=== PATIENT | female | born 1955 | race Caucasian/White ===

== ENCOUNTER 2020-03-25 14:52 | Outpatient (CLI) | payer MEDICARE, MEDICAID, SELFPAY | END 2020-03-25 14:53 | disposition home or self-care (01) | LOC: SPT 14:53 | PROVIDERS: Family Provider Nurse Practitioner Family; Visit Provider Podiatrist Foot & Ankle Surgery | DX: Z46.89 Encounter for fitting and adjustment of other specified devices (principal); M84.464D Pathological fracture, left fibula, subsequent encounter for fracture with routine healing; X58.XXXD Exposure to other specified factors, subsequent encounter | CPT/HCPCS: L4361 ==

== ENCOUNTER 2020-03-28 08:08 | Day surgery (SDC) | payer MEDICARE, MEDICAID, SELFPAY ==
[2020-03-27 10:52] VITALS: BMI 39.9
[2020-03-27 13:54] VITALS: BMI 39.9
--- NOTE | 2020-03-28 | XR_ITS ---
WS: [id number] XR ankle LT 2V [id number] REASON FOR EXAM: ORIF left fibula FINDINGS: A metal plate is seen transversing the fracture of the fibula demonstrate screws through th e plate are noted. Good alignment conclusion of the procedure. XR/XR ankle LT 2V [id number] IMPRESSION: Satisfactory immobilized and internal fixation fracture of the fibula.
--- NOTE | 2020-03-28 | SCC_ITS ---
Procedure Done: Open reduction internal fixation left distal fibular fracture. CPT code 34663 - seconds of fluoroscopic guidance, for a cumulative dose of - mGy, was provided to Dr. Dominguez by the radiology department. C-arm images of the LEFT ankle were saved for the patient's permanent record. [facility]
[2020-03-28 08:27] VITALS: BP 179/87; PULSE 85; RESP 16; TEMP 36.6; O2SAT 97
[2020-03-28 08:33] VITALS: BMI 39.9
--- NOTE | 2020-03-28 08:46 | ANES.PREANE2 ---
Pre-Anesthetic Assessment Pre-Anesthetic Assessment: Height/Weight: Height 1.57 m Weight 98.883 kg Temp Pulse Resp BP Pulse Ox 97.9 F 85 16 179/87 97 03/28/20 08:27 03/28/20 08:27 03/28/20 08:27 03/28/20 08:27 03/28/20 08:27 Preop Diagnosis: Left distal fibular fracture Proposed Procedure: Operation Date: 03/28/20 09:25 Proposed Procedures p ORIF left fibula 16417 S82.402A(Left) - Alek Dominguez DPM Familial anesthetic complications: None Was Beta Adriana taken within 24 hours: N/A Last intake: Intake Last Liquid Date 03/27/20 Last Liquid Time 20:00 Last Solid Date 03/27/20 Last Solid Time 20:00 Social: Social History: No alcohol and No tobacco Exam: Pre-Anes Outpt Exam: alert, oriented x 3, clear to auscultation bilaterally and regular rate & rhythm Airway: Cervical ROM: WNL MP: 2 Additional comments: dentures Pulmonary: Pulmonary: Sleep apnea (cpap) and URI ( i thought i had the flu, but it was alllergies. Negative flud and covid)) CV/HEM: CV/HEM: HTN : : None reported Hepatic: Hepatic: None reported GI: GI: None reported Metabolic: Metabolic: DM, Hyperlipidemia and Morbid obesity Musc/skel: Musc/skel: OA/DJD Neuropsych: Neuropsych: None reported Anesthetic Plan: ASA status: 2 Anesthesia: General and Regional (specify below) Risk of > 500 ml blood loss (7ml/kg in children): No PFSH Anesthesia PFSH: Medical History (Updated 03/26/20 @ 10:00 by Alek Dominguez DPM) Diabetes mellitus High cholesterol Hypertension Surgical History (Updated 03/26/20 @ 09:54 by Alek Dominguez DPM) History of Achilles tendon repair History of hernia repair History of neck surgery Family History (Updated 03/25/20 @ 12:07 by Mehreen Walters LPN) Other Cancer Diabetes Social History (Updated 03/25/20 @ 12:07 by Mehreen Walters LPN) Smoking and tobacco status: never smoked Household members: children Current occupational status: disabled Female Reproductive History: Date of last menstrual period: 09/13/07 Data Anesthesia Cardiac Studies: No Data to Display
[2020-03-28 08:53] LABS: Glucose Point of Care 182 mg/dL (70-110)
[2020-03-28] MEDS: sodium chloride 0.9% 1,000 ML 30 ML IV (08:59)
[2020-03-28] MEDS: midazolam 1 mg/mL INJ 2 mL 2 MG IVP (09:07)
--- NOTE | 2020-03-28 09:16 | ANES.PROC ---
Anesthesia Procedures Procedure/Date: 03/28/20 Nerve Block ^: Nerve Block 1: Main Anesthesia: general anesthesia Time Out Performed: Yes Consent: requested by attending/covering physician, from patient, risks and benefits reviewed and patient agrees to proceed Nerve block location: popliteal (L) Anesthesia monitors applied: pulse oximetry, BP cuff and oxygen Nerve block position: semi sitting Anesthetic Used: ropivicaine 0.5% and with decadron Amount of anesthesia used (mL): 30 Ultrasound used to: recognize landmarks Interscalene/Femoral BLK: 4 stimuplex 21 g needle used for position and inplane approach Injection: neg aspiration of heme and paresthesia +/- Patient Tolerated Procedure: well and no complications Complications: none
--- NOTE | 2020-03-28 09:37 | W.PM.OPSUD ---
Surgery/Procedure H&P Update DATE OF PROCEDURE: March 28, 2020 DATE H&P PERFORMED: 03/25/20 H&P UPDATE INFORMATION: I have reviewed H&P completed within last 30 days, I have examined patient prior to procedure and H&P is in [facility] EMR on date indicated PREOP DIAGNOSIS: Left distal fibular fracture PLANNED PROCEDURE: Operation Date: 03/28/20 09:25 Proposed Procedures p ORIF left fibula 01674 S82.402A(Left) - Alek Dominguez DPM
[2020-03-28 11:05] VITALS: BP 127/69; PULSE 78; RESP 20; TEMP 36.3; O2SAT 98
--- NOTE | 2020-03-28 11:09 | SUR.PHASEI ---
PT AWAKE ALERT DENIES PAIN AND NAUSEA, PT TALKATIVE AND REQUESTS SOMETHING TO DRINK DRESSING AND BOOT TO LT FOOT D/I
[2020-03-28 11:10] VITALS: BP 119/56; PULSE 71; RESP 15; O2SAT 100
[2020-03-28 11:15] VITALS: BP 124/63; PULSE 75; RESP 18; TEMP 36.5; O2SAT 95
[2020-03-28 11:16] VITALS: BP 124/98; PULSE 72; RESP 18; TEMP 36.5; O2SAT 94
[2020-03-28 11:41] VITALS: BP 120/73; PULSE 72; RESP 16; O2SAT 94
--- NOTE | 2020-03-28 13:09 | SCC_ITS ---
Procedure Done: Open reduction internal fixation left distal fibular fracture. CPT code 95044 C-arm images of the LEFT ankle were saved for the patient's permanent record. [facility]
--- NOTE | 2020-03-30 21:43 | PM.OP ---
Operative Report Date of procedure: March 28, 2020 Pre-op Diagnosis: Left distal fibular fracture Post-op diagnosis: same Procedure Done: Open reduction internal fixation left distal fibular fracture. CPT code 30945 Implants: Angélica one third tubular plate and 3.5 mm locking and nonlocking screws. Specimens removed/disposition: None Pathology: none sent Surgeon: Alek Dominguez D.P.M. Insurance Sales Manager: Freddy Anesthesia: General Estimated blood loss: 5 mL IV fluids: None Urine output: None Complications: None Findings: Chavo Griggs B fracture left ankle Condition: stable Disposition: PACU Brief History: Ms. Billy is a pleasant 64-year-old diabetic female sustained a left distal fibular fracture consistent with Chavo Griggs B. Recommended open reduction internal fixation risks include pain, bleeding, numbness, infection, damage to adjacent soft tissue structures, swelling, bruising, hardware failure, hardware irritation, risks associate with anesthesia, also explained the likelihood of posttraumatic arthritis in the future as a sequela of this injury. Patient is agreeable wishes to proceed. Procedure: Under mild sedation the patient was brought to the operating room and placed on operating table in supine position. A timeout was performed. Anesthesia was administered by the anesthesia service. Saphenous nerve block was then performed by myself 5 cc of 0.5% Marcaine plain. Popliteal block of the left lower extremity was carried out by anesthesia preoperatively. Well-padded pneumatic tourniquet was applied to the left thigh. Left lower extremity was then scrubbed, prepped and draped utilizing normal aseptic technique. Left lower extremity was then examined a weighted with an Esmarch bandage and the tourniquet was inflated to 250 mmHg. Attention was directed to the distal fibula of the left ankle or bony landmarks were palpated and skin incision marked out this was approximately 10 cm in length. At the distal fibula coursing proximally a #15 blade was utilized to perform skin incision utilizing a combination of blunt and sharp technique dissection was carried down to the periosteum followed by a linear periosteal incision. Care was taken to retract and preserve neurovascular and tendinous structures. All bleeders were ligated and cauterized as necessary. The fracture hematoma was removed utilizing curettage followed by saline flush. Fracture was reduced with traction of the left foot and ankle utilizing reverse mechanism of injury fracture was adequately reduced and temporarily held utilizing a [id number] bone reduction forceps. Next utilizing standard AO technique a [place] one third tubular plate was employed utilizing a combination of locking and nonlocking 3 5 screws. Temporary fixation was removed and positioning of orthopedic hardware was confirmed with direct visualization as well as 3 views of intraoperative fluoroscopy noted to be excellent not violating the ankle mortise fibula is out to length without any rotational deformity with fracture anatomically reduced. Construct was stable, cotton hook test performed no syndesmotic interruption appreciated. Incision site was flushed with saline solution. Periosteum was reapproximated utilizing 2-0 Vicryl. Subcutaneous tissue closed with 4-0 Vicryl and skin closed with skin lisa. Incision site was dressed with Adaptic, sterile 4 x 4's, Kerlix and Denzel wrap. Cam boot was then applied. Tourniquet was deflated and a prompt hyperemic response was noted to the distal digits of the left foot. Patient tolerated procedure well and was transferred to the PACU with vital signs stable and vascular status intact. Following a period of postoperative monitoring she will be discharged home is to remain strict nonweightbearing and elevate her left foot at all times while at rest. She was sent a prescription for narcotic pain medication to be taken judiciously as prescribed. She will follow-up next week for dressing change. Was provided my cell phone number and is to contact me with any postoperative questions or concerns.
== END 2020-03-28 11:55 | disposition home or self-care (01) ==
PROVIDERS: PCP Nurse Practitioner Family; Visit Provider Podiatrist Foot & Ankle Surgery
PROC: (CPT 27792; principal; 2020-03-28 09:25)
DX: S82.402A Unspecified fracture of shaft of left fibula, initial encounter for closed fracture (principal); X50.1XXA Overexertion from prolonged static or awkward postures, initial encounter; Z79.82 Long term (current) use of aspirin; E11.9 Type 2 diabetes mellitus without complications; I10 Essential (primary) hypertension; Z79.84 Long term (current) use of oral hypoglycemic drugs
CPT/HCPCS: 27792; 12345; 36416; 73600; 76000; 82962; 96365; 96374; C1713; J0690; J1100; J2001; J2250; J2405; J2704; J2795; J3010; J3490; J7030

== ENCOUNTER → 2020-04-10 15:54 | Outpatient (BNVA) | payer MEDICARE, MEDICAID, SELFPAY | PROVIDERS: PCP Nurse Practitioner Family; Visit Provider Podiatrist Foot & Ankle Surgery | DX: Z98.890 Other specified postprocedural states (principal) | CPT/HCPCS: 73610 ==

== ENCOUNTER → 2020-04-30 14:32 | Outpatient (BNVA) | payer MEDICARE, MEDICAID, SELFPAY | PROVIDERS: PCP Nurse Practitioner Family; Visit Provider Podiatrist Foot & Ankle Surgery | DX: Z98.890 Other specified postprocedural states (principal) | CPT/HCPCS: 73610 ==

== ENCOUNTER 2020-05-16 09:31 | Outpatient (CLI) | payer MEDICARE, MEDICAID, SELFPAY ==
--- NOTE | 2020-05-16 09:39 | XRR_ITS ---
PROCEDURE INFORMATION: Exam: XR Left Ankle Exam date and time: 05/16/2020 9:56 AM Age: 64 years old Clinical indication: Condition or disease; Other: Post op follow up; Prior surgery; Surgery date: 1-6 months; Additional info: Post operative TECHNIQUE: Imaging protocol: XR Left ankle. Views: 3 or more views. COMPARISON: CR XR ankle LT min 3V* [id number] 04/30/2020 2:37 PM FINDINGS: Bones/joints: Malleable surgical plate and screws stabilizing a distal fibular fracture in near anatomical alignment. Large spur formation at the insertion of the Achilles' tendon and plantar aponeurosis. Ankle mortise is symmetrical. Soft tissues: Normal. XR/XR ankle LT min 3V* [id number] IMPRESSION: 1. Malleable surgical plate and screws stabilizing a distal fibular fracture in near anatomical alignment. 2. Large spur formation at the insertion of the Achilles' tendon and plantar aponeurosis.
== END 2020-05-16 09:32 | disposition home or self-care (01) ==
LOC: RAD 09:37
PROVIDERS: PCP Nurse Practitioner Family; Visit Provider Podiatrist Foot & Ankle Surgery
DX: Z98.890 Other specified postprocedural states (principal); S82.832A Other fracture of upper and lower end of left fibula, initial encounter for closed fracture; X58.XXXA Exposure to other specified factors, initial encounter
CPT/HCPCS: 73610

== ENCOUNTER 2020-05-28 13:20 | Outpatient (CLI) | payer MEDICARE, MEDICAID, SELFPAY ==
--- NOTE | 2020-05-28 13:27 | XRR_ITS ---
PROCEDURE INFORMATION: Exam: XR Left Ankle Exam date and time: 05/28/2020 1:50 PM Age: 64 years old Clinical indication: Condition or disease; Other: Post operative; Prior surgery; Surgery date: Post-operative (0-2 days) TECHNIQUE: Imaging protocol: XR Left ankle. Views: 3 or more views. COMPARISON: CR XR ankle LT min 3V* [id number] 05/16/2020 9:49 AM FINDINGS: Bones/joints: There is an oblique fracture of the lateral malleolus. There is a Metallic plate and screws are seen in the lateral malleolus. The bones show anatomic alignment. No acute bony abnormalities seen. There is a bone spur inferior calcaneus. Soft tissues: Normal. Other findings: Comparison to prior examination similar findings is seen. XR/XR ankle LT min 3V* [id number] IMPRESSION: 1. Oblique fracture lateral malleolus status post ORIF. 2. A bone spurs present on the inferior calcaneus
== END 2020-05-28 13:21 | disposition home or self-care (01) ==
LOC: RAD 13:24
PROVIDERS: PCP Nurse Practitioner Family; Visit Provider Podiatrist Foot & Ankle Surgery
DX: Z98.890 Other specified postprocedural states (principal); S82.62XA Displaced fracture of lateral malleolus of left fibula, initial encounter for closed fracture; X58.XXXA Exposure to other specified factors, initial encounter; M77.32 Calcaneal spur, left foot
CPT/HCPCS: 73610

== ENCOUNTER 2020-05-28 14:31 | Outpatient (CLI) | payer MEDICARE, MEDICAID, SELFPAY | END 2020-05-28 14:32 | disposition home or self-care (01) | LOC: SPT 14:32 | PROVIDERS: PCP Nurse Practitioner Family; Visit Provider Podiatrist Foot & Ankle Surgery | DX: Z46.89 Encounter for fitting and adjustment of other specified devices (principal); Z98.890 Other specified postprocedural states; S82.62XA Displaced fracture of lateral malleolus of left fibula, initial encounter for closed fracture; X58.XXXA Exposure to other specified factors, initial encounter; M77.32 Calcaneal spur, left foot | CPT/HCPCS: 73610; 97760; L1902 ==

== ENCOUNTER → 2020-06-26 14:13 | Outpatient (BNVA) | payer MEDICARE, MEDICAID, SELFPAY | PROVIDERS: PCP Nurse Practitioner Family; Visit Provider Podiatrist Foot & Ankle Surgery | DX: Z47.89 Encounter for other orthopedic aftercare (principal); S82.62XD Displaced fracture of lateral malleolus of left fibula, subsequent encounter for closed fracture with routine healing; W19.XXXD Unspecified fall, subsequent encounter | CPT/HCPCS: 73610 ==

== ENCOUNTER 2020-10-22 13:13 | Outpatient (CLI) | payer MEDICARE, MEDICAID, SELFPAY ==
--- NOTE | 2020-10-22 13:31 | MM_ITS ---
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 FINDINGS: Scattered fibroglandular densities bilaterally. Lucent centered calcification right breast. Palpable marker upper outer left breast. No underlying mammographic abnormality. Ultrasound is pending. Right breast is unremarkable and unchanged. ULTRASOUND BREAST LEFT TECHNIQUE: Ultrasound left breast focused area of concern. CLINICAL INFORMATION: D49.3 NEOPLASM OF UNSPECIFIED BEHAVIOR OF BREAST COMPARISON: None. FINDINGS: Ultrasound left breast upper-outer quadrant. Normal-appearing parenchymal tissue. No cystic or solid lesions. No lesions to target for biopsy. Recommend return to annual screening mammography. MM/[place] [id number] IMPRESSION: BI-RADS: 2-Benign FOLLOW UP: 1 Year Follow-up Recommend return to annual screening mammography.
--- NOTE | 2020-10-22 14:06 | US_ITS ---
WS: [id number] BILATERAL DIGITAL DIAGNOSTIC MAMMOGRAM MAMMOGRAPHY WITH CAD CLINICAL INFORMATION: D49.3 NEOPLASM OF UNSPECIFIED BEHAVIOR OF BREAST COMPARISON: TECHNIQUE: Bilateral CC, MLO, and ML views. FINDINGS: Scattered fibroglandular densities bilaterally. Lucent centered calcification right breast. Palpable marker upper outer left breast. No underlying mammographic abnormality. Ultrasound is pending. Right breast is unremarkable and unchanged. ULTRASOUND BREAST LEFT TECHNIQUE: Ultrasound left breast focused area of concern. CLINICAL INFORMATION: D49.3 NEOPLASM OF UNSPECIFIED BEHAVIOR OF BREAST COMPARISON: None. FINDINGS: Ultrasound left breast upper-outer quadrant. Normal-appearing parenchymal tissue. No cystic or solid lesions. No lesions to target for biopsy. Recommend return to annual screening mammography. US/US breast LT limited* [id number] IMPRESSION: BI-RADS: 2-Benign FOLLOW UP: 1 Year Follow-up Recommend return to annual screening mammography.
== END 2020-10-22 13:14 | disposition home or self-care (01) ==
LOC: RADSHAW 13:18
PROVIDERS: PCP Nurse Practitioner Family; Visit Provider Nurse Practitioner Family
DX: D49.3 Neoplasm of unspecified behavior of breast (principal); R92.8 Other abnormal and inconclusive findings on diagnostic imaging of breast
CPT/HCPCS: 76642; 77066

== ENCOUNTER → 2020-12-25 14:16 | Outpatient (BNVA) | payer MEDICARE, MEDICAID, SELFPAY | PROVIDERS: PCP Nurse Practitioner Family; Visit Provider Podiatrist Foot & Ankle Surgery | DX: Z47.89 Encounter for other orthopedic aftercare (principal); S82.432D Displaced oblique fracture of shaft of left fibula, subsequent encounter for closed fracture with routine healing; X58.XXXD Exposure to other specified factors, subsequent encounter | CPT/HCPCS: 73610 ==

== ENCOUNTER → 2021-11-24 14:47 | Outpatient (BNVA) | payer MEDICARE, MEDICAID, SELFPAY | PROVIDERS: PCP Nurse Practitioner Family; Visit Provider Internal Medicine | DX: Z20.822 Contact with and (suspected) exposure to COVID-19 (principal); Z80.0 Family history of malignant neoplasm of digestive organs | CPT/HCPCS: 87635 ==

== ENCOUNTER 2021-11-30 08:14 | Day surgery (SDC) | payer MEDICARE, MEDICAID, SELFPAY ==
[2021-11-26 14:12] VITALS: BMI 36.6
--- NOTE | 2021-11-30 08:29 | ANES.PREANE2 ---
Pre-Anesthetic Assessment Pre-Anesthetic Assessment: Height/Weight: Height 1.57 m Weight 90.718 kg Preop Diagnosis: Left distal fibular fracture Proposed Procedure: Operation Date: 11/30/21 09:45 Proposed Procedures p Colonoscopy /Z80.0 history of colon cancer(Not Applicable) - Harpreet Neumann MD Familial anesthetic complications: None Was Beta Adriana taken within 24 hours: N/A Was Clonidine taken within 24 hours: N/A Last intake: > 8 hrs Social: Social History: No alcohol and No tobacco Exam: Pre-Anes Outpt Exam: alert, oriented x 3, clear to auscultation bilaterally and regular rate & rhythm Airway: MP: 2 Dentition: False CV/HEM: CV/HEM: HTN Metabolic: Metabolic: DM and Hyperlipidemia Musc/skel: Musc/skel: OA/DJD Anesthetic Plan: ASA status: 2 Anesthesia: MAC Risk of > 500 ml blood loss (7ml/kg in children): No PFSH Anesthesia PFSH: Medical History (Updated 11/18/21 @ 13:45 by Harpreet Neumann MD) Diabetes mellitus High cholesterol Hypertension Surgical History History of Achilles tendon repair History of hernia repair History of neck surgery Family History Other Cancer Diabetes Social History Smoking and tobacco status: former smoker Household members: children Current occupational status: disabled Female Reproductive History: Date of last menstrual period: 09/13/07 Data Anesthesia Cardiac Studies: No Data to Display
[2021-11-30 08:57] VITALS: BP 174/86; PULSE 85; RESP 16; O2SAT 98
[2021-11-30] MEDS: sodium chloride 0.9% 1,000 ML 30 ML IV (09:16)
--- NOTE | 2021-11-30 09:17 | W.PM.OPSFHP ---
Same Day Surgery H&P Indication for Procedure/HPI DATE OF PROCEDURE: November 30, 2021 CHIEF COMPLAINT/INDICATIONFOR SURGICAL PROCEDURE: Family history of colonFamily history of colon cancer PREOP DIAGNOSIS: FH and hematochezia PLANNED PROCEDRUE: Operation Date: 11/30/21 09:45 Proposed Procedures p Colonoscopy /Z80.0 history of colon cancer(Not Applicable) - Harpreet Neumann MD Medications/Allergies* Home Medications Medication Instructions Recorded Confirmed Type aspirin 81 mg tablet,delayed 81 mg PO DAILY 03/25/20 11/30/21 History release atorvastatin 40 mg tablet 40 mg PO DAILY 03/25/20 11/30/21 History glipizide 5 mg tablet 5 mg PO BID 03/25/20 11/30/21 History metformin 1,000 mg tablet 1,000 mg PO BID 03/25/20 11/30/21 History fluticasone propionate [Flonase 1 spray INTRANASAL DAILY 03/27/20 11/30/21 History Allergy Relief] lisinopril-hydrochlorothiazide 1 tab PO DAILY 03/27/20 11/30/21 History allopurinol 300 mg PO DAILY 11/26/21 11/30/21 History calcium carbonate-vitamin D3 1 tab PO DAILY 11/26/21 11/30/21 History [Calcium 500 + D] loratadine 10 mg PO DAILY 11/26/21 11/30/21 History multivitamin 1 cap PO DAILY 11/26/21 11/30/21 History vit [id number] [B 1 ml SUBLINGUAL DAILY 11/26/21 11/30/21 History Complex] Allergies/Adverse Reactions Allergy/AdvReac Type Severity Reaction Status Date / Time No Known Allergies Allergy Verified 11/18/21 13:11 Pertinent History/Comorbid Conditions* Medical History (Updated 11/18/21 @ 13:45 by Harpreet Neumann MD) Diabetes mellitus High cholesterol Hypertension Surgical History (Updated 04/14/20 @ 19:16 by Alek Dominguez DPM) History of Achilles tendon repair History of hernia repair History of neck surgery Family History (Updated 03/25/20 @ 12:07 by Mehreen Walters LPN) Diabetes Cancer Social History Smoking and tobacco status: former smoker Household members: children Current occupational status: disabled Pertinent Exam Findings alert, oriented x 3, clear to auscultation bilaterally, regular rate & rhythm, operative site marked and procedure specific exam findings Recommendations Surgery/Procedure today Coding Level of Care Code Acute [employer] for sharon Salgado
--- NOTE | 2021-11-30 10:36 | CT_ITS ---
WS: [id number] CT ABDOMEN PELVIS TECHNIQUE: Contrast-enhanced CT of the abdomen and pelvis with coronal and sagittal reformatted image s. CLINICAL INFORMATION: Newly found colon mass. COMPARISON: None. DLP: 1776.[address] scans at [facility] use at least one of these dose optimization techniques: automated e xposure control; mA and/or kV adjustment per patient size (includes targeted exams where dose is matc hed to clinical indication); or iterative reconstruction. FINDINGS: Diffuse fatty infiltration of the liver. No hepatic lesions. Normal portal vein and splenic vein. Nor mal GE junction. Splenic granulomas. Dense large calcified gallstones. Largest gallstone measures 2.5 CM.Diffuse thickening and enhancement of the colon at the hepatic flexure in the area of presumed co lonic mass. A few enlarged lymph nodes in the pelvis adjacent to the sigmoid colon are nonspecific. T he largest measures 12 mm in the left lower pelvis. Slightly prominent right 7 mm periaortic lymph no de. No inguinal lymphadenopathy. Lung bases are well aerated. Small esophageal hiatal hernia. Normal caliber abdominal aorta. Air-fluid levels in the colon post colonoscopy. Mild thickening of th e sigmoid colon. Normal appendix in the right lower quadrant. Hypertrophic changes lumbar spine. Slig ht anterolisthesis L4 on L5. CT/CT abdomen pelvis w con* [id number] IMPRESSION: 1. Diffuse thickening and enhancement of the ascending colon at the hepatic fl exure in the area of presumed colonic mass. 2. A few enlarged lymph nodes in the pelvis adjacent to the sigmoid colon are nonspecific. The largest measures 12 mm in the left lower pelvis. 3. No periaortic lymphadenopathy. Slight prominent right periaortic lymph node measuring 7 mm. 4. Dense cholelithiasis. 5. Diffuse fatty infiltration the liver with enlargement of the right hepatic lobe. No hepatic lesions. 6. Small esophageal hiatal hernia.
[2021-11-30 10:39] VITALS: BP 114/59; PULSE 74; RESP 16; TEMP 36.1; O2SAT 100
[2021-11-30 11:06] VITALS: BP 129/75; PULSE 75; RESP 18; O2SAT 99
[2021-11-30 13:12] LABS: Blood Urea Nitrogen 9 mg/dL (8-23); Creatinine Clr Calc Pharmacy 73.4311; Glomerular Filtration Rate 100.3 mL/min (90-130)
--- NOTE | 2021-11-30 13:17 | PC.NURSE ---
Patient placed in holding while waiting for insurance approval for CT.
[2021-11-30] MEDS: iohexol 300 mg/mL 50 mL Btl PO (14:07)
[2021-11-30] MEDS: iohexol 300 mg/mL 100 mL Btl IV (14:07)
--- NOTE | 2021-11-30 14:08 | ANE.PACU2 ---
Inpatient post-anesthesia follow up: Airway intact: Yes Vital signs: Temperature 97.0 F Pulse Rate 75 Respiratory Rate 18 Blood Pressure 129/75 Pulse Oximetry 99 Oxygen Delivery Me thod Room Air Oxygen Flow Rate 3 Fraction of Inspir ed Oxygen Hydration adequate: Yes Nausea and vomiting: No Pain level: 1 Mental status: Baseline
[2021-12-04 09:25] LABS: Miscellaneous Test See Scanned Lab Rpt
== END 2021-11-30 14:00 | disposition home or self-care (01) ==
PROVIDERS: PCP Nurse Practitioner Family; Visit Provider Internal Medicine
PROC: 0DJD8ZZ Inspection of Lower Intestinal Tract, Via Natural or Artificial Opening Endoscopic (ICD-10-PCS; CPT 45378; principal; 2021-11-30 09:45)
DX: K92.1 Melena (principal); Z80.0 Family history of malignant neoplasm of digestive organs; C19 Malignant neoplasm of rectosigmoid junction; E11.9 Type 2 diabetes mellitus without complications; Z79.82 Long term (current) use of aspirin; Z79.84 Long term (current) use of oral hypoglycemic drugs; E78.00 Pure hypercholesterolemia, unspecified; Z87.891 Personal history of nicotine dependence; I10 Essential (primary) hypertension; E78.5 Hyperlipidemia, unspecified; M19.90 Unspecified osteoarthritis, unspecified site
CPT/HCPCS: 36415; 45380; 45385; 74177; 82565; 84520; 88305; 88341; 88342; J2704; J7030; Q9967

== ENCOUNTER 2021-12-28 11:57 | Outpatient (CLI) | payer MEDICARE, MEDICAID, SELFPAY ==
[2021-12-28 14:18] LABS: Basophils # 0.1 10^3/uL (0.0-0.1); Basophils % 0.7 %; Eosinophils # 0.4 10^3/uL (0.0-0.8); Eosinophils % 5.1 %; Hematocrit 33.5 % (37.0-47.0); Hemoglobin 10.1 g/dL (11.5-15.3); Lymphocytes # 1.6 10^3/uL (0.8-4.8); Lymphocytes % 19.3 %; Mean Corpuscular HGB Conc 30.1 g/dL (30.0-36.0); Mean Corpuscular Hemoglobin 25.4 pg (28.0-34.0); Mean Corpuscular Volume 84.4 fl (81-99); Mean Platelet Volume 10.9 fL (7.4-10.4); Monocytes # 0.6 10^3/uL (0.2-0.9); Monocytes % 6.9 %; Neutrophils # 5.68 10^3/uL (1.8-7.7); Neutrophils % 67.9 %; Nucleated Red Blood Cells % 0 %; Platelet Count 382 10^3/cmm (130-400); Red Blood Count 3.97 10^6/uL (4.1-5.3); White Blood Count 8.4 10^3/uL (4.0-10.0)
[2021-12-28 15:01] LABS: Carcinoembryonic Antigen 2.8 ng/mL (0.0-4.7); Thyroid Stimulating Hormone 3.28 uIU/mL (0.27-4.20)
[2021-12-28 15:13] LABS: Alanine Aminotransferase 16 U/L (0-33); Albumin Level 4.3 g/dL (3.5-5.2); Alkaline Phosphatase 116 IU/L (35-105); Anion Gap 18.3 (5-19); Aspartate Amino Transferase 16 U/L (0-32); Blood Urea Nitrogen 12 mg/dL (8-23); Carbon Dioxide 24 mmol/L (22-29); Chloride 98 mmol/L (98-107); Globulin 2.7 g/dL (1.3-4.6); Glucose 152 mg/dL (65-115); Osmolality Calculated 285 mOsm/kg (285-295); Potassium 4.3 mmol/L (3.5-5.1); Sodium 136 mmol/L (136-145); Total Bilirubin 0.2 mg/dL (0.15-1.2)
[2021-12-28 15:28] LABS: Ferritin 12 ng/mL (15-150); Iron 26 ug/dL (37-145); Percent Saturation 7.5 % (20-50); Total Iron Binding Capacity 344 mcg/dl; Unsaturated Iron Binding 318 ug/dL (112-347)
[2021-12-28 15:44] LABS: Vitamin B12 1843 pg/mL (232-1245)
--- NOTE | 2021-12-28 18:38 | ONC CON_ITS ---
Dr. Brooke New Patient Note Patient: Latisha Billy Unit #: [id number]: 1955 Dicatated By: Alex Brooke M.D.Date of Visit: Dec 28, 2021 Onc MED New Patient/Consult Referring Physician: Dr. Charles Neumann M.D. Chief Complaint: Rectal cancer. 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 She has hypertension, hyperlipidemia, and type 2 diabetes. She began having some rectal bleeding following an open reduction for a distal left fibular fracture in March 2020. This was initially thought to be due to hemorrhoids. However, the bleeding persisted, and on 11/30/2021 she was found on colonoscopy to have a partially obstructing, large size, malignant appearing circumferential mass at 10 cm from the anal verge. The only other abnormal finding on that study was an adenomatous polyp at the hepatic flexure, which was removed endoscopically. Biopsy of the rectal mass showed moderately differentiated invasive carcinoma. By immunohistochemical analysis, the tumor showed intact nuclear expression of mismatch repair proteins. Her staging CT of the abdomen/pelvis on 11/30/2021 showed diffuse thickening and enhancement of the ascending colon at the hepatic flexure. A few enlarged lymph nodes in the pelvis were noted adjacent to the sigmoid colon, the largest measuring 12 mm, felt to be nonspecific. A slightly prominent right periaortic lymph node measured 7 mm. There was no other periaortic lymphadenopathy noted. There was evidence for diffuse fatty infiltration of the liver. There was no evidence of metastatic disease. She is seen for further management of the rectal cancer. She has been feeling pretty good generally. She says she typically takes a nap after lunch, but she still has normal activity. ECOG score is 0. Her appetite has been good and her weight has been stable. She does not have fever or night sweats. She had a cough about 3 weeks ago, and at that time someone else in the family did test positive for COVID-19. She was not actually tested, but presumed to have had COVID. She was otherwise not symptomatic, and the cough has resolved. She does not complain of shortness of breath or chest pain. She has just occasional heartburn. Her bowel function has been somewhat inconsistent. She typically has small bowel movement several times a day. She is now having just occasional episodes of dark red blood in the stool. She has frequent urination. She has some joint pain in her hands and knees, and she also has lower back pain. She does not complain of headache. Recently she has had some lightheadedness. She has neuropathy in her feet, and to a lesser extent in her hands. Past Medical History: Her medical history includes allergic rhinitis, degenerative arthritis, gout, hyperlipidemia, hypertension, and type II diabetes. Past Surgical History: Her surgical/procedural history includes open reduction and internal fixation for left distal fibular fracture in 2019, left inguinal hernia repair in 2015, right Achilles tendon repair in 2014, and cervical laminectomy/discectomy in 2009. Medications: Aspirin 1 Tablet (of 81 mg) Tablet, enteric coated Oral daily, Atorvastatin Calcium 1 Tablet (of 40 mg) Oral daily, B-Complex/B-12 1 mL Liquid Sublingual daily, Calcium 500 + D 1 Tablet (of 500-200 mg - Units) Oral daily, Fluticasone Propionate 1 [place](s) (of 50 mcg/act) Suspension Nasal daily, glipiZIDE 1 Tablet (of 5 mg) Oral b.i.d., Lisinopril 1 Tablet (of 10 mg) Oral daily, metFORMIN HCl 1 Tablet (of 1000 mg) Oral b.i.d., Multivitamin 1 Tablet Oral daily Allergies: No Known Allergies. Social History: Ms. Billy is . She had smoked in the past and she also had some alcohol use in the past, but she quit both. Family History: Father of lung cancer at age 70. Mother of colon cancer at age 69. She also had diabetes. A brother has also been treated for colon cancer, and a brother and a sister have diabetes. One sister with heart disease. Review Of Symptoms: Constitutional - She has pretty good energy. She does tend to nap after lunch, but she still has normal activity. Appetite is good and weight is stable. No fever, night sweats, or hot flashes. ECOG score is 0, Eyes - No change in vision, ENMT - No hearing loss or tinnitus. She has occasional allergy related sinus symptoms. No mouth sores. No sore throat or difficulty swallowing, Hematologic/Lymphatic - No abnormal bruising, Respiratory - No shortness of breath. She had cough 3 weeks ago, suspected to have been COVID. She was not tested. It has improved. . No pleuritic pain or hemoptysis, Cardiovascular - No angina pain. No palpitations, Gastrointestinal - No nausea or vomiting. She occasionally has heartburn. Bowel function has been somewhat inconsistent, but she typically has small bowel movements several times a day. She is now just having occasional dark red blood in the stool, Genitourinary (F) - No dysuria or hematuria. She has urinary frequency. No urgency or incontinence, Musculoskeletal - She has arthritis pain in her hands and knees, and she has lower back pain, Integumentary - No skin rash or other skin changes, Neurologic - No headache. She recently has had some lightheadedness. She has neuropathy in her feet, and to a lesser extent in her hands, Psychiatric - No anxiety or depression. She has some difficulty sleeping. Vital Signs: Performed on Dec 28, 2021 13:50: 2, 0, 35.59 (HIGH), 1.89 sq.m, 62 in, 96 %, 100 /min, 18 /min, 141/79 mm(hg) (HIGH), 97.2 F (LOW), and 194.6 lbs (HIGH). Physical Examination: Constitutional - She looks pretty good generally, Eyes - Sclerae nonicteric. Conjunctivae clear, ENMT - No lesions noted in the oral cavity, Neck - No mass or thyromegaly, Hematologic/Lymphatic - No cervical, clavicular, or axillary adenopathy, Respiratory - Lungs are clear with good air movement bilaterally, Cardiovascular - Heart rhythm is regular. There is no murmur, gallop, or rub noted, Abdomen - Soft and non-tender. Liver and spleen are not enlarged. There is no abdominal mass or ascites noted and there is no inguinal adenopathy, Back/Spine - No spine or CVA tenderness noted, Extremities - No edema. Dorsalis pedis pulses are palpable bilaterally, Integumentary - No rashes. No suspicious skin lesions noted, Neurologic - No focal neurologic deficits noted. Problem List: 1. Moderately differentiated invasive adenocarcinoma of the rectum, MMR proficient. Staging is incomplete. 2. Hypertension. 3. Hyperlipidemia. 4. Type 2 diabetes. 5. Degenerative arthritis. 6. Gout. 7. Allergic rhinitis. 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 She has a positive family history for colon cancer, but her mismatch repair proteins were noted to be intact, which makes hereditary colon cancer unlikely. She will need to see a colorectal surgeon, and I will arrange for referral to Dr. Nichols in [place]. In the meantime, she will be scheduled for additional staging with MRI of the pelvis and chest CT scan. She will have baseline laboratory studies today to include CBC, comprehensive metabolic profile, serum iron studies, B12 level, TSH level, and CEA level. I am anticipating that she will be undergoing total neoadjuvant therapy which will include modified FOLFOX chemotherapy for 8 cycles followed by chemoradiation. I reviewed anticipated side effects with the chemotherapy, including the anticipated neuropathy with oxaliplatin. She will require placement of Port-A-Cath venous access device for the chemotherapy, and that will be scheduled as well. Signed By: Alex Brooke M.D. <<Signature on File>>
== END 2021-12-28 11:58 | disposition home or self-care (01) ==
PROVIDERS: PCP Nurse Practitioner Family; Visit Provider Internal Medicine Hematology & Oncology
DX: C20 Malignant neoplasm of rectum (principal); K92.1 Melena; D64.9 Anemia, unspecified; I10 Essential (primary) hypertension; E78.5 Hyperlipidemia, unspecified; E11.9 Type 2 diabetes mellitus without complications; M19.90 Unspecified osteoarthritis, unspecified site; M10.9 Gout, unspecified; J30.9 Allergic rhinitis, unspecified; Z80.0 Family history of malignant neoplasm of digestive organs; Z87.891 Personal history of nicotine dependence; Z79.82 Long term (current) use of aspirin; Z79.899 Other long term (current) drug therapy
CPT/HCPCS: 36415; 80053; 82378; 82607; 82728; 83540; 83550; 84443; 85025; 99205

== ENCOUNTER 2021-12-29 09:32 | Outpatient (CLI) | payer MEDICARE, MEDICAID, SELFPAY ==
--- NOTE | 2021-12-29 09:37 | MM_ITS ---
WS: [id number] BILATERAL SCREENING DIGITAL MAMMOGRAM WITH CAD HISTORY: SCREENING COMPARISON: 2019, 10/25/2019 and 09/17/2019 and 08/30/2017 Bilateral CC and MLO views submitted. Computer aided detection analyzed. Breast composition: There are scattered areas of fibroglandular density. No suspicious masses, microc alcifications or architectural distortion. Benign lucent centered calcification in the RIGHT breast. MM/[place] [id number] IMPRESSION: BI-RADS: 2-Benign FOLLOW UP: 1 Year Follow-up
== END 2021-12-29 09:33 | disposition home or self-care (01) ==
LOC: RADSHAW 09:34
PROVIDERS: PCP Nurse Practitioner Family; Visit Provider Nurse Practitioner Family
DX: Z12.31 Encounter for screening mammogram for malignant neoplasm of breast (principal)
CPT/HCPCS: 77067

== ENCOUNTER 2022-01-25 12:58 | Outpatient (CLI) | payer MEDICARE, MEDICAID, SELFPAY ==
--- NOTE | 2022-01-25 13:13 | CT_ITS ---
WS: [id number] CT CHEST TECHNIQUE: Contrast enhanced CT of the chest with coronal and sagittal reformatted images. CLINICAL INFORMATION: RECTAL CANCER COMPARISON: None. DLP: 706.[address] scans at [facility] use at least one of these dose optimization techniques: automated e xposure control; mA and/or kV adjustment per patient size (includes targeted exams where dose is matc hed to clinical indication); or iterative reconstruction. FINDINGS: Lungs are well aerated. No acute pulmonary infiltrates. No focal pneumonia or pleural fluid. Slight s ubsegmental atelectasis RIGHT upper lobe. A few calcified granulomas. Subsegmental atelectasis RIGHT lower lobe. Slightly hazy noncalcified nod ule LEFT upper lobe laterally measuring 4 mm. Tiny 3 mm nodule LEFT lower lobe. Tiny 2 mm nodule RIGH T lower lobe. Calcified RIGHT thyroid nodule measuring 13 mm. No axillary lymphadenopathy. Normal caliber thoracic aorta. Suggestion of filling defects or mixing artifact in the distal main pulmonary artery and LEFT upper lobe pulmonary arteries. Recommend further evaluation with CTA chest PE protocol. Diffuse fatty infiltration of the liver. Dense cholelithiasis. Large calcified gallstone measuring 2. 5 CM. Adrenal glands are normal. Splenic granulomas. Small esophageal hiatal hernia. Hypertrophic sunday nges thoracic spine. Prior postoperative changes cervical fusion partially visualized. CT/CT chest w con* [id number] IMPRESSION: 1. No convincing evidence of metastatic disease in the chest. 2. No mediastinal or hilar lymphadenopathy. 3. Three tiny nonspecific subcentimeter 2-3 mm pulmonary nodules in the LEFT u pper lobe, LEFT lower lobe, and RIGHT lower lobe. Largest in the LEFT upper lob e measures 3 mm. 4. Contrast mixing or filling defect in the distal LEFT main pulmonary artery nonspecific but pulmonary embolus should be excluded. Recommend further evaluat ion with CTA chest PE protocol 5. Calcified 13 mm RIGHT thyroid nodule. Notified Alex Brooke MD at 01/25/2022 3:12 PM.
[2022-01-25] MEDS: iohexol 300 mg/mL 100 mL Btl IV (13:59)
== END 2022-01-25 12:59 | disposition home or self-care (01) ==
LOC: RAD 12:59
PROVIDERS: PCP Nurse Practitioner Family; Visit Provider Internal Medicine Medical Oncology
DX: C20 Malignant neoplasm of rectum (principal); Z20.822 Contact with and (suspected) exposure to COVID-19; R91.8 Other nonspecific abnormal finding of lung field; E04.1 Nontoxic single thyroid nodule
CPT/HCPCS: 71260; 87635

== ENCOUNTER 2022-01-27 10:55 | Outpatient (CLI) | payer MEDICARE, MEDICAID, SELFPAY ==
--- NOTE | 2022-01-27 | CT_ITS ---
WS: [id number] CTA OF THE CHEST WITH PULMONARY EMBOLISM PROTOCOL TECHNIQUE: High-resolution contrast enhanced CTA of the chest with coronal and sagittal reformatted i antonia with pulmonary embolism protocol. MIP images are also reviewed. CLINICAL INFORMATION: F/U FROM PREVIOUS CHEST CT COMPARISON: January 25, 2022 DLP: 525.[address] scans at [facility] use at least one of these dose optimization techniques: automated e xposure control; mA and/or kV adjustment per patient size (includes targeted exams where dose is matc hed to clinical indication); or iterative reconstruction. FINDINGS: Proximal main pulmonary arteries are normal. Previously described filling defect in the LEFT pulmonar y artery fills normally on today's examination. Normal segmental and subsegmental pulmonary arteries. No evidence of pulmonary embolus. Normal caliber thoracic aorta. Calcified RIGHT thyroid nodule measuring 13 mm. Calcified subcarinal a nd RIGHT hilar lymph nodes. Recently described small subcentimeter pulmonary nodules are unchanged. No acute pulmonary infiltrate s. Cholelithiasis. Small esophageal hiatal hernia. Calcified splenic granulomas. Adrenal glands are n ormal. Hypertrophic changes thoracic spine. Postoperative changes anterior fusion lower cervical spin e. CT/CT angio chest PE protcl [id number] IMPRESSION: 1. Proximal main pulmonary arteries are normal. No evidence of pulmonary embol us. 2. Both lungs are well aerated. No acute pulmonary infiltrates. 3. Small esophageal hiatal hernia. 4. Calcified RIGHT thyroid nodule measuring 13 mm. 5. No other significant changes from the recent study.
[2022-01-27] MEDS: iohexol 350 mg/mL 100 mL Btl IV (11:45)
== END 2022-01-27 10:56 | disposition home or self-care (01) ==
LOC: RAD 10:58
PROVIDERS: PCP Nurse Practitioner Family; Visit Provider Internal Medicine Medical Oncology
DX: R91.8 Other nonspecific abnormal finding of lung field (principal); K44.9 Diaphragmatic hernia without obstruction or gangrene; E04.1 Nontoxic single thyroid nodule
CPT/HCPCS: 71275

== ENCOUNTER 2022-01-28 08:26 | Outpatient (CLI) | payer MEDICARE, MEDICAID, SELFPAY ==
--- NOTE | 2022-01-31 11:56 | ONC FU_ITS ---
Dr. Brooke Patient Follow-Up Note Patient: Latisha Billy Unit #: [id number]: 1955 Dicatated By: Alex Brooke M.D.Date of Visit:Jan 28, 2022 Onc Med Follow-up/Prog Note Chief Complaint: Colon cancer. 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 She began having some rectal bleeding following an open reduction for a distal left fibular fracture in March 2020. This was initially thought to be due to hemorrhoids. However, the bleeding persisted, and on 11/30/2021 she was found on colonoscopy to have a partially obstructing, large size, malignant appearing circumferential mass, reported at 10 cm from the anal verge. The only other abnormal finding on that study was an adenomatous polyp at the hepatic flexure, which was removed endoscopically. Biopsy of the rectal mass showed moderately differentiated invasive carcinoma. By immunohistochemical analysis, the tumor showed intact nuclear expression of mismatch repair proteins. Her staging CT of the abdomen/pelvis on 11/30/2021 showed diffuse thickening and enhancement of the ascending colon at the hepatic flexure. A few enlarged lymph nodes in the pelvis were noted adjacent to the sigmoid colon, the largest measuring 12 mm, felt to be nonspecific. A slightly prominent right periaortic lymph node measured 7 mm. There was no other periaortic lymphadenopathy noted. There was evidence for diffuse fatty infiltration of the liver. There was no evidence of metastatic disease. I had seen her initially on 12/28/2021, and with those findings, she then had colorectal surgery consultation with Dr. Nichols. On his evaluation, he felt that it was more likely a sigmoid tumor, and that was subsequently confirmed with his staging MRI, which also was suspicious for regional lymph node involvement. As such, it was recommended that she proceed directly to surgical resection. On 01/12/2022 she underwent robotic low anterior resection with laparoscopic resection of epiploic nodule. The tumor was noted to be in more of a distal sigmoid location, at least 5 to 10 cm above the peritoneal reflection. There was no evidence of intra-abdominal tumor spread, and the liver appeared normal. A small epiploic nodule was noted in the proximal sigmoid colon and removed separately. There were no complications with the procedure. Pathology showed grade 2 invasive adenocarcinoma measuring 5.3 cm in greatest dimension. There was transmural invasion extending into the visceral peritoneum. There was lymphovascular invasion and perineural invasion present. All margins were negative for invasive carcinoma. There was involvement in 11 of 35 lymph nodes. Pathologic staging was pT4a, pN2b. Her other medical illnesses include hypertension, hyperlipidemia, type 2 diabetes, allergic rhinitis, degenerative arthritis/degenerative disease of the spine, and gout. She had smoked in the past, but quit. INTERIM HISTORY: Her staging chest CT on 01/25/2022 showed no convincing evidence for metastatic disease, though 3 tiny nonspecific pulmonary nodules were noted, measuring in the range of 2 to 3 mm. There was noted to be contrast mixing or filling defect in the distal left main pulmonary artery, suspicious for pulmonary embolus. With that finding, she had further evaluation with CT pulmonary angiogram on 01/27/2022. It showed no evidence for pulmonary embolus. She is seen for a follow-up visit. Thus far she has had an uneventful postop recovery. She still has limited activity following the surgery. She says she is napping every day. Her ECOG score is 2. Her appetite has been okay, though her diet also is somewhat restricted. She does not have fever or night sweats. She has not had sore mouth or throat. She does not complain of cough, and she is not having shortness of breath or chest pain. She is having some postprandial nausea and bloating. She was having constipation, but she was able to get that relieved with magnesium citrate. She has frequent urination. She has some arthritis in her hands and feet. She does not complain of headache or dizziness. She reports having slight numbness/tingling. Medications: Aspirin 1 Tablet (of 81 mg) Tablet, enteric coated Oral daily, Atorvastatin Calcium 1 Tablet (of 40 mg) Oral daily, B-Complex/B-12 1 mL Liquid Sublingual daily, Calcium 500 + D 1 Tablet (of 500-200 mg - Units) Oral daily, Fluticasone Propionate 1 [place](s) (of 50 mcg/act) Suspension Nasal daily, glipiZIDE 1 Tablet (of 5 mg) Oral b.i.d., Iron (Ferrous Sulfate) 1 Tablet (of 325 (65 fe) mg) Oral daily, Lisinopril 1 Tablet (of 10 mg) Oral daily, metFORMIN HCl 1 Tablet (of 1000 mg) Oral b.i.d., Multivitamin 1 Tablet Oral daily Allergies: No Known Allergies. Vital Signs: Performed on Jan 28, 2022 08:39 Height - 62.00 in Weight - 187.0 lbs (LOW) BSA - 1.86 sq.m BMI - 34.20 (HIGH) Temperature - 97.2 F (LOW) Pulse - 96 /min Respiration - 16 /min BP - 168/81 mm(hg) (HIGH) O2 Sat - 98 % Pain - 1 Fatigue - 2 Physical Examination: Constitutional - She still looks pretty good generally, Eyes - Sclerae nonicteric. Conjunctivae clear, ENMT - No lesions noted in the oral cavity, Hematologic/Lymphatic - No cervical, clavicular, or axillary adenopathy, Respiratory - Lungs are clear with good air movement bilaterally, Cardiovascular - Heart rhythm is regular. There is no murmur, gallop, or rub noted, Abdomen - Mildly distended but soft. The incisions appear well-healed. Liver and spleen are not enlarged. There is no abdominal mass or ascites noted and there is no inguinal adenopathy, Extremities - No edema, Neurologic - No focal neurologic deficits noted. Lab/Imaging: Her laboratory studies from 12/28/2021 included CBC showing hemoglobin 10.1 g, white blood cell count 8400, and platelet count 382,000. Comprehensive metabolic profile showed normal renal function with BUN 12 and creatinine 0.7 mg/dL. Alkaline phosphatase was minimally elevated at 116/105 IU/L. The bilirubin and the other liver enzymes were normal. The serum iron studies showed low transferrin saturation at 7.5% and the ferritin was low at 12 ng/mL, consistent with iron deficiency. Problem List: 1. Grade 2 invasive adenocarcinoma of the sigmoid colon, stage IIIC (pT4a, pN2b, M0), MMR proficient. 2. Hypertension. 3. Hyperlipidemia. 4. Type 2 diabetes. 5. Degenerative arthritis/degenerative disease of the spine. 6. Gout. 7. Allergic rhinitis. Problems Addressed with this Encounter and Plan: 1. Patient with grade 2 invasive adenocarcinoma of the sigmoid colon, stage IIIC (pT4a, pN2b, M0), MMR proficient. She underwent laparoscopic low anterior resection on 01/12/2022. Pathology showed invasion of the visceral peritoneum and there was involvement in 11 of 35 lymph nodes. The operative/pathology findings were reviewed with the patient, and we discussed the clinic complications. She is aware that her tumor has been completely resected, but with it being locally advanced and with involvement in 11 lymph nodes, she has at high risk for recurrence, and she is recommended to undergo adjuvant chemotherapy with 12 cycles of modified FOLFOX. I reviewed anticipated side effects with the chemotherapy which may include nausea/vomiting, alopecia, fatigue, low blood counts, and neuropathy, among others. She will need to undergo placement of Port-A-Cath venous access device for the chemotherapy, and she prefers to have that done locally. I will make those arrangements after she has had follow-up with Dr. Nichols and been cleared to proceed with chemotherapy. However, I anticipate that she will be starting treatment in the first week of February. 2. She had iron deficiency anemia. She will continue on oral iron supplementation. If she is not responding adequately or tolerating the oral iron, she will be given the option to have parenteral iron replacement. Signed By: Alex Brooke M.D. <<Signature on File>>
== END 2022-01-28 08:27 | disposition home or self-care (01) ==
PROVIDERS: PCP Nurse Practitioner Family; Visit Provider Internal Medicine Medical Oncology
DX: C18.7 Malignant neoplasm of sigmoid colon (principal); I10 Essential (primary) hypertension; E78.5 Hyperlipidemia, unspecified; E11.9 Type 2 diabetes mellitus without complications; M47.9 Spondylosis, unspecified; M10.9 Gout, unspecified; D50.9 Iron deficiency anemia, unspecified; J30.9 Allergic rhinitis, unspecified; Z79.899 Other long term (current) drug therapy; Z87.891 Personal history of nicotine dependence
CPT/HCPCS: 99215

== ENCOUNTER → 2022-02-09 09:23 | Outpatient (BNVA) | payer MEDICARE, MEDICAID, SELFPAY | PROVIDERS: PCP Nurse Practitioner Family; Referring Provider Internal Medicine Medical Oncology; Visit Provider Surgery | DX: Z20.822 Contact with and (suspected) exposure to COVID-19 (principal); Z11.52 Encounter for screening for COVID-19 | CPT/HCPCS: 87635; 87801 ==

== ENCOUNTER 2022-02-11 08:37 | Day surgery (SDC) | payer MEDICARE, MEDICAID, SELFPAY ==
[2022-02-10 13:08] VITALS: BMI 34.0
[2022-02-11] VITALS (7 sets, daily range): BP systolic 128–161; BP diastolic 60–99; PULSE 70–81; RESP 16–20; TEMP 36.1–36.6; O2SAT 94–98
--- NOTE | 2022-02-11 | SCC_ITS ---
Procedure done: 1. Placement of PowerPort in the right internal jugular vein 26.8 seconds of fluoroscopic guidance, for a cumulative dose of 4.44 mGy, was provided to Dr. Naqvi by the radiology department. C-arm images of the chest were saved for the patient's permanent record. [facility]
[2022-02-11] MEDS: sodium chloride 0.9% 1,000 ML 30 ML IV (09:01)
--- NOTE | 2022-02-11 09:01 | W.PM.OPSFHP ---
Same Day Surgery H&P Indication for Procedure/HPI DATE OF PROCEDURE: February 11, 2022 CHIEF COMPLAINT/INDICATIONFOR SURGICAL PROCEDURE: Port placement PREOP DIAGNOSIS: rectal ca PLANNED PROCEDURE: Operation Date: 02/11/22 10:20 Proposed Procedures p Portacath Placement(Not Applicable) - Tato Naqvi MD Medications/Allergies* Home Medications Medication Instructions Recorded Confirmed Type aspirin 81 mg tablet,delayed 81 mg PO DAILY 03/25/20 02/11/22 History release atorvastatin 40 mg tablet 40 mg PO DAILY 03/25/20 02/11/22 History glipizide 5 mg tablet 5 mg PO BID 03/25/20 02/11/22 History metformin 1,000 mg tablet 1,000 mg PO BID 03/25/20 02/11/22 History fluticasone propionate 50 1 spray INTRANASAL DAILY 03/27/20 02/11/22 History mcg/actuation nasal spray,suspension (Flonase Allergy Relief) lisinopril 10 1 tab PO DAILY 03/27/20 02/11/22 History mg-hydrochlorothiazide 12.5 mg tablet allopurinol 300 mg tablet 300 mg PO DAILY 11/26/21 02/11/22 History calcium carbonate 500 mg (1,250 1 tab PO DAILY 11/26/21 02/11/22 History mg)-vitamin D3 200 unit tablet (Calcium 500 + D) loratadine 10 mg tablet 10 mg PO DAILY 11/26/21 02/11/22 History multivitamin 1 cap PO DAILY 11/26/21 02/11/22 History vitB2 1.7 mg-niacin 20 mg-B6 2 1 ml SUBLINGUAL DAILY 11/26/21 02/11/22 History mg-B12 1.2 mg/mL-dexpan sublingual liqd (B Complex) ferrous sulfate 325 mg (65 mg 325 mg PO DAILY 02/09/22 02/11/22 History iron) tablet (FeroSul) Allergies/Adverse Reactions Allergy/AdvReac Type Severity Reaction Status Date / Time No Known Allergies Allergy Verified 02/10/22 13:05 Pertinent History/Comorbid Conditions* Medical History (Updated 12/21/21 @ 15:15 by Haprreet Neumann MD) Diabetes mellitus High cholesterol Hypertension Surgical History (Updated 02/09/22 @ 09:17 by Tato Naqvi MD) H/O cervical spine surgery History of Achilles tendon repair History of colonoscopy History of hernia repair History of left inguinal hernia repair History of neck surgery Family History (Updated 03/25/20 @ 12:07 by Mehreen Walters LPN) Diabetes Cancer Social History Smoking and tobacco status: former smoker Household members: children Current occupational status: disabled Pertinent Exam Findings alert, oriented x 3 and regular rate & rhythm Recommendations Surgery/Procedure today Coding Level of Care Code Acute Regional Airline Pilot for Pita Salgado
[2022-02-11 09:15] LABS: Glucose Point of Care 133 mg/dL (70-110)
--- NOTE | 2022-02-11 09:19 | ANES.PREANE2 ---
Pre-Anesthetic Assessment Height/Weight: Height 1.57 m Weight 84.368 kg Temp Pulse Resp BP Pulse Ox 97 F L 81 16 158/99 98 02/11/22 08:49 02/11/22 08:49 02/11/22 08:49 02/11/22 08:49 02/11/22 08:49 Preop Diagnosis: rectal ca Operation Date: 02/11/22 10:20 Proposed Procedures p Portacath Placement(Not Applicable) - Tato Naqvi MD Familial anesthetic complications: None Was Beta Adriana taken within 24 hours: N/A Was Clonidine taken within 24 hours: N/A Last intake: Intake Last Liquid Date 02/10/22 Last Liquid Time 20:30 Last Solid Date 02/10/22 Last Solid Time 18:30 Social No alcohol and No tobacco Exam alert, oriented x 3, clear to auscultation bilaterally and regular rate & rhythm Airway Mallampati: Class II Dentition: false Pulmonary None reported CV/HEM Hypertension Metabolic Diabetes Mellitus and Hyperlipidemia Anesthetic Plan ASA status: 2 Anesthesia: MAC Medications/Allergies Home Medications Medication Instructions Recorded Confirmed Last Taken Type CAM WALKER #1 each 03/25/20 02/09/22 Unknown Rx aspirin 81 mg tablet,delayed 81 mg PO DAILY 03/25/20 02/11/22 02/10/22 History release atorvastatin 40 mg tablet 40 mg PO DAILY 03/25/20 02/11/22 02/10/22 History glipizide 5 mg tablet 5 mg PO BID 03/25/20 02/11/22 02/10/22 History metformin 1,000 mg tablet 1,000 mg PO BID 03/25/20 02/11/22 02/10/22 History fluticasone propionate 50 1 spray INTRANASAL DAILY 03/27/20 02/11/22 02/10/22 History mcg/actuation nasal spray,suspension (Flonase Allergy Relief) lisinopril 10 1 tab PO DAILY 03/27/20 02/11/22 02/10/22 History mg-hydrochlorothiazide 12.5 mg tablet WHEEL CHAIR #1 ea NS 03/31/20 02/09/22 Unknown Rx ASO #1 each 05/28/20 02/09/22 Unknown Rx allopurinol 300 mg tablet 300 mg PO DAILY 11/26/21 02/11/22 02/10/22 History calcium carbonate 500 mg (1,250 1 tab PO DAILY 11/26/21 02/11/22 02/10/22 History mg)-vitamin D3 200 unit tablet (Calcium 500 + D) loratadine 10 mg tablet 10 mg PO DAILY 11/26/21 02/11/22 02/10/22 History multivitamin 1 cap PO DAILY 11/26/21 02/11/22 02/10/22 History vitB2 1.7 mg-niacin 20 mg-B6 2 1 ml SUBLINGUAL DAILY 11/26/21 02/11/22 02/10/22 History mg-B12 1.2 mg/mL-dexpan sublingual liqd (B Complex) ferrous sulfate 325 mg (65 mg 325 mg PO DAILY 02/09/22 02/11/22 02/10/22 History iron) tablet (FeroSul) Allergies Allergy/AdvReac Type Severity Reaction Status Date / Time No Known Allergies Allergy Verified 02/10/22 13:05 Current Medications Generic Name Dose Route Start Last Admin Trade Name Freq PRN Reason Stop Dose Admin Sodium Chloride 1,000 mls @ 30 mls/hr 02/11/22 08:45 02/11/22 09:01 Sodium Chloride 0.9% IV 02/12/22 08:44 30 mls/hr .Q24H TAMI Administration PFSH Anesthesia Medical History Diabetes mellitus High cholesterol Hypertension Surgical History H/O cervical spine surgery History of Achilles tendon repair History of colonoscopy History of hernia repair History of left inguinal hernia repair History of neck surgery Family History Other Cancer Diabetes Social History Smoking and tobacco status: former smoker Household members: children Current occupational status: disabled Female Reproductive History Date of last menstrual period: 09/13/07 Data Anesthesia Cardiac Studies: No Data to Display
--- NOTE | 2022-02-11 10:43 | SC_ITS ---
WS: [id number] C-arm fluoroscopy for Port-A-Cath placement, 02/11/2022 Clinical Data: surgery Comparison: None. Findings: Dr. Naqvi placed a right Port-A-Cath. SC/C-arm FL for CVA [id number] Impression: Right Port-A-Cath.
[2022-02-11] MEDS: heparin, porcine 1,000 unit/mL INJ 10 mL 10000 UNIT IRRIGATION (11:01)
[2022-02-11] MEDS: lidocaine 1% INJ 20 mL INJECTION (11:02)
[2022-02-11] MEDS: sodium chloride 0.9% 100 mL Bag XX (11:03)
--- NOTE | 2022-02-11 11:10 | XR_ITS ---
WS: [id number] Portable AP upright chest, 02/11/2022 Clinical Data: IN RECOVERY FOR PORT VERIFICATION Comparison: None. Findings: No nodules, masses or effusions are seen. The heart is normal. The pulmonary vascularity is not increased. No pneumonia or pneumothorax is seen. The infusion port overlying the right chest ent ering the right internal jugular vein ends in the superior vena cava. There are calcified granulomas in the right tracheobronchial region. There is an anterior cervical disc fusion. XR/XR chest 1V portable [id number] Impression: Satisfactory infusion port placement.
--- NOTE | 2022-02-11 11:11 | PM.OP ---
Operative Report Date of procedure: February 11, 2022 Pre-op diagnosis: Rectal adenocarcinoma Post-op diagnosis: same Procedure done: 1. Placement of PowerPort in the right internal jugular vein 2. Fluoroscopic guidance and interpretation for placement of catheter 3. Ultrasound guidance to access the right internal jugular vein Pathology: none sent Surgeon: Tato Naqvi Anesthesia: MAC and Local Condition: stable Disposition: PACU Procedure: The patient was taken to the Operating Room and the chest and neck bilaterally were prepped and draped in a sterile manner after the antibiotic had been administered and shoulder rolls had been placed. 1% lidocaine with 0.5% Marcaine was infiltrated at the side at the site of the planned around the left subclavian vein. I was unable to access the left subclavian vein. An ultrasound of the right internal jugular vein revealed patent flow, no thrombus. An introducer needle was then used to access the right internal jugular vein and after withdrawing blood syringe was removed and a guidewire passed under fluoroscopy into the superior vena cava. The site of the planned port was then marked on the chest and a 15 blade was used to make a 3 cm skin incision this was extended into the subcutaneous tissue using electrocautery and a subcutaneous pocket over the pectoralis fascia was created 2-0 Vicryl suture was used to suture the port to the pectoral fascia in the pocket on 3 sides. The catheter, after having been flushed with hep saline, was attached to the tunneler and a tunnel created between the port site and the internal jugular vein entry site. Under fluoroscopy the dilator sheath was passed over the guidewire into the proximal superior vena cava. The inner dilator was removed and the sheath left behind and the catheter was introduced through the peel-away sheath with the tip in the superior vena cava. The peel-away sheath was removed. The proximal end of the catheter was cut to the right size and was attached to the port. Using a Soto needle the port was accessed, it withdrew blood easily and flushed easily. A final 5cc of heparin was used to flush the PowerPort. The subcutaneous tissue was approximated using interrupted 3-0 Vicryl sutures and the skin at the introducer site and the port site was closed using subcuticular running 4-0 Monocryl sutures. Surgical glue was applied and the patient was stable throughout the procedure. Fluoroscopic guidance and interpretation was performed for introduction of the guidewire in the right internal jugular vein, passage of dilator and placement of catheter tip in the distal superior vena cava
== END 2022-02-11 12:05 | disposition home or self-care (01) ==
PROVIDERS: PCP Nurse Practitioner Family; Visit Provider Surgery
PROC: (CPT 36561; principal; 2022-02-11 10:20)
DX: C20 Malignant neoplasm of rectum (principal); E11.9 Type 2 diabetes mellitus without complications; E78.5 Hyperlipidemia, unspecified; Z79.82 Long term (current) use of aspirin; Z79.84 Long term (current) use of oral hypoglycemic drugs; Z87.891 Personal history of nicotine dependence
CPT/HCPCS: 36561; 36416; 71045; 76000; 77001; 82962; C1788; J0690; J1644; J2704; J3010; J3490; J7030

== ENCOUNTER 2022-02-16 10:24 | Outpatient (CLI) | payer MEDICARE, MEDICAID, SELFPAY ==
[2022-02-16 11:19] LABS: Basophils % 0.4 %; Eosinophils # 1.1 10^3/uL (0.0-0.8); Eosinophils % 13.9 %; Hematocrit 32.5 % (37.0-47.0); Hemoglobin 9.7 g/dL (11.5-15.3); Lymphocytes # 1.5 10^3/uL (0.8-4.8); Lymphocytes % 18.6 %; Mean Corpuscular HGB Conc 29.8 g/dL (30.0-36.0); Mean Corpuscular Hemoglobin 25.4 pg (28.0-34.0); Mean Corpuscular Volume 85.1 fl (81-99); Mean Platelet Volume 11.5 fL (7.4-10.4); Monocytes # 0.5 10^3/uL (0.2-0.9); Monocytes % 5.7 %; Neutrophils # 4.77 10^3/uL (1.8-7.7); Nucleated Red Blood Cells % 0 %; Platelet Count 265 10^3/cmm (130-400); Red Blood Count 3.82 10^6/uL (4.1-5.3); Red Cell Distribution Width 19.1 % (12.1-15.1); White Blood Count 7.8 10^3/uL (4.0-10.0)
[2022-02-16 11:49] LABS: Carcinoembryonic Antigen 1.7 ng/mL (0.0-4.7)
[2022-02-16 12:01] LABS: Alanine Aminotransferase 12 U/L (0-33); Alkaline Phosphatase 88 IU/L (35-105); Anion Gap 16.1 (5-19); Aspartate Amino Transferase 15 U/L (0-32); Blood Urea Nitrogen 10 mg/dL (8-23); Carbon Dioxide 24 mmol/L (22-29); Chloride 102 mmol/L (98-107); Globulin 2.5 g/dL (1.3-4.6); Glucose 159 mg/dL (65-115); Osmolality Calculated 288 mOsm/kg (285-295); Potassium 4.1 mmol/L (3.5-5.1); Sodium 138 mmol/L (136-145); Total Bilirubin 0.2 mg/dL (0.15-1.2); Total Protein 6.5 g/dL (6.6-8.7)
[2022-02-16 15:28] LABS: Iron 39 ug/dL (37-145); Percent Saturation 12.8 % (20-50); Total Iron Binding Capacity 303 mcg/dl; Unsaturated Iron Binding 264 ug/dL (112-347)
== END 2022-02-16 10:25 | disposition home or self-care (01) ==
LOC: ONCMED 10:30
PROVIDERS: PCP Nurse Practitioner Family; Visit Provider Internal Medicine Medical Oncology
DX: C18.7 Malignant neoplasm of sigmoid colon (principal); D50.9 Iron deficiency anemia, unspecified; I10 Essential (primary) hypertension; E78.5 Hyperlipidemia, unspecified; E11.9 Type 2 diabetes mellitus without complications; M47.9 Spondylosis, unspecified; M10.9 Gout, unspecified; Z79.899 Other long term (current) drug therapy
CPT/HCPCS: 36591; 80053; 82378; 83540; 83550; 85025

== ENCOUNTER 2022-02-17 07:59 | Outpatient (CLI) | payer MEDICARE, MEDICAID, SELFPAY ==
[2022-02-17] MEDS: dextrose 5% 250 ML 75 ML IV (09:30)
[2022-02-17] MEDS: palonosetron 0.25 mg/5 mL SDV IV (09:30)
--- NOTE | 2022-02-22 09:04 | ONC FU_ITS ---
Tiffanie Fonseca Progress Note Patient: Latisha Billy Unit #: [id number]: [id number] Dicatated By: Tiffanie Fonseca N.P.Date of Visit:Feb 17, 2022 Onc MED Follow-up/Prog Note Chief Complaint: Colon cancer. 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 She began having some rectal bleeding following an open reduction for a distal left fibular fracture in March 2020. This was initially thought to be due to hemorrhoids. However, the bleeding persisted, and on 11/30/2021 she was found on colonoscopy to have a partially obstructing, large size, malignant appearing circumferential mass, reported at 10 cm from the anal verge. The only other abnormal finding on that study was an adenomatous polyp at the hepatic flexure, which was removed endoscopically. Biopsy of the rectal mass showed moderately differentiated invasive carcinoma. By immunohistochemical analysis, the tumor showed intact nuclear expression of mismatch repair proteins. Her staging CT of the abdomen/pelvis on 11/30/2021 showed diffuse thickening and enhancement of the ascending colon at the hepatic flexure. A few enlarged lymph nodes in the pelvis were noted adjacent to the sigmoid colon, the largest measuring 12 mm, felt to be nonspecific. A slightly prominent right periaortic lymph node measured 7 mm. There was no other periaortic lymphadenopathy noted. There was evidence for diffuse fatty infiltration of the liver. There was no evidence of metastatic disease. Dr. Brooke had seen her initially on 12/28/2021, and with those findings, she then had colorectal surgery consultation with Dr. Nichols. On his evaluation, he felt that it was more likely a sigmoid tumor, and that was subsequently confirmed with his staging MRI, which also was suspicious for regional lymph node involvement. As such, it was recommended that she proceed directly to surgical resection. On 01/12/2022 she underwent robotic low anterior resection with laparoscopic resection of epiploic nodule. The tumor was noted to be in more of a distal sigmoid location, at least 5 to 10 cm above the peritoneal reflection. There was no evidence of intra-abdominal tumor spread, and the liver appeared normal. A small epiploic nodule was noted in the proximal sigmoid colon and removed separately. There were no complications with the procedure. Pathology showed grade 2 invasive adenocarcinoma measuring 5.3 cm in greatest dimension. There was transmural invasion extending into the visceral peritoneum. There was lymphovascular invasion and perineural invasion present. All margins were negative for invasive carcinoma. There was involvement in 11 of 35 lymph nodes. Pathologic staging was pT4a, pN2b. Her other medical illnesses include hypertension, hyperlipidemia, type 2 diabetes, allergic rhinitis, degenerative arthritis/degenerative disease of the spine, and gout. She had smoked in the past, but quit. INTERIM HISTORY: Her staging chest CT on 01/25/2022 showed no convincing evidence for metastatic disease, though 3 tiny nonspecific pulmonary nodules were noted, measuring in the range of 2 to 3 mm. There was noted to be contrast mixing or filling defect in the distal left main pulmonary artery, suspicious for pulmonary embolus. With that finding, she had further evaluation with CT pulmonary angiogram on 01/27/2022. It showed no evidence for pulmonary embolus. Patient is seen today for follow-up and for education on modified FOLFOX treatment. She states that she is feeling well. She continues to take a nap daily but she has minimal fatigue. Her appetite has been good. She denies fever, chills, night sweats. No sinus drainage or sore throat. No shortness of breath, cough, chest pain or she denies any GI or problems. She has arthritis in her hands and her feet. She also has some mild neuropathy in her bilateral lower extremities secondary to her type 2 diabetes. Review Of Symptoms: See above. Past Medical History: Allergic rhinitis Degenerative arthritis Gout Hyperlipidemia Hypertension Type II diabetes Past Surgical History: Open reduction and internal fixation for left distal fibular fracture in 2019 Left inguinal hernia repair in 2015 Right Achilles tendon repair in 2014 Cervical laminectomy/discectomy in 2009 Allergies: No Known Allergies. Medications: Aspirin 1 Tablet (of 81 mg) Tablet, enteric coated Oral daily Atorvastatin Calcium 1 Tablet (of 40 mg) Oral daily B-Complex/B-12 1 mL Liquid Sublingual daily Calcium 500 + D 1 Tablet (of 500-200 mg - Units) Oral daily Fluticasone Propionate 1 Coltons Point(s) (of 50 mcg/act) Suspension Nasal daily glipiZIDE 1 Tablet (of 5 mg) Oral b.i.d. Iron (Ferrous Sulfate) 1 Tablet (of 325 (65 fe) mg) Oral daily Lisinopril 1 Tablet (of 10 mg) Oral daily metFORMIN HCl 1 Tablet (of 1000 mg) Oral b.i.d. Multivitamin 1 Tablet Oral daily Family History: Ms. Billy's mother at age 69: colon cancer. Ms. Billy's father at age 70: lung cancer. Ms. Billy has 2 brothers: 2 alive. Ms. Billy's first brother's colon cancer. She has 3 sisters: 2 alive, 1 . Ms. Billy's first sister's cardiac arrest. Father of lung cancer at age 70. Mother of colon cancer at age 69. She also had diabetes. A brother has also been treated for colon cancer, and a brother and a sister have diabetes. One sister with heart disease. Social History: Ms. Billy is . Ms. Billy no longer smokes. She is a former drinker. She has smoked in the past and she also had some alcohol use in the past, but she quit both. Physical Examination: Performed on Feb 17, 2022 08:22: Height - 62.00 in, BP - 134/83 mm(hg), Performed on Feb 17, 2022 08:22: Height - 62.00 in, Weight - 188.4 lbs (HIGH), BSA - 1.86 sq.m, BMI - 34.46 (HIGH), Temperature - 96.8 F (LOW), Pulse - 97 /min, Respiration - 16 /min, BP - 157/80 mm(hg) (HIGH), O2 Sat - 96 %, Pain - 0, and Fatigue - 2. Performance Status: 1 - No physically strenuous activity, but ambulatory and able to carry out light or sedentary work (e.g. office work, light house work). (ECOG) Constitutional Alert, cooperative, oriented. Mood and affect appropriate. Appears close to chronological age. Well nourished. Well developed. Head Normocephalic; no scars. Respiratory Lungs are clear to auscultation without rhonchi or wheezing. Cardiovascular Regular rate and rhythm of heart without murmurs, gallops or rubs. Abdomen Non-tender, non-distended, no masses, ascites or hepatosplenomegaly. Good bowel sounds. No guarding or rebound tenderness. Extremities No edema Musculoskeletal No tenderness or swelling, normal range of motion without obvious weakness. Psychiatric Alert and oriented times three. Coherent speech. Verbalizes understanding of our discussions today. Laboratory: Test performed on Feb 16, 2022 10:45 Iron 39 mcg/dL Sodium 138 mmol/L Iron Binding Capacity (TIBC) 303 mcg/dl Potassium 4.1 mmol/L % Iron Saturation 12.8 % Chloride 102 mmol/L CO2 24 mmol/L UIBC 264 mcg/dL Anion Gap 16.1 BUN 10 mg/dL Creatinine 0.7 mg/dL Cr Clearance (Est) 107.2900 mL/min eGFR 84.0 mL/min Glucose 159 mg/dL Osmolality - Calculated 288 mOsm/kg Calcium 9.0 mg/dL Protein, Total 6.5 g/dL Albumin 4.0 g/dL Globulin 2.5 g/dL Bilirubin, Total 0.2 mg/dL ALT (SGPT) 12 U/L AST (SGOT) 15 U/L Alkaline Phosphatase 88 IU/L WBC 7.8 10 3/uL RBC 3.82 10 6/uL HGB 9.7 g/dL HCT 32.5 % MCV 85.1 fl MCH 25.4 pg MCHC 29.8 g/dL RDW 19.1 % Platelet Count 265 10 3/cmm MPV 11.5 fL Neutrophils 4.77 10 3/uL Lymphocytes 1.5 10 3/uL Monocytes 0.5 10 3/uL Eosinophils 1.1 10 3/uL Basophils 0.0 10 3/uL Neutrophil % 61.0 % Lymphocyte % 18.6 % Monocyte % 5.7 % Eosinophil % 13.9 % Basophils % 0.4 % NRBC % 0 % CEA 1.7 ng/mL Impression: 1. Grade 2 invasive adenocarcinoma of the sigmoid colon, stage IIIC (pT4a, pN2b, M0), MMR proficient. 2. Hypertension. 3. Hyperlipidemia. 4. Type 2 diabetes. 5. Degenerative arthritis/degenerative disease of the spine. 6. Gout. 7. Allergic rhinitis. Plan: 1. Patient with grade 2 invasive adenocarcinoma of the sigmoid colon, stage IIIC (pT4a, pN2b, M0), MMR proficient. She underwent laparoscopic low anterior resection on 01/12/2022. Pathology showed invasion of the visceral peritoneum and there was involvement in 11 of 35 lymph nodes. The operative/pathology findings were reviewed with the patient, and we discussed the clinic complications. She is aware that her tumor has been completely resected, but with it being locally advanced and with involvement in 11 lymph nodes, she has at high risk for recurrence, and she is recommended to undergo adjuvant chemotherapy with 12 cycles of modified FOLFOX. Patient presents today for education on modified FOLFOX. The patient and family were informed of chemotherapy plan and 5-FU, leucovorin, and oxaliplatin were discussed. We also discussed how chemotherapy works and identified common side effects including alopecia; myelosuppression-including neutropenia, anemia, bleeding or bruising; skin changes; mouth sores; drug hypersensitivity/allergic reactions or anaphylaxis and extravasation. They have also been informed how to contact the clinic with side effects or symptoms, including but not limited to fever greater than 100.4 degrees, chills, sore throat, bleeding or bruising that is not explained or mouth sores, cough, nasal discharge, diarrhea, constipation, nausea and/or vomiting not relieved with medications on hand at home, as well as any other concern or question they may have. Our hours are 8:00 a.m. to 4:30 p.m. on Tuesday through and 8-12:00 on Tuesday. However, someone is senior erp consultant 24 hours per day and they have been advised to contact the [facility] at if it is after hours. We have also discussed potential long-term side effects of chemotherapy including secondary cancers, infertility, pulmonary complications, cardiac complications, and again peripheral neuropathy. We have discussed that they certainly need to let us know before taking any antioxidants or herbal or further dietary supplements, as we are unsure of how these agents react with chemotherapy and we request that they avoid these products for now. They were informed that it is okay to take multivitamins at normal doses. They verbally state that they understand to take all medications as directed by their healthcare provider unless otherwise indicated. Instructions for oral care with baking soda and salt water rinses as well as a guide for use of [id number] medication were provided with the treatment plan. They have no questions and verbalized understanding and are willing to proceed with chemotherapy at this time. The majority of this visit was spent in face to face communication with this patient in regards to plan of care, side effect identification and management. She will receive her first treatment today and return to the clinic in 2 weeks CBC and CMP. 2. She had iron deficiency anemia. She will continue on oral iron supplementation. She is tolerating oral iron well. Her iron saturation has improved from 7.5 to 12.8. Her iron has increased from 26 to 39. Signed By: Tiffanie Fonseca N.Ese. <<Signature on File>>
== END 2022-02-17 08:00 | disposition home or self-care (01) ==
LOC: ONCMED 08:01
PROVIDERS: PCP Nurse Practitioner Family; Visit Provider Nurse Practitioner Family
DX: Z51.11 Encounter for antineoplastic chemotherapy (principal); C18.7 Malignant neoplasm of sigmoid colon; D50.9 Iron deficiency anemia, unspecified; I10 Essential (primary) hypertension; E78.5 Hyperlipidemia, unspecified; E11.9 Type 2 diabetes mellitus without complications; M47.9 Spondylosis, unspecified; M10.9 Gout, unspecified; Z79.899 Other long term (current) drug therapy
CPT/HCPCS: 96367; 96368; 96413; 96415; 96416; 99215; J0640; J1100; J2469; J9190; J9263

== ENCOUNTER 2022-02-19 11:22 | Outpatient (CLI) | payer MEDICARE, MEDICAID, SELFPAY | END 2022-02-19 11:23 | disposition home or self-care (01) | PROVIDERS: PCP Nurse Practitioner Family; Visit Provider Internal Medicine Medical Oncology | DX: Z45.2 Encounter for adjustment and management of vascular access device (principal) | CPT/HCPCS: 96523 ==

== ENCOUNTER 2022-03-03 08:24 | Outpatient (CLI) | payer MEDICARE, MEDICAID, SELFPAY ==
[2022-03-03 09:00] LABS: Basophils % 0.6 %; Eosinophils # 0.3 10^3/uL (0.0-0.8); Eosinophils % 4.9 %; Hematocrit 31.4 % (37.0-47.0); Hemoglobin 9.5 g/dL (11.5-15.3); Lymphocytes % 18.6 %; Mean Corpuscular HGB Conc 30.3 g/dL (30.0-36.0); Mean Corpuscular Hemoglobin 25.7 pg (28.0-34.0); Mean Corpuscular Volume 85.1 fl (81-99); Mean Platelet Volume 10.9 fL (7.4-10.4); Monocytes # 0.5 10^3/uL (0.2-0.9); Monocytes % 9.7 %; Neutrophils # 3.48 10^3/uL (1.8-7.7); Nucleated Red Blood Cells % 0 %; Platelet Count 272 10^3/cmm (130-400); Red Blood Count 3.69 10^6/uL (4.1-5.3); Red Cell Distribution Width 19.6 % (12.1-15.1); White Blood Count 5.3 10^3/uL (4.0-10.0)
[2022-03-03 09:05] LABS: Alanine Aminotransferase 15 U/L (0-33); Albumin Level 3.9 g/dL (3.5-5.2); Alkaline Phosphatase 81 IU/L (35-105); Aspartate Amino Transferase 13 U/L (0-32); Blood Urea Nitrogen 13 mg/dL (8-23); Calcium 9.2 mg/dL (8.5-10.5); Carbon Dioxide 27 mmol/L (22-29); Chloride 102 mmol/L (98-107); Glomerular Filtration Rate 100.3 mL/min (90-130); Glucose 230 mg/dL (65-115); Osmolality Calculated 299 mOsm/kg (285-295); Sodium 141 mmol/L (136-145); Total Bilirubin 0.2 mg/dL (0.15-1.2); Total Protein 6.9 g/dL (6.6-8.7)
[2022-03-03] MEDS: palonosetron 0.25 mg/5 mL SDV IV (10:10)
[2022-03-03] MEDS: dextrose 5% 250 ML 100 ML IV (11:10)
--- NOTE | 2022-03-03 18:11 | ONC FU_ITS ---
Dr. Brooke Patient Follow-Up Note Patient: Latisha Billy Unit #: [id number]: 1955 Dicatated By: Alex Brooke M.D.Date of Visit:Mar 03, 2022 Onc Med Follow-up/Prog Note Chief Complaint: Colon cancer. 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 She began having some rectal bleeding following an open reduction for a distal left fibular fracture in March 2020. This was initially thought to be due to hemorrhoids. However, the bleeding persisted, and on 11/30/2021 she was found on colonoscopy to have a partially obstructing, large size, malignant appearing circumferential mass, reported at 10 cm from the anal verge. The only other abnormal finding on that study was an adenomatous polyp at the hepatic flexure, which was removed endoscopically. Biopsy of the rectal mass showed moderately differentiated invasive carcinoma. By immunohistochemical analysis, the tumor showed intact nuclear expression of mismatch repair proteins. Her staging CT of the abdomen/pelvis on 11/30/2021 showed diffuse thickening and enhancement of the ascending colon at the hepatic flexure. A few enlarged lymph nodes in the pelvis were noted adjacent to the sigmoid colon, the largest measuring 12 mm, felt to be nonspecific. A slightly prominent right periaortic lymph node measured 7 mm. There was no other periaortic lymphadenopathy noted. There was evidence for diffuse fatty infiltration of the liver. There was no evidence of metastatic disease. I had seen her initially on 12/28/2021, and with those findings, she then had colorectal surgery consultation with Dr. Nichols. On his evaluation, he felt that it was more likely a sigmoid tumor, and that was subsequently confirmed with his staging MRI, which also was suspicious for regional lymph node involvement. As such, it was recommended that she proceed directly to surgical resection. On 01/12/2022 she underwent robotic low anterior resection with laparoscopic resection of epiploic nodule. The tumor was noted to be in more of a distal sigmoid location, at least 5 to 10 cm above the peritoneal reflection. There was no evidence of intra-abdominal tumor spread, and the liver appeared normal. A small epiploic nodule was noted in the proximal sigmoid colon and removed separately. There were no complications with the procedure. Pathology showed grade 2 invasive adenocarcinoma measuring 5.3 cm in greatest dimension. There was transmural invasion extending into the visceral peritoneum. There was lymphovascular invasion and perineural invasion present. All margins were negative for invasive carcinoma. There was involvement in 11 of 35 lymph nodes. Pathologic staging was pT4a, pN2b. Her staging chest CT on 01/25/2022 showed no convincing evidence for metastatic disease, though 3 tiny nonspecific pulmonary nodules were noted, measuring in the range of 2 to 3 mm. There was noted to be contrast mixing or filling defect in the distal left main pulmonary artery, suspicious for pulmonary embolus. With that finding, she had further evaluation with CT pulmonary angiogram on 01/27/2022. It showed no evidence for pulmonary embolus. I had seen her for a follow-up visit on 01/28/2022. She appeared to be showing adequate recovery from the surgery. With stage IIIC disease she was recommended to undergo adjuvant chemotherapy with modified FOLFOX. Her other medical illnesses include hypertension, hyperlipidemia, type 2 diabetes, allergic rhinitis, degenerative arthritis/degenerative disease of the spine, and gout. She had smoked in the past, but quit. INTERIM HISTORY: She began cycle 1 of modified FOLFOX chemotherapy on 02/17/2022. She tolerated it without acute toxicity. She is seen for a follow-up visit. She says her energy is about the same. She is able to do light work now. ECOG score is 1. She has good appetite. She has no fever or night sweats. She has not had sore mouth or throat. She has just occasional cough. She does not complain of shortness of breath or chest pain. She currently has no GI complaints. She has had no nausea. Bowel function remains adequate with a stool softener. She has not had any diarrhea. She has frequent urination. She has arthritis pain, which is about the same. She sometimes has a little lightheadedness when she first gets up. She has pre-existing neuropathy in her hands and feet, and that has not worsened at all following the chemotherapy. Medications: Aspirin 1 Tablet (of 81 mg) Tablet, enteric coated Oral daily, Atorvastatin Calcium 1 Tablet (of 40 mg) Oral daily, B-Complex/B-12 1 mL Liquid Sublingual daily, Calcium 500 + D 1 Tablet (of 500-200 mg - Units) Oral daily, Fluticasone Propionate 1 [place](s) (of 50 mcg/act) Suspension Nasal daily, glipiZIDE 1 Tablet (of 5 mg) Oral b.i.d., Iron (Ferrous Sulfate) 1 Tablet (of 325 (65 fe) mg) Oral daily, Lisinopril 1 Tablet (of 10 mg) Oral daily, metFORMIN HCl 1 Tablet (of 1000 mg) Oral b.i.d., Multivitamin 1 Tablet Oral daily Allergies: No Known Allergies. Vital Signs: Performed on Mar 03, 2022 10:01 Height - 62.00 in Weight - 185.6 lbs (LOW) BSA - 1.85 sq.m BMI - 33.95 (HIGH) Temperature - 97.2 F (LOW) Pulse - 92 /min Respiration - 16 /min BP - 144/77 mm(hg) (HIGH) O2 Sat - 97 % Pain - 0 Fatigue - 2 Physical Examination: Constitutional - She looks pretty good generally, Eyes - Sclerae nonicteric. Conjunctivae clear, ENMT - No lesions noted in the oral cavity, Hematologic/Lymphatic - No cervical, clavicular, or axillary adenopathy, Respiratory - Lungs are clear with good air movement bilaterally, Cardiovascular - Heart rhythm is regular. There is no murmur, gallop, or rub noted, Abdomen - Soft. Liver and spleen are not enlarged. There is no abdominal mass or ascites noted and there is no inguinal adenopathy, Extremities - No edema, Neurologic - No focal neurologic deficits noted. Lab/Imaging: Test performed on Mar 03, 2022 08:40 Sodium 141 mmol/L Potassium 4.0 mmol/L Chloride 102 mmol/L CO2 27 mmol/L Anion Gap 16.0 BUN 13 mg/dL Creatinine 0.6 mg/dL Cr Clearance (Est) 125.1700 mL/min eGFR 100.3 mL/min Glucose 230 mg/dL Osmolality - Calculated 299 mOsm/kg Calcium 9.2 mg/dL Protein, Total 6.9 g/dL Albumin 3.9 g/dL Globulin 3.0 g/dL Bilirubin, Total 0.2 mg/dL ALT (SGPT) 15 U/L AST (SGOT) 13 U/L Alkaline Phosphatase 81 IU/L WBC 5.3 10 3/uL RBC 3.69 10 6/uL HGB 9.5 g/dL HCT 31.4 % MCV 85.1 fl MCH 25.7 pg MCHC 30.3 g/dL RDW 19.6 % Platelet Count 272 10 3/cmm MPV 10.9 fL Neutrophils 3.48 10 3/uL Lymphocytes 1.0 10 3/uL Monocytes 0.5 10 3/uL Eosinophils 0.3 10 3/uL Basophils 0.0 10 3/uL Neutrophil % 66.0 % Lymphocyte % 18.6 % Monocyte % 9.7 % Eosinophil % 4.9 % Basophils % 0.6 % NRBC % 0 % Problem List: 1. Grade 2 invasive adenocarcinoma of the sigmoid colon, stage IIIC (pT4a, pN2b, M0), MMR proficient. 2. Hypertension. 3. Hyperlipidemia. 4. Type 2 diabetes. 5. Degenerative arthritis/degenerative disease of the spine. 6. Gout. 7. Allergic rhinitis. Problems Addressed with this Encounter and Plan: 1. Patient with grade 2 invasive adenocarcinoma of the sigmoid colon, stage IIIC (pT4a, pN2b, M0), MMR proficient. She underwent laparoscopic low anterior resection on 01/12/2022. Pathology showed invasion of the visceral peritoneum and there was involvement in 11 of 35 lymph nodes. She had uneventful recovery following the surgery. With stage IIIC disease, she was recommended to undergo adjuvant chemotherapy with modified FOLFOX. She began cycle 1 on 02/17/2022. Thus far she has had minimal toxicity with the chemotherapy. She will proceed now with cycle 2 of modified FOLFOX. The dosages remain the same. She will return for a follow-up visit in 2 weeks. 2. She had iron deficiency anemia. Thus far the anemia has not improved on oral iron supplementation. For now she will continue ferrous sulfate 325 mg daily. I will recheck her serum iron studies with her next visit. If she is still not showing response, she will be given the option to have parenteral iron replacement. Signed By: Alex Brooke M.D. <<Signature on File>>
== END 2022-03-03 08:25 | disposition home or self-care (01) ==
PROVIDERS: PCP Nurse Practitioner Family; Visit Provider Internal Medicine Medical Oncology
DX: C18.7 Malignant neoplasm of sigmoid colon (principal); C77.9 Secondary and unspecified malignant neoplasm of lymph node, unspecified; D50.9 Iron deficiency anemia, unspecified
CPT/HCPCS: 80053; 85025; 96367; 96413; 96415; 96416; 96417; 99215; J0640; J1100; J2469; J9190

== ENCOUNTER 2022-03-05 10:50 | Outpatient (CLI) | payer MEDICARE, MEDICAID, SELFPAY | END 2022-03-05 10:51 | disposition home or self-care (01) | PROVIDERS: PCP Nurse Practitioner Family; Visit Provider Internal Medicine Medical Oncology | DX: Z45.2 Encounter for adjustment and management of vascular access device (principal) | CPT/HCPCS: 96523 ==

== ENCOUNTER 2022-03-15 07:51 | Outpatient (CLI) | payer MEDICARE, MEDICAID, SELFPAY ==
[2022-03-15 08:28] LABS: Basophils % 0.2 %; Eosinophils # 0.2 10^3/uL (0.0-0.8); Eosinophils % 1.8 %; Hemoglobin 9.7 g/dL (11.5-15.3); Lymphocytes # 1.2 10^3/uL (0.8-4.8); Lymphocytes % 11.7 %; Mean Corpuscular HGB Conc 30.3 g/dL (30.0-36.0); Mean Corpuscular Hemoglobin 26.3 pg (28.0-34.0); Mean Corpuscular Volume 86.7 fl (81-99); Mean Platelet Volume 10.2 fL (7.4-10.4); Monocytes # 0.8 10^3/uL (0.2-0.9); Monocytes % 8.4 %; Neutrophils % 77.6 %; Nucleated Red Blood Cells % 0 %; Platelet Count 285 10^3/cmm (130-400); Red Blood Count 3.69 10^6/uL (4.1-5.3); Red Cell Distribution Width 20.5 % (12.1-15.1); White Blood Count 9.9 10^3/uL (4.0-10.0)
[2022-03-15 08:50] LABS: Alanine Aminotransferase 17 U/L (0-33); Albumin Level 3.9 g/dL (3.5-5.2); Alkaline Phosphatase 92 IU/L (35-105); Anion Gap 16.5 (5-19); Aspartate Amino Transferase 31 U/L (0-32); Blood Urea Nitrogen 11 mg/dL (8-23); Calcium 8.4 mg/dL (8.5-10.5); Carbon Dioxide 27 mmol/L (22-29); Chloride 100 mmol/L (98-107); Ferritin 13 ng/mL (15-150); Globulin 3.1 g/dL (1.3-4.6); Glucose 266 mg/dL (65-115); Iron 52 ug/dL (37-145); Osmolality Calculated 297 mOsm/kg (285-295); Percent Saturation 19.1 % (20-50); Potassium 4.5 mmol/L (3.5-5.1); Sodium 139 mmol/L (136-145); Total Bilirubin 0.2 mg/dL (0.15-1.2); Total Iron Binding Capacity 271 mcg/dl; Unsaturated Iron Binding 219 ug/dL (112-347)
--- NOTE | 2022-03-15 09:16 | ONC FU_ITS ---
Tiffanie Fonseca Progress Note Patient: Latisha Billy Unit #: [id number]: 1955 Dicatated By: Tiffanie Fonseca N.P.Date of Visit:Mar 15, 2022 Onc MED Follow-up/Prog Note Chief Complaint: Colon cancer. 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 She began having some rectal bleeding following an open reduction for a distal left fibular fracture in March 2020. This was initially thought to be due to hemorrhoids. However, the bleeding persisted, and on 11/30/2021 she was found on colonoscopy to have a partially obstructing, large size, malignant appearing circumferential mass, reported at 10 cm from the anal verge. The only other abnormal finding on that study was an adenomatous polyp at the hepatic flexure, which was removed endoscopically. Biopsy of the rectal mass showed moderately differentiated invasive carcinoma. By immunohistochemical analysis, the tumor showed intact nuclear expression of mismatch repair proteins. Her staging CT of the abdomen/pelvis on 11/30/2021 showed diffuse thickening and enhancement of the ascending colon at the hepatic flexure. A few enlarged lymph nodes in the pelvis were noted adjacent to the sigmoid colon, the largest measuring 12 mm, felt to be nonspecific. A slightly prominent right periaortic lymph node measured 7 mm. There was no other periaortic lymphadenopathy noted. There was evidence for diffuse fatty infiltration of the liver. There was no evidence of metastatic disease. I had seen her initially on 12/28/2021, and with those findings, she then had colorectal surgery consultation with Dr. Nichols. On his evaluation, he felt that it was more likely a sigmoid tumor, and that was subsequently confirmed with his staging MRI, which also was suspicious for regional lymph node involvement. As such, it was recommended that she proceed directly to surgical resection. On 01/12/2022 she underwent robotic low anterior resection with laparoscopic resection of epiploic nodule. The tumor was noted to be in more of a distal sigmoid location, at least 5 to 10 cm above the peritoneal reflection. There was no evidence of intra-abdominal tumor spread, and the liver appeared normal. A small epiploic nodule was noted in the proximal sigmoid colon and removed separately. There were no complications with the procedure. Pathology showed grade 2 invasive adenocarcinoma measuring 5.3 cm in greatest dimension. There was transmural invasion extending into the visceral peritoneum. There was lymphovascular invasion and perineural invasion present. All margins were negative for invasive carcinoma. There was involvement in 11 of 35 lymph nodes. Pathologic staging was pT4a, pN2b. Her staging chest CT on 01/25/2022 showed no convincing evidence for metastatic disease, though 3 tiny nonspecific pulmonary nodules were noted, measuring in the range of 2 to 3 mm. There was noted to be contrast mixing or filling defect in the distal left main pulmonary artery, suspicious for pulmonary embolus. With that finding, she had further evaluation with CT pulmonary angiogram on 01/27/2022. It showed no evidence for pulmonary embolus. I had seen her for a follow-up visit on 01/28/2022. She appeared to be showing adequate recovery from the surgery. With stage IIIC disease she was recommended to undergo adjuvant chemotherapy with modified FOLFOX. Her other medical illnesses include hypertension, hyperlipidemia, type 2 diabetes, allergic rhinitis, degenerative arthritis/degenerative disease of the spine, and gout. She had smoked in the past, but quit. INTERIM HISTORY: She began cycle 1 of modified FOLFOX chemotherapy on 02/17/2022. She tolerated it without acute toxicity. Patient presents today for follow-up visit. She denies weakness or fatigue. She states she feels great. Her appetite is good. No fever, chills, night sweats. No sinus drainage or mouth sores. No shortness of breath, cough, chest pain. No GI problems and no problems. She denies joint or bone pain today although she does have a history of some arthritis. She has bilateral lower extremity neuropathy that was present prior to chemotherapy. It has not changed any since chemotherapy started. Review Of Symptoms: see above. Past Medical History: Allergic rhinitis Degenerative arthritis Gout Hyperlipidemia Hypertension Type II diabetes Past Surgical History: Open reduction and internal fixation for left distal fibular fracture in 2019 Left inguinal hernia repair in 2015 Right Achilles tendon repair in 2014 Cervical laminectomy/discectomy in 2009 Allergies: No Known Allergies. Medications: Aspirin 1 Tablet (of 81 mg) Tablet, enteric coated Oral daily Atorvastatin Calcium 1 Tablet (of 40 mg) Oral daily B-Complex/B-12 1 mL Liquid Sublingual daily Calcium 500 + D 1 Tablet (of 500-200 mg - Units) Oral daily Fluticasone Propionate 1 [place](s) (of 50 mcg/act) Suspension Nasal daily glipiZIDE 1 Tablet (of 5 mg) Oral b.i.d. Iron (Ferrous Sulfate) 1 Tablet (of 325 (65 fe) mg) Oral daily Lisinopril 1 Tablet (of 10 mg) Oral daily metFORMIN HCl 1 Tablet (of 1000 mg) Oral b.i.d. Multivitamin 1 Tablet Oral daily Family History: Ms. Billy's mother at age 69: colon cancer. Ms. Billy's father at age 70: lung cancer. Ms. Billy has 2 brothers: 2 alive. Ms. Billy's first brother's colon cancer. She has 3 sisters: 2 alive, 1 . Ms. Billy's first sister's cardiac arrest. Father of lung cancer at age 70. Mother of colon cancer at age 69. She also had diabetes. A brother has also been treated for colon cancer, and a brother and a sister have diabetes. One sister with heart disease. Social History: Ms. Billy is . Ms. Billy no longer smokes. She is a former drinker. She has smoked in the past and she also had some alcohol use in the past, but she quit both. Physical Examination: Performed on Mar 15, 2022 08:53: Height - 62.00 in, Weight - 187.2 lbs (HIGH), BSA - 1.86 sq.m, BMI - 34.24 (HIGH), Temperature - 97.0 F (LOW), Pulse - 95 /min, Respiration - 16 /min, BP - 149/78 mm(hg) (HIGH), O2 Sat - 97 %, Pain - 0, and Fatigue - 3. Performance Status: 0 - Fully active, able to carry on all predisease activities without restrictions. (ECOG) Constitutional Alert, cooperative, oriented. Mood and affect appropriate. Appears close to chronological age. Well nourished. Well developed. Head Normocephalic; no scars. Respiratory Lungs are clear to auscultation without rhonchi or wheezing. Cardiovascular Regular rate and rhythm of heart without murmurs, gallops or rubs. Abdomen Non-tender, non-distended, no masses, ascites or hepatosplenomegaly. Good bowel sounds. No guarding or rebound tenderness. Extremities No edema Musculoskeletal No tenderness or swelling, normal range of motion without obvious weakness. Psychiatric Alert and oriented times three. Coherent speech. Verbalizes understanding of our discussions today. Laboratory: Test performed on Mar 15, 2022 08:15 Ferritin 13 ng/mL Iron 52 mcg/dL Sodium 139 mmol/L Iron Binding Capacity (TIBC) 271 mcg/dl Potassium 4.5 mmol/L % Iron Saturation 19.1 % Chloride 100 mmol/L CO2 27 mmol/L UIBC 219 mcg/dL Anion Gap 16.5 BUN 11 mg/dL Creatinine 0.8 mg/dL Cr Clearance (Est) 93.8800 mL/min eGFR 72.0 mL/min Glucose 266 mg/dL Osmolality - Calculated 297 mOsm/kg Calcium 8.4 mg/dL Protein, Total 7.0 g/dL Albumin 3.9 g/dL Globulin 3.1 g/dL Bilirubin, Total 0.2 mg/dL ALT (SGPT) 17 U/L AST (SGOT) 31 U/L Alkaline Phosphatase 92 IU/L WBC 9.9 10 3/uL RBC 3.69 10 6/uL HGB 9.7 g/dL HCT 32.0 % MCV 86.7 fl MCH 26.3 pg MCHC 30.3 g/dL RDW 20.5 % Platelet Count 285 10 3/cmm MPV 10.2 fL Neutrophils 7.70 10 3/uL Lymphocytes 1.2 10 3/uL Monocytes 0.8 10 3/uL Eosinophils 0.2 10 3/uL Basophils 0.0 10 3/uL Neutrophil % 77.6 % Lymphocyte % 11.7 % Monocyte % 8.4 % Eosinophil % 1.8 % Basophils % 0.2 % NRBC % 0 % Test performed on Feb 16, 2022 10:45 CEA 1.7 ng/mL Impression: 1. Grade 2 invasive adenocarcinoma of the sigmoid colon, stage IIIC (pT4a, pN2b, M0), MMR proficient. 2. Hypertension. 3. Hyperlipidemia. 4. Type 2 diabetes. 5. Degenerative arthritis/degenerative disease of the spine. 6. Gout. 7. Allergic rhinitis. Plan: 1. Patient with grade 2 invasive adenocarcinoma of the sigmoid colon, stage IIIC (pT4a, pN2b, M0), MMR proficient. She underwent laparoscopic low anterior resection on 01/12/2022. Pathology showed invasion of the visceral peritoneum and there was involvement in 11 of 35 lymph nodes. She had uneventful recovery following the surgery. With stage IIIC disease, she was recommended to undergo adjuvant chemotherapy with modified FOLFOX. She began cycle 1 on 02/17/2022. Thus far she has had minimal toxicity with the chemotherapy. Patient presents today for follow-up. She is tolerating modified FOLFOX well. She received cycle 3 today and return in 2 weeks with CBC and CMP. 2. She had iron deficiency anemia. She is currently on oral iron supplementation. Her iron studies have improved with her iron at 52 and her iron saturation is increased to 19.1. She will continue with oral iron supplementation and we will reevaluate iron studies in 1 month. Signed By: Tiffanie Fonseca N.P. <<Signature on File>>
[2022-03-15] MEDS: palonosetron 0.25 mg/5 mL SDV IV (09:20)
[2022-03-15] MEDS: dextrose 5% 250 ML 100 ML IV (09:45)
== END 2022-03-15 07:52 | disposition home or self-care (01) ==
PROVIDERS: PCP Nurse Practitioner Family; Visit Provider Nurse Practitioner Family
DX: C18.7 Malignant neoplasm of sigmoid colon (principal); D50.9 Iron deficiency anemia, unspecified
CPT/HCPCS: 80053; 82728; 83540; 83550; 85025; 96367; 96368; 96375; 96413; 96415; 96416; 99215; J0640; J1100; J2469; J9190; J9263

== ENCOUNTER 2022-03-17 12:59 | Outpatient (CLI) | payer MEDICARE, MEDICAID, SELFPAY | END 2022-03-17 13:00 | disposition home or self-care (01) | LOC: ONCMED 13:03 | PROVIDERS: PCP Nurse Practitioner Family; Visit Provider Internal Medicine Medical Oncology | DX: Z45.2 Encounter for adjustment and management of vascular access device (principal) | CPT/HCPCS: 96523 ==

== ENCOUNTER 2022-04-15 14:00 | Oncology outpatient (recurring) (ONCR) | payer MEDICARE, MEDICAID, SELFPAY ==
[2022-03-31 09:04] LABS: Basophils % 0.4 %; Eosinophils # 0.2 10^3/uL (0.0-0.8); Eosinophils % 4.1 %; Hematocrit 31.4 % (37.0-47.0); Hemoglobin 9.7 g/dL (11.5-15.3); Lymphocytes # 1.1 10^3/uL (0.8-4.8); Lymphocytes % 22.8 %; Mean Corpuscular HGB Conc 30.9 g/dL (30.0-36.0); Mean Corpuscular Volume 87.5 fl (81-99); Mean Platelet Volume 10.6 fL (7.4-10.4); Monocytes # 0.6 10^3/uL (0.2-0.9); Monocytes % 11.2 %; Neutrophils # 3.02 10^3/uL (1.8-7.7); Neutrophils % 61.3 %; Nucleated Red Blood Cells % 0 %; Platelet Count 261 10^3/cmm (130-400); Red Blood Count 3.59 10^6/uL (4.1-5.3); Red Cell Distribution Width 22.4 % (12.1-15.1); White Blood Count 4.9 10^3/uL (4.0-10.0)
[2022-03-31 09:41] LABS: Alanine Aminotransferase 18 U/L (0-33); Albumin Level 3.9 g/dL (3.5-5.2); Alkaline Phosphatase 82 IU/L (35-105); Anion Gap 13.9 (5-19); Aspartate Amino Transferase 19 U/L (0-32); Blood Urea Nitrogen 10 mg/dL (8-23); Calcium 9.2 mg/dL (8.5-10.5); Carbon Dioxide 27 mmol/L (22-29); Chloride 98 mmol/L (98-107); Creatinine Clr Calc Pharmacy 70.4194; Globulin 2.6 g/dL (1.3-4.6); Glomerular Filtration Rate 100.3 mL/min (90-130); Glucose 219 mg/dL (65-115); Osmolality Calculated 286 mOsm/kg (285-295); Potassium 3.9 mmol/L (3.5-5.1); Sodium 135 mmol/L (136-145); Total Bilirubin 0.2 mg/dL (0.15-1.2); Total Protein 6.5 g/dL (6.6-8.7)
[2022-03-31] MEDS: dextrose 5% 250 ML 75 ML IV (10:54)
[2022-03-31] MEDS: palonosetron 0.25 mg/5 mL SDV IVP (10:55)
[2022-03-31] MEDS: leucovorin 780 MG in dextrose 5% 250 ML 82 MG IV (11:52)
[2022-03-31] MEDS: fluorouraciL 4,700 MG, elastomeric pump 1 PUMP in sodium chloride 0.9% (100 ml) 0 ML IV (15:49)
[2022-03-31 16:00] VITALS: BP 128/80; PULSE 80; RESP 16; TEMP 36.6; O2SAT 97
[2022-04-02 11:37] VITALS: BP 116/72; PULSE 80; RESP 18; TEMP 36.1; O2SAT 98
[2022-04-13 08:24] VITALS: BMI 34.2
[2022-04-13 08:35] LABS: Basophils % 0.5 %; Eosinophils # 0.3 10^3/uL (0.0-0.8); Eosinophils % 4.2 %; Hematocrit 30.9 % (37.0-47.0); Hemoglobin 9.5 g/dL (11.5-15.3); Lymphocytes # 1.3 10^3/uL (0.8-4.8); Mean Corpuscular HGB Conc 30.7 g/dL (30.0-36.0); Mean Corpuscular Hemoglobin 27.4 pg (28.0-34.0); Mean Platelet Volume 10.7 fL (7.4-10.4); Monocytes # 0.6 10^3/uL (0.2-0.9); Monocytes % 10.3 %; Neutrophils # 3.83 10^3/uL (1.8-7.7); Neutrophils % 63.8 %; Nucleated Red Blood Cells % 0 %; Platelet Count 210 10^3/cmm (130-400); Red Blood Count 3.47 10^6/uL (4.1-5.3); Red Cell Distribution Width 22.6 % (12.1-15.1)
[2022-04-13 08:48] LABS: Alanine Aminotransferase 21 U/L (0-33); Albumin Level 3.9 g/dL (3.5-5.2); Alkaline Phosphatase 83 IU/L (35-105); Anion Gap 15.1 (5-19); Aspartate Amino Transferase 29 U/L (0-32); Blood Urea Nitrogen 9 mg/dL (8-23); Calcium 9.2 mg/dL (8.5-10.5); Carbon Dioxide 27 mmol/L (22-29); Chloride 101 mmol/L (98-107); Globulin 2.3 g/dL (1.3-4.6); Glucose 176 mg/dL (65-115); Osmolality Calculated 291 mOsm/kg (285-295); Potassium 4.1 mmol/L (3.5-5.1); Sodium 139 mmol/L (136-145); Total Bilirubin 0.2 mg/dL (0.15-1.2); Total Protein 6.2 g/dL (6.6-8.7)
[2022-04-13 09:07] LABS: Iron 52 ug/dL (37-145); Percent Saturation 17.9 % (20-50); Total Iron Binding Capacity 290 mcg/dl; Unsaturated Iron Binding 238 ug/dL (112-347)
[2022-04-13] MEDS: dextrose 5% 250 ML 75 ML IV (10:32)
[2022-04-13] MEDS: palonosetron 0.25 mg/5 mL SDV IVP (10:33)
[2022-04-13] MEDS: leucovorin 780 MG in dextrose 5% 250 ML 82 MG IV (11:00)
[2022-04-13] MEDS: fluorouraciL 4,700 MG, elastomeric pump 1 PUMP in sodium chloride 0.9% (100 ml) 0 ML IV (14:12)
[2022-04-13 14:26] VITALS: BP 138/81; PULSE 83; RESP 16; TEMP 36.8; O2SAT 96
[2022-04-15 14:11] VITALS: BP 144/70; PULSE 82; RESP 18; TEMP 36.4; O2SAT 100
== END 2022-04-20 23:59 | disposition home or self-care (01) ==
PROVIDERS: PCP Nurse Practitioner Family; Visit Provider Internal Medicine Medical Oncology
DX: Z45.2 Encounter for adjustment and management of vascular access device (principal)
CPT/HCPCS: 80053; 83540; 83550; 85025; 96367; 96368; 96375; 96413; 96415; 96416; 96523; 99215; 99999; J0640; J1100; J2469; J9190; J9263

== ENCOUNTER 2022-05-13 14:00 | Oncology outpatient (recurring) (ONCR) | payer MEDICARE, MEDICAID, SELFPAY ==
[2022-04-27 08:40] LABS: Basophils % 0.8 %; Eosinophils # 0.2 10^3/uL (0.0-0.8); Eosinophils % 4.2 %; Hematocrit 31.8 % (37.0-47.0); Hemoglobin 9.8 g/dL (11.5-15.3); Lymphocytes # 1.2 10^3/uL (0.8-4.8); Lymphocytes % 23.6 %; Mean Corpuscular HGB Conc 30.8 g/dL (30.0-36.0); Mean Corpuscular Hemoglobin 27.3 pg (28.0-34.0); Mean Corpuscular Volume 88.6 fl (81-99); Mean Platelet Volume 10.4 fL (7.4-10.4); Monocytes # 0.6 10^3/uL (0.2-0.9); Monocytes % 12.4 %; Neutrophils # 2.94 10^3/uL (1.8-7.7); Neutrophils % 58.6 %; Nucleated Red Blood Cells % 0 %; Platelet Count 191 10^3/cmm (130-400); Red Blood Count 3.59 10^6/uL (4.1-5.3); Red Cell Distribution Width 22.5 % (12.1-15.1)
[2022-04-27 08:48] LABS: Alanine Aminotransferase 21 U/L (0-33); Albumin Level 3.8 g/dL (3.5-5.2); Alkaline Phosphatase 94 IU/L (35-105); Anion Gap 14.1 (5-19); Aspartate Amino Transferase 24 U/L (0-32); Blood Urea Nitrogen 12 mg/dL (8-23); Calcium 9.1 mg/dL (8.5-10.5); Carbon Dioxide 27 mmol/L (22-29); Chloride 100 mmol/L (98-107); Globulin 2.9 g/dL (1.3-4.6); Glucose 220 mg/dL (65-115); Osmolality Calculated 291 mOsm/kg (285-295); Potassium 4.1 mmol/L (3.5-5.1); Sodium 137 mmol/L (136-145); Total Bilirubin 0.2 mg/dL (0.15-1.2); Total Protein 6.7 g/dL (6.6-8.7)
[2022-04-27] MEDS: dextrose 5% 250 ML 75 ML IV (10:30)
[2022-04-27] MEDS: palonosetron 0.25 mg/5 mL SDV IVP (10:31)
[2022-04-27] MEDS: leucovorin 780 MG in dextrose 5% 250 ML 82 MG IV (10:51)
[2022-04-27] MEDS: fluorouraciL 4,700 MG, elastomeric pump 1 PUMP in sodium chloride 0.9% (100 ml) 0 ML IV (14:55)
[2022-04-27 15:07] VITALS: BP 124/78; PULSE 86; TEMP 36.5; O2SAT 96
[2022-04-29 15:05] VITALS: BP 149/72; PULSE 98; RESP 16; TEMP 36.1; O2SAT 98
[2022-05-11 09:34] LABS: Basophils % 0.4 %; Eosinophils # 0.2 10^3/uL (0.0-0.8); Eosinophils % 3.9 %; Hemoglobin 9.8 g/dL (11.5-15.3); Lymphocytes # 1.2 10^3/uL (0.8-4.8); Lymphocytes % 21.9 %; Mean Corpuscular HGB Conc 31.6 g/dL (30.0-36.0); Mean Corpuscular Hemoglobin 28.2 pg (28.0-34.0); Mean Corpuscular Volume 89.1 fl (81-99); Mean Platelet Volume 10.3 fL (7.4-10.4); Monocytes # 0.7 10^3/uL (0.2-0.9); Monocytes % 12.7 %; Neutrophils % 60.7 %; Nucleated Red Blood Cells % 0 %; Platelet Count 191 10^3/cmm (130-400); Red Blood Count 3.48 10^6/uL (4.1-5.3); Red Cell Distribution Width 22.7 % (12.1-15.1); White Blood Count 5.4 10^3/uL (4.0-10.0)
[2022-05-11 09:56] LABS: Alanine Aminotransferase 21 U/L (0-33); Alkaline Phosphatase 87 IU/L (35-105); Anion Gap 14.3 (5-19); Aspartate Amino Transferase 23 U/L (0-32); Blood Urea Nitrogen 9 mg/dL (8-23); Calcium 8.9 mg/dL (8.5-10.5); Carbon Dioxide 26 mmol/L (22-29); Chloride 98 mmol/L (98-107); Globulin 2.8 g/dL (1.3-4.6); Glucose 207 mg/dL (65-115); Osmolality Calculated 283 mOsm/kg (285-295); Potassium 4.3 mmol/L (3.5-5.1); Sodium 134 mmol/L (136-145); Total Bilirubin 0.2 mg/dL (0.15-1.2); Total Protein 6.8 g/dL (6.6-8.7)
[2022-05-11] MEDS: dextrose 5% 250 ML 75 ML IV (11:24)
[2022-05-11] MEDS: palonosetron 0.25 mg/5 mL SDV IVP (11:25)
[2022-05-11] MEDS: leucovorin 780 MG in dextrose 5% 250 ML 82 MG IV (12:10)
[2022-05-11] MEDS: fluorouraciL 4,700 MG, elastomeric pump 1 PUMP in sodium chloride 0.9% (100 ml) 0 ML IV (15:51)
[2022-05-11 16:03] VITALS: BP 125/77; PULSE 80; TEMP 36.2; O2SAT 98
== END 2022-05-20 23:59 | disposition home or self-care (01) ==
PROVIDERS: Nurse Practitioner; PCP Nurse Practitioner Family; Visit Provider Internal Medicine Medical Oncology
DX: Z53.9 Procedure and treatment not carried out, unspecified reason (principal); Z45.2 Encounter for adjustment and management of vascular access device
CPT/HCPCS: 80053; 85025; 96367; 96368; 96375; 96413; 96415; 96416; 96523; 99214; 99215; J0640; J1100; J2469; J9190; J9263

== ENCOUNTER → 2022-05-19 10:02 | Outpatient (BNVA) | payer MEDICARE, MEDICAID, SELFPAY | PROVIDERS: PCP Nurse Practitioner Family; Referring Provider Nurse Practitioner Family; Visit Provider Podiatrist Foot & Ankle Surgery | DX: L60.8 Other nail disorders (principal) | CPT/HCPCS: 99213 ==

== ENCOUNTER → 2022-06-08 08:22 | Outpatient (BNVA) | payer MEDICARE, MEDICAID, SELFPAY | PROVIDERS: PCP Nurse Practitioner Family; Visit Provider Nurse Practitioner Family | DX: C18.7 Malignant neoplasm of sigmoid colon (principal); C78.6 Secondary malignant neoplasm of retroperitoneum and peritoneum; C77.8 Secondary and unspecified malignant neoplasm of lymph nodes of multiple regions; G62.0 Drug-induced polyneuropathy; T45.1X5A Adverse effect of antineoplastic and immunosuppressive drugs, initial encounter; D50.9 Iron deficiency anemia, unspecified; Z79.899 Other long term (current) drug therapy; Z87.891 Personal history of nicotine dependence | CPT/HCPCS: 99214 ==

== ENCOUNTER 2022-06-10 13:02 | Oncology outpatient (recurring) (ONCR) | payer MEDICARE, MEDICAID, SELFPAY ==
[2022-05-25 08:44] LABS: Basophils % 0.4 %; Eosinophils # 0.3 10^3/uL (0.0-0.8); Eosinophils % 5.7 %; Hematocrit 30.7 % (37.0-47.0); Hemoglobin 9.6 g/dL (11.5-15.3); Lymphocytes # 1.3 10^3/uL (0.8-4.8); Lymphocytes % 26.2 %; Mean Corpuscular HGB Conc 31.3 g/dL (30.0-36.0); Mean Corpuscular Hemoglobin 28.2 pg (28.0-34.0); Mean Corpuscular Volume 90.3 fl (81-99); Mean Platelet Volume 10.3 fL (7.4-10.4); Monocytes # 0.6 10^3/uL (0.2-0.9); Monocytes % 11.6 %; Neutrophils # 2.75 10^3/uL (1.8-7.7); Neutrophils % 55.9 %; Nucleated Red Blood Cells % 0 %; Platelet Count 178 10^3/cmm (130-400); Red Cell Distribution Width 22.6 % (12.1-15.1); White Blood Count 4.9 10^3/uL (4.0-10.0)
[2022-05-25 09:07] LABS: Carcinoembryonic Antigen 2.4 ng/mL (0.0-4.7)
[2022-05-25 09:18] LABS: Alanine Aminotransferase 19 U/L (0-33); Albumin Level 3.7 g/dL (3.5-5.2); Alkaline Phosphatase 86 IU/L (35-105); Anion Gap 16.9 (5-19); Aspartate Amino Transferase 24 U/L (0-32); Blood Urea Nitrogen 8 mg/dL (8-23); Calcium 8.7 mg/dL (8.5-10.5); Carbon Dioxide 25 mmol/L (22-29); Chloride 99 mmol/L (98-107); Globulin 2.7 g/dL (1.3-4.6); Glucose 217 mg/dL (65-115); Osmolality Calculated 289 mOsm/kg (285-295); Potassium 3.9 mmol/L (3.5-5.1); Sodium 137 mmol/L (136-145); Total Bilirubin 0.2 mg/dL (0.15-1.2); Total Protein 6.4 g/dL (6.6-8.7)
[2022-05-25] MEDS: palonosetron 0.25 mg/5 mL SDV IVP (09:30)
[2022-05-25] MEDS: dextrose 5% 250 ML 100 ML IV (09:30)
[2022-05-25 10:00] LABS: Iron 52 ug/dL (37-145); Percent Saturation 17.1 % (20-50); Total Iron Binding Capacity 304 mcg/dl; Unsaturated Iron Binding 252 ug/dL (112-347)
[2022-05-25] MEDS: leucovorin 780 MG in dextrose 5% 250 ML 82 MG IV (10:07)
[2022-05-25] MEDS: fluorouraciL 4,700 MG, elastomeric pump 1 PUMP in sodium chloride 0.9% (100 ml) 0 ML IV (13:35)
[2022-05-25 13:39] VITALS: BP 126/75; PULSE 88; RESP 16; TEMP 36.3; O2SAT 95
[2022-05-26 11:09] LABS: Ferritin 44 ng/mL (15-150)
[2022-05-27 13:24] VITALS: BP 133/72; PULSE 94; RESP 18; TEMP 36.3; O2SAT 95
[2022-06-08 08:59] LABS: Basophils % 0.6 %; Eosinophils # 0.2 10^3/uL (0.0-0.8); Eosinophils % 3.6 %; Hematocrit 30.7 % (37.0-47.0); Hemoglobin 9.7 g/dL (11.5-15.3); Lymphocytes # 1.3 10^3/uL (0.8-4.8); Mean Corpuscular HGB Conc 31.6 g/dL (30.0-36.0); Mean Corpuscular Hemoglobin 29.8 pg (28.0-34.0); Mean Corpuscular Volume 94.5 fl (81-99); Mean Platelet Volume 10.9 fL (7.4-10.4); Monocytes # 0.5 10^3/uL (0.2-0.9); Monocytes % 10.6 %; Neutrophils # 2.93 10^3/uL (1.8-7.7); Neutrophils % 58.6 %; Nucleated Red Blood Cells % 0 %; Platelet Count 179 10^3/cmm (130-400); Red Blood Count 3.25 10^6/uL (4.1-5.3); Red Cell Distribution Width 21.8 % (12.1-15.1)
[2022-06-08 09:27] LABS: Alanine Aminotransferase 23 U/L (0-33); Albumin Level 3.7 g/dL (3.5-5.2); Alkaline Phosphatase 87 IU/L (35-105); Aspartate Amino Transferase 29 U/L (0-32); Blood Urea Nitrogen 9 mg/dL (8-23); Calcium 9.1 mg/dL (8.5-10.5); Carbon Dioxide 27 mmol/L (22-29); Chloride 101 mmol/L (98-107); Globulin 2.6 g/dL (1.3-4.6); Glucose 226 mg/dL (65-115); Osmolality Calculated 294 mOsm/kg (285-295); Sodium 139 mmol/L (136-145); Total Bilirubin 0.2 mg/dL (0.15-1.2); Total Protein 6.3 g/dL (6.6-8.7)
[2022-06-08 09:33] LABS: Anion Gap 15.2 (5-19); Potassium 4.2 mmol/L (3.5-5.1)
[2022-06-08] MEDS: palonosetron 0.25 mg/5 mL SDV IVP (11:14)
[2022-06-08] MEDS: dextrose 5% 250 ML 100 ML IV (11:14)
[2022-06-08] MEDS: oxaliplatin 100 MG, oxaliplatin 46 MG in dextrose 5% 250 ML 69.8 MG IV (11:35)
[2022-06-08] MEDS: leucovorin 780 MG in dextrose 5% 250 ML 82 MG IV (11:36)
[2022-06-08] MEDS: fluorouraciL 4,700 MG, elastomeric pump 1 PUMP in sodium chloride 0.9% (100 ml) 0 ML IV (15:24)
[2022-06-08 15:35] VITALS: BP 151/75; PULSE 85; TEMP 36.6; O2SAT 96
== END 2022-06-20 23:59 | disposition home or self-care (01) ==
PROVIDERS: PCP Nurse Practitioner Family; Visit Provider Internal Medicine Medical Oncology
DX: Z53.9 Procedure and treatment not carried out, unspecified reason (principal); Z45.2 Encounter for adjustment and management of vascular access device
CPT/HCPCS: 80053; 82378; 82728; 83540; 83550; 85025; 96367; 96368; 96375; 96413; 96415; 96416; 96523; 99214; 99215; J0640; J1100; J2469; J9190; J9263

== ENCOUNTER 2022-07-20 08:28 | Oncology outpatient (recurring) (ONCR) | payer MEDICARE, MEDICAID, SELFPAY ==
[2022-06-22 08:46] LABS: Basophils % 0.6 %; Eosinophils # 0.2 10^3/uL (0.0-0.8); Eosinophils % 3.9 %; Hematocrit 30.8 % (37.0-47.0); Hemoglobin 9.7 g/dL (11.5-15.3); Lymphocytes # 1.4 10^3/uL (0.8-4.8); Lymphocytes % 27.3 %; Mean Corpuscular HGB Conc 31.5 g/dL (30.0-36.0); Mean Corpuscular Hemoglobin 30.1 pg (28.0-34.0); Mean Corpuscular Volume 95.7 fl (81-99); Mean Platelet Volume 10.4 fL (7.4-10.4); Monocytes # 0.6 10^3/uL (0.2-0.9); Monocytes % 11.3 %; Neutrophils # 2.89 10^3/uL (1.8-7.7); Neutrophils % 56.5 %; Nucleated Red Blood Cells % 0 %; Platelet Count 161 10^3/cmm (130-400); Red Blood Count 3.22 10^6/uL (4.1-5.3); Red Cell Distribution Width 21.1 % (12.1-15.1); White Blood Count 5.1 10^3/uL (4.0-10.0)
[2022-06-22 09:58] LABS: Alanine Aminotransferase 19 U/L (0-33); Albumin Level 3.9 g/dL (3.5-5.2); Alkaline Phosphatase 93 IU/L (35-105); Anion Gap 14.9 (5-19); Aspartate Amino Transferase 24 U/L (0-32); Blood Urea Nitrogen 8 mg/dL (8-23); Calcium 8.8 mg/dL (8.5-10.5); Carbon Dioxide 27 mmol/L (22-29); Chloride 103 mmol/L (98-107); Creatinine Clr Calc Pharmacy 70.2587; Ferritin 52 ng/mL (15-150); Globulin 2.4 g/dL (1.3-4.6); Glomerular Filtration Rate 100.3 mL/min (90-130); Glucose 216 mg/dL (65-115); Iron 66 ug/dL (37-145); Osmolality Calculated 297 mOsm/kg (285-295); Percent Saturation 20.7 % (20-50); Potassium 3.9 mmol/L (3.5-5.1); Sodium 141 mmol/L (136-145); Total Bilirubin 0.2 mg/dL (0.15-1.2); Total Iron Binding Capacity 318 mcg/dl; Total Protein 6.3 g/dL (6.6-8.7); Unsaturated Iron Binding 252 ug/dL (112-347)
[2022-06-22] MEDS: dextrose 5% 250 ML 75 ML IV (10:14)
[2022-06-22] MEDS: palonosetron 0.25 mg/5 mL SDV IVP (10:14)
[2022-06-22] MEDS: leucovorin 740 MG in dextrose 5% 250 ML 81 MG IV (10:52)
[2022-06-22] MEDS: fluorouraciL 4,450 MG, elastomeric pump 1 PUMP in sodium chloride 0.9% (100 ml) 3 ML IV (14:38)
[2022-06-22 14:42] VITALS: BP 134/75; PULSE 86; RESP 16; TEMP 36.6; O2SAT 97
[2022-07-06 09:27] LABS: Basophils % 0.4 %; Eosinophils # 0.2 10^3/uL (0.0-0.8); Eosinophils % 2.9 %; Hematocrit 32.1 % (37.0-47.0); Hemoglobin 9.9 g/dL (11.5-15.3); Lymphocytes # 1.4 10^3/uL (0.8-4.8); Mean Corpuscular HGB Conc 30.8 g/dL (30.0-36.0); Mean Corpuscular Hemoglobin 30.4 pg (28.0-34.0); Mean Corpuscular Volume 98.5 fl (81-99); Mean Platelet Volume 10.2 fL (7.4-10.4); Monocytes # 0.6 10^3/uL (0.2-0.9); Monocytes % 10.8 %; Neutrophils % 59.5 %; Nucleated Red Blood Cells % 0 %; Platelet Count 155 10^3/cmm (130-400); Red Blood Count 3.26 10^6/uL (4.1-5.3); Red Cell Distribution Width 19.9 % (12.1-15.1); White Blood Count 5.5 10^3/uL (4.0-10.0)
[2022-07-06 09:45] LABS: Alanine Aminotransferase 19 U/L (0-33); Albumin Level 3.9 g/dL (3.5-5.2); Alkaline Phosphatase 94 U/L (35-105); Anion Gap 14.3 (5-19); Blood Urea Nitrogen 9 mg/dL (8-23); Calcium 8.6 mg/dL (8.5-10.5); Carbon Dioxide 27 mmol/L (22-29); Chloride 101 mmol/L (98-107); Creatinine Clr Calc Pharmacy 70.2587; Globulin 2.6 g/dL (1.3-4.6); Glucose 207 mg/dL (65-115); Osmolality Calculated 291 mOsm/kg (285-295); Potassium 4.3 mmol/L (3.5-5.1); Sodium 138 mmol/L (136-145); Total Bilirubin 0.2 mg/dL (0.15-1.2); Total Protein 6.5 g/dL (6.6-8.7)
[2022-07-06 09:52] LABS: Aspartate Amino Transferase 29 U/L (0-32)
[2022-07-06 10:34] VITALS: BMI 33.8
[2022-07-06] MEDS: dextrose 5% 250 ML 100 ML IV (10:59)
[2022-07-06] MEDS: palonosetron 0.25 mg/5 mL SDV IVP (11:02)
[2022-07-06] MEDS: leucovorin 780 MG in dextrose 5% 250 ML 82 MG IV (11:31)
[2022-07-06] MEDS: oxaliplatin 100 MG, oxaliplatin 46 MG in dextrose 5% 250 ML 69.8 MG IV (11:31)
[2022-07-06] MEDS: fluorouraciL 4,700 MG, elastomeric pump 1 PUMP in sodium chloride 0.9% (100 ml) 0 ML IV (15:09)
[2022-07-06 15:38] VITALS: BP 171/81; PULSE 85; TEMP 36.3; O2SAT 96
[2022-07-20 09:07] LABS: Basophils % 0.6 %; Eosinophils # 0.2 10^3/uL (0.0-0.8); Eosinophils % 3.4 %; Hematocrit 32.2 % (37.0-47.0); Hemoglobin 10.1 g/dL (11.5-15.3); Lymphocytes # 1.3 10^3/uL (0.8-4.8); Lymphocytes % 26.7 %; Mean Corpuscular HGB Conc 31.4 g/dL (30.0-36.0); Mean Corpuscular Hemoglobin 30.9 pg (28.0-34.0); Mean Corpuscular Volume 98.5 fl (81-99); Mean Platelet Volume 11.2 fL (7.4-10.4); Monocytes # 0.6 10^3/uL (0.2-0.9); Monocytes % 12.2 %; Neutrophils # 2.84 10^3/uL (1.8-7.7); Neutrophils % 56.7 %; Nucleated Red Blood Cells % 0 %; Platelet Count 152 10^3/cmm (130-400); Red Blood Count 3.27 10^6/uL (4.1-5.3); Red Cell Distribution Width 18.9 % (12.1-15.1)
[2022-07-20 09:24] LABS: Alanine Aminotransferase 17 U/L (0-33); Albumin Level 3.8 g/dL (3.5-5.2); Alkaline Phosphatase 104 U/L (35-105); Aspartate Amino Transferase 25 U/L (0-32); Blood Urea Nitrogen 8 mg/dL (8-23); Calcium 8.9 mg/dL (8.5-10.5); Carbon Dioxide 29 mmol/L (22-29); Chloride 98 mmol/L (98-107); Creatinine Clr Calc Pharmacy 70.4194; Globulin 2.7 g/dL (1.3-4.6); Glucose 219 mg/dL (65-115); Osmolality Calculated 285 mOsm/kg (285-295); Sodium 135 mmol/L (136-145); Total Bilirubin 0.2 mg/dL (0.15-1.2); Total Protein 6.5 g/dL (6.6-8.7)
[2022-07-20] MEDS: palonosetron 0.25 mg/5 mL SDV IVP (10:23)
[2022-07-20] MEDS: dextrose 5% 250 ML 100 ML IV (10:23)
[2022-07-20 10:31] VITALS: BMI 33.3
[2022-07-20] MEDS: leucovorin 780 MG in dextrose 5% 250 ML 82 MG IV (11:13)
[2022-07-20] MEDS: oxaliplatin 100 MG, oxaliplatin 46 MG in dextrose 5% 250 ML 69.8 MG IV (11:13)
[2022-07-20] MEDS: fluorouraciL 4,700 MG, elastomeric pump 1 PUMP in sodium chloride 0.9% (100 ml) 0 ML IV (15:07)
[2022-07-20 15:10] VITALS: BP 121/80; PULSE 89; RESP 16; TEMP 36.3; O2SAT 96
== END 2022-07-21 23:59 | disposition home or self-care (01) ==
PROVIDERS: Nurse Practitioner Family; PCP Nurse Practitioner Family; Visit Provider Internal Medicine Medical Oncology
DX: Z51.11 Encounter for antineoplastic chemotherapy (principal); C18.7 Malignant neoplasm of sigmoid colon; Z90.49 Acquired absence of other specified parts of digestive tract; C78.6 Secondary malignant neoplasm of retroperitoneum and peritoneum; C77.8 Secondary and unspecified malignant neoplasm of lymph nodes of multiple regions; Z79.899 Other long term (current) drug therapy; G62.0 Drug-induced polyneuropathy; T45.1X5A Adverse effect of antineoplastic and immunosuppressive drugs, initial encounter; R53.83 Other fatigue; Z53.9 Procedure and treatment not carried out, unspecified reason
CPT/HCPCS: 80053; 82728; 83540; 83550; 85025; 96367; 96368; 96375; 96413; 96415; 96416; 96523; 99214; 99215; J0640; J1100; J2469; J9190; J9263

== ENCOUNTER 2022-08-17 08:30 | Oncology outpatient (recurring) (ONCR) | payer MEDICARE, MEDICAID, SELFPAY ==
[2022-08-17 08:59] LABS: Basophils # 0.1 10^3/uL (0.0-0.1); Basophils % 0.8 %; Eosinophils # 0.3 10^3/uL (0.0-0.8); Eosinophils % 5.3 %; Hematocrit 34.8 % (37.0-47.0); Hemoglobin 10.8 g/dL (11.5-15.3); Lymphocytes # 1.4 10^3/uL (0.8-4.8); Lymphocytes % 22.3 %; Mean Corpuscular Hemoglobin 30.9 pg (28.0-34.0); Mean Corpuscular Volume 99.4 fl (81-99); Mean Platelet Volume 10.8 fL (7.4-10.4); Monocytes # 0.5 10^3/uL (0.2-0.9); Neutrophils # 4.04 10^3/uL (1.8-7.7); Nucleated Red Blood Cells % 0 %; Platelet Count 209 10^3/cmm (130-400); Red Cell Distribution Width 17.3 % (12.1-15.1); White Blood Count 6.4 10^3/uL (4.0-10.0)
[2022-08-17 09:33] LABS: Carcinoembryonic Antigen 2.7 ng/mL (0.0-4.7)
[2022-08-17 09:45] LABS: Alanine Aminotransferase 18 U/L (0-33); Albumin Level 3.6 g/dL (3.5-5.2); Alkaline Phosphatase 106 U/L (35-105); Blood Urea Nitrogen 8 mg/dL (8-23); Calcium 9.3 mg/dL (8.5-10.5); Carbon Dioxide 24 mmol/L (22-29); Chloride 103 mmol/L (98-107); Creatinine Clr Calc Pharmacy 69.8169; Globulin 2.9 g/dL (1.3-4.6); Glucose 207 mg/dL (65-115); Osmolality Calculated 296 mOsm/kg (285-295); Sodium 141 mmol/L (136-145); Total Bilirubin 0.2 mg/dL (0.15-1.2); Total Protein 6.5 g/dL (6.6-8.7)
[2022-08-17 09:47] LABS: Anion Gap 18.4 (5-19); Aspartate Amino Transferase 24 U/L (0-32); Potassium 4.4 mmol/L (3.5-5.1)
== END 2022-08-20 23:59 | disposition home or self-care (01) ==
PROVIDERS: PCP Nurse Practitioner Family; Visit Provider Internal Medicine Medical Oncology
DX: C18.7 Malignant neoplasm of sigmoid colon (principal); C78.6 Secondary malignant neoplasm of retroperitoneum and peritoneum; Z92.21 Personal history of antineoplastic chemotherapy; Z87.891 Personal history of nicotine dependence; C77.8 Secondary and unspecified malignant neoplasm of lymph nodes of multiple regions
CPT/HCPCS: 36591; 80053; 82378; 85025; 96523; 99214

== ENCOUNTER 2022-09-14 13:59 | Oncology outpatient (recurring) (ONCR) | payer MEDICARE, MEDICAID, SELFPAY | END 2022-09-20 23:59 | disposition home or self-care (01) | PROVIDERS: PCP Nurse Practitioner Family; Visit Provider Internal Medicine Medical Oncology | DX: Z45.2 Encounter for adjustment and management of vascular access device (principal) | CPT/HCPCS: 96523 ==

== ENCOUNTER 2022-10-12 13:49 | Oncology outpatient (recurring) (ONCR) | payer MEDICARE, MEDICAID, SELFPAY ==
[2022-10-12 14:00] VITALS: BP 138/81; PULSE 86; RESP 16; TEMP 36.2; O2SAT 97
== END 2022-10-20 23:59 | disposition home or self-care (01) ==
PROVIDERS: PCP Nurse Practitioner Family; Visit Provider Internal Medicine Medical Oncology
DX: Z45.2 Encounter for adjustment and management of vascular access device (principal)
CPT/HCPCS: 96523

== ENCOUNTER 2022-11-09 14:06 | Oncology outpatient (recurring) (ONCR) | payer MEDICARE, MEDICAID, SELFPAY ==
[2022-11-09 14:31] VITALS: BP 105/68; PULSE 83; RESP 16; TEMP 36.3; O2SAT 97
== END 2022-11-20 23:59 | disposition home or self-care (01) ==
LOC: ONCMED 14:06
PROVIDERS: PCP Nurse Practitioner Family; Visit Provider Internal Medicine Medical Oncology
DX: Z45.2 Encounter for adjustment and management of vascular access device (principal); Z95.828 Presence of other vascular implants and grafts
CPT/HCPCS: 96523

== ENCOUNTER 2022-12-08 14:39 | Oncology outpatient (recurring) (ONCR) | payer MEDICARE, MEDICAID, SELFPAY ==
[2022-12-08 14:50] VITALS: BP 126/73; PULSE 80; RESP 16; TEMP 36.4; O2SAT 98
== END 2022-12-21 23:59 | disposition home or self-care (01) ==
PROVIDERS: PCP Nurse Practitioner Family; Visit Provider Internal Medicine Medical Oncology
DX: Z45.2 Encounter for adjustment and management of vascular access device (principal); Z95.828 Presence of other vascular implants and grafts
CPT/HCPCS: 96523

== ENCOUNTER 2023-01-11 13:59 | Oncology outpatient (recurring) (ONCR) | payer MEDICARE, MEDICAID, SELFPAY ==
[2023-01-11 14:10] VITALS: BP 140/74; PULSE 74; RESP 18; TEMP 36.6; O2SAT 98
== END 2023-01-18 23:59 | disposition home or self-care (01) ==
LOC: ONCMED 13:59
PROVIDERS: PCP Nurse Practitioner Family; Visit Provider Internal Medicine Medical Oncology
DX: Z45.2 Encounter for adjustment and management of vascular access device (principal)
CPT/HCPCS: 96523

== ENCOUNTER 2023-01-31 14:00 | Outpatient (CLI) | payer MEDICARE, MEDICAID, SELFPAY ==
--- NOTE | 2023-01-31 14:07 | MM_ITS ---
WS: [id number] BILATERAL 3D TOMOSYNTHESIS DIGITAL SCREENING MAMMOGRAPHY WITH CAD CLINICAL INFORMATION: SCREENING HISTORY: Screening mammogram. No current complaints. COMPARISON: 2021 TECHNIQUE: Bilateral CC and MLO views. FINDINGS: Scattered fibroglandular densities bilaterally. No suspicious focal mass, asymmetry, calcifications, or architectural distortion. No evidence of malignancy. Punctate and lucent centered calcifications. MM/[place] [id number] IMPRESSION: BI-RADS: 2-Benign FOLLOW UP: 1 Year Follow-up Recommend return to annual screening mammography.
== END 2023-01-31 14:01 | disposition home or self-care (01) ==
LOC: RAD 14:02
PROVIDERS: PCP Nurse Practitioner Family; Visit Provider Nurse Practitioner Family
DX: Z12.31 Encounter for screening mammogram for malignant neoplasm of breast (principal)
CPT/HCPCS: 77063; 77067

== ENCOUNTER 2023-02-08 11:29 | Oncology outpatient (recurring) (ONCR) | payer MEDICARE, MEDICAID, SELFPAY ==
[2023-02-08 12:06] LABS: Basophils % 0.6 %; Eosinophils # 0.3 10^3/uL (0.0-0.8); Eosinophils % 3.7 %; Hematocrit 34.6 % (37.0-47.0); Hemoglobin 11.1 g/dL (11.5-15.3); Lymphocytes # 1.6 10^3/uL (0.8-4.8); Lymphocytes % 23.3 %; Mean Corpuscular HGB Conc 32.1 g/dL (30.0-36.0); Mean Corpuscular Hemoglobin 30.8 pg (28.0-34.0); Mean Corpuscular Volume 96.1 fl (81-99); Mean Platelet Volume 10.2 fL (7.4-10.4); Monocytes # 0.5 10^3/uL (0.2-0.9); Monocytes % 6.5 %; Neutrophils # 4.55 10^3/uL (1.8-7.7); Neutrophils % 65.5 %; Nucleated Red Blood Cells % 0 %; Platelet Count 229 10^3/cmm (130-400); Red Cell Distribution Width 15.5 % (12.1-15.1)
[2023-02-08 12:33] LABS: Carcinoembryonic Antigen 14.3 ng/mL (0.0-4.7)
[2023-02-08 12:44] LABS: Alanine Aminotransferase 17 U/L (0-33); Albumin Level 3.9 g/dL (3.5-5.2); Alkaline Phosphatase 100 U/L (35-105); Anion Gap 14.2 (5-19); Aspartate Amino Transferase 17 U/L (0-32); Blood Urea Nitrogen 12 mg/dL (8-23); Carbon Dioxide 28 mmol/L (22-29); Chloride 101 mmol/L (98-107); Globulin 2.9 g/dL (1.3-4.6); Glomerular Filtration Rate 62.6 mL/min (90-130); Glucose 138 mg/dL (65-115); Osmolality Calculated 290 mOsm/kg (285-295); Potassium 4.2 mmol/L (3.5-5.1); Sodium 139 mmol/L (136-145); Total Bilirubin 0.2 mg/dL (0.15-1.2); Total Protein 6.8 g/dL (6.6-8.7)
== END 2023-02-18 23:59 | disposition home or self-care (01) ==
PROVIDERS: Nurse Practitioner Family; PCP Nurse Practitioner Family; Visit Provider Internal Medicine Medical Oncology
DX: Z08 Encounter for follow-up examination after completed treatment for malignant neoplasm (principal); Z85.038 Personal history of other malignant neoplasm of large intestine; R97.0 Elevated carcinoembryonic antigen [CEA]; Z90.49 Acquired absence of other specified parts of digestive tract; Z92.21 Personal history of antineoplastic chemotherapy; Z87.891 Personal history of nicotine dependence
CPT/HCPCS: 80053; 82378; 85025; 99213

== ENCOUNTER 2023-02-24 14:13 | Outpatient (CLI) | payer MEDICARE, MEDICAID, SELFPAY ==
--- NOTE | 2023-02-24 14:23 | CT_ITS ---
WS: [id number] CT CHEST, ABDOMEN AND PELVIS WITH CONTRAST HISTORY: Follow-up colon cancer. TECHNIQUE: Contiguous 5 mm axial imaging performed through the chest, abdomen and pelvis with IV cont rast, oral contrast has been provided. Coronal and sagittal reformats chest. Coronal and sagittal ref ormats through the abdomen and pelvis. All CT scans at [facility] use at least one of these d ose optimization techniques: automated exposure control; mA and/or kV adjustment per patient size (in cludes targeted exams where dose is matched to clinical indication); or iterative reconstruction. CONTRAST: Omnipaque 350; 100 mL IV. DLP: 1052.99 mGy.cm COMPARISON: 01/27/2022, 11/30/[address]: There is a single new pulmonary nodule RIGHT lower lobe measuring 5 mm. There is an adjacen t previous the described 2 mm micronodule in the RIGHT lower lobe. No change in the LEFT upper and LE FT lower lobe micronodules. No pneumonia. No mediastinal or hilar adenopathy. Mild atherosclerosis ao rta. Normal size pulmonary artery and heart. No pericardial or pleural effusions. Small hiatal hernia . RIGHT Mediport. Calcified 13 mm RIGHT thyroid nodule is unchanged. Abdomen CT: Hepatic and splenic granulomata. No organomegaly. No bile duct dilatation. No metastatic disease. Cholelithiasis. There is a large stone in the gallbladder measuring 2.5 cm. There is noted a dditional stone which is smaller in the gallbladder not as well visualized. No bile duct dilatation. Normal portal vein. Negative pancreas. Mild nodularity of the LEFT adrenal gland. Nodule measures 7 m m. Atherosclerosis aorta. No aneurysm. Normal kidneys. Stomach is well distended with oral contrast. No small bowel obstruction. Mild diffuse constipation. Mild wall thickening involving the ascending colon. There is no obstruction. Normal appendix. Rectal anastomotic sutures are identified. No recurrent mass. No adenopathy. There are a few small retroperi toneal lymph nodes but these are not enlarged. The largest is 7 mm aortocaval in position. Pelvic CT: Nondistended urinary bladder. Uterus and ovaries are both identified. Moderate thoracolumbar scoliosis and spondylitic changes. L4 mild compression deformity. CT/CT chest abdpel w/*[id number] IMPRESSION: 1. Rectal anastomotic sutures are identified. No recurrent mass or adenopathy identified at this location. No GI tract obstruction. 2. New noncalcified RIGHT lower lobe 5 mm pulmonary nodule. Indeterminate for malignancy. Recommend chest CT follow-up in 3 months. 3. There is an additional 7 mm indeterminate nodule in the LEFT adrenal gland. This may have been present on prior study but not visualized due to slice belinda ction. This is a very minimal area of thickening. 4. No metastatic disease in the liver. No significant adenopathy. 5. Cholelithiasis. Numerous stones are present in the gallbladder without acut e cholecystitis at this time. 6. Small hiatal hernia. 7. Moderate constipation.
[2023-02-24] MEDS: iohexol 350 mg/mL 500 mL Btl (per mL) IV (15:06)
[2023-02-24] MEDS: iohexol 350 mg/mL 500 mL Btl (per mL) PO (15:07)
== END 2023-02-24 14:14 | disposition home or self-care (01) ==
LOC: RAD 14:18
PROVIDERS: PCP Nurse Practitioner Family; Visit Provider Nurse Practitioner Family
DX: C18.7 Malignant neoplasm of sigmoid colon (principal); K59.00 Constipation, unspecified; K44.9 Diaphragmatic hernia without obstruction or gangrene; K80.20 Calculus of gallbladder without cholecystitis without obstruction
CPT/HCPCS: 71260; 74177; Q9967

== ENCOUNTER 2023-03-03 10:04 | Oncology outpatient (recurring) (ONCR) | payer MEDICARE, MEDICAID, SELFPAY ==
[2023-03-03 10:00] VITALS: BP 122/78; PULSE 90; TEMP 36.7; O2SAT 97
[2023-03-03 10:13] VITALS: BP 122/78; PULSE 90; TEMP 36.7; O2SAT 97
[2023-03-03 10:29] LABS: Basophils % 0.6 %; Eosinophils # 0.4 10^3/uL (0.0-0.8); Eosinophils % 5.1 %; Hematocrit 34.9 % (37.0-47.0); Hemoglobin 10.9 g/dL (11.5-15.3); Lymphocytes # 1.6 10^3/uL (0.8-4.8); Lymphocytes % 23.2 %; Mean Corpuscular HGB Conc 31.2 g/dL (30.0-36.0); Mean Corpuscular Hemoglobin 29.6 pg (28.0-34.0); Mean Corpuscular Volume 94.8 fl (81-99); Mean Platelet Volume 10.4 fL (7.4-10.4); Monocytes # 0.4 10^3/uL (0.2-0.9); Monocytes % 5.4 %; Neutrophils # 4.61 10^3/uL (1.8-7.7); Neutrophils % 65.4 %; Nucleated Red Blood Cells % 0 %; Platelet Count 258 10^3/cmm (130-400); Red Blood Count 3.68 10^6/uL (4.1-5.3); Red Cell Distribution Width 15.3 % (12.1-15.1)
[2023-03-03 10:54] LABS: Alanine Aminotransferase 15 U/L (0-33); Alkaline Phosphatase 108 U/L (35-105); Aspartate Amino Transferase 18 U/L (0-32); Blood Urea Nitrogen 9 mg/dL (8-23); Calcium 8.7 mg/dL (8.5-10.5); Carbon Dioxide 28 mmol/L (22-29); Chloride 102 mmol/L (98-107); Globulin 2.5 g/dL (1.3-4.6); Glomerular Filtration Rate 71.8 mL/min (90-130); Glucose 167 mg/dL (65-115); Osmolality Calculated 294 mOsm/kg (285-295); Sodium 141 mmol/L (136-145); Total Bilirubin 0.2 mg/dL (0.15-1.2); Total Protein 6.5 g/dL (6.6-8.7)
[2023-03-03 11:30] LABS: Carcinoembryonic Antigen 17.2 ng/mL (0.0-4.7)
== END 2023-03-20 23:59 | disposition home or self-care (01) ==
LOC: ONCMED 10:05
PROVIDERS: Nurse Practitioner Family; PCP Nurse Practitioner Family; Visit Provider Internal Medicine Medical Oncology
DX: Z08 Encounter for follow-up examination after completed treatment for malignant neoplasm (principal); Z85.038 Personal history of other malignant neoplasm of large intestine; R97.0 Elevated carcinoembryonic antigen [CEA]; Z90.49 Acquired absence of other specified parts of digestive tract; Z92.21 Personal history of antineoplastic chemotherapy; Z87.891 Personal history of nicotine dependence; R91.1 Solitary pulmonary nodule; E27.9 Disorder of adrenal gland, unspecified
CPT/HCPCS: 36591; 80053; 82378; 85025; 99214

== ENCOUNTER 2023-03-19 05:34 | Outpatient (CLI) | payer MEDICARE, MEDICAID, SELFPAY ==
--- NOTE | 2023-03-19 07:30 | PETR_ITS ---
PROCEDURE INFORMATION: Exam: PET/CT Skull Base to Mid-thigh Exam date and time: 03/19/2023 8:11 AM Age: 67 years old Clinical indication: Colon cancer dx 1 year ago, surgery and therapy done. Rising CEA level. Abnormal radiologic findings (5 mm lung nodule in the right lower lobe, 7 mm nodule in the left adrenal gland). LABS AND CLINICAL REPORTS: Glucose: 139 mg/dl Treatment strategy for malignancy (PET staging): Restaging (PS) TECHNIQUE: Imaging protocol: Following at least four-hour fasting and following the injection of radiopharmaceutical, low dose CT images were obtained. Then, PET images were obtained. Attenuation corrected images were constructed using the CT scan. Fused images of PET and CT were reviewed. The standardized uptake values (SUV) reported below are maximum values within a region of interest, expressed in gm/ml. Exam includes orbital meatal line to mid-thigh. Radiopharmaceutical: 13.38 mCi F-18 FDG (Fluorodeoxyglucose), IV. Time of imaging post radiopharmaceutical administration: 1 hour Injection site: Right antecubital vein COMPARISON: CT chest abdpel w/*[id number] 02/24/2023, CTA chest 01/27/2022, CT abdomen pelvis 11/30/2021 FINDINGS: Tubes, catheters and devices: Port catheter placed via the right internal jugular vein terminates in the right atrium. Brain: Visualized brain has normal physiologic uptake. Pharynx: No abnormal uptake. Larynx: No abnormal uptake. Thyroid: 1.5 x 1 cm peripherally calcified right thyroid nodule with high uptake of 9.7 SUV is stable in size since 01/25/2022. Lungs, pleura and trachea: No abnormal uptake. 6 mm right lower lobe nodule on image 58 new since 2021 is not FDG avid. There are stable small calcified granulomas in the lungs. No pleural effusion. Heart: Normal physiologic uptake. There is no cardiomegaly. No coronary artery calcification is visualized. There is no pericardial effusion. Mediastinal space: No abnormal uptake. Liver: No abnormal uptake. Punctate calcified granulomas. Elongated right hepatic lobe (23.7 cm in the craniocaudal span) stable since prior exam. Gallbladder and bile ducts: No abnormal uptake. Large calcified gallstones measuring up to 2.7 cm. Pancreas: No abnormal uptake. Spleen: No abnormal uptake. No splenomegaly. Punctate calcified granulomas. Adrenal glands: No abnormal uptake. Mild thickening of the body of the left adrenal measuring 0.8 cm in thickness is unchanged since 202 suggestive of benign finding. Kidneys and ureters: Normal physiologic uptake. No hydronephrosis. Stomach and bowel: Increased uptake in a few loops of ileum with no corresponding CT abnormality is likely benign. Unremarkable anastomosis in the rectum. No abnormal dilatation of the bowel. Vasculature: No abnormal uptake. No aortic aneurysm. Lymph nodes: 1.5 x 1 cm left retroperitoneal lymph node adjacent to the left common iliac artery on image 111 measures 6 SUV. This lymph node is noted on series 5, image [address] abdomen pelvis on 02/24/2023 measuring 1 cm in the short axis versus 0.5 cm in 202. Rounded 1 x 1 cm right common iliac lymph node on image 117 measures 4.9 SUV. It also increased in the short axis from 0.5 cm in 202 to 1 cm on the current exam. No FDG avid lymphadenopathy in the head, neck, chest, and extremities. There is sequela of exposure to granulomatous disease with calcified mediastinal and right hilar lymph nodes. Bones/joints: No abnormal uptake in the visualized axial and appendicular skeleton. Status post C5-C6 fusion with anterior internal fixation. Soft tissues: No abnormal uptake in the visualized head, neck, chest, abdomen, pelvis, and extremities. [facility] [id number] IMPRESSION: 1. Small bilateral common iliac lymph nodes increased in size since 2021 with the highest uptake of 6 SUV are suspicious for metastatic lymphadenopathy. 2. 6 mm lung nodule in the right lower lobe new since 2021 with no abnormal uptake is below the spatial resolution of PET, therefore metastasis cannot be excluded. Further follow-up is recommended. 3. 1.5 cm FDG avid right thyroid nodule with the highest uptake of 9.7 SUV likely represent primary thyroid neoplasm. Given no change in size since 01/25/2022 this lesion is not aggressive. Further evaluation with ultrasound and biopsy is recommended if clinically warranted.
== END 2023-03-19 05:35 | disposition home or self-care (01) ==
LOC: RAD 03-21 05:34
PROVIDERS: PCP Nurse Practitioner Family; Visit Provider Internal Medicine Medical Oncology
DX: C18.7 Malignant neoplasm of sigmoid colon (principal); R91.8 Other nonspecific abnormal finding of lung field; E04.1 Nontoxic single thyroid nodule
CPT/HCPCS: 78815; A9552

== ENCOUNTER 2023-04-21 13:26 | Oncology outpatient (recurring) (ONCR) | payer MEDICARE, MEDICAID, SELFPAY ==
[2023-04-21 14:42] VITALS: BP 132/75; PULSE 75; RESP 16; TEMP 36.4; O2SAT 96
[2023-04-21 15:49] LABS: Basophils % 0.5 %; Eosinophils # 0.4 10^3/uL (0.0-0.8); Eosinophils % 4.6 %; Hematocrit 35.1 % (37.0-47.0); Hemoglobin 10.9 g/dL (11.5-15.3); Lymphocytes # 1.8 10^3/uL (0.8-4.8); Lymphocytes % 23.8 %; Mean Corpuscular HGB Conc 31.1 g/dL (30.0-36.0); Mean Corpuscular Hemoglobin 29.5 pg (28.0-34.0); Mean Corpuscular Volume 95.1 fl (81-99); Mean Platelet Volume 11.3 fL (7.4-10.4); Monocytes # 0.6 10^3/uL (0.2-0.9); Monocytes % 7.4 %; Neutrophils # 4.79 10^3/uL (1.8-7.7); Neutrophils % 63.4 %; Nucleated Red Blood Cells % 0 %; Platelet Count 252 10^3/cmm (130-400); Red Blood Count 3.69 10^6/uL (4.1-5.3); Red Cell Distribution Width 15.6 % (12.1-15.1); White Blood Count 7.6 10^3/uL (4.0-10.0)
[2023-04-21 16:02] LABS: Carcinoembryonic Antigen 33.8 ng/mL (0.0-4.7); Free T4 Free Thyroxine 1.13 ng/dL (0.82-1.77); Thyroid Stimulating Hormone 3.86 uIU/mL (0.27-4.20)
[2023-04-21 16:20] LABS: Alanine Aminotransferase 20 U/L (0-33); Alkaline Phosphatase 101 U/L (35-105); Anion Gap 15.4 (5-19); Aspartate Amino Transferase 20 U/L (0-32); Blood Urea Nitrogen 11 mg/dL (8-23); Calcium 9.4 mg/dL (8.5-10.5); Carbon Dioxide 27 mmol/L (22-29); Chloride 96 mmol/L (98-107); Creatinine Clr Calc Pharmacy 71.0652; Globulin 2.9 g/dL (1.3-4.6); Glucose 68 mg/dL (65-115); Osmolality Calculated 276 mOsm/kg (285-295); Potassium 4.4 mmol/L (3.5-5.1); Sodium 134 mmol/L (136-145); Total Bilirubin 0.3 mg/dL (0.15-1.2); Total Protein 6.9 g/dL (6.6-8.7)
== END 2023-05-20 23:59 | disposition home or self-care (01) ==
PROVIDERS: PCP Nurse Practitioner Family; Visit Provider Internal Medicine Medical Oncology
DX: Z08 Encounter for follow-up examination after completed treatment for malignant neoplasm (principal); Z85.038 Personal history of other malignant neoplasm of large intestine; R97.0 Elevated carcinoembryonic antigen [CEA]; Z90.49 Acquired absence of other specified parts of digestive tract; Z92.21 Personal history of antineoplastic chemotherapy; Z87.891 Personal history of nicotine dependence; C77.8 Secondary and unspecified malignant neoplasm of lymph nodes of multiple regions; R91.1 Solitary pulmonary nodule
CPT/HCPCS: 36591; 80053; 82378; 84439; 84443; 85025; 99214; J1642

== ENCOUNTER 2023-05-23 09:31 | Outpatient (CLI) | payer MEDICARE, MEDICAID, SELFPAY ==
--- NOTE | 2023-05-23 10:30 | CT_ITS ---
WS: [id number] CT CHEST, ABDOMEN, AND PELVIS TECHNIQUE: Contrast-enhanced CT of the chest, abdomen, and pelvis with coronal and sagittal reformatt ed images. CLINICAL INFORMATION: increasing CEA, Colon Ca, follow up COMPARISON: CT February 24, [address] March 19, 2023 DLP: 1153.[address] scans at [facility] use at least one of these dose optimization techniques: automated e xposure control; mA and/or kV adjustment per patient size (includes targeted exams where dose is matc hed to clinical indication); or iterative reconstruction. CT CHEST: Normal caliber thoracic aorta. Coronary calcification. No mediastinal or hilar lymphadenopa thy. Calcified RIGHT hilar and peribronchial lymph nodes. No axillary lymphadenopathy. Calcified RIGHT thyroid nodule measuring 15 mm. Hypertrophic changes thoracic spine. Mild thoracic c urve is mild thoracic kyphosis. Slight anterolisthesis L4 on L5. Hepatomegaly. Previously described posterior RIGHT lower lobe pulmonary nodule measuring 7 mm is stable. Stable adj acent satellite nodule. LEFT upper lobe pulmonary nodule measuring 4 mm unchanged from previous. A few calcified granulomas. Tiny 4 mm nodule LEFT upper lobe anteriorly. A few tiny hazy subpleural nodules LEFT lower lobe CT ABDOMEN AND PELVIS: Rectosigmoid anastomosis. No evidence of recurrent mass or lesion in the area of the sigmoid anastomo sis. Mild sigmoid constipation. Mild RIGHT colon and cecal constipation. A few prominent periaortic a nd aortocaval lymph nodes progressed compared to previous. LEFT greater than RIGHT iliac lymph nodes appear slightly progressed. Slightly progressed aortocaval lymph node. LEFT common iliac lymph nodes appear slightly progressed the largest measuring 2.1 x 1.6 cm. Aortocaval lymph node measures 11 mm. Diffuse fatty infiltration liver. Dense cholelithiasis with large gallstones. Normal GE junction. Spl enic granulomas. Adrenal glands are normal. Normal caliber abdominal aorta. No inguinal lymphadenopat hy. CT/CT chest abdpel w/*[id number] IMPRESSION: 1. Stable rectosigmoid anastomosis. No visualized recurrent mass in this regio n. 2. New or progressed abdominal and pelvic lymphadenopathy with the largest lym ph nodes along the LEFT greater than RIGHT common iliac chain measuring up to 2 .1 x 1.6 cm. Progressed aortocaval lymph node measuring 11 mm. Additional promi nent enhancing iliac chain lymph nodes measuring 11 to 12 mm on the LEFT. Consi stone further evaluation with PET/CT. 3. No mediastinal or hilar lymphadenopathy in the chest. 4. Previously described posterior RIGHT lower lobe pulmonary nodule measuring 7 mm is stable. Stable adjacent satellite nodule. 5. Additional stable subcentimeter pulmonary nodules.
[2023-05-23] MEDS: iohexol 350 mg/mL 500 mL Btl (per mL) PO (10:40)
[2023-05-23] MEDS: iohexol 350 mg/mL 500 mL Btl (per mL) IV (10:50)
== END 2023-05-23 09:32 | disposition home or self-care (01) ==
LOC: RAD 09:34
PROVIDERS: PCP Nurse Practitioner Family; Visit Provider Internal Medicine Medical Oncology
DX: C18.7 Malignant neoplasm of sigmoid colon (principal); Z90.49 Acquired absence of other specified parts of digestive tract; C78.6 Secondary malignant neoplasm of retroperitoneum and peritoneum; C77.8 Secondary and unspecified malignant neoplasm of lymph nodes of multiple regions; R97.0 Elevated carcinoembryonic antigen [CEA]; R91.1 Solitary pulmonary nodule; Z79.899 Other long term (current) drug therapy; Z87.891 Personal history of nicotine dependence
CPT/HCPCS: 71260; 74177; 99214; Q9967

== ENCOUNTER 2023-06-01 13:18 | Oncology outpatient (recurring) (ONCR) | payer MEDICARE, MEDICAID, SELFPAY ==
[2023-06-01 13:12] VITALS: BP 133/76; PULSE 92; RESP 18; TEMP 35.6; O2SAT 98
[2023-06-01 13:25] LABS: Basophils # 0.1 10^3/uL (0.0-0.1); Basophils % 0.8 %; Eosinophils # 0.5 10^3/uL (0.0-0.8); Eosinophils % 4.8 %; Hematocrit 34.8 % (37.0-47.0); Lymphocytes # 2.7 10^3/uL (0.8-4.8); Lymphocytes % 25.2 %; Mean Corpuscular HGB Conc 31.6 g/dL (30.0-36.0); Mean Corpuscular Volume 94.8 fl (81-99); Mean Platelet Volume 10.9 fL (7.4-10.4); Monocytes # 0.7 10^3/uL (0.2-0.9); Monocytes % 6.2 %; Neutrophils # 6.75 10^3/uL (1.8-7.7); Neutrophils % 62.6 %; Nucleated Red Blood Cells % 0 %; Platelet Count 262 10^3/cmm (130-400); Red Blood Count 3.67 10^6/uL (4.1-5.3); Red Cell Distribution Width 16.1 % (12.1-15.1); White Blood Count 10.8 10^3/uL (4.0-10.0)
[2023-06-01 14:54] LABS: Carcinoembryonic Antigen 54.3 ng/mL (0.0-4.7)
[2023-06-01 15:09] LABS: Alanine Aminotransferase 16 U/L (0-33); Albumin Level 3.9 g/dL (3.5-5.2); Alkaline Phosphatase 113 U/L (35-105); Anion Gap 17.3 (5-19); Aspartate Amino Transferase 17 U/L (0-32); Blood Urea Nitrogen 10 mg/dL (8-23); Calcium 9.1 mg/dL (8.5-10.5); Carbon Dioxide 25 mmol/L (22-29); Chloride 101 mmol/L (98-107); Creatinine Clr Calc Pharmacy 71.4618; Globulin 2.6 g/dL (1.3-4.6); Glomerular Filtration Rate 71.8 mL/min (90-130); Glucose 88 mg/dL (65-115); Osmolality Calculated 286 mOsm/kg (285-295); Potassium 4.3 mmol/L (3.5-5.1); Sodium 139 mmol/L (136-145); Total Bilirubin 0.2 mg/dL (0.15-1.2); Total Protein 6.5 g/dL (6.6-8.7)
== END 2023-06-20 23:59 | disposition home or self-care (01) ==
PROVIDERS: Nurse Practitioner Family; PCP Nurse Practitioner Family; Visit Provider Internal Medicine Medical Oncology
DX: C18.7 Malignant neoplasm of sigmoid colon (principal); Z90.49 Acquired absence of other specified parts of digestive tract; C78.6 Secondary malignant neoplasm of retroperitoneum and peritoneum; C77.8 Secondary and unspecified malignant neoplasm of lymph nodes of multiple regions; R97.0 Elevated carcinoembryonic antigen [CEA]; Z92.21 Personal history of antineoplastic chemotherapy; Z92.3 Personal history of irradiation; Z87.891 Personal history of nicotine dependence
CPT/HCPCS: 36591; 71260; 74177; 80053; 82378; 85025; 99214; J1642; Q9967

== ENCOUNTER 2023-06-11 06:32 | Outpatient (CLI) | payer MEDICARE, MEDICAID, SELFPAY ==
--- NOTE | 2023-06-11 09:00 | PETR_ITS ---
PROCEDURE INFORMATION: Exam: PET/CT Skull Base to Mid-thigh Exam date and time: 06/11/2023 9:47 AM Age: 67 years old Clinical indication: Condition or disease; Primary cancer: Colon cancer; Follow-up oncological assessment; Additional info: Increasing cea, colon cancer LABS AND CLINICAL REPORTS: Glucose: 163 mg/dl Treatment strategy for malignancy (PET staging): Restaging (PS) TECHNIQUE: Imaging protocol: Following at least four-hour fasting and following the injection of radiopharmaceutical, low dose CT images were obtained. Then, PET images were obtained. Attenuation corrected images were constructed using the CT scan. Fused images of PET and CT were reviewed. The standardized uptake values (SUV) reported below are maximum values within a region of interest, expressed in gm/ml. Exam includes orbital meatal line to mid-thigh. Radiopharmaceutical: 13.75 mCi F-18 FDG (Fluorodeoxyglucose), IV. Time of imaging post radiopharmaceutical administration: 1 hour Injection site: Not specified COMPARISON: CT chest, abdomen and pelvis 05/23/2023, PT PET [facility] SUBSEQ [id number] 03/19/2023 8:11 AM FINDINGS: Tubes, catheters and devices: A right internal jugular central venous port catheter terminates at the distal SVC/right atrial junction. Brain: Visualized brain has normal physiologic uptake. Pharynx: No abnormal uptake. Larynx: No abnormal uptake. Thyroid: Uptake in a peripherally calcified 1.5 cm in diameter right thyroid nodule persists, SUV max 8.3 (previously 9.7). Lungs, pleura and trachea: No abnormal uptake. A left upper lobe calcified granuloma is noted. There are non radiotracer avid noncalcified bilateral pulmonary nodules. Examples: Posterior right lower lobe measuring 7-8 mm on series 3, image 53 and lateral left upper lobe measuring 3 mm on series 3, image 41. A 2 mm non radiotracer avid right upper lobe nodule is noted on series 3, image 41. An anterior right middle lobe noncalcified nodule on series 3, image 62 is present measuring 4-5 mm. These nodules appears similar compared with 05/23/2023. No definite additional nodules, with limitations of motion artifact. Heart: Normal physiologic uptake. Mediastinal space: No abnormal uptake. Liver: No abnormal uptake. Gallbladder and bile ducts: No abnormal uptake. There are stones in the gallbladder. Pancreas: No abnormal uptake. Spleen: No abnormal uptake. Calcified granulomas in the spleen are present. Adrenal glands: No abnormal uptake. Kidneys and ureters: Normal physiologic uptake. Stomach and bowel: A surgical staple line in the distal sigmoid colon is present. Uptake in the wall of the rectum on the left is noted approximately 3 cm distal to the surgical anastomotic site, SUV max 7.4 without a definite correlating lesion on CT series 3, image 139. Vasculature: No abnormal uptake. Lymph nodes: Non radiotracer avid calcified pretracheal, subcarinal and right hilar lymph nodes are present. There are similar mildly prominent radiotracer avid abdominal lymph nodes in the retroperitoneal periaortic space. For example, in the retroperitoneal aortocaval space measuring 1.2 cm in diameter on series 3, image 103, SUV max 5.1 and in the left retroperitoneal periaortic space measuring 1 cm on series 3, image 94, SUV max 4.3. These lymph nodes were not enlarged or radiotracer avid on the prior PET-CT. Radiotracer avid lymph nodes are identified along the bilateral common iliac chains and demonstrate similar mild prominence compared with 05/23/2023. Examples: Between the proximal common iliac arteries measuring 1.1 cm on series 3, image 111, SUV max 4.1 (newly prominent radiotracer avid compared with the prior PET-CT) and adjacent to the distal right common iliac artery on series 3, image 114 measuring 1.2 cm, SUV max 4.7 (previously measuring 1 cm with an SUV max 4.9). A lymph node along the left common iliac chain on series 3, image 108 currently measures 1.6 x 1.2 cm, SUV max 5.3 (previously measuring 1.2 cm in diameter with an SUV max 6.0). There is uptake posterior to the left clavicle on series 3, image 34 within a similar in size mildly prominent lymph node compared with 05/23/2023, currently measuring 1.1 x 0.8 cm on series 3, image 34, SUV max 4.1 which appears new since the prior PET-CT. Bones/joints: No abnormal uptake in the visualized axial and appendicular skeleton. [id number] diffuse degenerative vertebral body spondylosis is noted. Anterior metallic fusion in the cervical spine is present at C6-C7. Soft tissues: No abnormal uptake in the visualized head, neck, chest, abdomen, pelvis, and extremities. METRICS: Mediastinal blood pool: SUV max 2.7 [facility] [id number] IMPRESSION: 1. Mildly prominent lymph nodes posterior to the left clavicle and in the abdomen pelvis are increased in size since the prior PET-CT. Some of these lymph nodes demonstrate new uptake, while others demonstrate slightly decreased uptake suggestive of a mixed response to therapy. 2. There is persistent but slightly decreased uptake in the right thyroid lobe within a partially calcified nodule for which malignancy cannot be excluded. 3. Non radiotracer avid small bilateral pulmonary nodules are present. Lack of uptake favors a benign etiology, however assessment of small nodules can be limited by PET-CT. 4. Uptake in the wall of the rectum appears new on the left, without a definite correlating lesion on the CT images. Assessment of the colonic wall is limited without intravenous contrast. This uptake may be physiologic in nature or related to proctitis. A neoplastic etiology cannot be entirely excluded. 5. Additional nonurgent findings as detailed above.
== END 2023-06-11 06:33 | disposition home or self-care (01) ==
LOC: RAD 06-13 06:33
PROVIDERS: PCP Nurse Practitioner Family; Visit Provider Internal Medicine Medical Oncology
DX: C18.7 Malignant neoplasm of sigmoid colon (principal); R91.8 Other nonspecific abnormal finding of lung field; E07.9 Disorder of thyroid, unspecified; R93.3 Abnormal findings on diagnostic imaging of other parts of digestive tract
CPT/HCPCS: 78815; A9552

== ENCOUNTER 2023-07-20 14:00 | Oncology outpatient (recurring) (ONCR) | payer MEDICARE, MEDICAID, SELFPAY ==
[2023-07-13 07:28] VITALS: BMI 36.8
[2023-07-13 07:29] VITALS: BP 142/82; PULSE 90; RESP 18; TEMP 36.2; O2SAT 97
[2023-07-13 07:42] LABS: Basophils % 0.4 %; Eosinophils # 0.5 10^3/uL (0.0-0.8); Eosinophils % 5.5 %; Hematocrit 33.4 % (36-47); Lymphocytes # 1.6 10^3/uL (0.8-4.8); Lymphocytes % 19.3 %; Mean Corpuscular HGB Conc 31.4 g/dL (30-55); Mean Corpuscular Hemoglobin 30.2 pg (27-33); Mean Platelet Volume 10.3 fL (7.4-10.4); Monocytes # 0.4 10^3/uL (0.2-0.9); Monocytes % 5.3 %; Neutrophils # 5.62 10^3/uL (1.8-7.7); Neutrophils % 69.1 %; Nucleated Red Blood Cells % 0 %; Platelet Count 244 10^3/cmm (157-399); Red Blood Count 3.48 10^6/uL (3.85-5.65); Red Cell Distribution Width 16.2 % (12.1-15.1); White Blood Count 8.13 10^3/uL (3.29-11.43)
[2023-07-13 08:08] LABS: Carcinoembryonic Antigen 90.9 ng/mL (0.0-4.7)
[2023-07-13 08:10] LABS: Add Urine Culture? Yes; Add Urine Microscopic? YES; Bacteria Urine 1+ /hpf; Bilirubin Urine Neg (Negative); Blood Urine Neg (Negative); Glucose Urine UA Norm (Normal); Ketones Urine Negative (Negative); Leukocyte Esterase Urine 2+ (Negative); Nitrate Urine Negative (Negative); Protein Urine Neg (Negative); RBC Urine 0-4 /hpf (0-2); Squamous Epithelial Cell Urine 0-4 /hpf (0-5); Urine Appearance SL Hazy (CLEAR); Urine Color Yellow (Yellow); Urobilinogen Urine Norm (Negative); pH Urine 5 (5-7)
[2023-07-13 08:22] LABS: Alanine Aminotransferase 16 U/L (0-33); Albumin Level 4.2 g/dL (3.5-5.2); Alkaline Phosphatase 92 U/L (35-105); Anion Gap 17.3 (5-19); Aspartate Amino Transferase 18 U/L (0-32); Blood Urea Nitrogen 19 mg/dL (8-23); Carbon Dioxide 26 mmol/L (22-29); Chloride 100 mmol/L (98-107); Globulin 2.7 g/dL (1.3-4.6); Glomerular Filtration Rate 71.8 mL/min (90-130); Glucose 211 mg/dL (65-115); Hepatitis A Antibody IgM Non-Reactive (Nonreactive); Hepatitis B Core AB, Total Non-Reactive (Nonreactive); Hepatitis B Surface AB 3.5 (11.5-1000); Hepatitis B Surface Antigen Non-Reactive (Nonreactive); Hepatitis C Virus Antibody Non-Reactive (Nonreactive); Immunoglobulin IGG 792 mg/dL (700-1600); Osmolality Calculated 297 mOsm/kg (285-295); Potassium 4.3 mmol/L (3.5-5.1); Sodium 139 mmol/L (136-145); Total Bilirubin 0.3 mg/dL (0.15-1.2); Total Protein 6.9 g/dL (6.6-8.7)
[2023-07-13] MEDS: acetaminophen 325 mg Tablet 650 MG PO (09:41)
[2023-07-13] MEDS: sodium chloride 0.9% 250 ML 100 ML IV (09:41)
[2023-07-13] MEDS: palonosetron 0.25 mg/5 mL SDV IVP (09:43)
[2023-07-13] MEDS: diphenhydrAMINE 50 mg/mL SDV 1mL 25 MG IVP (09:44)
[2023-07-13] MEDS: atropine 1 mg/mL SDV 1 mL 0.4 MG IV (11:49)
[2023-07-13] MEDS: leucovorin 760 MG in dextrose 5% 250 ML 166.67 MG IV (11:49)
[2023-07-13] MEDS: irinotecan 300 MG, irinotecan 40 MG in dextrose 5% 250 ML 178 MG IV (11:50)
[2023-07-13] MEDS: fluorouraciL 4,550 MG, elastomeric pump 1 PUMP in sodium chloride 0.9% (100 ml) 1 ML IV (13:32)
[2023-07-13 13:39] VITALS: BP 133/63; PULSE 80; RESP 18; TEMP 35.6; O2SAT 97
[2023-07-15 12:15] VITALS: BP 136/65; PULSE 80; PULSE 81; RESP 17; TEMP 35.7; O2SAT 95; BMI 37.0
[2023-07-20 13:42] VITALS: BMI 34.9
[2023-07-20 13:48] VITALS: BP 136/83; PULSE 98; RESP 16; TEMP 35.6; O2SAT 97
[2023-07-20 14:04] LABS: Basophils % 0.3 %; Eosinophils # 0.8 10^3/uL (0.0-0.8); Eosinophils % 5.3 %; Hematocrit 37.2 % (36-47); Mean Corpuscular Hemoglobin 30.1 pg (27-33); Mean Corpuscular Volume 94.2 fl (85-98); Mean Platelet Volume 10.4 fL (7.4-10.4); Monocytes # 0.4 10^3/uL (0.2-0.9); Monocytes % 2.6 %; Neutrophils % 76.9 %; Nucleated Red Blood Cells % 0 %; Platelet Count 322 10^3/cmm (157-399); Red Blood Count 3.95 10^6/uL (3.85-5.65); Red Cell Distribution Width 15.3 % (12.1-15.1); White Blood Count 14.45 10^3/uL (3.29-11.43)
[2023-07-20 14:21] LABS: Alanine Aminotransferase 15 U/L (0-33); Albumin Level 4.1 g/dL (3.5-5.2); Alkaline Phosphatase 97 U/L (35-105); Anion Gap 16.1 (5-19); Aspartate Amino Transferase 16 U/L (0-32); Blood Urea Nitrogen 16 mg/dL (8-23); Calcium 9.1 mg/dL (8.5-10.5); Carbon Dioxide 27 mmol/L (22-29); Chloride 96 mmol/L (98-107); Globulin 2.7 g/dL (1.3-4.6); Glomerular Filtration Rate 62.6 mL/min (90-130); Glucose 197 mg/dL (65-115); Osmolality Calculated 285 mOsm/kg (285-295); Potassium 5.1 mmol/L (3.5-5.1); Sodium 134 mmol/L (136-145); Total Bilirubin 0.2 mg/dL (0.15-1.2); Total Protein 6.8 g/dL (6.6-8.7)
== END 2023-07-21 23:59 | disposition home or self-care (01) ==
PROVIDERS: Nurse Practitioner Family; PCP Nurse Practitioner Family; Visit Provider Internal Medicine Medical Oncology
DX: C18.7 Malignant neoplasm of sigmoid colon (principal)
CPT/HCPCS: 36591; 80053; 81001; 82378; 82784; 85025; 86705; 86706; 86709; 86803; 87086; 87340; 96367; 96375; 96413; 96416; 96417; 96523; 99215; J0461; J0640; J1100; J1200; J1642; J2469; J7050; J7060; J9190; J9206; J9303

== ENCOUNTER 2023-07-27 07:28 | Oncology outpatient (recurring) (ONCR) | payer MEDICARE, MEDICAID, SELFPAY ==
[2023-07-27 07:57] LABS: Basophils % 0.4 %; Eosinophils # 0.3 10^3/uL (0.0-0.8); Hematocrit 34.8 % (36-47); Lymphocytes # 3.8 10^3/uL (0.8-4.8); Lymphocytes % 37.1 %; Mean Corpuscular HGB Conc 32.2 g/dL (30-55); Mean Corpuscular Hemoglobin 30.6 pg (27-33); Mean Corpuscular Volume 95.1 fl (85-98); Monocytes # 0.5 10^3/uL (0.2-0.9); Monocytes % 5.1 %; Neutrophils # 5.46 10^3/uL (1.8-7.7); Neutrophils % 53.9 %; Nucleated Red Blood Cells % 0 %; Platelet Count 265 10^3/cmm (157-399); Red Blood Count 3.66 10^6/uL (3.85-5.65); Red Cell Distribution Width 16.2 % (12.1-15.1); White Blood Count 10.12 10^3/uL (3.29-11.43)
[2023-07-27 08:11] LABS: Alkaline Phosphatase 90 U/L (35-105); Anion Gap 16.2 (5-19); Aspartate Amino Transferase 25 U/L (0-32); Blood Urea Nitrogen 11 mg/dL (8-23); Calcium 8.3 mg/dL (8.5-10.5); Carbon Dioxide 26 mmol/L (22-29); Chloride 100 mmol/L (98-107); Globulin 2.4 g/dL (1.3-4.6); Glomerular Filtration Rate 83.7 mL/min (90-130); Glucose 192 mg/dL (65-115); Osmolality Calculated 291 mOsm/kg (285-295); Potassium 4.2 mmol/L (3.5-5.1); Sodium 138 mmol/L (136-145); Total Bilirubin 0.3 mg/dL (0.15-1.2); Total Protein 6.4 g/dL (6.6-8.7)
[2023-07-27 08:13] LABS: Add Urine Microscopic? YES; Bacteria Urine TRACE /hpf; Bilirubin Urine Neg (Negative); Blood Urine Neg (Negative); Glucose Urine UA Norm (Normal); Ketones Urine Negative (Negative); Leukocyte Esterase Urine 1+ (Negative); Nitrate Urine Negative (Negative); Protein Urine Neg (Negative); Squamous Epithelial Cell Urine 0-4 /hpf (0-5); Urine Appearance Clear (CLEAR); Urine Color Yellow (Yellow); Urobilinogen Urine Norm (Negative); WBC Urine 0-4 /hpf (0-5); pH Urine 7 (5-7)
[2023-07-27 08:21] LABS: Alanine Aminotransferase 43 U/L (0-33)
[2023-07-27] MEDS: sodium chloride 0.9% 250 ML 75 ML IV (10:44)
[2023-07-27] MEDS: diphenhydrAMINE 50 mg/mL SDV 1mL 25 MG IVP (10:47)
[2023-07-27] MEDS: acetaminophen 325 mg Tablet 650 MG PO (10:55)
[2023-07-27] MEDS: palonosetron 0.25 mg/5 mL SDV IVP (10:56)
[2023-07-27] MEDS: atropine 1 mg/mL SDV 1 mL 0.4 MG IV (12:55)
[2023-07-27] MEDS: dextrose 5% 250 ML 75 ML IV (13:09)
[2023-07-27] MEDS: irinotecan 300 MG, irinotecan 40 MG in dextrose 5% 250 ML 178 MG IV (13:12)
[2023-07-27] MEDS: leucovorin 760 MG in dextrose 5% 250 ML 166.67 MG IV (13:13)
[2023-07-27] MEDS: fluorouraciL 4,550 MG, elastomeric pump 1 PUMP in sodium chloride 0.9% (100 ml) 1 ML IV (15:17)
[2023-07-27 15:25] VITALS: BP 127/70; PULSE 74; RESP 17; TEMP 35.9; O2SAT 96
== END 2023-07-27 23:59 | disposition home or self-care (01) ==
PROVIDERS: Nurse Practitioner Family; PCP Nurse Practitioner Family; Visit Provider Internal Medicine Medical Oncology
DX: Z51.11 Encounter for antineoplastic chemotherapy (principal); C18.7 Malignant neoplasm of sigmoid colon; Z45.2 Encounter for adjustment and management of vascular access device; C77.8 Secondary and unspecified malignant neoplasm of lymph nodes of multiple regions; Z85.038 Personal history of other malignant neoplasm of large intestine; R97.0 Elevated carcinoembryonic antigen [CEA]; Z90.49 Acquired absence of other specified parts of digestive tract; Z92.21 Personal history of antineoplastic chemotherapy; Z87.891 Personal history of nicotine dependence; Z53.9 Procedure and treatment not carried out, unspecified reason
CPT/HCPCS: 80053; 81001; 85025; 96365; 96367; 96368; 96374; 96375; 96376; 96413; 96416; 96417; 99214; J0461; J0640; J1100; J1200; J2469; J7050; J7060; J9190; J9206; J9303

== ENCOUNTER 2023-08-12 11:30 | Oncology outpatient (recurring) (ONCR) | payer MEDICARE, MEDICAID, SELFPAY ==
[2023-07-29 11:20] VITALS: BP 99/61; PULSE 76; RESP 17; TEMP 35.8; O2SAT 97
[2023-08-10 07:55] VITALS: BP 116/75; PULSE 92; RESP 16; TEMP 36.6; O2SAT 98
[2023-08-10 07:56] VITALS: BMI 35.3
[2023-08-10 08:34] LABS: Basophils % 0.7 %; Eosinophils % 16.8 %; Hematocrit 33.2 % (36-47); Lymphocytes # 1.6 10^3/uL (0.8-4.8); Lymphocytes % 27.2 %; Mean Corpuscular HGB Conc 31.9 g/dL (30-55); Mean Corpuscular Hemoglobin 30.4 pg (27-33); Mean Corpuscular Volume 95.1 fl (85-98); Mean Platelet Volume 9.5 fL (7.4-10.4); Monocytes # 0.4 10^3/uL (0.2-0.9); Monocytes % 6.8 %; Neutrophils # 2.89 10^3/uL (1.8-7.7); Neutrophils % 48.2 %; Nucleated Red Blood Cells % 0 %; Platelet Count 243 10^3/cmm (157-399); Red Blood Count 3.49 10^6/uL (3.85-5.65); Red Cell Distribution Width 16.7 % (12.1-15.1)
[2023-08-10 09:01] LABS: Carcinoembryonic Antigen 21.3 ng/mL (0.0-4.7)
[2023-08-10 09:12] LABS: Alanine Aminotransferase 22 U/L (0-33); Albumin Level 3.8 g/dL (3.5-5.2); Alkaline Phosphatase 106 U/L (35-105); Anion Gap 14.4 (5-19); Aspartate Amino Transferase 25 U/L (0-32); Blood Urea Nitrogen 9 mg/dL (8-23); Carbon Dioxide 26 mmol/L (22-29); Chloride 100 mmol/L (98-107); Creatinine Clr Calc Pharmacy 71.0652; Globulin 2.7 g/dL (1.3-4.6); Glomerular Filtration Rate 71.8 mL/min (90-130); Glucose 208 mg/dL (65-115); Osmolality Calculated 287 mOsm/kg (285-295); Potassium 4.4 mmol/L (3.5-5.1); Sodium 136 mmol/L (136-145); Total Bilirubin 0.2 mg/dL (0.15-1.2); Total Protein 6.5 g/dL (6.6-8.7)
[2023-08-10] MEDS: acetaminophen 325 mg Tablet 650 MG PO (10:39)
[2023-08-10] MEDS: alteplase 1 mg/mL SDV 2 mL 2 MG INTRACATH (11:12)
[2023-08-10] MEDS: sodium chloride 0.9% 250 ML 75 ML IV (12:34)
[2023-08-10] MEDS: diphenhydrAMINE 50 mg/mL SDV 1mL 25 MG IVP (12:36)
[2023-08-10] MEDS: palonosetron 0.25 mg/5 mL SDV IVP (12:39)
[2023-08-10] MEDS: atropine 1 mg/mL SDV 1 mL 0.4 MG IV (13:25)
[2023-08-10] MEDS: irinotecan 300 MG, irinotecan 40 MG in dextrose 5% 250 ML 178 MG IV (13:26)
[2023-08-10] MEDS: leucovorin 760 MG in dextrose 5% 250 ML 166.67 MG IV (13:26)
[2023-08-10] MEDS: fluorouraciL 4,550 MG, elastomeric pump 1 PUMP in sodium chloride 0.9% (100 ml) 1 ML IV (15:05)
[2023-08-10 15:15] VITALS: BP 127/80; PULSE 90; RESP 16; TEMP 36.9; O2SAT 98
[2023-08-12 11:37] VITALS: BP 125/75; PULSE 82; TEMP 36.6
== END 2023-08-20 23:59 | disposition home or self-care (01) ==
PROVIDERS: PCP Nurse Practitioner Family; Visit Provider Internal Medicine Medical Oncology
DX: Z45.1 Encounter for adjustment and management of infusion pump (principal)
CPT/HCPCS: 36415; 80053; 82378; 85025; 96367; 96375; 96413; 96416; 96417; 96523; 99214; J0461; J0640; J1100; J1200; J1642; J2469; J2997; J7050; J7060; J9190; J9206

== ENCOUNTER 2023-09-09 11:10 | Oncology outpatient (recurring) (ONCR) | payer MEDICARE, MEDICAID, SELFPAY ==
[2023-08-24 07:45] VITALS: BP 142/80; PULSE 101; RESP 16; TEMP 36.3; O2SAT 98
[2023-08-24 08:00] LABS: Basophils % 0.4 %; Eosinophils # 0.3 10^3/uL (0.0-0.8); Eosinophils % 3.6 %; Hematocrit 33.2 % (36-47); Lymphocytes # 3.6 10^3/uL (0.8-4.8); Lymphocytes % 50.3 %; Mean Corpuscular HGB Conc 32.5 g/dL (30-55); Mean Corpuscular Volume 95.4 fl (85-98); Mean Platelet Volume 9.9 fL (7.4-10.4); Monocytes # 0.5 10^3/uL (0.2-0.9); Monocytes % 7.5 %; Neutrophils # 2.71 10^3/uL (1.8-7.7); Neutrophils % 37.6 %; Nucleated Red Blood Cells % 0 %; Platelet Count 254 10^3/cmm (157-399); Red Blood Count 3.48 10^6/uL (3.85-5.65); Red Cell Distribution Width 18.2 % (12.1-15.1); White Blood Count 7.21 10^3/uL (3.29-11.43)
[2023-08-24 08:17] LABS: Alanine Aminotransferase 37 U/L (0-33); Albumin Level 3.8 g/dL (3.5-5.2); Alkaline Phosphatase 82 U/L (35-105); Aspartate Amino Transferase 20 U/L (0-32); Blood Urea Nitrogen 16 mg/dL (8-23); Calcium 8.8 mg/dL (8.5-10.5); Carbon Dioxide 29 mmol/L (22-29); Chloride 98 mmol/L (98-107); Globulin 2.2 g/dL (1.3-4.6); Glomerular Filtration Rate 83.7 mL/min (90-130); Glucose 156 mg/dL (65-115); Osmolality Calculated 288 mOsm/kg (285-295); Sodium 137 mmol/L (136-145); Total Bilirubin 0.4 mg/dL (0.15-1.2)
[2023-08-24] MEDS: sodium chloride 0.9% 250 ML 75 ML IV (10:09)
[2023-08-24] MEDS: palonosetron 0.25 mg/5 mL SDV IVP (10:11)
[2023-08-24] MEDS: diphenhydrAMINE 50 mg/mL SDV 1mL 25 MG IVP (10:13)
[2023-08-24] MEDS: acetaminophen 325 mg Tablet 650 MG PO (10:17)
[2023-08-24] MEDS: atropine 1 mg/mL SDV 1 mL 0.4 MG IV (12:30)
[2023-08-24] MEDS: irinotecan 300 MG, irinotecan 40 MG in dextrose 5% 250 ML 178 MG IV (12:34)
[2023-08-24] MEDS: leucovorin 760 MG in dextrose 5% 250 ML 166.67 MG IV (12:35)
[2023-08-24] MEDS: fluorouraciL 4,550 MG, elastomeric pump 1 PUMP in sodium chloride 0.9% (100 ml) 1 ML IV (14:28)
[2023-08-24 14:30] VITALS: BP 125/58; PULSE 91; RESP 16; TEMP 36.4; O2SAT 96
[2023-08-26 11:25] VITALS: BP 120/58; PULSE 77; RESP 17; TEMP 36.2; O2SAT 97
[2023-09-07 07:43] VITALS: BP 152/76; PULSE 99; RESP 16; TEMP 36.1; O2SAT 97
[2023-09-07 08:10] LABS: Basophils % 0.3 %; Eosinophils # 0.1 10^3/uL (0.0-0.8); Eosinophils % 2.2 %; Hematocrit 33.1 % (36-47); Lymphocytes # 2.1 10^3/uL (0.8-4.8); Lymphocytes % 35.6 %; Mean Corpuscular Hemoglobin 31.5 pg (27-33); Mean Corpuscular Volume 98.2 fl (85-98); Mean Platelet Volume 9.9 fL (7.4-10.4); Monocytes # 0.3 10^3/uL (0.2-0.9); Monocytes % 4.8 %; Neutrophils # 3.27 10^3/uL (1.8-7.7); Neutrophils % 56.6 %; Nucleated Red Blood Cells % 0 %; Platelet Count 236 10^3/cmm (157-399); Red Blood Count 3.37 10^6/uL (3.85-5.65); Red Cell Distribution Width 18.5 % (12.1-15.1); White Blood Count 5.79 10^3/uL (3.29-11.43)
[2023-09-07 08:32] LABS: Carcinoembryonic Antigen 4.8 ng/mL (0.0-4.7)
[2023-09-07 08:43] LABS: Alanine Aminotransferase 30 U/L (0-33); Albumin Level 3.9 g/dL (3.5-5.2); Alkaline Phosphatase 81 U/L (35-105); Anion Gap 14.1 (5-19); Aspartate Amino Transferase 22 U/L (0-32); Blood Urea Nitrogen 10 mg/dL (8-23); Calcium 8.6 mg/dL (8.5-10.5); Carbon Dioxide 29 mmol/L (22-29); Chloride 98 mmol/L (98-107); Globulin 2.3 g/dL (1.3-4.6); Glomerular Filtration Rate 83.7 mL/min (90-130); Glucose 181 mg/dL (65-115); Osmolality Calculated 288 mOsm/kg (285-295); Potassium 4.1 mmol/L (3.5-5.1); Sodium 137 mmol/L (136-145); Total Bilirubin 0.2 mg/dL (0.15-1.2); Total Protein 6.2 g/dL (6.6-8.7)
[2023-09-07] MEDS: sodium chloride 0.9% 250 ML 75 ML IV (09:35)
[2023-09-07] MEDS: diphenhydrAMINE 50 mg/mL SDV 1mL 25 MG IVP (09:37)
[2023-09-07] MEDS: acetaminophen 325 mg Tablet 650 MG PO (09:45)
[2023-09-07] MEDS: palonosetron 0.25 mg/5 mL SDV IVP (09:48)
[2023-09-07] MEDS: dextrose 5% 250 ML 75 ML IV (11:10)
[2023-09-07] MEDS: atropine 1 mg/mL SDV 1 mL 0.4 MG IV (11:11)
[2023-09-07] MEDS: leucovorin 760 MG in dextrose 5% 250 ML 166.67 MG IV (11:30)
[2023-09-07] MEDS: irinotecan 200 MG, irinotecan 70 MG in dextrose 5% 250 ML 175.67 MG IV (11:31)
[2023-09-07] MEDS: fluorouraciL 3,650 MG, elastomeric pump 1 PUMP in sodium chloride 0.9% (100 ml) 19 ML IV (13:07)
[2023-09-07 13:56] VITALS: BP 109/61; PULSE 73; TEMP 35.8; O2SAT 99
[2023-09-09 11:23] VITALS: BP 120/76; PULSE 78; RESP 18; TEMP 36.3; O2SAT 98
== END 2023-09-20 23:59 | disposition home or self-care (01) ==
PROVIDERS: PCP Nurse Practitioner Family; Visit Provider Internal Medicine Medical Oncology
DX: Z45.1 Encounter for adjustment and management of infusion pump (principal)
CPT/HCPCS: 80053; 82378; 85025; 96367; 96368; 96375; 96413; 96415; 96416; 96417; 96523; 99214; J0461; J0640; J1100; J1200; J1642; J2469; J7050; J7060; J9190; J9206; J9303

== ENCOUNTER 2023-09-29 13:09 | Outpatient (CLI) | payer MEDICARE, MEDICAID, SELFPAY ==
[2023-09-29] MEDS: iohexol 350 mg/mL 500 mL Btl (per mL) IV (14:22)
[2023-09-29] MEDS: iohexol 350 mg/mL 500 mL Btl (per mL) PO (14:22)
--- NOTE | 2023-09-29 14:30 | CTR_ITS ---
PROCEDURE INFORMATION: Exam: CT Chest With Contrast; Diagnostic Exam date and time: 09/29/2023 2:40 PM Age: 67 years old Clinical indication: Condition or disease; Other: Colon cancer; Additional info: Colon cancer, to be completed prior to 2 week office visit TECHNIQUE: Imaging protocol: Diagnostic computed tomography of the chest with contrast. Radiation optimization: All CT scans at this facility use at least one of these dose optimization techniques: automated exposure control; mA and/or kV adjustment per patient size (includes targeted exams where dose is matched to clinical indication); or iterative reconstruction. Contrast material: OMNI 350; Contrast volume: 100 ml; Contrast route: INTRAVENOUS (IV); REPORTING DATA: Count of CT and Cardiac NM exams in prior 12 months: This patient has received 4 known CTs and 0 known cardiac nuclear medicine studies in the 12 months prior to the current study. COMPARISON: CT chest abdpel w/*[id number] 05/23/2023 10:44 AM RADIATION DOSE METRICS: Total DLP (mGy-cm): 1092.29 FINDINGS: Lungs: Calcified granuloma in the left upper lobe. Nodule measuring 3 mm in the left upper lobe stable. Pleural spaces: Unremarkable. No pneumothorax. No pleural effusion. Heart: Unremarkable. No cardiomegaly. No pericardial effusion. Lymph nodes: Calcified lymph nodes in the mediastinum. Vasculature: Unremarkable. No aortic aneurysm. Bones/joints: Degenerative changes of the spine. Soft tissues: Unremarkable. PROCEDURE INFORMATION: Exam: CT Abdomen And Pelvis With Contrast Exam date and time: 09/29/2023 2:40 PM Age: 67 years old Clinical indication: Condition or disease; Other: Colon cancer; Additional info: Colon cancer, to be completed prior to 2 week office visit TECHNIQUE: Imaging protocol: Computed tomography of the abdomen and pelvis with contrast. Radiation optimization: All CT scans at this facility use at least one of these dose optimization techniques: automated exposure control; mA and/or kV adjustment per patient size (includes targeted exams where dose is matched to clinical indication); or iterative reconstruction. Contrast material: OMNI 350; Contrast volume: 100 ml; Contrast route: INTRAVENOUS (IV); REPORTING DATA: Count of CT and Cardiac NM exams in prior 12 months: This patient has received 4 known CTs and 0 known cardiac nuclear medicine studies in the 12 months prior to the current study. COMPARISON: CT chest abdpel w/*[id number] 05/23/2023 10:44 AM RADIATION DOSE METRICS: Total DLP (mGy-cm): 1092.29 FINDINGS: Liver: Calcified granulomas in the liver. Gallbladder and bile ducts: Cholelithiasis. Pancreas: Normal. No ductal dilation. Spleen: Calcified granulomas in the spleen. Adrenal glands: Normal. No mass. Kidneys and ureters: Normal. No hydronephrosis. Stomach and bowel: Rectosigmoid anastomosis. No recurrent/residual mass within the limitations of the study. Appendix: No evidence of appendicitis. Intraperitoneal space: Unremarkable. No free air. No significant fluid collection. Vasculature: Unremarkable. No abdominal aortic aneurysm. Lymph nodes: Few periaortic lymph nodes with the largest measuring 7 mm in short axis stable. Stable aortocaval lymph nodes. Interval decrease in size of the left common iliac lymph nodes now measuring 9 mm, previously 1.2 cm when measured similarly. Urinary bladder: Unremarkable as visualized. Reproductive: Unremarkable as visualized. Bones/joints: Unremarkable. No acute fracture. Soft tissues: Unremarkable. CT/CT chest abdpel w/*[id number] IMPRESSION: 1. No acute abnormality. 2. Interval resolution of the right lower lobe pulmonary nodule. 3. Interval resolution of the left upper lobe pulmonary nodule. 4. Stable nodule measuring 3 mm in the left upper lobe. 5. No new nodules. IMPRESSION: 1. Interval decrease in size of pelvic and para-aortic lymphadenopathy. 2. No new lymph nodes. 3. Stable rectosigmoid anastomosis.
== END 2023-09-29 13:10 | disposition home or self-care (01) ==
LOC: RAD 13:10
PROVIDERS: PCP Nurse Practitioner Family; Visit Provider Internal Medicine
DX: C18.7 Malignant neoplasm of sigmoid colon (principal); R91.1 Solitary pulmonary nodule; K80.20 Calculus of gallbladder without cholecystitis without obstruction
CPT/HCPCS: 71260; 74177; Q9967

== ENCOUNTER 2023-10-05 07:45 | Oncology outpatient (recurring) (ONCR) | payer MEDICARE, MEDICAID, SELFPAY ==
[2023-09-21 07:49] VITALS: BP 128/71; PULSE 86; RESP 16; TEMP 36.3; O2SAT 97
[2023-09-21 08:04] LABS: Basophils % 0.3 %; Eosinophils % 0.7 %; Hematocrit 31.5 % (36-47); Lymphocytes # 1.1 10^3/uL (0.8-4.8); Lymphocytes % 18.8 %; Mean Corpuscular HGB Conc 31.4 g/dL (30-55); Mean Corpuscular Hemoglobin 31.6 pg (27-33); Mean Corpuscular Volume 100.6 fl (85-98); Mean Platelet Volume 9.7 fL (7.4-10.4); Monocytes # 0.3 10^3/uL (0.2-0.9); Monocytes % 4.8 %; Neutrophils # 4.38 10^3/uL (1.8-7.7); Neutrophils % 74.9 %; Nucleated Red Blood Cells % 0 %; Platelet Count 251 10^3/cmm (157-399); Red Blood Count 3.13 10^6/uL (3.85-5.65); White Blood Count 5.85 10^3/uL (3.29-11.43)
[2023-09-21 08:18] LABS: Alanine Aminotransferase 35 U/L (0-33); Albumin Level 3.6 g/dL (3.5-5.2); Alkaline Phosphatase 69 U/L (35-105); Anion Gap 18.1 (5-19); Aspartate Amino Transferase 20 U/L (0-32); Blood Urea Nitrogen 8 mg/dL (8-23); Carbon Dioxide 25 mmol/L (22-29); Chloride 102 mmol/L (98-107); Globulin 2.1 g/dL (1.3-4.6); Glomerular Filtration Rate 83.7 mL/min (90-130); Glucose 245 mg/dL (65-115); Osmolality Calculated 296 mOsm/kg (285-295); Potassium 5.1 mmol/L (3.5-5.1); Sodium 140 mmol/L (136-145); Total Bilirubin 0.3 mg/dL (0.15-1.2); Total Protein 5.7 g/dL (6.6-8.7)
[2023-09-21 10:53] LABS: Bilirubin Urine Neg (Negative); Blood Urine Neg (Negative); Glucose Urine UA 2+ (Normal); Ketones Urine Negative (Negative); Leukocyte Esterase Urine Negative (Negative); Nitrate Urine Negative (Negative); Protein Urine Neg (Negative); Urine Appearance Clear (CLEAR); Urine Color Yellow (Yellow); Urobilinogen Urine Norm (Negative); pH Urine 6.5 (5-7)
[2023-09-21 11:04] LABS: Add Urine Culture? No; Bacteria Urine TRACE /hpf; Mucus Urine TRACE /hpf; RBC Urine RARE /hpf (0-2); Squamous Epithelial Cell Urine RARE /hpf (0-5); WBC Urine RARE /hpf (0-5)
[2023-09-21] MEDS: sodium chloride 0.9% 250 ML 75 ML IV (11:12)
[2023-09-21] MEDS: diphenhydrAMINE 50 mg/mL SDV 1mL 25 MG IVP (11:13)
[2023-09-21] MEDS: acetaminophen 325 mg Tablet 650 MG PO (11:14)
[2023-09-21] MEDS: palonosetron 0.25 mg/5 mL SDV IVP (11:17)
[2023-09-21] MEDS: dextrose 5% 250 ML 75 ML IV (13:37)
[2023-09-21] MEDS: atropine 1 mg/mL SDV 1 mL 0.4 MG IV (13:39)
[2023-09-21] MEDS: leucovorin 760 MG in dextrose 5% 250 ML 166.67 MG IV (13:56)
[2023-09-21] MEDS: irinotecan 200 MG, irinotecan 70 MG in dextrose 5% 250 ML 175.67 MG IV (13:56)
[2023-09-21] MEDS: fluorouraciL 3,650 MG, elastomeric pump 1 PUMP in sodium chloride 0.9% (100 ml) 19 ML IV (15:48)
[2023-09-21 16:00] VITALS: BP 122/70; PULSE 88; RESP 17; TEMP 36.9; O2SAT 97
[2023-10-05 07:45] VITALS: BP 145/78; PULSE 101; RESP 16; TEMP 36.4; O2SAT 95
[2023-10-05 08:01] LABS: Basophils % 0.7 %; Eosinophils # 0.4 10^3/uL (0.0-0.8); Eosinophils % 6.4 %; Hematocrit 29.6 % (36-47); Lymphocytes # 1.7 10^3/uL (0.8-4.8); Lymphocytes % 27.1 %; Mean Corpuscular HGB Conc 31.8 g/dL (30-55); Mean Corpuscular Hemoglobin 31.6 pg (27-33); Mean Corpuscular Volume 99.7 fl (85-98); Mean Platelet Volume 10.4 fL (7.4-10.4); Monocytes # 0.5 10^3/uL (0.2-0.9); Monocytes % 8.2 %; Neutrophils % 56.9 %; Nucleated Red Blood Cells % 0 %; Platelet Count 215 10^3/cmm (157-399); Red Blood Count 2.97 10^6/uL (3.85-5.65); Red Cell Distribution Width 19.2 % (12.1-15.1); White Blood Count 6.13 10^3/uL (3.29-11.43)
[2023-10-05 08:14] LABS: Albumin Level 3.7 g/dL (3.5-5.2); Alkaline Phosphatase 77 U/L (35-105); Anion Gap 16.9 (5-19); Aspartate Amino Transferase 21 U/L (0-32); Blood Urea Nitrogen 13 mg/dL (8-23); Calcium 6.9 mg/dL (8.5-10.5); Carbon Dioxide 26 mmol/L (22-29); Chloride 101 mmol/L (98-107); Globulin 2.3 g/dL (1.3-4.6); Glomerular Filtration Rate 71.8 mL/min (90-130); Glucose 145 mg/dL (65-115); Osmolality Calculated 293 mOsm/kg (285-295); Potassium 3.9 mmol/L (3.5-5.1); Sodium 140 mmol/L (136-145); Total Bilirubin 0.3 mg/dL (0.15-1.2)
[2023-10-05 08:24] LABS: Alanine Aminotransferase 22 U/L (0-33)
[2023-10-05 09:41] LABS: Phosphorus 3.7 mg/dL (2.5-4.5)
[2023-10-05 09:45] LABS: Magnesium 0.6 mg/dL (1.7-2.3)
[2023-10-05 09:57] LABS: 25 Hydroxy Vitamin D 36 ng/mL (30-100)
[2023-10-05] MEDS: sodium chloride 0.9% 250 ML 75 ML IV (10:17)
[2023-10-05] MEDS: diphenhydrAMINE 50 mg/mL SDV 1mL 25 MG IVP (10:20)
[2023-10-05] MEDS: palonosetron 0.25 mg/5 mL SDV IVP (10:22)
[2023-10-05] MEDS: acetaminophen 325 mg Tablet 650 MG PO (10:23)
[2023-10-05 10:52] LABS: Parathyroid Hormone 63.4 pg/mL (15-65)
[2023-10-05] MEDS: leucovorin 760 MG in dextrose 5% 250 ML 166.67 MG IV (12:43)
[2023-10-05] MEDS: irinotecan 200 MG, irinotecan 70 MG in dextrose 5% 250 ML 175.67 MG IV (12:45)
[2023-10-05] MEDS: atropine 1 mg/mL SDV 1 mL 0.4 MG IV (12:45)
[2023-10-05] MEDS: magnesium sulfate premix 4 GM/100 ML PREMIX IV (13:03)
[2023-10-05] MEDS: fluorouraciL 3,600 MG, elastomeric pump 1 PUMP in sodium chloride 0.9% (100 ml) 20 ML IV (14:22)
[2023-10-05 15:42] VITALS: BP 119/71; PULSE 88; RESP 16; TEMP 36.7; O2SAT 98
== END 2023-10-05 23:59 | disposition home or self-care (01) ==
PROVIDERS: Internal Medicine; PCP Nurse Practitioner Family; Visit Provider Internal Medicine Medical Oncology
DX: Z45.1 Encounter for adjustment and management of infusion pump (principal); Z51.11 Encounter for antineoplastic chemotherapy; C18.7 Malignant neoplasm of sigmoid colon; C77.8 Secondary and unspecified malignant neoplasm of lymph nodes of multiple regions; Z79.899 Other long term (current) drug therapy
CPT/HCPCS: 80053; 81001; 82306; 82310; 83735; 83970; 84100; 85025; 96365; 96366; 96367; 96368; 96375; 96413; 96415; 96416; 96417; 96523; 99215; J0461; J0640; J1100; J1200; J1642; J2469; J3475; J7050; J7060; J9190; J9206; J9303

== ENCOUNTER 2023-10-07 12:10 | Day surgery (SDC) | payer MEDICARE, MEDICAID, SELFPAY ==
[2023-10-07 12:18] VITALS: BP 139/82; PULSE 87; RESP 16; TEMP 36.4; O2SAT 97
[2023-10-07 12:20] VITALS: BMI 35.3
[2023-10-07] MEDS: magnesium sulfate premix 2 GM/50 ML PIGGYBACK IV (12:40)
--- NOTE | 2023-10-07 13:44 | PC.NURSE ---
Port de-accessed per protocol. Site covered with bandaid. Taken to personal vehicle via WC with all personal belongings. Charley from [facility] called to have patient take calcium carbonate 500 mg PO BID and will recheck labs at next appt. Pt notified and verbalized understanding.
== END 2023-10-07 13:35 | disposition home or self-care (01) ==
LOC: GILAB 12:11
PROVIDERS: PCP Nurse Practitioner Family; Visit Provider Internal Medicine
DX: E83.42 Hypomagnesemia (principal)
CPT/HCPCS: 36591; 82330; 96365; J3475

== ENCOUNTER 2023-10-19 08:30 | Oncology outpatient (recurring) (ONCR) | payer MEDICARE, MEDICAID, SELFPAY ==
[2023-10-07 11:24] LABS: Albumin Level 3.7 g/dL (3.5-5.2); Anion Gap 16.1 (5-19); Blood Urea Nitrogen 11 mg/dL (8-23); Calcium 7.5 mg/dL (8.5-10.5); Carbon Dioxide 27 mmol/L (22-29); Chloride 104 mmol/L (98-107); Glomerular Filtration Rate 71.8 mL/min (90-130); Glucose 152 mg/dL (65-115); Magnesium 1.8 mg/dL (1.7-2.3); Phosphorus 3.3 mg/dL (2.5-4.5); Potassium 4.1 mmol/L (3.5-5.1); Sodium 143 mmol/L (136-145)
[2023-10-12 10:46] VITALS: BP 121/72; PULSE 113; RESP 16; TEMP 35.9; O2SAT 98
[2023-10-12 11:24] LABS: Albumin Level 3.6 g/dL (3.5-5.2); Anion Gap 19.3 (5-19); Blood Urea Nitrogen 9 mg/dL (8-23); Calcium 7.8 mg/dL (8.5-10.5); Carbon Dioxide 24 mmol/L (22-29); Chloride 99 mmol/L (98-107); Glomerular Filtration Rate 71.8 mL/min (90-130); Glucose 204 mg/dL (65-115); Phosphorus 3.5 mg/dL (2.5-4.5); Potassium 4.3 mmol/L (3.5-5.1); Sodium 138 mmol/L (136-145)
[2023-10-12 11:27] LABS: Magnesium 0.9 mg/dL (1.7-2.3)
[2023-10-12] MEDS: magnesium sulfate premix 2 GM/50 ML PIGGYBACK IV (12:03)
[2023-10-12 13:05] VITALS: BP 108/68; PULSE 93; TEMP 35.8; O2SAT 97
[2023-10-19 07:57] VITALS: BP 127/72; PULSE 100; RESP 16; TEMP 36.1; O2SAT 98
[2023-10-19 08:15] LABS: Ionized Calcium 1.1 mmol/L (1.1-1.4)
[2023-10-19 08:18] LABS: Basophils % 0.6 %; Eosinophils # 0.5 10^3/uL (0.0-0.8); Eosinophils % 9.7 %; Hematocrit 29.8 % (36-47); Lymphocytes # 1.4 10^3/uL (0.8-4.8); Mean Corpuscular HGB Conc 31.5 g/dL (30-55); Mean Corpuscular Hemoglobin 32.3 pg (27-33); Mean Corpuscular Volume 102.4 fl (85-98); Mean Platelet Volume 9.7 fL (7.4-10.4); Monocytes # 0.4 10^3/uL (0.2-0.9); Monocytes % 9.1 %; Neutrophils # 2.42 10^3/uL (1.8-7.7); Neutrophils % 51.4 %; Nucleated Red Blood Cells % 0 %; Platelet Count 285 10^3/cmm (157-399); Red Blood Count 2.91 10^6/uL (3.85-5.65); Red Cell Distribution Width 18.6 % (12.1-15.1); White Blood Count 4.72 10^3/uL (3.29-11.43)
[2023-10-19 08:51] LABS: Alanine Aminotransferase 25 U/L (0-33); Albumin Level 3.6 g/dL (3.5-5.2); Alkaline Phosphatase 76 U/L (35-105); Anion Gap 16.8 (5-19); Aspartate Amino Transferase 27 U/L (0-32); Blood Urea Nitrogen 7 mg/dL (8-23); Calcium 8.2 mg/dL (8.5-10.5); Carbon Dioxide 27 mmol/L (22-29); Chloride 102 mmol/L (98-107); Globulin 2.1 g/dL (1.3-4.6); Glomerular Filtration Rate 83.7 mL/min (90-130); Glucose 205 mg/dL (65-115); Osmolality Calculated 296 mOsm/kg (285-295); Potassium 4.8 mmol/L (3.5-5.1); Sodium 141 mmol/L (136-145); Total Bilirubin 0.2 mg/dL (0.15-1.2); Total Protein 5.7 g/dL (6.6-8.7)
[2023-10-19] MEDS: sodium chloride 0.9% 250 ML 100 ML IV (11:25)
[2023-10-19] MEDS: acetaminophen 325 mg Tablet 650 MG PO (11:26)
[2023-10-19] MEDS: palonosetron 0.25 mg/5 mL SDV IVP (11:29)
[2023-10-19] MEDS: diphenhydrAMINE 50 mg/mL SDV 1mL 25 MG IVP (11:31)
[2023-10-19] MEDS: magnesium sulfate premix 2 GM/50 ML PIGGYBACK IV (12:20)
[2023-10-19] MEDS: dextrose 5% 250 ML 75 ML IV (13:20)
[2023-10-19] MEDS: atropine 1 mg/mL SDV 1 mL 0.4 MG IV (13:27)
[2023-10-19] MEDS: irinotecan 200 MG, irinotecan 70 MG in dextrose 5% 250 ML 175.67 MG IV (13:28)
[2023-10-19] MEDS: leucovorin 760 MG in dextrose 5% 250 ML 166.67 MG IV (13:32)
[2023-10-19] MEDS: fluorouraciL 3,600 MG, elastomeric pump 1 PUMP in sodium chloride 0.9% (100 ml) 20 ML IV (15:30)
[2023-10-19 15:35] VITALS: BP 121/81; PULSE 94; RESP 17; TEMP 36.4; O2SAT 98
== END 2023-10-20 23:59 | disposition home or self-care (01) ==
PROVIDERS: Internal Medicine; Nurse Practitioner Family; PCP Nurse Practitioner Family; Visit Provider Internal Medicine Medical Oncology
DX: Z45.1 Encounter for adjustment and management of infusion pump (principal); Z51.11 Encounter for antineoplastic chemotherapy; C18.7 Malignant neoplasm of sigmoid colon; C77.8 Secondary and unspecified malignant neoplasm of lymph nodes of multiple regions; Z79.899 Other long term (current) drug therapy; Z45.2 Encounter for adjustment and management of vascular access device
CPT/HCPCS: 36591; 80053; 80069; 82330; 82378; 83735; 85025; 96365; 96367; 96368; 96375; 96413; 96415; 96416; 96417; 96523; 99214; J0461; J0640; J1100; J1200; J1642; J2469; J3475; J7050; J7060; J9190; J9206; J9303

== ENCOUNTER 2023-11-16 08:30 | Oncology outpatient (recurring) (ONCR) | payer MEDICARE, MEDICAID, SELFPAY ==
[2023-10-21 11:20] VITALS: BP 127/76; PULSE 98; RESP 16; TEMP 35.9; O2SAT 98
[2023-11-02 07:43] VITALS: BP 126/72; PULSE 91; RESP 16; TEMP 36.4; O2SAT 97
[2023-11-02 07:54] LABS: Basophils % 0.6 %; Eosinophils # 0.4 10^3/uL (0.0-0.8); Eosinophils % 7.1 %; Hematocrit 28.2 % (36-47); Lymphocytes # 1.4 10^3/uL (0.8-4.8); Lymphocytes % 26.1 %; Mean Corpuscular HGB Conc 31.2 g/dL (30-55); Mean Corpuscular Hemoglobin 31.9 pg (27-33); Mean Corpuscular Volume 102.2 fl (85-98); Mean Platelet Volume 9.7 fL (7.4-10.4); Monocytes # 0.5 10^3/uL (0.2-0.9); Monocytes % 9.7 %; Neutrophils # 2.92 10^3/uL (1.8-7.7); Neutrophils % 56.3 %; Nucleated Red Blood Cells % 0 %; Platelet Count 263 10^3/cmm (157-399); Red Blood Count 2.76 10^6/uL (3.85-5.65); Red Cell Distribution Width 17.3 % (12.1-15.1); White Blood Count 5.18 10^3/uL (3.29-11.43)
[2023-11-02 08:11] LABS: Alanine Aminotransferase 19 U/L (0-33); Albumin Level 3.4 g/dL (3.5-5.2); Alkaline Phosphatase 72 U/L (35-105); Aspartate Amino Transferase 22 U/L (0-32); Chloride 103 mmol/L (98-107); Potassium 4.1 mmol/L (3.5-5.1); Sodium 141 mmol/L (136-145)
[2023-11-02 08:23] LABS: Anion Gap 15.1 (5-19); Blood Urea Nitrogen 7 mg/dL (8-23); Calcium 8.4 mg/dL (8.5-10.5); Carbon Dioxide 27 mmol/L (22-29); Globulin 2.2 g/dL (1.3-4.6); Glomerular Filtration Rate 83.5 mL/min (90-130); Glucose 143 mg/dL (65-115); Magnesium 1.2 mg/dL (1.7-2.3); Osmolality Calculated 292 mOsm/kg (285-295); Total Bilirubin 0.3 mg/dL (0.15-1.2); Total Protein 5.6 g/dL (6.6-8.7)
[2023-11-02 12:24] LABS: Ferritin 82 ng/mL (15-150); Iron 40 ug/dL (37-145); Total Iron Binding Capacity 266 mcg/dl; Unsaturated Iron Binding 226 ug/dL (112-347)
[2023-11-02] MEDS: sodium chloride 0.9% 250 ML 75 ML IV (12:35)
[2023-11-02] MEDS: acetaminophen 325 mg Tablet 650 MG PO (12:35)
[2023-11-02] MEDS: diphenhydrAMINE 50 mg/mL SDV 1mL 25 MG IVP (12:36)
[2023-11-02] MEDS: palonosetron 0.25 mg/5 mL SDV IVP (12:37)
[2023-11-02 12:51] LABS: Folate Level > 20.0 ng/mL (4.8-37.3); Vitamin B12 > 2000 pg/mL (232-1245)
[2023-11-02] MEDS: magnesium sulfate premix 2 GM/50 ML PIGGYBACK IV (13:01)
[2023-11-02] MEDS: SODIUM CHLORIDE 0.9% IV (13:02)
[2023-11-02] MEDS: PANITUMUMAB IV (13:02)
[2023-11-02] MEDS: atropine 1 mg/mL SDV 1 mL 0.4 MG IV (14:20)
[2023-11-02] MEDS: leucovorin 760 MG in dextrose 5% 250 ML 166.67 MG IV (14:53)
[2023-11-02] MEDS: irinotecan 200 MG, irinotecan 70 MG in dextrose 5% 250 ML 175.67 MG IV (14:53)
[2023-11-02] MEDS: fluorouraciL 3,600 MG, elastomeric pump 1 PUMP in sodium chloride 0.9% (100 ml) 20 ML IV (16:54)
[2023-11-06 05:19] LABS: Methylmalonic Acid 134 nmol/L (87-318)
[2023-11-16 07:57] VITALS: BP 131/79; PULSE 93; RESP 16; TEMP 36.3; O2SAT 97
[2023-11-16 08:15] LABS: Basophils % 0.7 %; Eosinophils # 0.3 10^3/uL (0.0-0.8); Eosinophils % 5.8 %; Hematocrit 28.2 % (36-47); Lymphocytes # 1.5 10^3/uL (0.8-4.8); Lymphocytes % 25.3 %; Mean Corpuscular HGB Conc 31.2 g/dL (30-55); Mean Corpuscular Hemoglobin 31.8 pg (27-33); Mean Corpuscular Volume 101.8 fl (85-98); Monocytes # 0.5 10^3/uL (0.2-0.9); Monocytes % 7.8 %; Neutrophils # 3.54 10^3/uL (1.8-7.7); Neutrophils % 60.1 %; Nucleated Red Blood Cells % 0 %; Platelet Count 281 10^3/cmm (157-399); Red Blood Count 2.77 10^6/uL (3.85-5.65); Red Cell Distribution Width 16.4 % (12.1-15.1); White Blood Count 5.89 10^3/uL (3.29-11.43)
[2023-11-16 08:51] LABS: Carcinoembryonic Antigen 1.9 ng/mL (0.0-4.7)
[2023-11-16 09:02] LABS: Alanine Aminotransferase 20 U/L (0-33); Albumin Level 3.6 g/dL (3.5-5.2); Alkaline Phosphatase 76 U/L (35-105); Anion Gap 15.6 (5-19); Aspartate Amino Transferase 21 U/L (0-32); Blood Urea Nitrogen 6 mg/dL (8-23); Calcium 8.5 mg/dL (8.5-10.5); Carbon Dioxide 25 mmol/L (22-29); Chloride 103 mmol/L (98-107); Globulin 2.1 g/dL (1.3-4.6); Glomerular Filtration Rate 99.7 mL/min (90-130); Glucose 153 mg/dL (65-115); Magnesium 1.1 mg/dL (1.7-2.3); Osmolality Calculated 291 mOsm/kg (285-295); Potassium 3.6 mmol/L (3.5-5.1); Sodium 140 mmol/L (136-145); Total Bilirubin 0.2 mg/dL (0.15-1.2); Total Protein 5.7 g/dL (6.6-8.7)
[2023-11-16] MEDS: sodium chloride 0.9% 250 ML 75 ML IV (10:53)
[2023-11-16] MEDS: acetaminophen 325 mg Tablet 650 MG PO (10:55)
[2023-11-16] MEDS: diphenhydrAMINE 50 mg/mL SDV 1mL 25 MG IVP (10:56)
[2023-11-16] MEDS: palonosetron 0.25 mg/5 mL SDV IVP (11:00)
[2023-11-16] MEDS: SODIUM CHLORIDE 0.9% IV (11:35)
[2023-11-16] MEDS: PANITUMUMAB IV (11:35)
[2023-11-16 12:07] LABS: Ferritin 80 ng/mL (15-150); Iron 39 ug/dL (37-145); Percent Saturation 15.7 % (20-50); Total Iron Binding Capacity 248 mcg/dl; Unsaturated Iron Binding 209 ug/dL (112-347)
[2023-11-16 12:23] LABS: Vitamin B12 1397 pg/mL (232-1245)
[2023-11-16 13:01] LABS: Folate Level > 20.0 ng/mL (4.8-37.3)
[2023-11-16] MEDS: atropine 1 mg/mL SDV 1 mL 0.4 MG IV (13:07)
[2023-11-16] MEDS: dextrose 5% 250 ML 75 ML IV (13:17)
[2023-11-16] MEDS: irinotecan 200 MG, irinotecan 70 MG in dextrose 5% 250 ML 175.67 MG IV (13:23)
[2023-11-16] MEDS: leucovorin 760 MG in dextrose 5% 250 ML 217.33 MG IV (13:24)
[2023-11-16] MEDS: fluorouraciL 3,600 MG, elastomeric pump 1 PUMP in sodium chloride 0.9% (100 ml) 20 ML IV (15:31)
[2023-11-16 15:45] VITALS: BP 130/78; PULSE 88; RESP 17; TEMP 35.9; O2SAT 98
== END 2023-11-16 23:59 | disposition home or self-care (01) ==
PROVIDERS: Internal Medicine; Nurse Practitioner Family; PCP Nurse Practitioner Family; Visit Provider Internal Medicine Medical Oncology
DX: Z53.9 Procedure and treatment not carried out, unspecified reason (principal); Z45.1 Encounter for adjustment and management of infusion pump; C18.7 Malignant neoplasm of sigmoid colon; E83.52 Hypercalcemia; E83.42 Hypomagnesemia; D50.8 Other iron deficiency anemias; D50.9 Iron deficiency anemia, unspecified; Z79.899 Other long term (current) drug therapy; Z51.11 Encounter for antineoplastic chemotherapy
CPT/HCPCS: 80053; 82378; 82607; 82728; 82746; 83540; 83550; 83735; 83921; 84100; 85025; 96365; 96366; 96367; 96374; 96375; 96413; 96415; 96416; 96417; 96523; 99214; 99215; J0461; J0640; J1100; J1200; J1642; J2469; J3475; J7050; J7060; J9190; J9206; J9303

== ENCOUNTER 2023-11-18 10:54 | Oncology outpatient (recurring) (ONCR) | payer MEDICARE, MEDICAID, SELFPAY ==
[2023-11-18 11:05] VITALS: BP 129/74; PULSE 90; RESP 16; TEMP 36.1; O2SAT 99
== END 2023-11-20 23:59 | disposition home or self-care (01) ==
PROVIDERS: PCP Nurse Practitioner Family; Visit Provider Internal Medicine Medical Oncology
DX: Z45.1 Encounter for adjustment and management of infusion pump (principal)
CPT/HCPCS: 96523; J1642

== ENCOUNTER 2023-11-30 08:00 | Oncology outpatient (recurring) (ONCR) | payer MEDICARE, MEDICAID, SELFPAY ==
[2023-11-23] MEDS: sodium chloride 0.9% 250 ML 75 ML IV (09:38)
[2023-11-23] MEDS: ferric carboxy (IVPB) 750 MG in sodium chloride 0.9% (100 ml) 100 ML 345 MG IV (09:39)
[2023-11-23 10:30] VITALS: BP 121/76; PULSE 78; TEMP 35.9; O2SAT 99
[2023-11-30 07:33] VITALS: BP 122/79; PULSE 106; RESP 16; TEMP 35.9; O2SAT 98
[2023-11-30 07:46] LABS: Basophils % 0.5 %; Eosinophils # 0.3 10^3/uL (0.0-0.8); Eosinophils % 5.8 %; Hematocrit 32.7 % (36-47); Lymphocytes # 1.8 10^3/uL (0.8-4.8); Lymphocytes % 30.2 %; Mean Corpuscular HGB Conc 31.5 g/dL (30-55); Mean Corpuscular Hemoglobin 32.1 pg (27-33); Mean Corpuscular Volume 101.9 fl (85-98); Mean Platelet Volume 10.1 fL (7.4-10.4); Monocytes # 0.5 10^3/uL (0.2-0.9); Monocytes % 7.8 %; Neutrophils # 3.25 10^3/uL (1.8-7.7); Neutrophils % 55.4 %; Nucleated Red Blood Cells % 0 %; Platelet Count 236 10^3/cmm (157-399); Red Blood Count 3.21 10^6/uL (3.85-5.65); Red Cell Distribution Width 16.9 % (12.1-15.1); White Blood Count 5.87 10^3/uL (3.29-11.43)
[2023-11-30 08:19] LABS: Alanine Aminotransferase 23 U/L (0-33); Alkaline Phosphatase 92 U/L (35-105); Aspartate Amino Transferase 26 U/L (0-32); Blood Urea Nitrogen 9 mg/dL (8-23); Calcium 7.5 mg/dL (8.5-10.5); Carbon Dioxide 25 mmol/L (22-29); Chloride 104 mmol/L (98-107); Globulin 2.5 g/dL (1.3-4.6); Glomerular Filtration Rate 83.5 mL/min (90-130); Glucose 176 mg/dL (65-115); Osmolality Calculated 295 mOsm/kg (285-295); Sodium 141 mmol/L (136-145); Total Bilirubin 0.3 mg/dL (0.15-1.2); Total Protein 6.5 g/dL (6.6-8.7)
[2023-11-30 09:38] LABS: Magnesium 0.7 mg/dL (1.7-2.3)
[2023-11-30] MEDS: sodium chloride 0.9% 250 ML 75 ML IV (10:13)
[2023-11-30] MEDS: diphenhydrAMINE 50 mg/mL SDV 1mL 25 MG IVP (10:14)
[2023-11-30] MEDS: palonosetron 0.25 mg/5 mL SDV IVP (10:14)
[2023-11-30] MEDS: acetaminophen 325 mg Tablet 650 MG PO (10:16)
[2023-11-30] MEDS: magnesium sulfate premix 2 GM/50 ML PIGGYBACK IV (10:19)
[2023-11-30] MEDS: atropine 1 mg/mL SDV 1 mL 0.4 MG IV (12:00)
[2023-11-30] MEDS: dextrose 5% 250 ML 75 ML IV (12:18)
[2023-11-30] MEDS: DEXTROSE 5% IV (12:19)
[2023-11-30] MEDS: IRINOTECAN IV (12:19)
[2023-11-30] MEDS: leucovorin 740 MG in dextrose 5% 250 ML 216 MG IV (12:25)
[2023-11-30] MEDS: ferric carboxy (IVPB) 750 MG in sodium chloride 0.9% (100 ml) 100 ML 345 MG IV (12:29)
[2023-11-30] MEDS: fluorouraciL 3,500 MG, elastomeric pump 1 PUMP in sodium chloride 0.9% (100 ml) 22 ML IV (14:27)
[2023-11-30 14:34] VITALS: BP 120/71; PULSE 96; RESP 16; TEMP 36.4; O2SAT 96
[2023-11-30 14:34] LABS: Magnesium 1.3 mg/dL (1.7-2.3)
== END 2023-11-30 23:59 | disposition home or self-care (01) ==
PROVIDERS: Internal Medicine; Nurse Practitioner Family; PCP Nurse Practitioner Family; Visit Provider Internal Medicine Medical Oncology
DX: Z45.1 Encounter for adjustment and management of infusion pump (principal); Z51.11 Encounter for antineoplastic chemotherapy; C18.7 Malignant neoplasm of sigmoid colon; Z95.828 Presence of other vascular implants and grafts; Z53.9 Procedure and treatment not carried out, unspecified reason; Z79.899 Other long term (current) drug therapy
CPT/HCPCS: 80053; 82330; 83735; 85025; 96365; 96367; 96375; 96413; 96415; 96416; 99215; J0461; J0640; J1100; J1200; J1439; J1642; J2469; J3475; J7050; J7060; J9190; J9206; J9303

== ENCOUNTER 2023-12-21 07:30 | Oncology outpatient (recurring) (ONCR) | payer MEDICARE, MEDICAID, SELFPAY ==
[2023-12-01 15:01] VITALS: BP 128/72; PULSE 91; RESP 16; TEMP 36.8; O2SAT 98
[2023-12-01] MEDS: magnesium sulfate premix 2 GM/50 ML PIGGYBACK IV (15:02)
[2023-12-01 15:52] VITALS: BP 115/72; PULSE 75; RESP 16; O2SAT 96
[2023-12-02 10:00] VITALS: BP 130/77; PULSE 96; RESP 16; TEMP 36.3; O2SAT 97
[2023-12-02 10:53] LABS: Magnesium 1.2 mg/dL (1.7-2.3)
[2023-12-02] MEDS: magnesium sulfate premix 2 GM/50 ML PIGGYBACK IV (11:05)
[2023-12-02 12:00] VITALS: BP 120/74; PULSE 76; RESP 16; TEMP 36.2; O2SAT 96
[2023-12-07 13:21] VITALS: BP 123/79; PULSE 101; RESP 16; O2SAT 97
[2023-12-07 14:16] LABS: Magnesium 0.7 mg/dL (1.7-2.3)
[2023-12-14 08:02] VITALS: BMI 33.5
[2023-12-14 08:05] VITALS: BP 117/75; PULSE 92; RESP 16; TEMP 36.6; O2SAT 98
[2023-12-14 08:30] LABS: Basophils % 0.5 %; Eosinophils # 0.3 10^3/uL (0.0-0.8); Eosinophils % 5.1 %; Hematocrit 30.3 % (36-47); Lymphocytes # 1.4 10^3/uL (0.8-4.8); Lymphocytes % 25.6 %; Mean Corpuscular Hemoglobin 32.6 pg (27-33); Mean Corpuscular Volume 101.7 fl (85-98); Mean Platelet Volume 10.4 fL (7.4-10.4); Monocytes # 0.4 10^3/uL (0.2-0.9); Monocytes % 7.7 %; Neutrophils # 3.31 10^3/uL (1.8-7.7); Neutrophils % 60.6 %; Nucleated Red Blood Cells % 0 %; Platelet Count 220 10^3/cmm (157-399); Red Blood Count 2.98 10^6/uL (3.85-5.65); Red Cell Distribution Width 17.8 % (12.1-15.1); White Blood Count 5.47 10^3/uL (3.29-11.43)
[2023-12-14 09:02] LABS: Carcinoembryonic Antigen 1.6 ng/mL (0.0-4.7)
[2023-12-14 09:15] LABS: Alanine Aminotransferase 25 U/L (0-33); Albumin Level 3.6 g/dL (3.5-5.2); Alkaline Phosphatase 100 U/L (35-105); Anion Gap 14.4 (5-19); Aspartate Amino Transferase 29 U/L (0-32); Blood Urea Nitrogen 9 mg/dL (8-23); Calcium 6.8 mg/dL (8.5-10.5); Carbon Dioxide 28 mmol/L (22-29); Chloride 103 mmol/L (98-107); Globulin 2.5 g/dL (1.3-4.6); Glomerular Filtration Rate 83.5 mL/min (90-130); Glucose 168 mg/dL (65-115); Osmolality Calculated 295 mOsm/kg (285-295); Potassium 4.4 mmol/L (3.5-5.1); Sodium 141 mmol/L (136-145); Total Bilirubin 0.2 mg/dL (0.15-1.2); Total Protein 6.1 g/dL (6.6-8.7)
[2023-12-14 09:18] LABS: Magnesium 0.7 mg/dL (1.7-2.3)
[2023-12-14 10:54] LABS: Ionized Calcium 0.9 mmol/L (1.1-1.4)
[2023-12-14] MEDS: sodium chloride 0.9% 250 ML 75 ML IV (11:52)
[2023-12-14] MEDS: acetaminophen 325 mg Tablet 650 MG PO (11:52)
[2023-12-14] MEDS: palonosetron 0.25 mg/5 mL SDV IVP (11:53)
[2023-12-14] MEDS: diphenhydrAMINE 50 mg/mL SDV 1mL 25 MG IVP (11:57)
[2023-12-14] MEDS: magnesium sulfate premix 2 GM/50 ML PIGGYBACK IV (12:39)
[2023-12-14] MEDS: PANITUMUMAB IV (13:03)
[2023-12-14] MEDS: SODIUM CHLORIDE 0.9% IV (13:03)
[2023-12-14] MEDS: dextrose 5% 250 ML 75 ML IV (14:15)
[2023-12-14] MEDS: irinotecan 200 MG, irinotecan 70 MG in dextrose 5% 250 ML 175.67 MG IV (14:44)
[2023-12-14] MEDS: leucovorin 760 MG in dextrose 5% 250 ML 217.33 MG IV (14:45)
[2023-12-14] MEDS: atropine 1 mg/mL SDV 1 mL 0.4 MG IV (14:47)
[2023-12-14] MEDS: calcium gluconate 0.9% NaCL 1 GM/50 ML PREMIX IV (15:00)
[2023-12-14] MEDS: fluorouraciL 3,600 MG, elastomeric pump 1 PUMP in sodium chloride 0.9% (100 ml) 20 ML IV (16:30)
[2023-12-16] MEDS: magnesium sulfate premix 4 GM/100 ML PREMIX IV (11:20)
[2023-12-16] MEDS: calcium gluconate 0.9% NaCL 1 GM/50 ML PREMIX IV (11:21)
[2023-12-16 11:24] VITALS: BP 109/71; PULSE 78; RESP 17; TEMP 36.3; O2SAT 99
[2023-12-16 12:18] VITALS: BP 120/74; PULSE 71; RESP 17; TEMP 36.3; O2SAT 95
[2023-12-21 08:37] LABS: Albumin Level 3.6 g/dL (3.5-5.2); Anion Gap 16.3 (5-19); Blood Urea Nitrogen 8 mg/dL (8-23); Calcium 7.3 mg/dL (8.5-10.5); Carbon Dioxide 25 mmol/L (22-29); Chloride 102 mmol/L (98-107); Glomerular Filtration Rate 83.5 mL/min (90-130); Glucose 223 mg/dL (65-115); Phosphorus 1.4 mg/dL (2.5-4.5); Potassium 4.3 mmol/L (3.5-5.1); Sodium 139 mmol/L (136-145)
[2023-12-21 08:46] LABS: Magnesium 0.6 mg/dL (1.7-2.3)
[2023-12-21] MEDS: magnesium sulfate premix 4 GM/100 ML PREMIX IV (09:27)
[2023-12-21 14:05] VITALS: BP 128/73; PULSE 95; TEMP 36.1; O2SAT 98
== END 2023-12-21 23:59 | disposition home or self-care (01) ==
PROVIDERS: Internal Medicine; PCP Nurse Practitioner Family; Visit Provider Internal Medicine Medical Oncology
DX: C18.7 Malignant neoplasm of sigmoid colon (principal); D50.9 Iron deficiency anemia, unspecified; R79.0 Abnormal level of blood mineral
CPT/HCPCS: 36591; 80053; 80069; 82330; 82378; 83735; 85025; 96365; 96366; 96367; 96368; 96375; 96413; 96415; 96416; 96417; 96523; 99214; J0461; J0610; J0640; J1100; J1200; J1642; J2469; J3475; J7050; J7060; J9190; J9206; J9303

== ENCOUNTER 2024-01-06 14:42 | Outpatient (CLI) | payer MEDICARE, MEDICAID, SELFPAY ==
[2024-01-06] MEDS: iohexol 350 mg/mL 100 mL Btl IV (16:14)
--- NOTE | 2024-01-06 17:00 | CT_ITS ---
WS: [id number] CT CHEST, ABDOMEN AND PELVIS WITH CONTRAST HISTORY: Follow-up colon cancer. History of lung cancer. TECHNIQUE: Contiguous 5 mm axial imaging performed through the chest, abdomen and pelvis with IV cont rast, oral contrast has been provided. Coronal and sagittal reformats chest. Coronal and sagittal ref ormats through the abdomen and pelvis. All CT scans at [facility] use at least one of these d ose optimization techniques: automated exposure control; mA and/or kV adjustment per patient size (in cludes targeted exams where dose is matched to clinical indication); or iterative reconstruction. CONTRAST: Omnipaque 300; 95 mL IV. DLP: 1022.61 mGy.cm COMPARISON: 09/29/2023, 05/23/2023, PET/CT 06/11/[address]: No new mass or enlarging mass. 3 mm micronodule in the periphery LEFT upper lobe has been p resent on prior studies. Previously described mass in the RIGHT lower lobe is since no longer present . There are a few benign granulomata. There is a very minimal interstitial thickening in the peripher y of the RIGHT lower lobe which is stable. RIGHT Mediport reidentified. No new or enlarging mediastin al or hilar lymph nodes. Normal size aorta. Normal pulmonary artery. Normal size heart. RIGHT thyroid nodule with a central calcification is unchanged. Abdomen CT: Splenic and hepatic granulomata. No metastatic lesions within the liver. Cholelithiasis w ithout acute cholecystitis. No adrenal mass. Normal pancreas. No renal obstruction or mass. Very mini mal atherosclerosis aorta. Normally distended stomach. No small bowel obstruction. Tortuous overlapping loops of colon with no o bstruction. Normal appendix. No ascites or adenopathy. Small retroperitoneal lymph nodes have decreas ed in size since 05/23/2023. No recurrent adenopathy along the iliac chains. Pelvic CT: Normal appearance of the uterus by CT. No adenopathy. No free fluid. Normal appearance of the rectosigmoid anastomosis. No adjacent adenopathy. No obstruction. Advanced degenerative changes in the thoracic and lumbar spines. No osteoblastic or osteolytic bone l esions are appreciated. There is mild anterior wedging of L4. IMPRESSION: 1. No new pulmonary mass or nodules. No change in a 3 mm micronodule LEFT upper lobe. 2. No mediastinal or hilar adenopathy. 3. Small retroperitoneal lymph nodes. No enlarging or new lymph nodes in the retroperitoneum or graciela g the iliac chains. 4. Cholelithiasis without acute cholecystitis. 5. Stable rectosigmoid anastomosis. 6. No destructive bone lesions identified by CT.
[2024-01-09] MEDS: barium sulfate 450 mL Oral Susp PO (09:24)
== END 2024-01-06 14:43 | disposition home or self-care (01) ==
LOC: RAD 14:44
PROVIDERS: PCP Nurse Practitioner Family; Visit Provider Nurse Practitioner Family
DX: C18.7 Malignant neoplasm of sigmoid colon (principal); R91.1 Solitary pulmonary nodule; Z85.118 Personal history of other malignant neoplasm of bronchus and lung; K80.20 Calculus of gallbladder without cholecystitis without obstruction; Z98.0 Intestinal bypass and anastomosis status
CPT/HCPCS: 71260; 74177; Q9967

== ENCOUNTER 2024-01-11 07:45 | Oncology outpatient (recurring) (ONCR) | payer MEDICARE, MEDICAID, SELFPAY ==
[2023-12-28 08:01] LABS: Basophils % 0.6 %; Eosinophils # 0.3 10^3/uL (0.0-0.8); Eosinophils % 4.1 %; Hematocrit 32.5 % (36-47); Lymphocytes # 1.9 10^3/uL (0.8-4.8); Mean Corpuscular Volume 103.2 fl (85-98); Mean Platelet Volume 10.1 fL (7.4-10.4); Monocytes # 0.5 10^3/uL (0.2-0.9); Monocytes % 8.4 %; Neutrophils # 3.57 10^3/uL (1.8-7.7); Neutrophils % 56.6 %; Nucleated Red Blood Cells % 0 %; Platelet Count 226 10^3/cmm (157-399); Red Blood Count 3.15 10^6/uL (3.85-5.65); Red Cell Distribution Width 18.1 % (12.1-15.1); White Blood Count 6.31 10^3/uL (3.29-11.43)
[2023-12-28 08:26] LABS: Alanine Aminotransferase 22 U/L (0-33); Albumin Level 3.7 g/dL (3.5-5.2); Alkaline Phosphatase 100 U/L (35-105); Anion Gap 15.1 (5-19); Aspartate Amino Transferase 21 U/L (0-32); Blood Urea Nitrogen 10 mg/dL (8-23); Calcium 7.1 mg/dL (8.5-10.5); Carbon Dioxide 25 mmol/L (22-29); Chloride 102 mmol/L (98-107); Ferritin 666 ng/mL (15-150); Globulin 2.6 g/dL (1.3-4.6); Glomerular Filtration Rate 99.7 mL/min (90-130); Glucose 141 mg/dL (65-115); Iron 57 ug/dL (37-145); Osmolality Calculated 287 mOsm/kg (285-295); Potassium 4.1 mmol/L (3.5-5.1); Sodium 138 mmol/L (136-145); Total Bilirubin 0.3 mg/dL (0.15-1.2); Total Iron Binding Capacity 219 mcg/dl; Total Protein 6.3 g/dL (6.6-8.7); Unsaturated Iron Binding 162 ug/dL (112-347)
[2023-12-28 08:54] LABS: Carcinoembryonic Antigen 1.8 ng/mL (0.0-4.7)
[2023-12-28] MEDS: acetaminophen 325 mg Tablet 650 MG PO (10:12)
[2023-12-28] MEDS: sodium chloride 0.9% 250 ML 75 ML IV (10:16)
[2023-12-28] MEDS: diphenhydrAMINE 50 mg/mL SDV 1mL 25 MG IVP (10:20)
[2023-12-28] MEDS: palonosetron 0.25 mg/5 mL SDV IVP (10:24)
[2023-12-28] MEDS: SODIUM CHLORIDE 0.9% IV (11:05)
[2023-12-28] MEDS: PANITUMUMAB IV (11:05)
[2023-12-28 11:24] LABS: Magnesium 0.8 mg/dL (1.7-2.3)
[2023-12-28] MEDS: atropine 1 mg/mL SDV 1 mL 0.400000000000000022 MG IV (12:26)
[2023-12-28] MEDS: dextrose 5% 250 ML 50 ML IV (12:42)
[2023-12-28] MEDS: leucovorin 760 MG in dextrose 5% 250 ML 166.669999999999987 MG IV (12:45)
[2023-12-28] MEDS: irinotecan 200 MG, irinotecan 70 MG in dextrose 5% 250 ML 175.669999999999987 MG IV (12:45)
[2023-12-28] MEDS: fluorouraciL 3,600 MG, elastomeric pump 1 PUMP in sodium chloride 0.9% (100 ml) 20 ML IV (14:36)
[2023-12-28 14:45] VITALS: BP 124/75; PULSE 97; RESP 17; TEMP 35.6; O2SAT 98
[2023-12-30 11:19] VITALS: BP 133/75; PULSE 100; RESP 17; TEMP 36.2; O2SAT 99
[2024-01-11 08:26] LABS: Basophils % 0.4 %; Eosinophils # 0.3 10^3/uL (0.0-0.8); Eosinophils % 3.6 %; Hematocrit 32.9 % (36-47); Lymphocytes # 1.8 10^3/uL (0.8-4.8); Lymphocytes % 24.7 %; Mean Corpuscular HGB Conc 31.9 g/dL (30-55); Mean Corpuscular Hemoglobin 32.9 pg (27-33); Mean Corpuscular Volume 103.1 fl (85-98); Mean Platelet Volume 10.4 fL (7.4-10.4); Monocytes # 0.4 10^3/uL (0.2-0.9); Neutrophils # 4.69 10^3/uL (1.8-7.7); Neutrophils % 64.9 %; Nucleated Red Blood Cells % 0 %; Platelet Count 225 10^3/cmm (157-399); Red Blood Count 3.19 10^6/uL (3.85-5.65); Red Cell Distribution Width 17.4 % (12.1-15.1); White Blood Count 7.22 10^3/uL (3.29-11.43)
[2024-01-11 08:44] LABS: Alanine Aminotransferase 19 U/L (0-33); Albumin Level 3.8 g/dL (3.5-5.2); Alkaline Phosphatase 102 U/L (35-105); Anion Gap 16.4 (5-19); Aspartate Amino Transferase 20 U/L (0-32); Blood Urea Nitrogen 12 mg/dL (8-23); Calcium 7.6 mg/dL (8.5-10.5); Carbon Dioxide 25 mmol/L (22-29); Chloride 99 mmol/L (98-107); Creatinine Clr Calc Pharmacy 68.1503; Globulin 2.5 g/dL (1.3-4.6); Glomerular Filtration Rate 83.5 mL/min (90-130); Glucose 200 mg/dL (65-115); Osmolality Calculated 287 mOsm/kg (285-295); Potassium 4.4 mmol/L (3.5-5.1); Sodium 136 mmol/L (136-145); Total Bilirubin 0.2 mg/dL (0.15-1.2); Total Protein 6.3 g/dL (6.6-8.7)
[2024-01-11] MEDS: acetaminophen 325 mg Tablet 650 MG PO (09:50)
[2024-01-11] MEDS: sodium chloride 0.9% 250 ML 75 ML IV (09:52)
[2024-01-11] MEDS: diphenhydrAMINE 50 mg/mL SDV 1mL 25 MG IVP (09:56)
[2024-01-11] MEDS: palonosetron 0.25 mg/5 mL SDV IVP (10:02)
[2024-01-11] MEDS: PANITUMUMAB IV (10:45)
[2024-01-11] MEDS: SODIUM CHLORIDE 0.9% IV (10:45)
[2024-01-11] MEDS: leucovorin 760 MG in dextrose 5% 250 ML 166.669999999999987 MG IV (12:08)
[2024-01-11] MEDS: fluorouraciL 3,600 MG, elastomeric pump 1 PUMP in sodium chloride 0.9% (100 ml) 20 ML IV (12:42)
[2024-01-11 12:46] VITALS: BP 135/81; PULSE 93; TEMP 35.8; O2SAT 97
== END 2024-01-11 23:59 | disposition home or self-care (01) ==
PROVIDERS: Internal Medicine; Nurse Practitioner Family; PCP Nurse Practitioner Family; Visit Provider Internal Medicine Medical Oncology
DX: C18.7 Malignant neoplasm of sigmoid colon (principal); Z53.9 Procedure and treatment not carried out, unspecified reason; Z51.11 Encounter for antineoplastic chemotherapy; D50.9 Iron deficiency anemia, unspecified; E83.42 Hypomagnesemia; E83.51 Hypocalcemia; Z87.891 Personal history of nicotine dependence; C77.8 Secondary and unspecified malignant neoplasm of lymph nodes of multiple regions; R91.8 Other nonspecific abnormal finding of lung field; Z90.49 Acquired absence of other specified parts of digestive tract; Z95.828 Presence of other vascular implants and grafts; Z79.899 Other long term (current) drug therapy
CPT/HCPCS: 80053; 82378; 82728; 83540; 83550; 83735; 85025; 96365; 96366; 96367; 96375; 96413; 96415; 96416; 96417; 96523; 99214; A4222; J0461; J0640; J1100; J1200; J1642; J2469; J7050; J7060; J9190; J9206; J9303

== ENCOUNTER 2024-01-13 11:13 | Oncology outpatient (recurring) (ONCR) | payer MEDICARE, MEDICAID, SELFPAY ==
[2024-01-13 11:17] VITALS: BP 145/79; PULSE 98; RESP 16; TEMP 36.6; O2SAT 98
== END 2024-01-19 23:59 | disposition home or self-care (01) ==
LOC: ONCMED 11:13
PROVIDERS: PCP Nurse Practitioner Family; Visit Provider Internal Medicine Medical Oncology
DX: Z45.1 Encounter for adjustment and management of infusion pump
CPT/HCPCS: 96523; J1642

== ENCOUNTER 2024-02-03 12:33 | Outpatient (CLI) | payer MEDICARE, MEDICAID, SELFPAY ==
--- NOTE | 2024-02-03 13:06 | MM_ITS ---
WS: [id number] BILATERAL 3D TOMOSYNTHESIS DIGITAL SCREENING MAMMOGRAPHY WITH CAD CLINICAL INFORMATION: SCREENING HISTORY: Screening mammogram. No current complaints. COMPARISON: 2022 TECHNIQUE: Bilateral CC and MLO views. FINDINGS: Scattered fibroglandular densities bilaterally. No suspicious focal mass, asymmetry, calcifications, or architectural distortion. No evidence of malignancy. Incidental punctate and lucent centered calci fications. IMPRESSION: MM/[place] [id number] BI-RADS: 2-Benign FOLLOW UP: 1 Year Follow-up Recommend return to annual screening mammography.
== END 2024-02-03 12:34 | disposition home or self-care (01) ==
LOC: RAD 12:33
PROVIDERS: PCP Nurse Practitioner Family; Visit Provider Obstetrics & Gynecology Hospice and Palliative Medicine
DX: Z12.31 Encounter for screening mammogram for malignant neoplasm of breast (principal)
CPT/HCPCS: 77063; 77067

== ENCOUNTER 2024-02-08 07:45 | Oncology outpatient (recurring) (ONCR) | payer MEDICARE, MEDICAID, SELFPAY ==
[2024-01-25 07:54] LABS: Basophils # 0.1 10^3/uL (0.0-0.1); Basophils % 0.6 %; Eosinophils # 0.4 10^3/uL (0.0-0.8); Eosinophils % 4.6 %; Hematocrit 31.4 % (36-47); Lymphocytes # 1.8 10^3/uL (0.8-4.8); Lymphocytes % 22.2 %; Mean Corpuscular HGB Conc 31.5 g/dL (30-55); Mean Corpuscular Hemoglobin 33.1 pg (27-33); Mean Platelet Volume 10.9 fL (7.4-10.4); Monocytes # 0.5 10^3/uL (0.2-0.9); Monocytes % 6.2 %; Neutrophils # 5.29 10^3/uL (1.8-7.7); Neutrophils % 65.9 %; Nucleated Red Blood Cells % 0 %; Platelet Count 197 10^3/cmm (157-399); Red Blood Count 2.99 10^6/uL (3.85-5.65); Red Cell Distribution Width 17.9 % (12.1-15.1); White Blood Count 8.03 10^3/uL (3.29-11.43)
[2024-01-25 08:42] LABS: Carcinoembryonic Antigen 1.5 ng/mL (0.0-4.7)
[2024-01-25 08:53] LABS: Alanine Aminotransferase 21 U/L (0-33); Albumin Level 3.5 g/dL (3.5-5.2); Alkaline Phosphatase 98 U/L (35-105); Anion Gap 15.8 (5-19); Aspartate Amino Transferase 24 U/L (0-32); Blood Urea Nitrogen 7 mg/dL (8-23); Calcium 7.3 mg/dL (8.5-10.5); Carbon Dioxide 26 mmol/L (22-29); Chloride 103 mmol/L (98-107); Creatinine Clr Calc Pharmacy 68.3705; Globulin 2.5 g/dL (1.3-4.6); Glomerular Filtration Rate 99.7 mL/min (90-130); Glucose 201 mg/dL (65-115); Osmolality Calculated 296 mOsm/kg (285-295); Potassium 3.8 mmol/L (3.5-5.1); Sodium 141 mmol/L (136-145); Total Bilirubin 0.2 mg/dL (0.15-1.2)
[2024-01-25 08:56] LABS: Magnesium 0.8 mg/dL (1.7-2.3)
[2024-01-25 09:05] LABS: Ferritin 525 ng/mL (15-150); Iron 48 ug/dL (37-145); Percent Saturation 22.7 % (20-50); Total Iron Binding Capacity 211 mcg/dl; Unsaturated Iron Binding 163 ug/dL (112-347)
[2024-02-08 07:55] LABS: Basophils % 0.6 %; Eosinophils # 0.3 10^3/uL (0.0-0.8); Eosinophils % 4.9 %; Hematocrit 32.2 % (36-47); Lymphocytes # 1.7 10^3/uL (0.8-4.8); Lymphocytes % 25.9 %; Mean Corpuscular HGB Conc 31.4 g/dL (30-55); Mean Corpuscular Hemoglobin 32.7 pg (27-33); Mean Corpuscular Volume 104.2 fl (85-98); Mean Platelet Volume 11.3 fL (7.4-10.4); Monocytes # 0.5 10^3/uL (0.2-0.9); Monocytes % 8.1 %; Neutrophils # 4.02 10^3/uL (1.8-7.7); Neutrophils % 60.1 %; Nucleated Red Blood Cells % 0 %; Platelet Count 207 10^3/cmm (157-399); Red Blood Count 3.09 10^6/uL (3.85-5.65); Red Cell Distribution Width 16.8 % (12.1-15.1); White Blood Count 6.69 10^3/uL (3.29-11.43)
[2024-02-08 08:14] LABS: Alanine Aminotransferase 17 U/L (0-33); Albumin Level 3.7 g/dL (3.5-5.2); Alkaline Phosphatase 94 U/L (35-105); Anion Gap 14.9 (5-19); Aspartate Amino Transferase 22 U/L (0-32); Blood Urea Nitrogen 9 mg/dL (8-23); Calcium 8.3 mg/dL (8.5-10.5); Carbon Dioxide 26 mmol/L (22-29); Chloride 104 mmol/L (98-107); Creatinine Clr Calc Pharmacy 68.3705; Globulin 2.3 g/dL (1.3-4.6); Glomerular Filtration Rate 99.7 mL/min (90-130); Glucose 148 mg/dL (65-115); Osmolality Calculated 293 mOsm/kg (285-295); Potassium 3.9 mmol/L (3.5-5.1); Sodium 141 mmol/L (136-145); Total Bilirubin 0.2 mg/dL (0.15-1.2)
== END 2024-02-19 23:59 | disposition home or self-care (01) ==
PROVIDERS: Nurse Practitioner Family; PCP Nurse Practitioner Family; Visit Provider Internal Medicine Medical Oncology
DX: Z53.9 Procedure and treatment not carried out, unspecified reason (principal); C18.7 Malignant neoplasm of sigmoid colon; D50.9 Iron deficiency anemia, unspecified; E83.42 Hypomagnesemia; Z79.899 Other long term (current) drug therapy; Z87.891 Personal history of nicotine dependence; R53.83 Other fatigue; C77.8 Secondary and unspecified malignant neoplasm of lymph nodes of multiple regions; Z95.828 Presence of other vascular implants and grafts; R23.4 Changes in skin texture; T45.1X5A Adverse effect of antineoplastic and immunosuppressive drugs, initial encounter
CPT/HCPCS: 80053; 82378; 82728; 83540; 83550; 83735; 85025; 99214; J1642

== ENCOUNTER 2024-03-09 11:00 | Oncology outpatient (recurring) (ONCR) | payer MEDICARE, MEDICAID, SELFPAY ==
[2024-02-22 08:54] LABS: Basophils % 0.6 %; Eosinophils # 0.4 10^3/uL (0.0-0.8); Eosinophils % 5.7 %; Hematocrit 30.3 % (36-47); Lymphocytes # 1.4 10^3/uL (0.8-4.8); Lymphocytes % 22.4 %; Mean Corpuscular HGB Conc 31.4 g/dL (30-55); Mean Corpuscular Volume 105.2 fl (85-98); Mean Platelet Volume 11.9 fL (7.4-10.4); Monocytes # 0.4 10^3/uL (0.2-0.9); Monocytes % 6.7 %; Neutrophils # 4.15 10^3/uL (1.8-7.7); Neutrophils % 64.4 %; Nucleated Red Blood Cells % 0 %; Platelet Count 187 10^3/cmm (157-399); Red Blood Count 2.88 10^6/uL (3.85-5.65); White Blood Count 6.44 10^3/uL (3.29-11.43)
[2024-02-22 09:23] LABS: Carcinoembryonic Antigen 2.8 ng/mL (0.0-4.7)
[2024-02-22 09:36] LABS: Alanine Aminotransferase 20 U/L (0-33); Albumin Level 3.8 g/dL (3.5-5.2); Alkaline Phosphatase 101 U/L (35-105); Aspartate Amino Transferase 22 U/L (0-32); Blood Urea Nitrogen 10 mg/dL (8-23); Calcium 8.7 mg/dL (8.5-10.5); Carbon Dioxide 26 mmol/L (22-29); Chloride 104 mmol/L (98-107); Creatinine Clr Calc Pharmacy 70.4961; Globulin 2.3 g/dL (1.3-4.6); Glomerular Filtration Rate 99.7 mL/min (90-130); Glucose 188 mg/dL (65-115); Osmolality Calculated 294 mOsm/kg (285-295); Sodium 140 mmol/L (136-145); Total Bilirubin 0.2 mg/dL (0.15-1.2); Total Protein 6.1 g/dL (6.6-8.7)
[2024-02-22] MEDS: sodium chloride 0.9% 250 ML 75 ML IV (10:37)
[2024-02-22] MEDS: acetaminophen 325 mg Tablet 650 MG PO (10:40)
[2024-02-22] MEDS: diphenhydrAMINE 50 mg/mL SDV 1mL 25 MG IVP (10:42)
[2024-02-22] MEDS: palonosetron 0.25 mg/5 mL SDV IVP (10:45)
[2024-02-22 11:02] LABS: Magnesium 1.3 mg/dL (1.7-2.3)
[2024-02-22] MEDS: PANITUMUMAB IV (11:25)
[2024-02-22] MEDS: SODIUM CHLORIDE 0.9% IV (11:25)
[2024-02-22] MEDS: leucovorin 760 MG in dextrose 5% 250 ML 500 MG IV (12:43)
[2024-02-22] MEDS: fluorouraciL 3,650 MG, elastomeric pump 1 PUMP in sodium chloride 0.9% (100 ml) 19 ML IV (13:30)
[2024-02-22 13:35] VITALS: BP 144/79; PULSE 82; RESP 17; TEMP 36.1; O2SAT 96
[2024-02-24 11:27] VITALS: BP 152/70; PULSE 85; RESP 18; TEMP 36.8; O2SAT 95
[2024-03-07 07:53] LABS: Basophils # 0.1 10^3/uL (0.0-0.1); Basophils % 0.6 %; Eosinophils # 0.4 10^3/uL (0.0-0.8); Eosinophils % 4.7 %; Hematocrit 33.3 % (36-47); Lymphocytes # 1.8 10^3/uL (0.8-4.8); Lymphocytes % 22.9 %; Mean Corpuscular HGB Conc 31.5 g/dL (30-55); Mean Corpuscular Hemoglobin 32.9 pg (27-33); Mean Corpuscular Volume 104.4 fl (85-98); Mean Platelet Volume 10.9 fL (7.4-10.4); Monocytes # 0.5 10^3/uL (0.2-0.9); Monocytes % 6.6 %; Neutrophils # 5.02 10^3/uL (1.8-7.7); Neutrophils % 64.8 %; Nucleated Red Blood Cells % 0 %; Platelet Count 207 10^3/cmm (157-399); Red Blood Count 3.19 10^6/uL (3.85-5.65); Red Cell Distribution Width 15.1 % (12.1-15.1); White Blood Count 7.74 10^3/uL (3.29-11.43)
[2024-03-07 08:22] LABS: Carcinoembryonic Antigen 3.2 ng/mL (0.0-4.7)
[2024-03-07 08:33] LABS: Alanine Aminotransferase 22 U/L (0-33); Albumin Level 3.8 g/dL (3.5-5.2); Alkaline Phosphatase 114 U/L (35-105); Anion Gap 15.2 (5-19); Aspartate Amino Transferase 19 U/L (0-32); Blood Urea Nitrogen 15 mg/dL (8-23); Carbon Dioxide 25 mmol/L (22-29); Chloride 100 mmol/L (98-107); Creatinine Clr Calc Pharmacy 70.4961; Globulin 2.4 g/dL (1.3-4.6); Glomerular Filtration Rate 83.5 mL/min (90-130); Glucose 179 mg/dL (65-115); Magnesium 1.4 mg/dL (1.7-2.3); Osmolality Calculated 287 mOsm/kg (285-295); Potassium 4.2 mmol/L (3.5-5.1); Sodium 136 mmol/L (136-145); Total Bilirubin 0.2 mg/dL (0.15-1.2); Total Protein 6.2 g/dL (6.6-8.7)
[2024-03-07] MEDS: sodium chloride 0.9% 250 ML 75 ML IV (10:40)
[2024-03-07] MEDS: palonosetron 0.25 mg/5 mL SDV IVP (10:41)
[2024-03-07] MEDS: diphenhydrAMINE 50 mg/mL SDV 1mL 25 MG IVP (10:45)
[2024-03-07] MEDS: acetaminophen 325 mg Tablet 650 MG PO (10:46)
[2024-03-07] MEDS: PANITUMUMAB IV (11:02)
[2024-03-07] MEDS: SODIUM CHLORIDE 0.9% IV (11:02)
[2024-03-07] MEDS: leucovorin 740 MG in dextrose 5% 250 ML 166.669999999999987 MG IV (12:29)
[2024-03-07] MEDS: fluorouraciL 3,600 MG, elastomeric pump 1 PUMP in sodium chloride 0.9% (100 ml) 20 ML IV (13:06)
[2024-03-07 13:07] VITALS: BP 137/79; PULSE 84; TEMP 36.1; O2SAT 95
[2024-03-09 11:00] VITALS: BP 152/72; PULSE 91; RESP 16; TEMP 36.3; O2SAT 98
== END 2024-03-20 23:59 | disposition home or self-care (01) ==
PROVIDERS: Nurse Practitioner Family; PCP Nurse Practitioner Family; Visit Provider Internal Medicine Medical Oncology
DX: Z45.1 Encounter for adjustment and management of infusion pump (principal); Z53.9 Procedure and treatment not carried out, unspecified reason
CPT/HCPCS: 80053; 82378; 83735; 85025; 96367; 96375; 96413; 96416; 96417; 96523; 99214; A4222; J0640; J1100; J1200; J2469; J7050; J7060; J9190; J9303

== ENCOUNTER 2024-04-13 08:45 | Oncology outpatient (recurring) (ONCR) | payer MEDICARE, MEDICAID, SELFPAY ==
[2024-03-21 08:58] LABS: Basophils % 0.4 %; Eosinophils # 0.3 10^3/uL (0.0-0.8); Eosinophils % 4.5 %; Hematocrit 33.1 % (36-47); Lymphocytes # 1.8 10^3/uL (0.8-4.8); Lymphocytes % 24.9 %; Mean Corpuscular Hemoglobin 33.9 pg (27-33); Mean Corpuscular Volume 105.8 fl (85-98); Mean Platelet Volume 10.6 fL (7.4-10.4); Monocytes # 0.5 10^3/uL (0.2-0.9); Monocytes % 6.4 %; Neutrophils # 4.56 10^3/uL (1.8-7.7); Neutrophils % 63.5 %; Nucleated Red Blood Cells % 0 %; Platelet Count 195 10^3/cmm (157-399); Red Blood Count 3.13 10^6/uL (3.85-5.65); Red Cell Distribution Width 14.7 % (12.1-15.1); White Blood Count 7.18 10^3/uL (3.29-11.43)
[2024-03-21 09:15] LABS: Alanine Aminotransferase 23 U/L (0-33); Albumin Level 3.6 g/dL (3.5-5.2); Alkaline Phosphatase 107 U/L (35-105); Anion Gap 14.2 (5-19); Aspartate Amino Transferase 33 U/L (0-32); Blood Urea Nitrogen 12 mg/dL (8-23); Calcium 8.8 mg/dL (8.5-10.5); Carbon Dioxide 27 mmol/L (22-29); Chloride 102 mmol/L (98-107); Globulin 2.4 g/dL (1.3-4.6); Glomerular Filtration Rate 71.5 mL/min (90-130); Glucose 181 mg/dL (65-115); Magnesium 1.6 mg/dL (1.7-2.3); Osmolality Calculated 292 mOsm/kg (285-295); Potassium 4.2 mmol/L (3.5-5.1); Sodium 139 mmol/L (136-145); Total Bilirubin 0.2 mg/dL (0.15-1.2)
[2024-03-21] MEDS: acetaminophen 325 mg Tablet 650 MG PO (10:47)
[2024-03-21] MEDS: sodium chloride 0.9% 250 ML 75 ML IV (10:49)
[2024-03-21] MEDS: diphenhydrAMINE 50 mg/mL SDV 1mL 25 MG IVP (10:57)
[2024-03-21] MEDS: palonosetron 0.25 mg/5 mL SDV IVP (10:57)
[2024-03-21 11:10] LABS: Ferritin 348 ng/mL (15-150); Iron 47 ug/dL (37-145); Percent Saturation 22.5 % (20-50); Total Iron Binding Capacity 208 mcg/dl; Unsaturated Iron Binding 161 ug/dL (112-347)
[2024-03-21] MEDS: PANITUMUMAB IV (11:24)
[2024-03-21] MEDS: SODIUM CHLORIDE 0.9% IV (11:24)
[2024-03-21] MEDS: leucovorin 740 MG in dextrose 5% 250 ML 166.669999999999987 MG IV (12:46)
[2024-03-21] MEDS: fluorouraciL 3,500 MG, elastomeric pump 1 PUMP in sodium chloride 0.9% (100 ml) 22 ML IV (13:26)
[2024-03-21 13:29] VITALS: BP 134/84; PULSE 69; RESP 18; TEMP 36.6; O2SAT 96
[2024-03-23 11:18] VITALS: BP 136/80; PULSE 76; TEMP 36.1; O2SAT 97
[2024-04-04 08:52] LABS: Basophils % 0.4 %; Eosinophils # 0.4 10^3/uL (0.0-0.8); Eosinophils % 5.5 %; Hematocrit 32.9 % (36-47); Lymphocytes % 26.4 %; Mean Corpuscular HGB Conc 31.9 g/dL (30-55); Mean Corpuscular Hemoglobin 33.5 pg (27-33); Mean Corpuscular Volume 105.1 fl (85-98); Mean Platelet Volume 10.7 fL (7.4-10.4); Monocytes # 0.5 10^3/uL (0.2-0.9); Neutrophils # 4.59 10^3/uL (1.8-7.7); Neutrophils % 60.2 %; Nucleated Red Blood Cells % 0 %; Platelet Count 188 10^3/cmm (157-399); Red Blood Count 3.13 10^6/uL (3.85-5.65); Red Cell Distribution Width 14.9 % (12.1-15.1); White Blood Count 7.62 10^3/uL (3.29-11.43)
[2024-04-04 09:18] LABS: Carcinoembryonic Antigen 3.7 ng/mL (0.0-4.7)
[2024-04-04 09:29] LABS: Alanine Aminotransferase 19 U/L (0-33); Albumin Level 3.6 g/dL (3.5-5.2); Alkaline Phosphatase 104 U/L (35-105); Anion Gap 15.4 (5-19); Aspartate Amino Transferase 20 U/L (0-32); Blood Urea Nitrogen 11 mg/dL (8-23); Carbon Dioxide 26 mmol/L (22-29); Chloride 105 mmol/L (98-107); Creatinine Clr Calc Pharmacy 69.9338; Globulin 2.5 g/dL (1.3-4.6); Glomerular Filtration Rate 83.5 mL/min (90-130); Glucose 143 mg/dL (65-115); Magnesium 1.6 mg/dL (1.7-2.3); Osmolality Calculated 296 mOsm/kg (285-295); Potassium 4.4 mmol/L (3.5-5.1); Sodium 142 mmol/L (136-145); Total Bilirubin 0.2 mg/dL (0.15-1.2); Total Protein 6.1 g/dL (6.6-8.7)
[2024-04-04] MEDS: sodium chloride 0.9% 250 ML 75 ML IV (10:49)
[2024-04-04] MEDS: palonosetron 0.25 mg/5 mL SDV IVP (10:50)
[2024-04-04] MEDS: acetaminophen 325 mg Tablet 650 MG PO (10:50)
[2024-04-04] MEDS: diphenhydrAMINE 50 mg/mL SDV 1mL 25 MG IVP (11:00)
[2024-04-04] MEDS: PANITUMUMAB IV (11:23)
[2024-04-04] MEDS: SODIUM CHLORIDE 0.9% IV (11:23)
[2024-04-04] MEDS: leucovorin 740 MG in dextrose 5% 250 ML 166.669999999999987 MG IV (12:34)
[2024-04-04] MEDS: fluorouraciL 3,500 MG, elastomeric pump 1 PUMP in sodium chloride 0.9% (100 ml) 22 ML IV (13:28)
[2024-04-04 13:35] VITALS: BP 124/77; PULSE 73; RESP 16; TEMP 36.7; O2SAT 94
[2024-04-06 11:15] VITALS: BP 132/73; PULSE 89; RESP 16; TEMP 36.1; O2SAT 96
--- NOTE | 2024-04-13 08:45 | CTR_ITS ---
PROCEDURE INFORMATION: Exam: CT Chest With Contrast; Diagnostic Exam date and time: 04/13/2024 9:49 AM Age: 68 years old Clinical indication: Condition or disease; Other: Colon cancer; Prior surgery; Surgery date: 6+ months; Surgery type: Hernia, colon; Additional info: Surveillance TECHNIQUE: Imaging protocol: Diagnostic computed tomography of the chest with contrast. Radiation optimization: All CT scans at this facility use at least one of these dose optimization techniques: automated exposure control; mA and/or kV adjustment per patient size (includes targeted exams where dose is matched to clinical indication); or iterative reconstruction. Contrast material: OMNI 350; Contrast volume: 100 ml; Contrast route: INTRAVENOUS (IV); COMPARISON: 1. CT chest abdpel w/*[id number] 01/06/2024 4:[address] chest 09/29/2023. RADIATION DOSE METRICS: Total DLP (mGy-cm): 1094.65 FINDINGS: Tubes, catheters and devices: Right infusion port with tip in the SVC. Thyroid: 1.4 cm complex right thyroid lobe nodule with internal calcifications, stable since September 2023. Consider correlation with nonemergent thyroid ultrasound. Trachea: The airways are patent. Lungs: Benign calcified granuloma in the left upper lobe, stable. 3 mm left upper lobe solid nodule (series 3, image 15). No other discrete pulmonary nodules appreciated. No acute interstitial or airspace disease. Pleural spaces: No pleural effusions or pneumothorax. Heart: Heart is of normal size and morphology. No filling defects in the left atrial appendage. No pericardial thickening or effusion. Coronary arteries: There is no evidence of atherosclerotic coronary artery calcifications. Mediastinal space: Scattered calcified granulomas throughout the mediastinum are benign. Mediastinum is otherwise unremarkable. Lymph nodes: There is no evidence of lymphadenopathy. Vasculature: The aorta demonstrates mild atherosclerotic calcification. The aorta is normal in course and caliber. No acute pathology in the aorta. The pulmonary arteries are normal in course and caliber. Bones/joints: Severe multilevel degenerative changes of the spine, as manifested by multilevel anterior osteophytes and multilevel decrease in intervertebral disc space. No acute fracture, dislocation, or aggressive osseous lesion. Soft tissues: No acute body wall soft tissue findings. Other findings: Small filling defect posterior to the right port catheter tubing at the level of the SVC is related to artifact. COMMENTS: Please review abdomen and pelvic CT performed on the same date for other findings. PROCEDURE INFORMATION: Exam: CT Abdomen And Pelvis With Contrast Exam date and time: 04/13/2024 9:49 AM Age: 68 years old Clinical indication: Condition or disease; Other: Colon cancer; Prior surgery; Surgery date: 6+ months; Surgery type: Hernia, colon; Additional info: Surveillance TECHNIQUE: Imaging protocol: Computed tomography of the abdomen and pelvis with contrast. Radiation optimization: All CT scans at this facility use at least one of these dose optimization techniques: automated exposure control; mA and/or kV adjustment per patient size (includes targeted exams where dose is matched to clinical indication); or iterative reconstruction. Contrast material: OMNI 350; Contrast volume: 100 ml; Contrast route: INTRAVENOUS (IV); COMPARISON: CT chest abdpel w/*[id number] 01/06/2024 4:10 PM RADIATION DOSE METRICS: Total DLP (mGy-cm): 1094.65 FINDINGS: Liver: Liver is enlarged measuring 25 cm. Scattered calcified liver granulomas are benign. There is a diffuse decrease in hepatic parenchymal density, consistent with fatty infiltration. The liver is otherwise unremarkable. Gallbladder and bile ducts: Multiple calcified gallstones are present. The gallbladder is otherwise unremarkable. There is no evidence of biliary ductal dilation. Pancreas: The pancreas is normal. Spleen: The spleen demonstrates punctate calcifications, consistent with remote granulomatous organism exposure. The spleen is otherwise unremarkable. Adrenal glands: The adrenal glands are normal. Kidneys and ureters: The kidneys are normal. There is no ureteral dilation. Stomach and bowel: Prior partial rectal resection with colo colonic anastomosis in the pelvis, no complications. No bowel obstruction or significant bowel wall thickening. There is excessive colonic stool content. Appendix: A normal appendix is identified. Intraperitoneal space: No free fluid, fluid collections, or pneumoperitoneum. Vasculature: The arterial vasculature demonstrates diffuse mild atherosclerotic calcification. No aortic aneurysms. Portal venous system is patent. Lymph nodes: There is no evidence of lymphadenopathy. Urinary bladder: The bladder is decompressed. Reproductive: Reproductive organs are unremarkable as visualized. Bones/joints: Moderate multilevel degenerative changes of the spine, as manifested by multilevel anterior osteophytes and multilevel decrease in intervertebral disc space. 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 No acute fracture, dislocation, or aggressive osseous lesion. Soft tissues: No acute body wall soft tissue findings. CT/CT chest abdpel w/*[id number] IMPRESSION: 1. 3 mm left upper lobe solid nodule (series 3, image 15). Stable since September 2023 and likely of benign etiology. 2. Stable chest without evidence for thoracic metastasis or neoplasia. IMPRESSION: 1. No disease recurrence or metastasis. 2. Hepatomegaly. 3. Hepatic steatosis. 4. Cholelithiasis. 5. Incidental findings as above. COMMENTS: Please review chest CT performed concomitantly for other important findings.
[2024-04-13] MEDS: iohexol 350 mg/mL 500 mL Btl (per mL) PO (09:44)
[2024-04-13] MEDS: iohexol 350 mg/mL 500 mL Btl (per mL) IV (09:55)
== END 2024-04-13 23:59 | disposition home or self-care (01) ==
LOC: ONCMED 09:25
PROVIDERS: Nurse Practitioner Family; PCP Nurse Practitioner Family; Visit Provider Internal Medicine Medical Oncology
DX: Z53.9 Procedure and treatment not carried out, unspecified reason (principal); C18.7 Malignant neoplasm of sigmoid colon
CPT/HCPCS: 71260; 74177; 80053; 82378; 82728; 83540; 83550; 83735; 85025; 96365; 96367; 96374; 96375; 96413; 96416; 96523; 99214; A4222; J0640; J1100; J1200; J2469; J7050; J7060; J9190; J9303; Q9967

== ENCOUNTER 2024-04-20 11:30 | Oncology outpatient (recurring) (ONCR) | payer MEDICARE, MEDICAID, SELFPAY ==
[2024-04-18 07:58] LABS: Basophils % 0.4 %; Eosinophils # 0.4 10^3/uL (0.0-0.8); Eosinophils % 4.7 %; Hematocrit 32.7 % (36-47); Lymphocytes # 1.6 10^3/uL (0.8-4.8); Lymphocytes % 20.1 %; Mean Corpuscular HGB Conc 32.4 g/dL (30-55); Mean Corpuscular Hemoglobin 33.2 pg (27-33); Mean Corpuscular Volume 102.5 fl (85-98); Mean Platelet Volume 10.6 fL (7.4-10.4); Monocytes # 0.5 10^3/uL (0.2-0.9); Monocytes % 6.3 %; Neutrophils # 5.42 10^3/uL (1.8-7.7); Neutrophils % 68.2 %; Nucleated Red Blood Cells % 0 %; Platelet Count 201 10^3/cmm (157-399); Red Blood Count 3.19 10^6/uL (3.85-5.65); White Blood Count 7.93 10^3/uL (3.29-11.43)
[2024-04-18 08:18] LABS: Alanine Aminotransferase 21 U/L (0-33); Albumin Level 3.6 g/dL (3.5-5.2); Alkaline Phosphatase 105 U/L (35-105); Aspartate Amino Transferase 23 U/L (0-32); Blood Urea Nitrogen 12 mg/dL (8-23); Calcium 8.2 mg/dL (8.5-10.5); Carbon Dioxide 26 mmol/L (22-29); Chloride 105 mmol/L (98-107); Globulin 2.3 g/dL (1.3-4.6); Glomerular Filtration Rate 71.5 mL/min (90-130); Glucose 208 mg/dL (65-115); Osmolality Calculated 298 mOsm/kg (285-295); Sodium 141 mmol/L (136-145); Total Bilirubin 0.2 mg/dL (0.15-1.2); Total Protein 5.9 g/dL (6.6-8.7)
[2024-04-18 08:19] LABS: Anion Gap 14.4 (5-19); Potassium 4.4 mmol/L (3.5-5.1)
[2024-04-18] MEDS: palonosetron 0.25 mg/5 mL SDV IVP (10:27)
[2024-04-18] MEDS: acetaminophen 325 mg Tablet 650 MG PO (10:27)
[2024-04-18] MEDS: sodium chloride 0.9% 250 ML 75 ML IV (10:27)
[2024-04-18] MEDS: diphenhydrAMINE 50 mg/mL SDV 1mL 25 MG IVP (10:34)
[2024-04-18] MEDS: SODIUM CHLORIDE 0.9% IV (11:04)
[2024-04-18] MEDS: PANITUMUMAB IV (11:04)
[2024-04-18] MEDS: leucovorin 760 MG in dextrose 5% 250 ML 166.669999999999987 MG IV (12:11)
[2024-04-18 12:45] VITALS: BP 144/81; PULSE 74; RESP 16; TEMP 36.7; O2SAT 93
[2024-04-18] MEDS: fluorouraciL 3,650 MG, elastomeric pump 1 PUMP in sodium chloride 0.9% (100 ml) 19 ML IV (12:49)
[2024-04-20 12:15] VITALS: BP 113/72; PULSE 67; RESP 17; TEMP 36.3; O2SAT 98
== END 2024-04-20 23:59 | disposition home or self-care (01) ==
PROVIDERS: Nurse Practitioner Family; PCP Nurse Practitioner Family; Visit Provider Internal Medicine Medical Oncology
DX: Z45.1 Encounter for adjustment and management of infusion pump; Z53.9 Procedure and treatment not carried out, unspecified reason
CPT/HCPCS: 80053; 85025; 96367; 96375; 96413; 96417; 96523; 99214; A4222; J0640; J1100; J1200; J2469; J7050; J7060; J9190; J9303

== ENCOUNTER 2024-05-18 11:01 | Oncology outpatient (recurring) (ONCR) | payer MEDICARE, MEDICAID, SELFPAY ==
[2024-05-02 07:54] LABS: Basophils % 0.5 %; Eosinophils # 0.4 10^3/uL (0.0-0.8); Eosinophils % 4.6 %; Lymphocytes # 1.8 10^3/uL (0.8-4.8); Lymphocytes % 23.6 %; Mean Corpuscular HGB Conc 32.1 g/dL (30-55); Mean Corpuscular Hemoglobin 33.1 pg (27-33); Mean Corpuscular Volume 103.3 fl (85-98); Mean Platelet Volume 10.8 fL (7.4-10.4); Monocytes # 0.7 10^3/uL (0.2-0.9); Monocytes % 8.5 %; Neutrophils # 4.78 10^3/uL (1.8-7.7); Neutrophils % 62.3 %; Nucleated Red Blood Cells % 0 %; Platelet Count 205 10^3/cmm (157-399); Red Blood Count 3.29 10^6/uL (3.85-5.65); Red Cell Distribution Width 15.7 % (12.1-15.1); White Blood Count 7.67 10^3/uL (3.29-11.43)
[2024-05-02 08:12] LABS: Alanine Aminotransferase 26 U/L (0-33); Albumin Level 3.9 g/dL (3.5-5.2); Alkaline Phosphatase 101 U/L (35-105); Anion Gap 13.2 (5-19); Aspartate Amino Transferase 29 U/L (0-32); Blood Urea Nitrogen 11 mg/dL (8-23); Carbon Dioxide 28 mmol/L (22-29); Chloride 104 mmol/L (98-107); Globulin 2.3 g/dL (1.3-4.6); Glomerular Filtration Rate 83.5 mL/min (90-130); Glucose 106 mg/dL (65-115); Osmolality Calculated 292 mOsm/kg (285-295); Potassium 4.2 mmol/L (3.5-5.1); Sodium 141 mmol/L (136-145); Total Bilirubin 0.2 mg/dL (0.15-1.2); Total Protein 6.2 g/dL (6.6-8.7)
[2024-05-02] MEDS: sodium chloride 0.9% 250 ML 75 ML IV (09:22)
[2024-05-02] MEDS: acetaminophen 325 mg Tablet 650 MG PO (09:23)
[2024-05-02] MEDS: palonosetron 0.25 mg/5 mL SDV IVP (09:23)
[2024-05-02] MEDS: diphenhydrAMINE 50 mg/mL SDV 1mL 25 MG IVP (09:26)
[2024-05-02] MEDS: SODIUM CHLORIDE 0.9% IV (09:59)
[2024-05-02] MEDS: PANITUMUMAB IV (09:59)
[2024-05-02] MEDS: leucovorin 760 MG in dextrose 5% 250 ML 166.669999999999987 MG IV (11:04)
[2024-05-02 11:29] VITALS: BP 151/79; PULSE 77; TEMP 35.9; O2SAT 96
[2024-05-02] MEDS: fluorouraciL 3,650 MG, elastomeric pump 1 PUMP in sodium chloride 0.9% (100 ml) 19 ML IV (11:37)
[2024-05-02 16:46] LABS: Iron 55 ug/dL (37-145); Percent Saturation 23.6 % (20-50); Total Iron Binding Capacity 233 mcg/dl; Unsaturated Iron Binding 178 ug/dL (112-347)
[2024-05-04 11:20] VITALS: BP 148/84; PULSE 80; RESP 16; TEMP 36.4; O2SAT 95
[2024-05-16 07:40] LABS: Basophils % 0.6 %; Eosinophils # 0.3 10^3/uL (0.0-0.8); Hematocrit 34.2 % (36-47); Lymphocytes # 1.9 10^3/uL (0.8-4.8); Lymphocytes % 27.3 %; Mean Corpuscular HGB Conc 32.2 g/dL (30-55); Mean Corpuscular Hemoglobin 32.5 pg (27-33); Mean Corpuscular Volume 101.2 fl (85-98); Mean Platelet Volume 10.6 fL (7.4-10.4); Monocytes # 0.5 10^3/uL (0.2-0.9); Monocytes % 7.8 %; Nucleated Red Blood Cells % 0 %; Platelet Count 192 10^3/cmm (157-399); Red Blood Count 3.38 10^6/uL (3.85-5.65); Red Cell Distribution Width 15.8 % (12.1-15.1); White Blood Count 6.78 10^3/uL (3.29-11.43)
[2024-05-16 08:14] LABS: Alanine Aminotransferase 25 U/L (0-33); Albumin Level 3.8 g/dL (3.5-5.2); Alkaline Phosphatase 103 U/L (35-105); Anion Gap 14.4 (5-19); Aspartate Amino Transferase 26 U/L (0-32); Blood Urea Nitrogen 12 mg/dL (8-23); Carbon Dioxide 28 mmol/L (22-29); Chloride 104 mmol/L (98-107); Creatinine Clr Calc Pharmacy 71.0822; Globulin 2.4 g/dL (1.3-4.6); Glomerular Filtration Rate 83.5 mL/min (90-130); Glucose 109 mg/dL (65-115); Magnesium 1.7 mg/dL (1.7-2.3); Osmolality Calculated 294 mOsm/kg (285-295); Potassium 4.4 mmol/L (3.5-5.1); Sodium 142 mmol/L (136-145); Total Bilirubin 0.2 mg/dL (0.15-1.2); Total Protein 6.2 g/dL (6.6-8.7)
[2024-05-16] MEDS: palonosetron 0.25 mg/5 mL SDV IVP (09:20)
[2024-05-16] MEDS: sodium chloride 0.9% 250 ML 75 ML IV (09:22)
[2024-05-16] MEDS: diphenhydrAMINE 50 mg/mL SDV 1mL 25 MG IVP (09:24)
[2024-05-16] MEDS: acetaminophen 325 mg Tablet 650 MG PO (09:28)
[2024-05-16] MEDS: dexamethasone 4 mg/mL INJ 5 mL 12 MG IVP (09:34)
[2024-05-16] MEDS: SODIUM CHLORIDE 0.9% IV (10:22)
[2024-05-16] MEDS: PANITUMUMAB IV (10:22)
[2024-05-16] MEDS: leucovorin 760 MG in dextrose 5% 250 ML 166.669999999999987 MG IV (11:27)
[2024-05-16] MEDS: fluorouraciL 3,650 MG, elastomeric pump 1 PUMP in sodium chloride 0.9% (100 ml) 19 ML IV (12:02)
[2024-05-16 12:10] VITALS: BP 139/84; PULSE 74; RESP 17; TEMP 35.7; O2SAT 97
[2024-05-18 11:25] VITALS: BP 135/79; PULSE 78; RESP 17; TEMP 36.8; O2SAT 96
== END 2024-05-20 23:59 | disposition home or self-care (01) ==
PROVIDERS: Nurse Practitioner Family; PCP Nurse Practitioner Family; Visit Provider Internal Medicine Medical Oncology
DX: Z53.9 Procedure and treatment not carried out, unspecified reason (principal); Z45.1 Encounter for adjustment and management of infusion pump
CPT/HCPCS: 80053; 82378; 83540; 83550; 83735; 85025; 96365; 96367; 96375; 96413; 96416; 96523; 99214; A4222; J0640; J1100; J1200; J2469; J7050; J7060; J9190; J9303

== ENCOUNTER 2024-06-15 11:07 | Oncology outpatient (recurring) (ONCR) | payer MEDICARE, MEDICAID, SELFPAY ==
[2024-05-30 08:02] LABS: Basophils # 0.1 10^3/uL (0.0-0.1); Basophils % 0.7 %; Eosinophils # 0.4 10^3/uL (0.0-0.8); Hematocrit 33.9 % (36-47); Lymphocytes # 1.9 10^3/uL (0.8-4.8); Lymphocytes % 23.7 %; Mean Corpuscular HGB Conc 31.9 g/dL (30-55); Mean Corpuscular Hemoglobin 32.4 pg (27-33); Mean Corpuscular Volume 101.8 fl (85-98); Mean Platelet Volume 10.7 fL (7.4-10.4); Monocytes # 0.6 10^3/uL (0.2-0.9); Neutrophils # 5.14 10^3/uL (1.8-7.7); Neutrophils % 63.4 %; Nucleated Red Blood Cells % 0 %; Platelet Count 196 10^3/cmm (157-399); Red Blood Count 3.33 10^6/uL (3.85-5.65); White Blood Count 8.13 10^3/uL (3.29-11.43)
[2024-05-30 08:30] LABS: Carcinoembryonic Antigen 15.5 ng/mL (0.0-4.7)
[2024-05-30 08:43] LABS: Alanine Aminotransferase 26 U/L (0-33); Albumin Level 3.8 g/dL (3.5-5.2); Alkaline Phosphatase 101 U/L (35-105); Anion Gap 15.3 (5-19); Aspartate Amino Transferase 27 U/L (0-32); Blood Urea Nitrogen 13 mg/dL (8-23); Calcium 8.8 mg/dL (8.5-10.5); Carbon Dioxide 27 mmol/L (22-29); Chloride 104 mmol/L (98-107); Globulin 2.4 g/dL (1.3-4.6); Glomerular Filtration Rate 83.5 mL/min (90-130); Glucose 89 mg/dL (65-115); Magnesium 1.8 mg/dL (1.7-2.3); Osmolality Calculated 294 mOsm/kg (285-295); Potassium 4.3 mmol/L (3.5-5.1); Sodium 142 mmol/L (136-145); Total Bilirubin 0.3 mg/dL (0.15-1.2); Total Protein 6.2 g/dL (6.6-8.7)
[2024-05-30] MEDS: sodium chloride 0.9% 250 ML 75 ML IV (09:56)
[2024-05-30] MEDS: diphenhydrAMINE 50 mg/mL SDV 1mL 25 MG IVP (10:00)
[2024-05-30] MEDS: acetaminophen 325 mg Tablet 650 MG PO (10:02)
[2024-05-30] MEDS: palonosetron 0.25 mg/5 mL SDV IVP (10:06)
[2024-05-30] MEDS: dexamethasone 4 mg/mL INJ 5 mL 12 MG IVP (10:13)
[2024-05-30] MEDS: SODIUM CHLORIDE 0.9% IV (10:28)
[2024-05-30] MEDS: PANITUMUMAB IV (10:28)
[2024-05-30] MEDS: leucovorin 760 MG in dextrose 5% 250 ML 166.67 MG IV (11:44)
[2024-05-30] MEDS: fluorouraciL 3,650 MG, elastomeric pump 1 PUMP in sodium chloride 0.9% (100 ml) 19 ML IV (12:27)
[2024-05-30 12:37] VITALS: BP 142/80; PULSE 82; RESP 17; TEMP 36; O2SAT 95
[2024-06-01 11:23] VITALS: BP 108/69; PULSE 77; RESP 16; TEMP 36.4; O2SAT 94
[2024-06-13 08:08] LABS: Basophils % 0.5 %; Eosinophils # 0.4 10^3/uL (0.0-0.8); Eosinophils % 5.2 %; Hematocrit 33.4 % (36-47); Lymphocytes # 1.5 10^3/uL (0.8-4.8); Lymphocytes % 20.1 %; Mean Corpuscular Hemoglobin 32.5 pg (27-33); Mean Corpuscular Volume 101.5 fl (85-98); Mean Platelet Volume 10.9 fL (7.4-10.4); Monocytes # 0.6 10^3/uL (0.2-0.9); Monocytes % 7.9 %; Neutrophils # 4.98 10^3/uL (1.8-7.7); Nucleated Red Blood Cells % 0 %; Platelet Count 204 10^3/cmm (157-399); Red Blood Count 3.29 10^6/uL (3.85-5.65); Red Cell Distribution Width 16.3 % (12.1-15.1); White Blood Count 7.55 10^3/uL (3.29-11.43)
[2024-06-13 08:30] LABS: Carcinoembryonic Antigen 19.2 ng/mL (0.0-4.7)
[2024-06-13 08:40] LABS: Alanine Aminotransferase 27 U/L (0-33); Albumin Level 3.8 g/dL (3.5-5.2); Alkaline Phosphatase 103 U/L (35-105); Anion Gap 15.2 (5-19); Aspartate Amino Transferase 23 U/L (0-32); Blood Urea Nitrogen 12 mg/dL (8-23); Calcium 8.6 mg/dL (8.5-10.5); Carbon Dioxide 25 mmol/L (22-29); Chloride 106 mmol/L (98-107); Creatinine Clr Calc Pharmacy 71.2778; Globulin 2.3 g/dL (1.3-4.6); Glomerular Filtration Rate 83.5 mL/min (90-130); Glucose 116 mg/dL (65-115); Osmolality Calculated 295 mOsm/kg (285-295); Potassium 4.2 mmol/L (3.5-5.1); Sodium 142 mmol/L (136-145); Total Bilirubin 0.2 mg/dL (0.15-1.2); Total Protein 6.1 g/dL (6.6-8.7)
[2024-06-13 09:00] VITALS: BP 132/78; PULSE 86; RESP 16; TEMP 36.7; O2SAT 96
[2024-06-13] MEDS: sodium chloride 0.9% 250 ML 75 ML IV (09:15)
[2024-06-13] MEDS: acetaminophen 325 mg Tablet 650 MG PO (09:15)
[2024-06-13] MEDS: diphenhydrAMINE 50 mg/mL SDV 1mL 25 MG IVP (09:16)
[2024-06-13] MEDS: palonosetron 0.25 mg/5 mL SDV IVP (09:17)
[2024-06-13] MEDS: PANITUMUMAB IV (09:44)
[2024-06-13] MEDS: SODIUM CHLORIDE 0.9% IV (09:44)
[2024-06-13] MEDS: leucovorin 760 MG in dextrose 5% 250 ML 166.67 MG IV (10:51)
[2024-06-13] MEDS: fluorouraciL 3,650 MG, elastomeric pump 1 PUMP in sodium chloride 0.9% (100 ml) 19 ML IV (11:30)
[2024-06-13 11:35] VITALS: BP 118/78; PULSE 70; RESP 16; TEMP 35.9; O2SAT 94
[2024-06-15 11:21] VITALS: BP 116/72; PULSE 80; RESP 16; TEMP 36.6; O2SAT 96
== END 2024-06-20 23:59 | disposition home or self-care (01) ==
PROVIDERS: Nurse Practitioner Family; PCP Nurse Practitioner Family; Visit Provider Internal Medicine Medical Oncology
DX: Z45.1 Encounter for adjustment and management of infusion pump (principal); Z53.9 Procedure and treatment not carried out, unspecified reason
CPT/HCPCS: 80053; 82378; 83735; 85025; 96365; 96367; 96375; 96413; 96416; 96523; 99214; A4222; J0640; J1100; J1200; J2469; J7050; J7060; J9190; J9303

== ENCOUNTER 2024-07-11 07:30 | Oncology outpatient (recurring) (ONCR) | payer MEDICARE, MEDICAID, SELFPAY ==
[2024-06-27 07:56] LABS: Basophils % 0.5 %; Eosinophils # 0.4 10^3/uL (0.0-0.8); Eosinophils % 4.8 %; Lymphocytes # 1.7 10^3/uL (0.8-4.8); Lymphocytes % 21.4 %; Mean Corpuscular HGB Conc 31.8 g/dL (30-55); Mean Corpuscular Volume 100.6 fl (85-98); Mean Platelet Volume 10.7 fL (7.4-10.4); Monocytes # 0.6 10^3/uL (0.2-0.9); Monocytes % 7.9 %; Neutrophils # 5.25 10^3/uL (1.8-7.7); Nucleated Red Blood Cells % 0 %; Platelet Count 213 10^3/cmm (157-399); Red Blood Count 3.38 10^6/uL (3.85-5.65); Red Cell Distribution Width 16.5 % (12.1-15.1); White Blood Count 8.08 10^3/uL (3.29-11.43)
[2024-06-27 08:21] LABS: Alanine Aminotransferase 24 U/L (0-33); Albumin Level 3.8 g/dL (3.5-5.2); Alkaline Phosphatase 93 U/L (35-105); Anion Gap 17.1 (5-19); Aspartate Amino Transferase 27 U/L (0-32); Blood Urea Nitrogen 15 mg/dL (8-23); Calcium 8.9 mg/dL (8.5-10.5); Carbon Dioxide 25 mmol/L (22-29); Chloride 105 mmol/L (98-107); Creatinine Clr Calc Pharmacy 70.9356; Globulin 2.4 g/dL (1.3-4.6); Glomerular Filtration Rate 71.5 mL/min (90-130); Glucose 117 mg/dL (65-115); Osmolality Calculated 298 mOsm/kg (285-295); Potassium 4.1 mmol/L (3.5-5.1); Sodium 143 mmol/L (136-145); Total Bilirubin 0.4 mg/dL (0.15-1.2); Total Protein 6.2 g/dL (6.6-8.7)
[2024-06-27 08:55] VITALS: BP 105/72; PULSE 82; RESP 16; TEMP 36.3; O2SAT 95
[2024-06-27] MEDS: sodium chloride 0.9% 250 ML 75 ML IV (09:05)
[2024-06-27] MEDS: acetaminophen 325 mg Tablet 650 MG PO (09:08)
[2024-06-27] MEDS: palonosetron 0.25 mg/5 mL SDV IVP (09:10)
[2024-06-27] MEDS: dexamethasone 4 mg/mL INJ 5 mL 12 MG IVP (09:12)
[2024-06-27] MEDS: diphenhydrAMINE 50 mg/mL SDV 1mL 25 MG IVP (09:14)
[2024-06-27] MEDS: PANITUMUMAB IV (09:47)
[2024-06-27] MEDS: SODIUM CHLORIDE 0.9% IV (09:47)
[2024-06-27] MEDS: leucovorin 760 MG in dextrose 5% 250 ML 500 MG IV (10:54)
[2024-06-27 11:30] VITALS: BP 127/86; PULSE 80; RESP 16; TEMP 36.6; O2SAT 97
[2024-06-27] MEDS: fluorouraciL 3,650 MG, elastomeric pump 1 PUMP in sodium chloride 0.9% (100 ml) 19 ML IV (11:31)
[2024-06-29 11:20] VITALS: BP 131/77; PULSE 87; RESP 18; TEMP 36.3; O2SAT 98
--- NOTE | 2024-07-02 13:30 | CT_ITS ---
WS: [id number] CT CHEST, ABDOMEN AND PELVIS WITH CONTRAST HISTORY: continuous rise in CEA TECHNIQUE: Contiguous 5 mm axial imaging performed through the chest, abdomen and pelvis with IV cont rast, oral contrast has been provided. Coronal and sagittal reformats chest. Coronal and sagittal ref ormats through the abdomen and pelvis. All CT scans at [facility] use at least one of these d ose optimization techniques: automated exposure control; mA and/or kV adjustment per patient size (in cludes targeted exams where dose is matched to clinical indication); or iterative reconstruction. CONTRAST: Omnipaque 350; 100 mL IV. DLP: 1101.76 mGy.cm COMPARISON: 04/13/2024 and 01/06/[address]: There are numerous bilateral, noncalcified pulmonary nodules. Majority of these nodules are very small and less than 3 mm. The largest nodules are in the lower lung connors. Slightly spiculated nodule in the RIGHT lower lobe measures 6.7 mm and is slightly more prominent compared to prior stud ies. There is an additional well-circumscribed 5 mm nodule in the LEFT lower lobe which is probably n ew. No mediastinal or hilar adenopathy identified. There are a few small lymph nodes which do not belinda ear pathologic. Heart size is normal. No pericardial or pleural effusions. RIGHT subclavian Mediport. Abdomen CT: Hepatic steatosis. Hepatic granulomatous. Liver is mildly enlarged. There is a Marvin's l obe also. Numerous stones within the gallbladder. Normal size spleen with granulomata. Normal pancrea s and adrenal glands. No renal obstruction. Mild atherosclerosis aorta. Stomach is well distended with oral contrast. No small bowel obstruction. There is extensive constipa tion with increased fecal material. Rectosigmoid anastomosis appears intact. No recurrent mass. There are several retroperitoneal lymph nodes which have increased in size and number since 04/13/2024 . Aortocaval lymph node is the largest at 1.7 cm. 1.2 cm LEFT para-aortic lymph node. There are sever al additional retroperitoneal lymph nodes along the aorta and IVC which have increased in size since 04/13/2024. Pelvic CT: No free fluid. Urinary bladder is negative. Small inguinal lymph nodes. Vascular calcifica tions in the femoral arteries. Degenerative spondylitic changes are advanced in the thoracic and lumbar spine. No osteoblastic or os teolytic disease identified. Mild anterior wedging of L4 is stable. CT/CT chest abdpel w/*[id number] IMPRESSION: 1. Increasing number of multi lobar, noncalcified, subcentimeter pulmonary nod ules since 04/13/2024. The largest nodule is slightly spiculated in the RIGHT lo wer lobe at 6.7 mm. Although only slight change in the extent of the pulmonary nodules this is highly suspicious for metastatic disease. 2. Increase in size and number of retroperitoneal lymph nodes since the prior examination. Largest lymph node is aortocaval measuring 1.7 cm. Highly suspicio us for metastatic involvement. 3. Unchanged rectosigmoid anastomosis. No mesorectal fat stranding or adenopat hy. No ascites. 4. Cholelithiasis. Numerous large stones are within the gallbladder. 5. Hepatic steatosis and hepatomegaly. No metastatic disease to the liver appr eciated.
[2024-07-02] MEDS: iohexol 350 mg/mL 500 mL Btl (per mL) PO (14:33)
[2024-07-02] MEDS: iohexol 350 mg/mL 500 mL Btl (per mL) IV (14:34)
[2024-07-11 07:53] LABS: Basophils % 0.6 %; Eosinophils # 0.3 10^3/uL (0.0-0.8); Eosinophils % 4.9 %; Lymphocytes # 1.9 10^3/uL (0.8-4.8); Lymphocytes % 26.4 %; Mean Corpuscular HGB Conc 31.5 g/dL (30-55); Mean Corpuscular Hemoglobin 31.8 pg (27-33); Mean Corpuscular Volume 101.2 fl (85-98); Mean Platelet Volume 10.5 fL (7.4-10.4); Monocytes # 0.6 10^3/uL (0.2-0.9); Monocytes % 8.4 %; Neutrophils # 4.15 10^3/uL (1.8-7.7); Neutrophils % 59.1 %; Nucleated Red Blood Cells % 0 %; Platelet Count 208 10^3/cmm (157-399); Red Blood Count 3.36 10^6/uL (3.85-5.65); Red Cell Distribution Width 16.6 % (12.1-15.1); White Blood Count 7.01 10^3/uL (3.29-11.43)
[2024-07-11 08:16] LABS: Carcinoembryonic Antigen 33.7 ng/mL (0.0-4.7)
[2024-07-11 08:27] LABS: Alanine Aminotransferase 22 U/L (0-33); Albumin Level 3.7 g/dL (3.5-5.2); Alkaline Phosphatase 105 U/L (35-105); Anion Gap 14.9 (5-19); Aspartate Amino Transferase 23 U/L (0-32); Blood Urea Nitrogen 19 mg/dL (8-23); Calcium 8.6 mg/dL (8.5-10.5); Carbon Dioxide 25 mmol/L (22-29); Chloride 103 mmol/L (98-107); Creatinine Clr Calc Pharmacy 70.9356; Globulin 2.4 g/dL (1.3-4.6); Glomerular Filtration Rate 71.5 mL/min (90-130); Glucose 104 mg/dL (65-115); Osmolality Calculated 291 mOsm/kg (285-295); Potassium 3.9 mmol/L (3.5-5.1); Sodium 139 mmol/L (136-145); Total Bilirubin 0.3 mg/dL (0.15-1.2); Total Protein 6.1 g/dL (6.6-8.7)
[2024-07-11] MEDS: sodium chloride 0.9% 250 ML 75 ML IV (09:29)
[2024-07-11] MEDS: acetaminophen 325 mg Tablet 650 MG PO (09:30)
[2024-07-11] MEDS: diphenhydrAMINE 50 mg/mL SDV 1mL 25 MG IVP (09:30)
[2024-07-11] MEDS: palonosetron 0.25 mg/5 mL SDV IVP (09:31)
[2024-07-11 09:40] VITALS: BP 126/83; PULSE 81; RESP 16; TEMP 36.3; O2SAT 94
[2024-07-11] MEDS: SODIUM CHLORIDE 0.9% IV (10:17)
[2024-07-11] MEDS: PANITUMUMAB IV (10:17)
[2024-07-11] MEDS: atropine 1 mg/mL SDV 1 mL 0.4 MG IVP (11:21)
[2024-07-11] MEDS: leucovorin 760 MG in dextrose 5% 250 ML 166.67 MG IV (11:52)
[2024-07-11] MEDS: DEXTROSE 5% IV (11:52)
[2024-07-11] MEDS: IRINOTECAN IV (11:52)
[2024-07-11] MEDS: fluorouraciL 3,650 MG, elastomeric pump 1 PUMP in sodium chloride 0.9% (100 ml) 19 ML IV (13:37)
[2024-07-11 13:44] VITALS: BP 143/76; PULSE 83; O2SAT 98
== END 2024-07-11 23:59 | disposition home or self-care (01) ==
PROVIDERS: Internal Medicine Medical Oncology; PCP Nurse Practitioner Family; Visit Provider Nurse Practitioner Family
DX: Z53.9 Procedure and treatment not carried out, unspecified reason; C18.7 Malignant neoplasm of sigmoid colon; D50.9 Iron deficiency anemia, unspecified; Z79.899 Other long term (current) drug therapy; Z79.52 Long term (current) use of systemic steroids; Z51.11 Encounter for antineoplastic chemotherapy
CPT/HCPCS: 71260; 74177; 80053; 82378; 85025; 96367; 96375; 96413; 96415; 96416; 96417; 96523; 99214; J0461; J0640; J1100; J1200; J2469; J7050; J7060; J9190; J9206; J9303; Q9967

== ENCOUNTER 2024-07-13 11:20 | Oncology outpatient (recurring) (ONCR) | payer MEDICARE, MEDICAID, SELFPAY ==
[2024-07-13 11:30] VITALS: BP 121/69; PULSE 77; RESP 18; TEMP 36.7; O2SAT 97
== END 2024-07-21 23:59 | disposition home or self-care (01) ==
PROVIDERS: PCP Nurse Practitioner Family; Visit Provider Nurse Practitioner Family
DX: Z53.9 Procedure and treatment not carried out, unspecified reason (principal); C18.7 Malignant neoplasm of sigmoid colon; Z45.2 Encounter for adjustment and management of vascular access device; R91.8 Other nonspecific abnormal finding of lung field; R59.0 Localized enlarged lymph nodes; K80.20 Calculus of gallbladder without cholecystitis without obstruction; K76.0 Fatty (change of) liver, not elsewhere classified; R16.0 Hepatomegaly, not elsewhere classified; Z45.1 Encounter for adjustment and management of infusion pump; Z51.11 Encounter for antineoplastic chemotherapy; C77.8 Secondary and unspecified malignant neoplasm of lymph nodes of multiple regions; D50.9 Iron deficiency anemia, unspecified; Z79.899 Other long term (current) drug therapy; Z79.52 Long term (current) use of systemic steroids; Z87.891 Personal history of nicotine dependence; Z79.631 Long term (current) use of antimetabolite agent
CPT/HCPCS: 96523

== ENCOUNTER 2024-08-08 07:45 | Oncology outpatient (recurring) (ONCR) | payer MEDICARE, MEDICAID, SELFPAY ==
[2024-07-25 07:58] VITALS: BMI 35.3
[2024-07-25 08:02] LABS: Basophils % 0.4 %; Eosinophils # 0.4 10^3/uL (0.0-0.8); Hematocrit 33.2 % (36-47); Lymphocytes # 1.6 10^3/uL (0.8-4.8); Lymphocytes % 23.7 %; Mean Corpuscular HGB Conc 31.6 g/dL (30-55); Mean Corpuscular Hemoglobin 32.1 pg (27-33); Mean Corpuscular Volume 101.5 fl (85-98); Mean Platelet Volume 10.3 fL (7.4-10.4); Monocytes # 0.6 10^3/uL (0.2-0.9); Monocytes % 8.6 %; Nucleated Red Blood Cells % 0 %; Platelet Count 206 10^3/cmm (157-399); Red Blood Count 3.27 10^6/uL (3.85-5.65); Red Cell Distribution Width 16.4 % (12.1-15.1); White Blood Count 6.88 10^3/uL (3.29-11.43)
[2024-07-25 08:42] LABS: Alanine Aminotransferase 22 U/L (0-33); Albumin Level 3.6 g/dL (3.5-5.2); Alkaline Phosphatase 94 U/L (35-105); Anion Gap 17.1 (5-19); Aspartate Amino Transferase 22 U/L (0-32); Blood Urea Nitrogen 14 mg/dL (8-23); Calcium 8.4 mg/dL (8.5-10.5); Carbon Dioxide 24 mmol/L (22-29); Chloride 106 mmol/L (98-107); Creatinine Clr Calc Pharmacy 70.1661; Globulin 2.3 g/dL (1.3-4.6); Glomerular Filtration Rate 83.5 mL/min (90-130); Glucose 122 mg/dL (65-115); Osmolality Calculated 298 mOsm/kg (285-295); Potassium 4.1 mmol/L (3.5-5.1); Sodium 143 mmol/L (136-145); Total Bilirubin 0.2 mg/dL (0.15-1.2); Total Protein 5.9 g/dL (6.6-8.7)
[2024-07-25] MEDS: sodium chloride 0.9% 250 ML 75 ML IV (09:23)
[2024-07-25] MEDS: palonosetron 0.25 mg/5 mL SDV IVP (09:26)
[2024-07-25] MEDS: acetaminophen 325 mg Tablet 650 MG PO (09:26)
[2024-07-25] MEDS: dexamethasone 4 mg/mL INJ 5 mL 12 MG IV (09:27)
[2024-07-25] MEDS: diphenhydrAMINE 50 mg/mL SDV 1mL 25 MG IVP (09:29)
[2024-07-25] MEDS: SODIUM CHLORIDE 0.9% IV (10:04)
[2024-07-25] MEDS: PANITUMUMAB IV (10:04)
[2024-07-25] MEDS: atropine 1 mg/mL SDV 1 mL 0.4 MG IVP (11:23)
[2024-07-25] MEDS: DEXTROSE 5% IV (11:39)
[2024-07-25] MEDS: IRINOTECAN IV (11:39)
[2024-07-25] MEDS: leucovorin 760 MG in dextrose 5% 250 ML 166.67 MG IV (11:39)
[2024-07-25 13:22] VITALS: BP 131/78; PULSE 72; RESP 17; TEMP 36.1; O2SAT 95
[2024-07-25] MEDS: fluorouraciL 3,650 MG, elastomeric pump 1 PUMP in sodium chloride 0.9% (100 ml) 19 ML IV (13:26)
[2024-08-08 07:59] LABS: Basophils % 0.6 %; Eosinophils # 0.4 10^3/uL (0.0-0.8); Eosinophils % 6.4 %; Hematocrit 33.9 % (36-47); Lymphocytes # 1.6 10^3/uL (0.8-4.8); Lymphocytes % 24.1 %; Mean Corpuscular HGB Conc 31.3 g/dL (30-55); Mean Corpuscular Hemoglobin 31.7 pg (27-33); Mean Corpuscular Volume 101.5 fl (85-98); Mean Platelet Volume 10.7 fL (7.4-10.4); Monocytes # 0.5 10^3/uL (0.2-0.9); Monocytes % 7.6 %; Neutrophils # 4.09 10^3/uL (1.8-7.7); Nucleated Red Blood Cells % 0 %; Platelet Count 198 10^3/cmm (157-399); Red Blood Count 3.34 10^6/uL (3.85-5.65); Red Cell Distribution Width 16.4 % (12.1-15.1); White Blood Count 6.71 10^3/uL (3.29-11.43)
[2024-08-08 08:29] LABS: Carcinoembryonic Antigen 44.6 ng/mL (0.0-4.7)
[2024-08-08 08:40] LABS: Alanine Aminotransferase 23 U/L (0-33); Albumin Level 3.7 g/dL (3.5-5.2); Alkaline Phosphatase 100 U/L (35-105); Aspartate Amino Transferase 24 U/L (0-32); Blood Urea Nitrogen 15 mg/dL (8-23); Calcium 8.6 mg/dL (8.5-10.5); Carbon Dioxide 27 mmol/L (22-29); Chloride 105 mmol/L (98-107); Creatinine Clr Calc Pharmacy 70.3371; Globulin 2.3 g/dL (1.3-4.6); Glomerular Filtration Rate 71.5 mL/min (90-130); Glucose 114 mg/dL (65-115); Osmolality Calculated 296 mOsm/kg (285-295); Sodium 142 mmol/L (136-145); Total Bilirubin 0.3 mg/dL (0.15-1.2)
[2024-08-08] MEDS: acetaminophen 325 mg Tablet 650 MG PO (09:52)
[2024-08-08] MEDS: palonosetron 0.25 mg/5 mL SDV IVP (09:52)
[2024-08-08] MEDS: sodium chloride 0.9% 250 ML 75 ML IV (09:52)
[2024-08-08] MEDS: diphenhydrAMINE 50 mg/mL SDV 1mL 25 MG IVP (09:53)
[2024-08-08] MEDS: dexamethasone 4 mg/mL INJ 5 mL 12 MG IVP (09:54)
[2024-08-08 10:15] VITALS: BP 108/70; PULSE 79; RESP 16; TEMP 36.1; O2SAT 97
[2024-08-08] MEDS: SODIUM CHLORIDE 0.9% IV (10:20)
[2024-08-08] MEDS: PANITUMUMAB IV (10:20)
[2024-08-08] MEDS: atropine 1 mg/mL SDV 1 mL 0.4 MG IVP (11:42)
[2024-08-08] MEDS: leucovorin 760 MG in dextrose 5% 250 ML 166.67 MG IV (12:11)
[2024-08-08] MEDS: DEXTROSE 5% IV (12:11)
[2024-08-08] MEDS: IRINOTECAN IV (12:11)
[2024-08-08 13:39] VITALS: BP 124/77; PULSE 73; TEMP 36.4; O2SAT 96
[2024-08-08] MEDS: fluorouraciL 3,650 MG, elastomeric pump 1 PUMP in sodium chloride 0.9% (100 ml) 19 ML IV (13:46)
== END 2024-08-08 23:59 | disposition home or self-care (01) ==
PROVIDERS: PCP Nurse Practitioner Family; Visit Provider Nurse Practitioner Family
DX: Z51.11 Encounter for antineoplastic chemotherapy (principal); Z53.9 Procedure and treatment not carried out, unspecified reason; C18.7 Malignant neoplasm of sigmoid colon; Z95.828 Presence of other vascular implants and grafts; Z90.49 Acquired absence of other specified parts of digestive tract; Z79.69 Long term (current) use of other immunomodulators and immunosuppressants; Z79.52 Long term (current) use of systemic steroids
CPT/HCPCS: 80053; 82378; 85025; 96375; 96413; 96415; 96416; 96417; 96523; 99214; A4222; J0461; J0640; J1100; J1200; J2469; J7050; J7060; J9190; J9206; J9303

== ENCOUNTER 2024-08-10 11:09 | Oncology outpatient (recurring) (ONCR) | payer MEDICARE, MEDICAID, SELFPAY | END 2024-08-20 23:59 | disposition home or self-care (01) | PROVIDERS: PCP Nurse Practitioner Family; Visit Provider Nurse Practitioner Family | DX: Z45.1 Encounter for adjustment and management of infusion pump | CPT/HCPCS: 96523 ==

== ENCOUNTER 2024-09-05 08:30 | Oncology outpatient (recurring) (ONCR) | payer MEDICARE, MEDICAID, SELFPAY ==
[2024-08-22 09:24] LABS: Basophils % 0.5 %; Eosinophils # 0.4 10^3/uL (0.0-0.8); Eosinophils % 5.1 %; Hematocrit 33.1 % (36-47); Lymphocytes # 1.3 10^3/uL (0.8-4.8); Lymphocytes % 17.1 %; Mean Platelet Volume 10.6 fL (7.4-10.4); Monocytes # 0.6 10^3/uL (0.2-0.9); Monocytes % 7.3 %; Neutrophils # 5.31 10^3/uL (1.8-7.7); Neutrophils % 69.5 %; Nucleated Red Blood Cells % 0 %; Platelet Count 215 10^3/cmm (157-399); Red Blood Count 3.31 10^6/uL (3.85-5.65); Red Cell Distribution Width 16.5 % (12.1-15.1); White Blood Count 7.65 10^3/uL (3.29-11.43)
[2024-08-22 09:57] LABS: Carcinoembryonic Antigen 48.1 ng/mL (0.0-4.7)
[2024-08-22 10:08] LABS: Alanine Aminotransferase 21 U/L (0-33); Albumin Level 3.8 g/dL (3.5-5.2); Alkaline Phosphatase 95 U/L (35-105); Anion Gap 13.1 (5-19); Aspartate Amino Transferase 23 U/L (0-32); Blood Urea Nitrogen 13 mg/dL (8-23); Calcium 8.6 mg/dL (8.5-10.5); Carbon Dioxide 28 mmol/L (22-29); Chloride 106 mmol/L (98-107); Globulin 2.2 g/dL (1.3-4.6); Glomerular Filtration Rate 71.5 mL/min (90-130); Glucose 135 mg/dL (65-115); Osmolality Calculated 298 mOsm/kg (285-295); Potassium 4.1 mmol/L (3.5-5.1); Sodium 143 mmol/L (136-145); Total Bilirubin 0.3 mg/dL (0.15-1.2)
[2024-08-22] MEDS: sodium chloride 0.9% 250 ML 75 ML IV (11:44)
[2024-08-22] MEDS: acetaminophen 325 mg Tablet 650 MG PO (11:44)
[2024-08-22] MEDS: palonosetron 0.25 mg/5 mL SDV IVP (11:45)
[2024-08-22] MEDS: dexamethasone 4 mg/mL INJ 5 mL 12 MG IV (11:47)
[2024-08-22] MEDS: diphenhydrAMINE 50 mg/mL SDV 1mL 25 MG IVP (11:48)
[2024-08-22] MEDS: SODIUM CHLORIDE 0.9% IV (12:06)
[2024-08-22] MEDS: PANITUMUMAB IV (12:06)
[2024-08-22] MEDS: atropine 1 mg/mL SDV 1 mL 0.4 MG IVP (13:11)
[2024-08-22] MEDS: leucovorin 760 MG in dextrose 5% 250 ML 166.67 MG IV (13:28)
[2024-08-22] MEDS: IRINOTECAN IV (13:29)
[2024-08-22] MEDS: DEXTROSE 5% IV (13:29)
[2024-08-22] MEDS: fluorouraciL 3,650 MG, elastomeric pump 1 PUMP in sodium chloride 0.9% (100 ml) 19 ML IV (15:13)
[2024-08-22 15:28] VITALS: BP 127/71; PULSE 81; TEMP 36; O2SAT 94
[2024-08-24 11:40] VITALS: BP 110/74; PULSE 78; RESP 17; TEMP 36.4; O2SAT 96
[2024-09-05 08:59] LABS: Basophils # 0.1 10^3/uL (0.0-0.1); Basophils % 0.8 %; Eosinophils # 0.5 10^3/uL (0.0-0.8); Eosinophils % 7.5 %; Lymphocytes # 1.3 10^3/uL (0.8-4.8); Lymphocytes % 20.1 %; Mean Corpuscular HGB Conc 31.2 g/dL (30-55); Mean Corpuscular Hemoglobin 31.4 pg (27-33); Mean Corpuscular Volume 100.6 fl (85-98); Mean Platelet Volume 10.4 fL (7.4-10.4); Monocytes # 0.5 10^3/uL (0.2-0.9); Monocytes % 8.4 %; Neutrophils # 4.04 10^3/uL (1.8-7.7); Neutrophils % 62.7 %; Nucleated Red Blood Cells % 0 %; Platelet Count 222 10^3/cmm (157-399); Red Blood Count 3.28 10^6/uL (3.85-5.65); Red Cell Distribution Width 16.5 % (12.1-15.1); White Blood Count 6.43 10^3/uL (3.29-11.43)
[2024-09-05 09:25] LABS: Carcinoembryonic Antigen 56.1 ng/mL (0.0-4.7)
[2024-09-05 09:36] LABS: Alanine Aminotransferase 22 U/L (0-33); Albumin Level 3.7 g/dL (3.5-5.2); Alkaline Phosphatase 95 U/L (35-105); Anion Gap 15.1 (5-19); Aspartate Amino Transferase 26 U/L (0-32); Blood Urea Nitrogen 13 mg/dL (8-23); Calcium 8.4 mg/dL (8.5-10.5); Carbon Dioxide 26 mmol/L (22-29); Chloride 105 mmol/L (98-107); Creatinine Clr Calc Pharmacy 70.1049; Globulin 2.1 g/dL (1.3-4.6); Glomerular Filtration Rate 71.5 mL/min (90-130); Glucose 113 mg/dL (65-115); Magnesium 1.7 mg/dL (1.7-2.3); Osmolality Calculated 295 mOsm/kg (285-295); Potassium 4.1 mmol/L (3.5-5.1); Sodium 142 mmol/L (136-145); Total Bilirubin 0.2 mg/dL (0.15-1.2); Total Protein 5.8 g/dL (6.6-8.7)
[2024-09-05] MEDS: fluconazole premix 100 MG in empty flexible container 1 EACH 50 MG IV (11:20)
[2024-09-05] MEDS: sodium chloride 0.9% 250 ML 75 ML IV (12:41)
[2024-09-05] MEDS: dextrose 5% 250 ML 75 ML IV (12:42)
[2024-09-05] MEDS: dexamethasone 4 mg/mL INJ 5 mL 12 MG IVP (12:42)
[2024-09-05] MEDS: acetaminophen 325 mg Tablet 650 MG PO (12:42)
[2024-09-05] MEDS: palonosetron 0.25 mg/5 mL SDV IVP (12:45)
[2024-09-05] MEDS: diphenhydrAMINE 50 mg/mL SDV 1mL 25 MG IVP (12:47)
[2024-09-05] MEDS: PANITUMUMAB IV (13:06)
[2024-09-05] MEDS: SODIUM CHLORIDE 0.9% IV (13:06)
[2024-09-05] MEDS: atropine 1 mg/mL SDV 1 mL 0.4 MG IV (14:11)
[2024-09-05] MEDS: leucovorin 760 MG in dextrose 5% 250 ML 166.67 MG IV (14:27)
[2024-09-05] MEDS: IRINOTECAN IV (14:28)
[2024-09-05] MEDS: DEXTROSE 5% IV (14:28)
[2024-09-05 16:00] VITALS: BP 128/66; PULSE 79; RESP 165; TEMP 36.4; O2SAT 94
[2024-09-05] MEDS: fluorouraciL 3,600 MG, elastomeric pump 1 PUMP in sodium chloride 0.9% (100 ml) 20 ML IV (16:00)
== END 2024-09-05 23:59 | disposition home or self-care (01) ==
PROVIDERS: Nurse Practitioner; PCP Nurse Practitioner Family; Visit Provider Nurse Practitioner Family
DX: Z53.9 Procedure and treatment not carried out, unspecified reason (principal); Z51.11 Encounter for antineoplastic chemotherapy; C18.7 Malignant neoplasm of sigmoid colon; Z87.891 Personal history of nicotine dependence; Z79.631 Long term (current) use of antimetabolite agent; Z95.828 Presence of other vascular implants and grafts; C77.8 Secondary and unspecified malignant neoplasm of lymph nodes of multiple regions; R19.7 Diarrhea, unspecified; B37.2 Candidiasis of skin and nail
CPT/HCPCS: 80053; 82378; 83735; 85025; 96367; 96368; 96375; 96413; 96415; 96416; 96417; 96523; 99214; A4222; J0461; J0640; J1100; J1200; J1450; J2469; J7050; J7060; J9190; J9206; J9303

== ENCOUNTER 2024-09-19 08:30 | Oncology outpatient (recurring) (ONCR) | payer MEDICARE, MEDICAID, SELFPAY ==
[2024-09-19 09:18] LABS: Basophils % 0.5 %; Eosinophils # 0.4 10^3/uL (0.0-0.8); Eosinophils % 6.2 %; Hematocrit 31.9 % (36-47); Lymphocytes # 1.2 10^3/uL (0.8-4.8); Lymphocytes % 19.3 %; Mean Corpuscular HGB Conc 31.3 g/dL (30-55); Mean Corpuscular Hemoglobin 31.5 pg (27-33); Mean Corpuscular Volume 100.6 fl (85-98); Mean Platelet Volume 10.5 fL (7.4-10.4); Monocytes # 0.4 10^3/uL (0.2-0.9); Monocytes % 7.2 %; Neutrophils # 4.09 10^3/uL (1.8-7.7); Neutrophils % 66.5 %; Nucleated Red Blood Cells % 0 %; Platelet Count 209 10^3/cmm (157-399); Red Blood Count 3.17 10^6/uL (3.85-5.65); Red Cell Distribution Width 16.7 % (12.1-15.1); White Blood Count 6.15 10^3/uL (3.29-11.43)
[2024-09-19 09:41] LABS: Carcinoembryonic Antigen 70.2 ng/mL (0.0-4.7)
[2024-09-19 09:53] LABS: Alanine Aminotransferase 28 U/L (0-33); Albumin Level 3.5 g/dL (3.5-5.2); Alkaline Phosphatase 97 U/L (35-105); Anion Gap 12.9 (5-19); Aspartate Amino Transferase 24 U/L (0-32); Blood Urea Nitrogen 10 mg/dL (8-23); Calcium 8.2 mg/dL (8.5-10.5); Carbon Dioxide 28 mmol/L (22-29); Chloride 104 mmol/L (98-107); Creatinine Clr Calc Pharmacy 70.6913; Globulin 2.1 g/dL (1.3-4.6); Glomerular Filtration Rate 83.5 mL/min (90-130); Glucose 159 mg/dL (65-115); Osmolality Calculated 294 mOsm/kg (285-295); Potassium 3.9 mmol/L (3.5-5.1); Sodium 141 mmol/L (136-145); Total Bilirubin 0.3 mg/dL (0.15-1.2); Total Protein 5.6 g/dL (6.6-8.7)
[2024-09-19] MEDS: acetaminophen 325 mg Tablet 650 MG PO (11:28)
[2024-09-19] MEDS: sodium chloride 0.9% 250 ML 75 ML IV (11:29)
[2024-09-19] MEDS: diphenhydrAMINE 50 mg/mL SDV 1mL 25 MG IVP (11:33)
[2024-09-19] MEDS: dexamethasone 4 mg/mL INJ 5 mL 12 MG IVP (11:37)
[2024-09-19] MEDS: palonosetron 0.25 mg/5 mL SDV IVP (11:40)
[2024-09-19] MEDS: PANITUMUMAB IV (11:58)
[2024-09-19] MEDS: SODIUM CHLORIDE 0.9% IV (11:58)
[2024-09-19] MEDS: atropine 1 mg/mL SDV 1 mL 0.4 MG IV (13:12)
[2024-09-19] MEDS: leucovorin 760 MG in dextrose 5% 250 ML 166.67 MG IV (13:25)
[2024-09-19] MEDS: IRINOTECAN IV (13:25)
[2024-09-19] MEDS: DEXTROSE 5% IV (13:25)
[2024-09-19] MEDS: fluorouraciL 3,600 MG, elastomeric pump 1 PUMP in sodium chloride 0.9% (100 ml) 20 ML IV (15:07)
[2024-09-19 15:50] VITALS: BP 148/74; PULSE 84; RESP 17; TEMP 36.7; O2SAT 98
== END 2024-09-20 23:59 | disposition home or self-care (01) ==
PROVIDERS: Nurse Practitioner; PCP Nurse Practitioner Family; Visit Provider Nurse Practitioner Family
DX: Z53.9 Procedure and treatment not carried out, unspecified reason (principal); Z51.11 Encounter for antineoplastic chemotherapy; C18.7 Malignant neoplasm of sigmoid colon; Z79.631 Long term (current) use of antimetabolite agent; Z79.891 Long term (current) use of opiate analgesic; Z79.899 Other long term (current) drug therapy; Z95.828 Presence of other vascular implants and grafts
CPT/HCPCS: 80053; 82378; 85025; 96368; 96375; 96413; 96415; 96416; 96417; 96523; 99214; A4222; J0461; J0640; J1100; J1200; J2469; J7050; J7060; J9190; J9206; J9303

== ENCOUNTER 2024-10-15 08:00 | Oncology outpatient (recurring) (ONCR) | payer MEDICARE, MEDICAID, SELFPAY ==
[2024-10-01] MEDS: iohexol 350 mg/mL 500 mL Btl (per mL) PO (15:48)
[2024-10-01] MEDS: iohexol 350 mg/mL 500 mL Btl (per mL) IV (16:13)
--- NOTE | 2024-10-01 16:30 | CTR_ITS ---
PROCEDURE INFORMATION: Exam: CT Chest With Contrast; Diagnostic Exam date and time: 10/01/2024 4:03 PM Age: 68 years old Clinical indication: Condition or disease; Other: Colon cancer; Prior surgery; Surgery date: 6+ months; Surgery type: Colon, port, hernia, neck; Additional info: Followup colon cancer TECHNIQUE: Imaging protocol: Diagnostic computed tomography of the chest with contrast. Radiation optimization: All CT scans at this facility use at least one of these dose optimization techniques: automated exposure control; mA and/or kV adjustment per patient size (includes targeted exams where dose is matched to clinical indication); or iterative reconstruction. Contrast material: OMNI 350; Contrast volume: 100 ml; Contrast route: INTRAVENOUS (IV); COMPARISON: CT chest abdpel w/*[id number] 07/02/2024 1:56 PM RADIATION DOSE METRICS: Total DLP (mGy-cm): 1111.73 FINDINGS: Lungs: Multiple bilateral pulmonary nodules are relatively stable, the largest in the left lower lobe (sees 5-39) is questionably minimally larger, 6 mm versus 5 mm previously. The others are unchanged and continued follow-up is recommended. Pleural spaces: Unremarkable. No pneumothorax. No pleural effusion. Heart: Unremarkable. No cardiomegaly. No pericardial effusion. Lymph nodes: Calcified central lymph nodes are stable. Vasculature: Unremarkable. No aortic aneurysm. Bones/joints: Unremarkable. No acute fracture. Soft tissues: Unremarkable. PROCEDURE INFORMATION: Exam: CT Abdomen And Pelvis With Contrast Exam date and time: 10/01/2024 4:03 PM Age: 68 years old Clinical indication: Condition or disease; Other: Colon cancer; Prior surgery; Surgery date: 6+ months; Surgery type: Colon, port, hernia, neck; Additional info: Followup colon cancer TECHNIQUE: Imaging protocol: Computed tomography of the abdomen and pelvis with contrast. Radiation optimization: All CT scans at this facility use at least one of these dose optimization techniques: automated exposure control; mA and/or kV adjustment per patient size (includes targeted exams where dose is matched to clinical indication); or iterative reconstruction. Contrast material: OMNI 350; Contrast volume: 100 ml; Contrast route: INTRAVENOUS (IV); COMPARISON: CT chest abdpel w/*[id number] 07/02/2024 1:56 PM RADIATION DOSE METRICS: Total DLP (mGy-cm): 1111.73 FINDINGS: Liver: Hepatic steatosis. Gallbladder and biliary ducts: Cholelithiasis. The gallbladder is contracted around large calculi. Pancreas: Normal. No ductal dilation. Spleen: Calcified splenic granulomata. Adrenal glands: Normal. No mass. Kidneys and ureters: Normal. No hydronephrosis. Stomach and bowel: Prior surgery in the rectosigmoid region. Appendix: No evidence of appendicitis. Intraperitoneal space: Unremarkable. No free air. No significant fluid collection. Vasculature: Unremarkable. No abdominal aortic aneurysm. Lymph nodes: Unremarkable. No enlarged lymph nodes. Urinary bladder: Unremarkable as visualized. Reproductive: Unremarkable as visualized. Bones/joints: Unremarkable. No acute fracture. Soft tissues: Unremarkable. CT/CT chest abdpel w/*[id number] IMPRESSION: The numerous pulmonary nodules are predominantly stable, 1 at the left lung base may be slightly larger than before. Continued surveillance is recommended. IMPRESSION: No significant change. Chronic findings without evidence of metastatic disease.
[2024-10-03 08:26] LABS: Basophils % 0.5 %; Eosinophils # 0.5 10^3/uL (0.0-0.8); Eosinophils % 6.5 %; Hematocrit 34.1 % (36-47); Lymphocytes # 1.2 10^3/uL (0.8-4.8); Lymphocytes % 16.7 %; Mean Corpuscular HGB Conc 31.1 g/dL (30-55); Mean Corpuscular Hemoglobin 31.2 pg (27-33); Mean Corpuscular Volume 100.3 fl (85-98); Mean Platelet Volume 10.1 fL (7.4-10.4); Monocytes # 0.6 10^3/uL (0.2-0.9); Monocytes % 7.7 %; Neutrophils # 5.07 10^3/uL (1.8-7.7); Neutrophils % 68.2 %; Nucleated Red Blood Cells % 0 %; Platelet Count 215 10^3/cmm (157-399); Red Cell Distribution Width 16.6 % (12.1-15.1); White Blood Count 7.43 10^3/uL (3.29-11.43)
[2024-10-03 08:53] LABS: Carcinoembryonic Antigen 111.4 ng/mL (0.0-4.7); Thyroid Stimulating Hormone 5.61 uIU/mL (0.27-4.20)
[2024-10-03 09:05] LABS: Alanine Aminotransferase 25 U/L (0-33); Albumin Level 3.9 g/dL (3.5-5.2); Alkaline Phosphatase 105 U/L (35-105); Anion Gap 15.2 (5-19); Aspartate Amino Transferase 26 U/L (0-32); Blood Urea Nitrogen 10 mg/dL (8-23); Calcium 8.5 mg/dL (8.5-10.5); Carbon Dioxide 27 mmol/L (22-29); Chloride 100 mmol/L (98-107); Globulin 2.3 g/dL (1.3-4.6); Glomerular Filtration Rate 62.5 mL/min (90-130); Glucose 218 mg/dL (65-115); Lactate Dehydrogenase 228 U/L (135-214); Osmolality Calculated 292 mOsm/kg (285-295); Potassium 4.2 mmol/L (3.5-5.1); Sodium 138 mmol/L (136-145); Total Bilirubin 0.3 mg/dL (0.15-1.2); Total Protein 6.2 g/dL (6.6-8.7)
[2024-10-03] MEDS: sodium chloride 0.9% 250 ML 75 ML IV (10:40)
[2024-10-03] MEDS: palonosetron 0.25 mg/5 mL SDV IVP (10:41)
[2024-10-03] MEDS: acetaminophen 325 mg Tablet 650 MG PO (10:43)
[2024-10-03] MEDS: dexamethasone 4 mg/mL INJ 5 mL 12 MG IVP (10:43)
[2024-10-03] MEDS: diphenhydrAMINE 50 mg/mL SDV 1mL 25 MG IVP (10:47)
[2024-10-03] MEDS: PANITUMUMAB IV (11:11)
[2024-10-03] MEDS: SODIUM CHLORIDE 0.9% IV (11:11)
[2024-10-03] MEDS: atropine 1 mg/mL SDV 1 mL 0.4 MG IV (12:36)
[2024-10-03] MEDS: leucovorin 740 MG in dextrose 5% 250 ML 166.67 MG IV (12:49)
[2024-10-03 14:31] VITALS: BP 118/73; PULSE 76; RESP 16; TEMP 36.4; O2SAT 93
[2024-10-03] MEDS: fluorouraciL 3,600 MG, elastomeric pump 1 PUMP in sodium chloride 0.9% (100 ml) 20 ML IV (14:45)
[2024-10-05 11:21] VITALS: BP 114/70; PULSE 79; RESP 18; TEMP 36.2; O2SAT 95
[2024-10-15 08:30] LABS: Basophils % 0.5 %; Eosinophils # 0.4 10^3/uL (0.0-0.8); Eosinophils % 7.4 %; Hematocrit 31.4 % (36-47); Lymphocytes # 1.2 10^3/uL (0.8-4.8); Lymphocytes % 20.3 %; Mean Corpuscular HGB Conc 31.5 g/dL (30-55); Mean Corpuscular Hemoglobin 31.4 pg (27-33); Mean Corpuscular Volume 99.7 fl (85-98); Mean Platelet Volume 10.3 fL (7.4-10.4); Monocytes # 0.5 10^3/uL (0.2-0.9); Monocytes % 8.5 %; Neutrophils # 3.56 10^3/uL (1.8-7.7); Neutrophils % 62.9 %; Nucleated Red Blood Cells % 0 %; Platelet Count 216 10^3/cmm (157-399); Red Blood Count 3.15 10^6/uL (3.85-5.65); Red Cell Distribution Width 16.6 % (12.1-15.1); White Blood Count 5.66 10^3/uL (3.29-11.43)
[2024-10-15 08:53] LABS: Alanine Aminotransferase 23 U/L (0-33); Albumin Level 3.5 g/dL (3.5-5.2); Alkaline Phosphatase 97 U/L (35-105); Aspartate Amino Transferase 22 U/L (0-32); Blood Urea Nitrogen 7 mg/dL (8-23); Calcium 8.4 mg/dL (8.5-10.5); Carbon Dioxide 27 mmol/L (22-29); Chloride 105 mmol/L (98-107); Creatinine Clr Calc Pharmacy 70.4961; Globulin 2.2 g/dL (1.3-4.6); Glomerular Filtration Rate 99.7 mL/min (90-130); Glucose 174 mg/dL (65-115); Lactate Dehydrogenase 191 U/L (135-214); Magnesium 1.6 mg/dL (1.7-2.3); Osmolality Calculated 294 mOsm/kg (285-295); Sodium 141 mmol/L (136-145); Total Bilirubin 0.2 mg/dL (0.15-1.2); Total Protein 5.7 g/dL (6.6-8.7)
[2024-10-15] MEDS: sodium chloride 0.9% 250 ML 75 ML IV (09:56)
[2024-10-15] MEDS: diphenhydrAMINE 50 mg/mL SDV 1mL 25 MG IVP (09:58)
[2024-10-15] MEDS: palonosetron 0.25 mg/5 mL SDV IVP (10:01)
[2024-10-15] MEDS: dexamethasone 4 mg/mL INJ 5 mL 12 MG IVP (10:04)
[2024-10-15] MEDS: acetaminophen 325 mg Tablet 650 MG PO (10:08)
[2024-10-15] MEDS: PANITUMUMAB IV (10:31)
[2024-10-15] MEDS: SODIUM CHLORIDE 0.9% IV (10:31)
[2024-10-15] MEDS: atropine 1 mg/mL SDV 1 mL 0.4 MG IV (11:43)
[2024-10-15] MEDS: leucovorin 740 MG in dextrose 5% 250 ML 166.67 MG IV (11:56)
[2024-10-15] MEDS: fluorouraciL 3,600 MG, elastomeric pump 1 PUMP in sodium chloride 0.9% (100 ml) 20 ML IV (13:35)
[2024-10-15 13:42] VITALS: BP 127/78; PULSE 80; RESP 16; TEMP 36.6; O2SAT 99
== END 2024-10-15 23:59 | disposition home or self-care (01) ==
PROVIDERS: Internal Medicine Medical Oncology; PCP Nurse Practitioner Family; Visit Provider Internal Medicine Hematology & Oncology
DX: Z53.9 Procedure and treatment not carried out, unspecified reason (principal); Z51.11 Encounter for antineoplastic chemotherapy; C18.7 Malignant neoplasm of sigmoid colon; C78.6 Secondary malignant neoplasm of retroperitoneum and peritoneum; Z95.828 Presence of other vascular implants and grafts; Z79.52 Long term (current) use of systemic steroids; Z87.891 Personal history of nicotine dependence; D64.9 Anemia, unspecified; K52.1 Toxic gastroenteritis and colitis; L27.1 Localized skin eruption due to drugs and medicaments taken internally; T45.1X5A Adverse effect of antineoplastic and immunosuppressive drugs, initial encounter
CPT/HCPCS: 71260; 74177; 80053; 82378; 83615; 83735; 84443; 85025; 96368; 96375; 96413; 96415; 96416; 96417; 96523; 99214; A4222; J0461; J0640; J1100; J1200; J2469; J7050; J7060; J9190; J9206; J9303

== ENCOUNTER 2024-10-17 11:15 | Oncology outpatient (recurring) (ONCR) | payer MEDICARE, MEDICAID, SELFPAY ==
[2024-10-17 12:06] VITALS: BP 118/74; PULSE 72; RESP 16; TEMP 36.7; O2SAT 94
== END 2024-10-20 23:59 | disposition home or self-care (01) ==
LOC: ONCMED 11:15
PROVIDERS: PCP Nurse Practitioner Family; Visit Provider Internal Medicine Hematology & Oncology
DX: Z45.1 Encounter for adjustment and management of infusion pump
CPT/HCPCS: 96523

== ENCOUNTER 2024-11-20 07:30 | Oncology outpatient (recurring) (ONCR) | payer MEDICARE, MEDICAID, SELFPAY ==
[2024-10-29 09:33] LABS: Basophils % 0.6 %; Eosinophils # 0.4 10^3/uL (0.0-0.8); Eosinophils % 6.2 %; Hematocrit 31.9 % (36-47); Lymphocytes # 1.3 10^3/uL (0.8-4.8); Lymphocytes % 19.8 %; Monocytes # 0.6 10^3/uL (0.2-0.9); Monocytes % 8.9 %; Nucleated Red Blood Cells % 0 %; Platelet Count 223 10^3/cmm (157-399); Red Blood Count 3.19 10^6/uL (3.85-5.65); White Blood Count 6.41 10^3/uL (3.29-11.43)
[2024-10-29 09:57] LABS: Carcinoembryonic Antigen 89.4 ng/mL (0.0-4.7)
[2024-10-29 10:09] LABS: Alanine Aminotransferase 24 U/L (0-33); Albumin Level 3.7 g/dL (3.5-5.2); Alkaline Phosphatase 103 U/L (35-105); Anion Gap 14.1 (5-19); Aspartate Amino Transferase 22 U/L (0-32); Blood Urea Nitrogen 11 mg/dL (8-23); Calcium 9.1 mg/dL (8.5-10.5); Carbon Dioxide 27 mmol/L (22-29); Chloride 103 mmol/L (98-107); Creatinine Clr Calc Pharmacy 69.3375; Glomerular Filtration Rate 71.3 mL/min (90-130); Glucose 187 mg/dL (65-115); Magnesium 1.5 mg/dL (1.7-2.3); Osmolality Calculated 294 mOsm/kg (285-295); Potassium 4.1 mmol/L (3.5-5.1); Sodium 140 mmol/L (136-145); Total Bilirubin 0.3 mg/dL (0.15-1.2); Total Protein 5.7 g/dL (6.6-8.7)
[2024-10-29] MEDS: sodium chloride 0.9% 250 ML 75 ML IV (12:11)
[2024-10-29] MEDS: diphenhydrAMINE 50 mg/mL SDV 1mL 25 MG IVP (12:13)
[2024-10-29] MEDS: acetaminophen 325 mg Tablet 650 MG PO (12:13)
[2024-10-29] MEDS: palonosetron 0.25 mg/5 mL SDV IVP (12:16)
[2024-10-29] MEDS: dexamethasone 4 mg/mL INJ 5 mL 12 MG IVP (12:20)
[2024-10-29] MEDS: PANITUMUMAB IV (12:55)
[2024-10-29] MEDS: SODIUM CHLORIDE 0.9% IV (12:55)
[2024-10-29] MEDS: atropine 1 mg/mL SDV 1 mL 0.4 MG IV (14:21)
[2024-10-29] MEDS: leucovorin 740 MG in dextrose 5% 250 ML 166.67 MG IV (14:30)
[2024-10-29] MEDS: fluorouraciL 3,600 MG, elastomeric pump 1 PUMP in sodium chloride 0.9% (100 ml) 20 ML IV (16:21)
[2024-10-29 16:27] VITALS: BP 121/80; PULSE 74; RESP 16; TEMP 36.4; O2SAT 92
[2024-10-31 14:51] VITALS: BP 125/71; PULSE 71; RESP 16; TEMP 36.6; O2SAT 97
[2024-11-20 07:56] LABS: Basophils # 0.1 10^3/uL (0.0-0.1); Basophils % 0.8 %; Eosinophils # 0.8 10^3/uL (0.0-0.8); Eosinophils % 10.8 %; Lymphocytes # 1.9 10^3/uL (0.8-4.8); Lymphocytes % 25.4 %; Mean Corpuscular HGB Conc 30.9 g/dL (30-55); Mean Corpuscular Hemoglobin 30.9 pg (27-33); Mean Platelet Volume 9.6 fL (7.4-10.4); Monocytes # 0.7 10^3/uL (0.2-0.9); Monocytes % 8.9 %; Neutrophils % 53.7 %; Nucleated Red Blood Cells % 0 %; Platelet Count 320 10^3/cmm (157-399); Red Cell Distribution Width 16.2 % (12.1-15.1); White Blood Count 7.44 10^3/uL (3.29-11.43)
[2024-11-20 08:15] LABS: Carcinoembryonic Antigen 139.9 ng/mL (0.0-4.7)
[2024-11-20 08:26] LABS: Alanine Aminotransferase 17 U/L (0-33); Albumin Level 3.5 g/dL (3.5-5.2); Alkaline Phosphatase 95 U/L (35-105); Anion Gap 13.9 (5-19); Aspartate Amino Transferase 20 U/L (0-32); Blood Urea Nitrogen 10 mg/dL (8-23); Calcium 8.8 mg/dL (8.5-10.5); Carbon Dioxide 26 mmol/L (22-29); Chloride 105 mmol/L (98-107); Creatinine Clr Calc Pharmacy 68.5903; Globulin 2.7 g/dL (1.3-4.6); Glomerular Filtration Rate 83.2 mL/min (90-130); Glucose 119 mg/dL (65-115); Osmolality Calculated 292 mOsm/kg (285-295); Potassium 3.9 mmol/L (3.5-5.1); Sodium 141 mmol/L (136-145); Total Bilirubin 0.2 mg/dL (0.15-1.2); Total Protein 6.2 g/dL (6.6-8.7)
[2024-11-20 09:04] VITALS: BP 134/83; PULSE 84; RESP 17; TEMP 36.1; O2SAT 96
[2024-11-20] MEDS: dextrose 5% 250 ML 75 ML IV (10:50)
[2024-11-20] MEDS: dexamethasone 4 mg/mL INJ 5 mL 12 MG IVP (10:53)
[2024-11-20] MEDS: palonosetron 0.25 mg/5 mL SDV IVP (10:59)
[2024-11-20] MEDS: diphenhydrAMINE 50 mg/mL SDV 1mL 25 MG IVP (11:02)
[2024-11-20] MEDS: acetaminophen 325 mg Tablet 650 MG PO (11:05)
[2024-11-20] MEDS: sodium chloride 0.9% 250 ML 75 ML IV (11:26)
[2024-11-20] MEDS: SODIUM CHLORIDE 0.9% IV (11:29)
[2024-11-20] MEDS: PANITUMUMAB IV (11:29)
[2024-11-20] MEDS: atropine 1 mg/mL SDV 1 mL 0.4 MG IV (12:56)
[2024-11-20] MEDS: leucovorin 740 MG in dextrose 5% 250 ML 166.67 MG IV (13:15)
[2024-11-20 14:30] VITALS: BP 124/78; PULSE 78; RESP 18; TEMP 36.4; O2SAT 98
[2024-11-20] MEDS: fluorouraciL 3,600 MG, elastomeric pump 1 PUMP in sodium chloride 0.9% (100 ml) 20 ML IV (15:01)
== END 2024-11-20 23:59 | disposition home or self-care (01) ==
PROVIDERS: PCP Nurse Practitioner Family; Visit Provider Internal Medicine Medical Oncology
DX: Z51.11 Encounter for antineoplastic chemotherapy (principal); Z53.9 Procedure and treatment not carried out, unspecified reason; C18.7 Malignant neoplasm of sigmoid colon; Z95.828 Presence of other vascular implants and grafts; D64.81 Anemia due to antineoplastic chemotherapy; R19.7 Diarrhea, unspecified; L27.1 Localized skin eruption due to drugs and medicaments taken internally; T45.1X5A Adverse effect of antineoplastic and immunosuppressive drugs, initial encounter; Z79.899 Other long term (current) drug therapy
CPT/HCPCS: 80053; 82378; 83735; 85025; 96368; 96375; 96413; 96415; 96416; 96417; 96523; 99214; A4222; J0461; J0640; J1100; J1200; J2469; J7050; J7060; J9190; J9206; J9303

== ENCOUNTER 2024-12-20 11:12 | Oncology outpatient (recurring) (ONCR) | payer MEDICARE, MEDICAID, SELFPAY ==
[2024-12-04 08:35] LABS: Basophils % 0.5 %; Eosinophils # 0.5 10^3/uL (0.0-0.8); Eosinophils % 7.1 %; Lymphocytes # 1.2 10^3/uL (0.8-4.8); Lymphocytes % 15.9 %; Mean Corpuscular HGB Conc 30.9 g/dL (30-55); Mean Corpuscular Hemoglobin 30.3 pg (27-33); Mean Corpuscular Volume 97.9 fl (85-98); Mean Platelet Volume 10.1 fL (7.4-10.4); Monocytes # 0.5 10^3/uL (0.2-0.9); Monocytes % 6.3 %; Neutrophils # 5.17 10^3/uL (1.8-7.7); Neutrophils % 69.8 %; Nucleated Red Blood Cells % 0 %; Platelet Count 243 10^3/cmm (157-399); Red Blood Count 3.27 10^6/uL (3.85-5.65); Red Cell Distribution Width 16.7 % (12.1-15.1); White Blood Count 7.42 10^3/uL (3.29-11.43)
[2024-12-04 09:02] LABS: Alanine Aminotransferase 24 U/L (0-33); Albumin Level 3.7 g/dL (3.5-5.2); Alkaline Phosphatase 101 U/L (35-105); Aspartate Amino Transferase 22 U/L (0-32); Blood Urea Nitrogen 9 mg/dL (8-23); Carbon Dioxide 26 mmol/L (22-29); Chloride 101 mmol/L (98-107); Creatinine Clr Calc Pharmacy 69.3375; Globulin 2.4 g/dL (1.3-4.6); Glomerular Filtration Rate 71.3 mL/min (90-130); Glucose 187 mg/dL (65-115); Magnesium 1.6 mg/dL (1.7-2.3); Osmolality Calculated 290 mOsm/kg (285-295); Sodium 138 mmol/L (136-145); Total Bilirubin 0.3 mg/dL (0.15-1.2); Total Protein 6.1 g/dL (6.6-8.7)
[2024-12-04 09:27] LABS: Bilirubin Urine Negative (Negative); Blood Urine Negative (Negative); Glucose Urine UA Negative (Normal); Ketones Urine Negative (Negative); Leukocyte Esterase Urine Trace (Negative); Nitrate Urine Negative (Negative); Protein Urine Negative (Negative); Specific Gravity, Urine 1.009 (1.005-1.030); Urine Appearance Clear (CLEAR); Urine Color Yellow (Yellow); Urobilinogen Urine 0.2 mg/dL (Negative)
[2024-12-04 09:33] LABS: Add Urine Microscopic? YES; Bacteria Urine None Seen /hpf; Hyaline Casts Urine 0-4 /lpf; RBC Urine 0-2 /hpf (0-2); Squamous Epithelial Cell Urine 0-5 /hpf (0-5); WBC Urine 0-5 /hpf (0-5)
[2024-12-04] MEDS: sodium chloride 0.9% 250 ML 75 ML IV (10:10)
[2024-12-04] MEDS: dexamethasone 4 mg/mL INJ 5 mL 12 MG IVP (10:11)
[2024-12-04] MEDS: acetaminophen 325 mg Tablet 650 MG PO (10:12)
[2024-12-04] MEDS: palonosetron 0.25 mg/5 mL SDV IVP (10:17)
[2024-12-04] MEDS: diphenhydrAMINE 50 mg/mL SDV 1mL 25 MG IVP (10:20)
[2024-12-04] MEDS: PANITUMUMAB IV (11:02)
[2024-12-04] MEDS: SODIUM CHLORIDE 0.9% IV (11:02)
[2024-12-04] MEDS: atropine 1 mg/mL SDV 1 mL 0.4 MG IV (12:07)
[2024-12-04] MEDS: leucovorin 740 MG in dextrose 5% 250 ML 166.67 MG IV (12:17)
[2024-12-04] MEDS: fluorouraciL 3,600 MG, elastomeric pump 1 PUMP in sodium chloride 0.9% (100 ml) 20 ML IV (14:04)
[2024-12-04 14:11] VITALS: BP 134/78; PULSE 80; RESP 17; TEMP 35.8; O2SAT 95
[2024-12-06 11:53] VITALS: BP 117/69; PULSE 79; RESP 17; TEMP 36.7; O2SAT 97
[2024-12-18 07:44] LABS: Basophils # 0.1 10^3/uL (0.0-0.1); Basophils % 0.7 %; Eosinophils # 0.4 10^3/uL (0.0-0.8); Eosinophils % 5.8 %; Hematocrit 32.6 % (36-47); Lymphocytes # 1.4 10^3/uL (0.8-4.8); Lymphocytes % 21.2 %; Mean Corpuscular HGB Conc 30.7 g/dL (30-55); Mean Corpuscular Volume 97.9 fl (85-98); Mean Platelet Volume 10.1 fL (7.4-10.4); Monocytes # 0.7 10^3/uL (0.2-0.9); Monocytes % 9.6 %; Neutrophils # 4.19 10^3/uL (1.8-7.7); Neutrophils % 62.3 %; Nucleated Red Blood Cells % 0 %; Platelet Count 216 10^3/cmm (157-399); Red Blood Count 3.33 10^6/uL (3.85-5.65); White Blood Count 6.74 10^3/uL (3.29-11.43)
[2024-12-18 08:04] LABS: Alanine Aminotransferase 21 U/L (0-33); Albumin Level 3.6 g/dL (3.5-5.2); Alkaline Phosphatase 100 U/L (35-105); Aspartate Amino Transferase 24 U/L (0-32); Blood Urea Nitrogen 11 mg/dL (8-23); Calcium 8.9 mg/dL (8.5-10.5); Carbon Dioxide 27 mmol/L (22-29); Chloride 103 mmol/L (98-107); Creatinine Clr Calc Pharmacy 68.8194; Globulin 2.6 g/dL (1.3-4.6); Glomerular Filtration Rate 83.2 mL/min (90-130); Glucose 143 mg/dL (65-115); Osmolality Calculated 294 mOsm/kg (285-295); Sodium 141 mmol/L (136-145); Total Bilirubin 0.2 mg/dL (0.15-1.2); Total Protein 6.2 g/dL (6.6-8.7)
[2024-12-18 08:09] LABS: Carcinoembryonic Antigen 98.5 ng/mL (0.0-4.7)
[2024-12-18 08:10] LABS: Bilirubin Urine Negative (Negative); Blood Urine Negative (Negative); Glucose Urine UA Negative (Normal); Ketones Urine Negative (Negative); Leukocyte Esterase Urine Trace (Negative); Nitrate Urine Negative (Negative); Protein Urine Negative (Negative); Specific Gravity, Urine 1.009 (1.005-1.030); Urine Appearance Clear (CLEAR); Urine Color Yellow (Yellow); Urobilinogen Urine 0.2 mg/dL (Negative)
[2024-12-18 08:13] LABS: Add Urine Microscopic? YES; Bacteria Urine None Seen /hpf; Hyaline Casts Urine 0-4 /lpf; RBC Urine 0-2 /hpf (0-2); Squamous Epithelial Cell Urine 0-5 /hpf (0-5); WBC Urine 0-5 /hpf (0-5)
[2024-12-18] MEDS: acetaminophen 325 mg Tablet 650 MG PO (09:39)
[2024-12-18] MEDS: sodium chloride 0.9% 250 ML 75 ML IV (09:40)
[2024-12-18] MEDS: dexamethasone 4 mg/mL INJ 5 mL 12 MG IVP (09:41)
[2024-12-18] MEDS: palonosetron 0.25 mg/5 mL SDV IVP (09:43)
[2024-12-18] MEDS: diphenhydrAMINE 50 mg/mL SDV 1mL 25 MG IVP (09:44)
[2024-12-18] MEDS: PANITUMUMAB IV (10:04)
[2024-12-18] MEDS: SODIUM CHLORIDE 0.9% IV (10:04)
[2024-12-18] MEDS: atropine 1 mg/mL SDV 1 mL 0.4 MG IV (11:18)
[2024-12-18] MEDS: leucovorin 740 MG in dextrose 5% 250 ML 166.67 MG IV (11:59)
[2024-12-18] MEDS: fluorouraciL 3,600 MG, elastomeric pump 1 PUMP in sodium chloride 0.9% (100 ml) 20 ML IV (13:57)
[2024-12-18 14:03] VITALS: BP 150/70; PULSE 88; RESP 17; TEMP 36.2; O2SAT 96
== END 2024-12-21 23:59 | disposition home or self-care (01) ==
PROVIDERS: Nurse Practitioner Family; PCP Nurse Practitioner Family; Visit Provider Internal Medicine Medical Oncology
DX: Z53.9 Procedure and treatment not carried out, unspecified reason (principal); Z45.1 Encounter for adjustment and management of infusion pump
CPT/HCPCS: 80053; 81001; 82378; 83735; 85025; 96365; 96366; 96375; 96413; 96415; 96416; 96417; 96523; 99214; A4222; J0461; J0640; J1100; J1200; J2469; J7050; J7060; J9190; J9206; J9303

== ENCOUNTER 2024-12-20 20:37 | Emergency (ER) | payer MEDICARE, MEDICAID, SELFPAY ==
[2024-12-20 20:38] VITALS: BP 125/71; PULSE 81; RESP 18; TEMP 36.9; O2SAT 98; BMI 34.7
--- NOTE | 2024-12-20 21:10 | ED_ITS ---
HPI - Syncope 2 General: Chief Complaint: Recheck/Abnormal Lab/Rx Stated Complaint: BP Low Time Seen by Provider: 12/20/24 20:56 Source: patient and family (son) Mode of arrival: wheelchair Limitations: no limitations History of Present Illness: Patient is an extremely nice 69-year-old female with a history of colon cancer undergoing chemotherapy, gout, hyperlipidemia, hypertension, diabetes here with her son for an evaluation of low blood pressure and syncope. Patient states she was in the kitchen cooking and states it was very hot in the kitchen. She began feeling lightheaded. Patient states she has felt like this before and knew her blood pressure was low. She states she walked out of the kitchen and sat down and afterwards passed out for approximately a minute. At some point she did check her blood pressure and it was 109/50s. She states she has had an identical episode previously. Upon arrival to the emergency department her blood pressure is 125/71. She is not having any symptoms currently other than feeling slightly lightheaded when she gets up and walks. She is not having any chest pain, shortness of breath, difficulty breathing, palpitations. MD complaint: loss of consciousness and felt faint Onset (ago): hour(s) Duration of episode: 1 -: minutes(s) Prodromal symptoms: lightheaded Witnessed: Yes - by Bystander (son) Context: other (in kitchen/cooking) Injuries sustained associated with event: none Associated symptoms: Reports lightheadedness; Deny abdominal pain, chest pain, fever(s), headache(s) or nausea Treatments prior to arrival: none Related Data Home Medications Medication Instructions Recorded Confirmed aspirin 81 mg tablet,delayed 81 mg PO DAILY 03/25/20 12/18/24 release atorvastatin 40 mg tablet 40 mg PO DAILY 03/25/20 12/18/24 metformin 1,000 mg tablet 1,000 mg PO BID 03/25/20 12/18/24 fluticasone propionate 50 1 spray intranasal DAILY 03/27/20 12/18/24 mcg/actuation nasal spray,suspension (Flonase Allergy Relief) lisinopril 10 1 tab PO DAILY 03/27/20 12/18/24 mg-hydrochlorothiazide 12.5 mg tablet allopurinol 300 mg tablet 300 mg PO DAILY 11/26/21 12/18/24 calcium 500 mg (as 1 tab PO DAILY 11/26/21 12/18/24 carbonate)-vitamin D3 5 mcg (200 unit) tablet (Calcium 500 + D) loratadine 10 mg tablet 10 mg PO DAILY 11/26/21 12/18/24 multivitamin 1 cap PO DAILY 11/26/21 12/18/24 vitB2 1.7 mg-niacin 20 mg-B6 2 1 ml sublingual DAILY 11/26/21 12/18/24 mg-B12 1.2 mg/mL-dexpan sublingual liqd (B Complex) ferrous sulfate 325 mg (65 mg 325 mg PO DAILY 02/09/22 12/18/24 iron) tablet (FeroSul) polyethylene glycol 3350 17 4 g PO DAILY PRN Constipation 07/20/22 12/18/24 gram/dose oral powder (Miralax) glipizide 5 mg tablet 5 mg PO DAILY 03/03/23 12/18/24 gabapentin 300 mg capsule 300 mg PO DAILY 08/10/23 12/18/24 magnesium glycinate 400 mg PO .nighttime 01/11/24 12/18/24 Previous Rx's Medication Instructions Recorded prochlorperazine maleate 10 mg 10 mg PO Q6H PRN Mild Nausea #30 07/13/23 tablet (Compazine) tabs clindamycin phosphate 1 % lotion 1 applic topical BID #60 mL 08/10/23 diphenoxylate-atropine 2.5 1 tab PO QID PRN diarrhea #30 tabs 12/07/23 mg-0.025 mg tablet (Lomotil) amiloride 5 mg tablet 5 mg PO DAILY #30 tabs 12/14/23 doxycycline monohydrate 100 mg 100 mg PO BID 30 days #60 caps 12/14/23 capsule acyclovir 400 mg tablet 400 mg PO TID #21 tabs 08/22/24 fluconazole 100 mg tablet 100 mg PO DAILY #7 tabs 09/05/24 Allergies Allergy/AdvReac Type Severity Reaction Status Date / Time grass pollen Allergy ALGY-Watery Verified 12/18/24 07:40 Eye pollen extracts Allergy ALGY-Watery Verified 12/18/24 07:40 Eye tree and shrub pollen Allergy ALGY-Watery Verified 12/18/24 07:40 Eye Review of Systems 2 Const: Denies: fever(s), chills, body aches, fatigue or malaise Eyes: Denies: change in vision, blurry vision, photophobia, floaters or seeing flashes Card: Reports: lightheadedness and syncope; Denies: chest pain, palpitations, irregular heart rhythm, edema, swelling of feet/ankles, pre-syncope, dyspnea on exertion, orthopnea, leg pain with exertion or acrocyanosis Resp: Denies: dyspnea, productive cough, non-productive cough or pain on inspiration GI: Denies: abdominal pain, nausea, vomiting, heartburn or diarrhea : Denies: flank pain or dysuria Musc: Denies: neck pain, back pain, extremity pain, extremity swelling or joint pain Skin/Breast: Denies: rash Neuro: Denies: headache(s), numbness in extremities, weakness in extremities, sensory changes or dizziness PFSH ED 2 PFSH: Medical History Colon cancer Degenerative arthritis History of gout Hypercholesterolemia Hypertension Diabetes mellitus Surgical History Status post open reduction with internal fixation (ORIF) of fracture of ankle History of partial colectomy (12/2021) robotic low anterior resection with laparoscopic resection of epiploic nodule. Port-A-Cath in place (02/11/22) H/O cervical spine surgery cervical laminectomy/discectomy History of left inguinal hernia repair History of colonoscopy History of Achilles tendon repair Family History Daughter No problems noted. Brother Dementia Mother Hyperlipidemia Father Cancer Lung cancer Other Diabetes Hypertension Denies family history of CAD (coronary artery disease) Clotting disorder Psychiatric illness Chronic kidney disease (CKD) Suicide Anesthesia complication Bleeding disorder Lung disease Stroke Social History Smoking and tobacco/nicotine status: former use of tobacco/nicotine Quit status (tobacco/nicotine): has quit using Year quit tobacco: 1982 Former quit date comment: 10 years total use Alcohol intake: never Household members: children Current occupational status: disabled Physical Exam 2 Const: COMMON NORMALS: no acute distress, average body habitus, patient oriented x3, no limitations, healthy appearing, alert and well nourished G ENERAL APPEARANCE: cooperative ORIENTATION/CONSCIOUSNESS: Yes awake, Yes oriented to person, Yes oriented to place and Yes oriented to time HENMT: COMMON NORMALS: normocephalic and atraumatic HEAD & SCALP: normal to inspection, normocephalic and atraumatic FACE & SINUS: normal facial exam and face symmetric Neck/C-Spine: COMMON NORMALS: full ROM, no lymphadenopathy, supple and no meningeal signs Resp: COMMON NORMALS: normal respiratory effort and clear to auscultation bilaterally AUSCULTATION: clear to auscultation bilaterally Cardio: COMMON NORMALS: regular rate and regular rhythm RATE: regular rate RHYTHM: regular rhythm GI: COMMON NORMALS: Normal to inspection, nondistended, normoactive bowel sounds present, Soft to palpation, non-tender, No hepatosplenomegaly present and no masses PALPATION: Yes Soft to palpation and Yes No hepatosplenomegaly present : COMMON NORMALS: Yes no CVA tenderness BLADDER/KIDNEY EXAM: Yes no CVA tenderness Back/Pelvis: COMMON NORMALS: no CVA tenderness and thoracic and lumbar spine normal to inspection Extremity: COMMON NORMALS: normal to inspection GENERAL: Yes normal exam except as noted Neuro: BUDDY COMA SCALE: document GCS findings Buddy coma scale eye opening: Spontaneous Buddy coma scale verbal response: Orientated Hermann coma scale motor response: Obey commands Hermann coma scale total score: 15 COMMON NORMALS: patient oriented x3, CN's II-XII intact bilaterally, moves all extremities, no focal motor deficits and no sensory deficits noted S ENSORIUM/ORIENTATION: Yes alert, Yes oriented to person, Yes oriented to place and Yes oriented to time MENINGEAL SIGNS: Yes no meningeal signs Skin: COMMON NORMALS: no rashes or lesions noted GENERAL SKIN EXAM: no rashes or lesions noted Course 2 Vital Signs: Vital signs: Vital Signs Temperature 98.4 F 12/20/24 20:38 Pulse Rate 82 12/20/24 22:25 Respiratory Rate 16 12/20/24 22:25 Blood Pressure 102/51 12/20/24 22:25 Pulse Oximetry 100 12/20/24 22:25 MDM - Syncope Medical Decision Making Patient here for a short syncopal episode most likely due to an episode of low blood pressure. She states she was cooking in a hot kitchen-has had similar episodes previously. Since episode, she has been asymptomatic apart from some mild lightheadedness that has resolved. She feels good after IV fluids. She was ambulatory here without difficulty or assistance without lightheadedness or dizziness. She never had any complaints of chest pain, shortness of breath, difficulty breathing, palpitations. Blood work overall is unremarkable. Her EKG showing no concerning findings. She will be allowed discharge. Return precautions discussed. Differential Diagnosis Likely syncope due to orthostatic hypotension, vasovagal syncope and dehydration Medical Records I reviewed the patient's medical records. Lab Data I reviewed the patient's lab results. 12/20/24 20:55 12/20/24 20:55 Laboratory Results WBC 7.69 10^3/uL (3.29-11.43) 12/20/24 20:55 RBC 3.54 10^6/uL (3.85-5.65) L 12/20/24 20:55 Hgb 10.80 g/dL (11.27-16.99) L 12/20/24 20:55 Hct 35.0 % (36-47) L 12/20/24 20:55 MCV 98.9 fl (85-98) H 12/20/24 20:55 MCH 30.5 pg (27-33) 12/20/24 20:55 MCHC 30.9 g/dL (30-55) 12/20/24 20:55 RDW 17.3 % (12.1-15.1) H 12/20/24 20:55 Plt Count 235 10^3/cmm (157-399) 12/20/24 20:55 MPV 11.1 fL (7.4-10.4) H 12/20/24 20:55 Neut % (Auto) 72.6 % 12/20/24 20:55 Lymph % (Auto) 21.5 % 12/20/24 20:55 Granite % (Auto) 2.6 % 12/20/24 20:55 Eos % (Auto) 2.3 % 12/20/24 20:55 Baso % (Auto) 0.7 % 12/20/24 20:55 Neut # (Auto) 5.59 10^3/uL (1.8-7.7) 12/20/24 20:55 Lymph # (Auto) 1.7 10^3/uL (0.8-4.8) 12/20/24 20:55 Granite # (Auto) 0.2 10^3/uL (0.2-0.9) 12/20/24 20:55 Eos # (Auto) 0.2 10^3/uL (0.0-0.8) 12/20/24 20:55 Baso # (Auto) 0.1 10^3/uL (0.0-0.1) 12/20/24 20:55 Nucleated RBC % (auto) 0 % 12/20/24 20:55 Nucleated RBCs # 0.0 /100WBC 12/20/24 20:55 Sodium 137 mmol/L (136-145) 12/20/24 20:55 Potassium 4.1 mmol/L (3.5-5.1) 12/20/24 20:55 Chloride 96 mmol/L (98-107) L 12/20/24 20:55 Carbon Dioxide 27 mmol/L (22-29) 12/20/24 20:55 Anion Gap 18.1 (5-19) 12/20/24 20:55 BUN 20 mg/dL (8-23) 12/20/24 20:55 Creatinine 0.9 mg/dL (0.5-0.9) 12/20/24 20:55 GFR Calculation 62.3 mL/min (90-130) L 12/20/24 20:55 Glucose 245 mg/dL (65-115) H 12/20/24 20:55 Calculated Osmolality 295 mOsm/kg (285-295) 12/20/24 20:55 Calcium 9.0 mg/dL (8.5-10.5) 12/20/24 20:55 Total Bilirubin 0.4 mg/dL (0.15-1.2) 12/20/24 20:55 AST 31 U/L (0-32) 12/20/24 20:55 ALT 26 U/L (0-33) 12/20/24 20:55 Alkaline Phosphatase 97 U/L (35-105) 12/20/24 20:55 Total Protein 6.6 g/dL (6.6-8.7) 12/20/24 20:55 Albumin 3.8 g/dL (3.5-5.2) 12/20/24 20:55 Globulin 2.8 g/dL (1.3-4.6) 12/20/24 20:55 No radiology studies performed this visit Discharge Plan Discharge Patient Disposition: Home Clinical Impression: Syncope Qualifiers: Syncope type: unspecified Qualified Code(s): R55 - Syncope and collapse Condition: Stable Prescriptions: No Action metformin 1,000 mg tablet 1,000 mg PO BID aspirin 81 mg tablet,delayed release (DR/EC) 81 mg PO DAILY atorvastatin 40 mg tablet 40 mg PO DAILY glipizide 5 mg tablet 5 mg PO DAILY ferrous sulfate [FeroSul] 325 mg (65 mg iron) tablet 325 mg PO DAILY gabapentin 300 mg capsule 300 mg PO DAILY Rx Instructions: at night clindamycin phosphate 1 % lotion 1 applic topical BID Qty: 60 0RF Rx Instructions: Apply to affected areas doxycycline monohydrate 100 mg capsule 100 mg PO BID 30 Days Qty: 60 4RF amiloride 5 mg tablet 5 mg PO DAILY Qty: 30 0RF acyclovir 400 mg tablet 400 mg PO TID Qty: 21 6RF polyethylene glycol 3350 [Miralax] 17 gram/dose powder 4 g PO DAILY PRN (Reason: Constipation) prochlorperazine maleate [Compazine] 10 mg tablet 10 mg PO Q6H PRN (Reason: Mild Nausea) Qty: 30 3RF magnesium glycinate 100 mg magnesium capsule 400 mg PO .nighttime fluconazole 100 mg tablet 100 mg PO DAILY Qty: 7 2RF diphenoxylate-atropine [Lomotil] 2.5-0.025 mg tablet 1 tab PO QID PRN (Reason: diarrhea) Qty: 30 3RF allopurinol 300 mg tablet 300 mg PO DAILY multivitamin Capsule 1 cap PO DAILY loratadine 10 mg Tablet 10 mg PO DAILY calcium carbonate-vitamin D3 [Calcium 500 + D] 500 mg(1,250mg) -200 unit Tablet 1 tab PO DAILY B Complex 1.7-20-2-1.2 mg/mL Liquid 1 ml SUBLINGUAL DAILY lisinopril-hydrochlorothiazide 10-12.5 mg tablet 1 tab PO DAILY fluticasone propionate [Flonase Allergy Relief] 50 mcg/actuation [place],Suspension 1 spray intranasal DAILY Rx Instructions: One spray each nostril Discharge Orders: Discharge ED (Routine); Ordered 12/20/24 Ordered By: Natasha Toscano Referrals: Tiffanie Fonseca NP [Primary Care Provider] - Activity Restrictions/Additional Instructions: Make sure you are drinking plenty of fluid. Take positional changes (lying to sitting and sitting to standing slow). If at any point you feel lightheaded or dizzy, please sit down to keep from injuring yourself if you are to pass out again. You need to return to the emergency department for onset of chest pain, shortness of breath, difficulty breathing, palpitations, generally feeling worse or unwell, or any other concerns you may have. Coding Level of Care Code ED Gis Professor for Pita Salgado
--- NOTE | 2024-12-20 21:17 | ECG_ITS ---
[employer] [facility] Test Date: 2024-12-20 Pat Name: Latisha Billy Department: Room: Gender: Female [employer] Manager: : 1955 Requested By: Natasha Toscano Order Number: [id number] Paula MD: John Maurice M.D. Measurements Intervals [place] Rate: 67 P: -7 MI: 158 QRS: -33 QRSD: 98 T: 30 QT: 422 QTc: 448 Interpretive Statements SINUS RHYTHM LEFT AXIS DEVIATION [QRS AXIS < -30] LOW QRS VOLTAGE IN PRECORDIAL LEADS [QRS DEFLECTION < 1.0 mV IN CHEST LEADS] INCOMPLETE RIGHT BUNDLE BRANCH BLOCK [90+ ms QRS DURATION, TERMINAL R IN V1/V2, 40+ ms S IN I/aVL/V4/V5/V6] POSSIBLE ANTERIOR MYOCARDIAL INFARCTION , PROBABLY OLD [30 ms Q WAVE IN V3/V4, OR R < 0.2 mV IN V4] Compared to ECG 04/14/2016 13:25:53 Myocardial infarct finding now present Electronically Signed On 12-22-2024 13:34:37 PSYCHOLOGY TECH by John Maurice M.D. [email or web address]
[2024-12-20 21:21] LABS: Basophils # 0.1 10^3/uL (0.0-0.1); Basophils % 0.7 %; Eosinophils # 0.2 10^3/uL (0.0-0.8); Eosinophils % 2.3 %; Lymphocytes # 1.7 10^3/uL (0.8-4.8); Lymphocytes % 21.5 %; Mean Corpuscular HGB Conc 30.9 g/dL (30-55); Mean Corpuscular Hemoglobin 30.5 pg (27-33); Mean Corpuscular Volume 98.9 fl (85-98); Mean Platelet Volume 11.1 fL (7.4-10.4); Monocytes # 0.2 10^3/uL (0.2-0.9); Monocytes % 2.6 %; Neutrophils # 5.59 10^3/uL (1.8-7.7); Neutrophils % 72.6 %; Nucleated Red Blood Cells % 0 %; Platelet Count 235 10^3/cmm (157-399); Red Blood Count 3.54 10^6/uL (3.85-5.65); Red Cell Distribution Width 17.3 % (12.1-15.1); White Blood Count 7.69 10^3/uL (3.29-11.43)
[2024-12-20] MEDS: sodium chloride 0.9% 1,000 ML 999 ML IV (21:25)
[2024-12-20 21:45] LABS: Alanine Aminotransferase 26 U/L (0-33); Albumin Level 3.8 g/dL (3.5-5.2); Alkaline Phosphatase 97 U/L (35-105); Aspartate Amino Transferase 31 U/L (0-32); Blood Urea Nitrogen 20 mg/dL (8-23); Carbon Dioxide 27 mmol/L (22-29); Chloride 96 mmol/L (98-107); Globulin 2.8 g/dL (1.3-4.6); Glomerular Filtration Rate 62.3 mL/min (90-130); Glucose 245 mg/dL (65-115); Osmolality Calculated 295 mOsm/kg (285-295); Sodium 137 mmol/L (136-145); Total Bilirubin 0.4 mg/dL (0.15-1.2); Total Protein 6.6 g/dL (6.6-8.7)
[2024-12-20 21:47] LABS: Anion Gap 18.1 (5-19); Potassium 4.1 mmol/L (3.5-5.1)
[2024-12-20 21:57] VITALS: BP 113/63; PULSE 85; RESP 27; O2SAT 94
[2024-12-20 22:25] VITALS: BP 102/51; PULSE 82; RESP 16; O2SAT 100
[2024-12-20 22:30] VITALS: BP 119/57; PULSE 80; RESP 18; O2SAT 99
[2024-12-21 00:09] VITALS: BP 105/69; PULSE 75; O2SAT 94
== END 2024-12-21 00:01 | disposition home or self-care (01) ==
PROVIDERS: Emergency Provider Physician Assistant; PCP Nurse Practitioner Family
DX: R55 Syncope and collapse (principal); Z79.82 Long term (current) use of aspirin; Z79.84 Long term (current) use of oral hypoglycemic drugs; Z87.891 Personal history of nicotine dependence; C18.9 Malignant neoplasm of colon, unspecified; Z92.21 Personal history of antineoplastic chemotherapy; E11.9 Type 2 diabetes mellitus without complications; I10 Essential (primary) hypertension; E78.5 Hyperlipidemia, unspecified
CPT/HCPCS: 80053; 85025; 93005; 99284; J7030

== ENCOUNTER 2025-01-15 07:30 | Oncology outpatient (recurring) (ONCR) | payer MEDICARE, MEDICAID, SELFPAY ==
[2024-12-26] MEDS: iohexol 350 mg/mL 500 mL Btl (per mL) PO (11:59)
--- NOTE | 2024-12-26 12:45 | CT_ITS ---
WS: [id number] CT CHEST, ABDOMEN AND PELVIS WITH CONTRAST HISTORY: colon cancer TECHNIQUE: Contiguous 5 mm axial imaging performed through the chest, abdomen and pelvis with IV contrast, oral contrast has been provided. Coronal and sagittal reformats chest. Coronal and sagittal reformats through the abdomen and pelvis. All CT scans at [facility] use at least one of these dose optimization techniques: automated exposure control; mA and/or kV adjustment per patient size (includes targeted exams where dose is matched to clinical indication); or iterative reconstruction. CONTRAST: Omnipaque 350; 100 mL IV. DLP: 1069.09 mGy.cm COMPARISON: 10/01/2024, 07/02/2024, 01/25/2022, PET/CT 06/11/[address]: RIGHT subclavian Mediport. Numerous, bilateral subcentimeter pulmonary nodules ranging in size from a few millimeters to 9 mm. 9 mm nodule in the LEFT lower lobe has slightly increased in size since 10/01/2024. This nodule is new since 02/24/2023. Overall the number of nodules has increased since 2022. Nodules remain very small but close follow-up recommended. No mediastinal or hilar adenopathy. Normal aorta. Normal size pulmonary artery. Normal heart. Abdomen CT: Normal liver and spleen. No metastatic disease. Splenic granulomata. Normal portal vein. Gallbladder is filled with gallstones. No acute cholecystitis. Normal pancreas and adrenal glands. Mild cortical thinning RIGHT kidney. No renal obstruction. Mild atherosclerosis aorta. Normal mesenteric arteries. Stomach is well distended. No small bowel obstruction. Diffuse moderate constipation. Rectosigmoid anastomosis is intact. No recurrent mass identified. Retroperitoneal lymphadenopathy is reidentified. Confluent bulky lymph nodes noted at the level of the renal veins and extending inferiorly through the aortic bifurcation. Large cluster of lymph nodes aortocaval measures 3.0 x 3.1 cm. Precaval and para-aortic lymph nodes. Lymph node at the bifurcation measures 1.1 cm. Smaller bilateral iliac chain lymph nodes. No inguinal adenopathy. Pelvic CT: No ascites. Normal urinary bladder. Uterus is present. Mild anterior wedging of L4. CT/CT chest abdpel w/*[id number] IMPRESSION: 1. Numerous bilateral pulmonary nodules. Majority of these nodules have been p resent on prior studies. There are a few nodules that are new but very small ca liber. The largest nodule in the LEFT lower lobe measures 9 mm. This nodule is new since 02/24/2023 with slight increase in size since 10/01/2024. Suspicious fo r metastatic involvement. 2. No mediastinal or hilar adenopathy. 3. Bulky retroperitoneal lymphadenopathy continues to increase in number and s ize since 10/01/2024. Smaller lymph nodes extend along the common iliac arterie s. 4. No metastatic disease to the liver or adrenal glands. 5. Cholelithiasis. 6. Stable rectosigmoid anastomosis.
[2024-12-26] MEDS: iohexol 350 mg/mL 500 mL Btl (per mL) IV (13:05)
[2025-01-01 07:54] LABS: Basophils % 0.5 %; Eosinophils # 0.4 10^3/uL (0.0-0.8); Eosinophils % 7.4 %; Hematocrit 31.4 % (36-47); Lymphocytes # 1.1 10^3/uL (0.8-4.8); Mean Corpuscular HGB Conc 30.9 g/dL (30-55); Mean Corpuscular Hemoglobin 30.2 pg (27-33); Mean Corpuscular Volume 97.8 fl (85-98); Mean Platelet Volume 10.3 fL (7.4-10.4); Monocytes # 0.5 10^3/uL (0.2-0.9); Monocytes % 8.8 %; Neutrophils # 3.62 10^3/uL (1.8-7.7); Neutrophils % 63.9 %; Nucleated Red Blood Cells % 0 %; Platelet Count 235 10^3/cmm (157-399); Red Blood Count 3.21 10^6/uL (3.85-5.65); White Blood Count 5.67 10^3/uL (3.29-11.43)
[2025-01-01 08:32] LABS: Alanine Aminotransferase 21 U/L (0-33); Albumin Level 3.6 g/dL (3.5-5.2); Alkaline Phosphatase 98 U/L (35-105); Aspartate Amino Transferase 20 U/L (0-32); Blood Urea Nitrogen 12 mg/dL (8-23); Calcium 8.8 mg/dL (8.5-10.5); Carbon Dioxide 27 mmol/L (22-29); Chloride 104 mmol/L (98-107); Creatinine Clr Calc Pharmacy 68.5665; Globulin 2.3 g/dL (1.3-4.6); Glomerular Filtration Rate 71.3 mL/min (90-130); Glucose 165 mg/dL (65-115); Osmolality Calculated 297 mOsm/kg (285-295); Sodium 142 mmol/L (136-145); Total Bilirubin 0.3 mg/dL (0.15-1.2); Total Protein 5.9 g/dL (6.6-8.7)
[2025-01-01 08:37] LABS: Thyroid Stimulating Hormone 8.18 uIU/mL (0.27-4.20)
[2025-01-01 08:57] LABS: Free T4 Free Thyroxine 0.97 ng/dL (0.82-1.77); T3 Free 2.4 PG/ML (2.0-4.4)
[2025-01-01 08:58] LABS: Carcinoembryonic Antigen 89.6 ng/mL (0.0-4.7)
[2025-01-01] MEDS: sodium chloride 0.9% 250 ML 75 ML IV (09:17)
[2025-01-01] MEDS: acetaminophen 325 mg Tablet 650 MG PO (09:21)
[2025-01-01] MEDS: diphenhydrAMINE 50 mg/mL SDV 1mL 25 MG IVP (09:21)
[2025-01-01] MEDS: palonosetron 0.25 mg/5 mL SDV IVP (09:25)
[2025-01-01] MEDS: dexamethasone 4 mg/mL INJ 5 mL 12 MG IVP (09:28)
[2025-01-01] MEDS: SODIUM CHLORIDE 0.9% IV (09:53)
[2025-01-01] MEDS: PANITUMUMAB IV (09:53)
[2025-01-01] MEDS: atropine 1 mg/mL SDV 1 mL 0.4 MG IV (10:58)
[2025-01-01] MEDS: leucovorin 740 MG in dextrose 5% 250 ML 166.67 MG IV (11:36)
[2025-01-01 13:30] VITALS: BP 133/78; PULSE 76; RESP 17; TEMP 36.6; O2SAT 95
[2025-01-01] MEDS: fluorouraciL 3,600 MG, elastomeric pump 1 PUMP in sodium chloride 0.9% (100 ml) 20 ML IV (13:33)
[2025-01-01 14:45] LABS: Magnesium 1.8 mg/dL (1.7-2.3)
[2025-01-15 07:47] LABS: Basophils % 0.5 %; Eosinophils # 0.5 10^3/uL (0.0-0.8); Eosinophils % 8.5 %; Hematocrit 33.3 % (36-47); Lymphocytes # 1.6 10^3/uL (0.8-4.8); Lymphocytes % 26.2 %; Mean Corpuscular HGB Conc 30.6 g/dL (30-55); Mean Corpuscular Hemoglobin 29.8 pg (27-33); Mean Corpuscular Volume 97.4 fl (85-98); Mean Platelet Volume 10.5 fL (7.4-10.4); Monocytes # 0.5 10^3/uL (0.2-0.9); Neutrophils # 3.28 10^3/uL (1.8-7.7); Neutrophils % 55.5 %; Nucleated Red Blood Cells % 0 %; Platelet Count 229 10^3/cmm (157-399); Red Blood Count 3.42 10^6/uL (3.85-5.65); Red Cell Distribution Width 17.3 % (12.1-15.1); White Blood Count 5.91 10^3/uL (3.29-11.43)
[2025-01-15 08:14] LABS: Carcinoembryonic Antigen 114.9 ng/mL (0.0-4.7)
[2025-01-15 08:25] LABS: Alanine Aminotransferase 21 U/L (0-33); Albumin Level 3.6 g/dL (3.5-5.2); Alkaline Phosphatase 107 U/L (35-105); Anion Gap 14.2 (5-19); Aspartate Amino Transferase 21 U/L (0-32); Blood Urea Nitrogen 9 mg/dL (8-23); Calcium 8.9 mg/dL (8.5-10.5); Carbon Dioxide 26 mmol/L (22-29); Chloride 106 mmol/L (98-107); Creatinine Clr Calc Pharmacy 68.1806; Globulin 2.8 g/dL (1.3-4.6); Glomerular Filtration Rate 83.2 mL/min (90-130); Glucose 99 mg/dL (65-115); Osmolality Calculated 293 mOsm/kg (285-295); Potassium 4.2 mmol/L (3.5-5.1); Sodium 142 mmol/L (136-145); Total Bilirubin 0.3 mg/dL (0.15-1.2); Total Protein 6.4 g/dL (6.6-8.7)
[2025-01-15] MEDS: sodium chloride 0.9% 250 ML 75 ML IV (09:37)
[2025-01-15] MEDS: dexamethasone 4 mg/mL INJ 5 mL 12 MG IVP (09:38)
[2025-01-15] MEDS: acetaminophen 325 mg Tablet 650 MG PO (09:40)
[2025-01-15] MEDS: palonosetron 0.25 mg/5 mL SDV IVP (09:44)
[2025-01-15] MEDS: diphenhydrAMINE 50 mg/mL SDV 1mL 25 MG IVP (09:47)
[2025-01-15] MEDS: SODIUM CHLORIDE 0.9% IV (10:21)
[2025-01-15] MEDS: PANITUMUMAB IV (10:21)
[2025-01-15] MEDS: atropine 1 mg/mL SDV 1 mL 0.4 MG IV (11:38)
[2025-01-15] MEDS: leucovorin 760 MG in dextrose 5% 250 ML 166.67 MG IV (12:16)
[2025-01-15] MEDS: fluorouraciL 3,600 MG, elastomeric pump 1 PUMP in sodium chloride 0.9% (100 ml) 20 ML IV (14:04)
[2025-01-15 14:20] VITALS: BP 106/68; PULSE 76; RESP 17; TEMP 35.9; O2SAT 94
== END 2025-01-15 23:59 | disposition home or self-care (01) ==
PROVIDERS: Nurse Practitioner Family; PCP Nurse Practitioner Family; Visit Provider Internal Medicine Medical Oncology
DX: Z53.9 Procedure and treatment not carried out, unspecified reason; Z51.11 Encounter for antineoplastic chemotherapy; C18.7 Malignant neoplasm of sigmoid colon; D64.9 Anemia, unspecified; R19.7 Diarrhea, unspecified; T45.1X5A Adverse effect of antineoplastic and immunosuppressive drugs, initial encounter; E03.9 Hypothyroidism, unspecified; Z79.631 Long term (current) use of antimetabolite agent; Z79.52 Long term (current) use of systemic steroids; Z87.891 Personal history of nicotine dependence; Z79.899 Other long term (current) drug therapy
CPT/HCPCS: 71260; 74177; 80053; 82378; 83735; 84439; 84443; 84481; 85025; 96365; 96366; 96368; 96375; 96413; 96415; 96416; 96417; 99214; A4222; J0461; J0640; J1100; J1200; J2469; J7050; J7060; J9190; J9206; J9303

== ENCOUNTER 2025-01-17 11:22 | Oncology outpatient (recurring) (ONCR) | payer MEDICARE, MEDICAID, SELFPAY | END 2025-01-18 23:59 | disposition home or self-care (01) | PROVIDERS: PCP Nurse Practitioner Family; Visit Provider Internal Medicine Medical Oncology | DX: Z53.9 Procedure and treatment not carried out, unspecified reason (principal); Z51.11 Encounter for antineoplastic chemotherapy; C18.7 Malignant neoplasm of sigmoid colon; K59.00 Constipation, unspecified; D64.9 Anemia, unspecified; R19.7 Diarrhea, unspecified; R21 Rash and other nonspecific skin eruption; E03.9 Hypothyroidism, unspecified; T45.1X5A Adverse effect of antineoplastic and immunosuppressive drugs, initial encounter; Z79.899 Other long term (current) drug therapy; Z95.828 Presence of other vascular implants and grafts; Z87.891 Personal history of nicotine dependence; K63.89 Other specified diseases of intestine; K80.20 Calculus of gallbladder without cholecystitis without obstruction; R59.1 Generalized enlarged lymph nodes; R91.8 Other nonspecific abnormal finding of lung field | CPT/HCPCS: 96523 ==

== ENCOUNTER 2025-02-14 13:36 | Oncology outpatient (recurring) (ONCR) | payer MEDICARE, MEDICAID, SELFPAY ==
[2025-01-29 08:37] LABS: Basophils % 0.6 %; Eosinophils # 0.4 10^3/uL (0.0-0.8); Eosinophils % 7.1 %; Hematocrit 33.5 % (36-47); Lymphocytes # 1.5 10^3/uL (0.8-4.8); Lymphocytes % 24.2 %; Mean Corpuscular HGB Conc 31.3 g/dL (30-55); Mean Corpuscular Hemoglobin 30.8 pg (27-33); Mean Corpuscular Volume 98.2 fl (85-98); Mean Platelet Volume 10.1 fL (7.4-10.4); Monocytes # 0.6 10^3/uL (0.2-0.9); Monocytes % 9.2 %; Neutrophils # 3.62 10^3/uL (1.8-7.7); Neutrophils % 58.6 %; Nucleated Red Blood Cells % 0 %; Platelet Count 251 10^3/cmm (157-399); Red Blood Count 3.41 10^6/uL (3.85-5.65); Red Cell Distribution Width 17.3 % (12.1-15.1); White Blood Count 6.19 10^3/uL (3.29-11.43)
[2025-01-29 08:46] LABS: Bilirubin Urine Negative (Negative); Blood Urine Negative (Negative); Glucose Urine UA Negative (Normal); Ketones Urine Negative (Negative); Leukocyte Esterase Urine 3+ (Negative); Nitrate Urine Negative (Negative); Protein Urine Negative (Negative); Specific Gravity, Urine 1.018 (1.005-1.030); Urine Appearance Cloudy (CLEAR); Urine Color Yellow (Yellow); Urobilinogen Urine 0.2 mg/dL (Negative); pH Urine 7.5 (5-7)
[2025-01-29 08:51] LABS: Add Urine Microscopic? YES; Bacteria Urine 1+ /hpf; RBC Urine 0-2 /hpf (0-2); Squamous Epithelial Cell Urine 21-50 /hpf (0-5); WBC Urine 51-100 /hpf (0-5)
[2025-01-29 09:05] LABS: Carcinoembryonic Antigen 108.2 ng/mL (0.0-4.7)
[2025-01-29 09:11] LABS: Add Urine Culture? Yes
[2025-01-29 09:18] LABS: Alanine Aminotransferase 20 U/L (0-33); Albumin Level 3.5 g/dL (3.5-5.2); Alkaline Phosphatase 101 U/L (35-105); Anion Gap 15.2 (5-19); Aspartate Amino Transferase 21 U/L (0-32); Blood Urea Nitrogen 10 mg/dL (8-23); Calcium 8.8 mg/dL (8.5-10.5); Carbon Dioxide 27 mmol/L (22-29); Chloride 104 mmol/L (98-107); Creatinine Clr Calc Pharmacy 68.1806; Globulin 2.6 g/dL (1.3-4.6); Glomerular Filtration Rate 83.2 mL/min (90-130); Glucose 111 mg/dL (65-115); Osmolality Calculated 294 mOsm/kg (285-295); Potassium 4.2 mmol/L (3.5-5.1); Sodium 142 mmol/L (136-145); Total Bilirubin 0.3 mg/dL (0.15-1.2); Total Protein 6.1 g/dL (6.6-8.7)
[2025-01-29] MEDS: sodium chloride 0.9% 250 ML 75 ML IV (11:09)
[2025-01-29] MEDS: acetaminophen 325 mg Tablet 650 MG PO (11:13)
[2025-01-29] MEDS: dexamethasone 4 mg/mL INJ 5 mL 12 MG IVP (11:14)
[2025-01-29] MEDS: palonosetron 0.25 mg/5 mL SDV IVP (11:21)
[2025-01-29] MEDS: diphenhydrAMINE 50 mg/mL SDV 1mL 25 MG IVP (11:26)
[2025-01-29] MEDS: PANITUMUMAB IV (11:41)
[2025-01-29] MEDS: SODIUM CHLORIDE 0.9% IV (11:41)
[2025-01-29] MEDS: atropine 1 mg/mL SDV 1 mL 0.4 MG IV (12:44)
[2025-01-29] MEDS: leucovorin 760 MG in dextrose 5% 250 ML 166.67 MG IV (12:59)
[2025-01-29] MEDS: fluorouraciL 3,600 MG, elastomeric pump 1 PUMP in sodium chloride 0.9% (100 ml) 20 ML IV (14:44)
[2025-01-29 15:10] VITALS: BP 142/81; PULSE 78; RESP 18; TEMP 36.9; O2SAT 96
[2025-02-12 09:21] LABS: Basophils % 0.6 %; Eosinophils # 0.5 10^3/uL (0.0-0.8); Eosinophils % 6.4 %; Hematocrit 32.9 % (36-47); Lymphocytes # 1.4 10^3/uL (0.8-4.8); Lymphocytes % 18.9 %; Mean Corpuscular Hemoglobin 30.7 pg (27-33); Mean Corpuscular Volume 99.1 fl (85-98); Mean Platelet Volume 10.3 fL (7.4-10.4); Monocytes # 0.6 10^3/uL (0.2-0.9); Monocytes % 8.2 %; Neutrophils # 4.71 10^3/uL (1.8-7.7); Neutrophils % 65.6 %; Nucleated Red Blood Cells % 0 %; Platelet Count 214 10^3/cmm (157-399); Red Blood Count 3.32 10^6/uL (3.85-5.65); Red Cell Distribution Width 17.7 % (12.1-15.1); White Blood Count 7.18 10^3/uL (3.29-11.43)
[2025-02-12 09:39] LABS: Bilirubin Urine Negative (Negative); Blood Urine Negative (Negative); Glucose Urine UA Negative (Normal); Ketones Urine Negative (Negative); Leukocyte Esterase Urine 2+ (Negative); Nitrate Urine Negative (Negative); Protein Urine Negative (Negative); Specific Gravity, Urine 1.014 (1.005-1.030); Urine Appearance Clear (CLEAR); Urine Color Yellow (Yellow); Urobilinogen Urine 0.2 mg/dL (Negative)
[2025-02-12 09:44] LABS: Add Urine Microscopic? YES; Bacteria Urine None Seen /hpf; Hyaline Casts Urine 0-4 /lpf; RBC Urine 0-2 /hpf (0-2); WBC Urine 21-50 /hpf (0-5)
[2025-02-12 09:47] LABS: Add Urine Culture? No
[2025-02-12 09:48] LABS: Carcinoembryonic Antigen 124.8 ng/mL (0.0-4.7)
[2025-02-12 09:59] LABS: Alanine Aminotransferase 16 U/L (0-33); Albumin Level 3.6 g/dL (3.5-5.2); Alkaline Phosphatase 97 U/L (35-105); Anion Gap 12.7 (5-19); Aspartate Amino Transferase 18 U/L (0-32); Blood Urea Nitrogen 10 mg/dL (8-23); Calcium 8.6 mg/dL (8.5-10.5); Carbon Dioxide 27 mmol/L (22-29); Chloride 107 mmol/L (98-107); Creatinine Clr Calc Pharmacy 68.5665; Globulin 2.4 g/dL (1.3-4.6); Glomerular Filtration Rate 83.2 mL/min (90-130); Glucose 118 mg/dL (65-115); Magnesium 1.7 mg/dL (1.7-2.3); Osmolality Calculated 294 mOsm/kg (285-295); Potassium 4.7 mmol/L (3.5-5.1); Sodium 142 mmol/L (136-145); Total Bilirubin 0.3 mg/dL (0.15-1.2)
[2025-02-12] MEDS: sodium chloride 0.9% 250 ML 75 ML IV (11:00)
[2025-02-12] MEDS: diphenhydrAMINE 50 mg/mL SDV 1mL 25 MG IVP (11:03)
[2025-02-12] MEDS: acetaminophen 325 mg Tablet 650 MG PO (11:06)
[2025-02-12] MEDS: palonosetron 0.25 mg/5 mL SDV IVP (11:07)
[2025-02-12] MEDS: dexamethasone 4 mg/mL INJ 5 mL 12 MG IVP (11:11)
[2025-02-12] MEDS: SODIUM CHLORIDE 0.9% IV (11:21)
[2025-02-12] MEDS: PANITUMUMAB IV (11:21)
[2025-02-12] MEDS: atropine 1 mg/mL SDV 1 mL 0.4 MG IV (12:35)
[2025-02-12] MEDS: leucovorin 760 MG in dextrose 5% 250 ML 166.67 MG IV (12:46)
[2025-02-12] MEDS: fluorouraciL 3,600 MG, elastomeric pump 1 PUMP in sodium chloride 0.9% (100 ml) 20 ML IV (14:40)
[2025-02-12 14:48] VITALS: BP 144/73; PULSE 79; RESP 18; TEMP 36.4; O2SAT 98
[2025-02-14 13:42] VITALS: BP 127/74; PULSE 79; RESP 17; TEMP 37.1; O2SAT 97
== END 2025-02-18 23:59 | disposition home or self-care (01) ==
PROVIDERS: Internal Medicine Medical Oncology; Nurse Practitioner Family; PCP Nurse Practitioner Family; Visit Provider Internal Medicine
DX: Z53.9 Procedure and treatment not carried out, unspecified reason; Z45.1 Encounter for adjustment and management of infusion pump
CPT/HCPCS: 80053; 81001; 82378; 83735; 85025; 87086; 96368; 96375; 96413; 96415; 96416; 96417; 96523; 99214; A4222; J0461; J0640; J1100; J1200; J2469; J7050; J7060; J9190; J9206; J9303; J9999

== ENCOUNTER 2025-02-20 09:58 | Outpatient (CLI) | payer MEDICAID, MEDICARE, SELFPAY ==
--- NOTE | 2025-02-20 10:00 | MM_ITS ---
WS: [id number] BILATERAL SCREENING DIGITAL TOMOSYNTHESIS MAMMOGRAM WITH CAD HISTORY: SCREENING COMPARISON: 02/03/2024, 01/31/2023 Bilateral CC and MLO views with tomosynthesis and synthetic mammography submitted. Computer aided detection analyzed. Breast composition: There are scattered areas of fibroglandular density. No suspicious masses, microcalcifications or architectural distortion. Benign calcifications in each breast. No asymmetry or mass. MM/MM scr BI tomosynthesis [id number] IMPRESSION: BI-RADS: 2 - Benign. FOLLOW UP: 1 Year Follow-up
== END 2025-02-20 09:59 | disposition home or self-care (01) ==
PROVIDERS: PCP Advanced Practice Midwife; Visit Provider Advanced Practice Midwife
DX: Z12.31 Encounter for screening mammogram for malignant neoplasm of breast (principal); R92.323 Mammographic fibroglandular density, bilateral breasts; R92.1 Mammographic calcification found on diagnostic imaging of breast
CPT/HCPCS: 77063; 77067

== ENCOUNTER 2025-03-12 07:30 | Oncology outpatient (recurring) (ONCR) | payer MEDICARE, MEDICAID, SELFPAY ==
[2025-02-26 07:52] LABS: Basophils % 0.6 %; Eosinophils # 0.4 10^3/uL (0.0-0.8); Eosinophils % 5.8 %; Hematocrit 33.3 % (36-47); Lymphocytes # 1.5 10^3/uL (0.8-4.8); Lymphocytes % 20.5 %; Mean Corpuscular HGB Conc 30.6 g/dL (30-55); Mean Corpuscular Hemoglobin 29.7 pg (27-33); Mean Corpuscular Volume 97.1 fl (85-98); Mean Platelet Volume 10.7 fL (7.4-10.4); Monocytes # 0.6 10^3/uL (0.2-0.9); Monocytes % 7.7 %; Neutrophils # 4.73 10^3/uL (1.8-7.7); Nucleated Red Blood Cells % 0 %; Platelet Count 234 10^3/cmm (157-399); Red Blood Count 3.43 10^6/uL (3.85-5.65); White Blood Count 7.27 10^3/uL (3.29-11.43)
[2025-02-26 08:16] LABS: Carcinoembryonic Antigen 149.7 ng/mL (0.0-4.7)
[2025-02-26 08:27] LABS: Alanine Aminotransferase 16 U/L (0-33); Albumin Level 3.7 g/dL (3.5-5.2); Alkaline Phosphatase 91 U/L (35-105); Aspartate Amino Transferase 18 U/L (0-32); Blood Urea Nitrogen 11 mg/dL (8-23); Calcium 8.7 mg/dL (8.5-10.5); Carbon Dioxide 25 mmol/L (22-29); Chloride 105 mmol/L (98-107); Creatinine Clr Calc Pharmacy 68.1806; Globulin 2.6 g/dL (1.3-4.6); Glomerular Filtration Rate 83.2 mL/min (90-130); Glucose 130 mg/dL (65-115); Osmolality Calculated 295 mOsm/kg (285-295); Sodium 142 mmol/L (136-145); Total Bilirubin 0.2 mg/dL (0.15-1.2); Total Protein 6.3 g/dL (6.6-8.7)
[2025-02-26] MEDS: sodium chloride 0.9% 250 ML 75 ML IV (10:30)
[2025-02-26] MEDS: dexamethasone 4 mg/mL INJ 5 mL 12 MG IVP (10:31)
[2025-02-26] MEDS: acetaminophen 325 mg Tablet 650 MG PO (10:33)
[2025-02-26] MEDS: palonosetron 0.25 mg/5 mL SDV IVP (10:38)
[2025-02-26] MEDS: diphenhydrAMINE 50 mg/mL SDV 1mL 25 MG IVP (10:42)
[2025-02-26] MEDS: SODIUM CHLORIDE 0.9% IV (10:55)
[2025-02-26] MEDS: PANITUMUMAB IV (10:55)
[2025-02-26] MEDS: atropine 1 mg/mL SDV 1 mL 0.4 MG IV (12:04)
[2025-02-26] MEDS: leucovorin 760 MG in dextrose 5% 250 ML 217.33 MG IV (12:15)
[2025-02-26 14:03] VITALS: BP 120/74; PULSE 77; RESP 17; TEMP 36.4; O2SAT 97
[2025-02-26] MEDS: fluorouraciL 3,600 MG, elastomeric pump 1 PUMP in sodium chloride 0.9% (100 ml) 20 ML IV (14:05)
[2025-03-12 07:50] LABS: Basophils % 0.4 %; Eosinophils # 0.4 10^3/uL (0.0-0.8); Eosinophils % 6.3 %; Hematocrit 32.9 % (36-47); Lymphocytes # 1.6 10^3/uL (0.8-4.8); Lymphocytes % 23.5 %; Mean Corpuscular HGB Conc 30.7 g/dL (30-55); Mean Corpuscular Hemoglobin 30.1 pg (27-33); Mean Corpuscular Volume 98.2 fl (85-98); Mean Platelet Volume 10.6 fL (7.4-10.4); Monocytes # 0.6 10^3/uL (0.2-0.9); Monocytes % 8.2 %; Neutrophils # 4.25 10^3/uL (1.8-7.7); Neutrophils % 61.3 %; Nucleated Red Blood Cells % 0 %; Platelet Count 218 10^3/cmm (157-399); Red Blood Count 3.35 10^6/uL (3.85-5.65); Red Cell Distribution Width 18.5 % (12.1-15.1); White Blood Count 6.94 10^3/uL (3.29-11.43)
[2025-03-12 08:07] LABS: Alanine Aminotransferase 18 U/L (0-33); Albumin Level 3.6 g/dL (3.5-5.2); Alkaline Phosphatase 88 U/L (35-105); Anion Gap 12.9 (5-19); Aspartate Amino Transferase 18 U/L (0-32); Blood Urea Nitrogen 11 mg/dL (8-23); Calcium 8.7 mg/dL (8.5-10.5); Carbon Dioxide 26 mmol/L (22-29); Chloride 104 mmol/L (98-107); Creatinine Clr Calc Pharmacy 68.3736; Globulin 2.4 g/dL (1.3-4.6); Glomerular Filtration Rate 83.2 mL/min (90-130); Glucose 120 mg/dL (65-115); Osmolality Calculated 289 mOsm/kg (285-295); Potassium 3.9 mmol/L (3.5-5.1); Sodium 139 mmol/L (136-145); Total Bilirubin 0.2 mg/dL (0.15-1.2)
[2025-03-12 08:47] LABS: Carcinoembryonic Antigen 179.7 ng/mL (0.0-4.7)
[2025-03-12] MEDS: dexamethasone 4 mg/mL INJ 5 mL 12 MG IVP (09:34)
[2025-03-12] MEDS: sodium chloride 0.9% 250 ML 75 ML IV (09:34)
[2025-03-12] MEDS: acetaminophen 325 mg Tablet 650 MG PO (09:38)
[2025-03-12] MEDS: palonosetron 0.25 mg/5 mL SDV IVP (09:42)
[2025-03-12] MEDS: diphenhydrAMINE 50 mg/mL SDV 1mL 25 MG IVP (09:47)
[2025-03-12] MEDS: PANITUMUMAB IV (09:58)
[2025-03-12] MEDS: SODIUM CHLORIDE 0.9% IV (09:58)
[2025-03-12] MEDS: atropine 1 mg/mL SDV 1 mL 0.4 MG IV (11:09)
[2025-03-12] MEDS: leucovorin 760 MG in dextrose 5% 250 ML 166.67 MG IV (11:29)
[2025-03-12] MEDS: fluorouraciL 3,600 MG, elastomeric pump 1 PUMP in sodium chloride 0.9% (100 ml) 20 ML IV (13:17)
[2025-03-12 13:21] VITALS: BP 131/91; PULSE 75; RESP 17; TEMP 36.1; O2SAT 93
== END 2025-03-12 23:59 | disposition home or self-care (01) ==
PROVIDERS: Nurse Practitioner Family; PCP Advanced Practice Midwife; Visit Provider Internal Medicine Medical Oncology
DX: Z53.9 Procedure and treatment not carried out, unspecified reason; Z51.11 Encounter for antineoplastic chemotherapy; C18.7 Malignant neoplasm of sigmoid colon; R03.0 Elevated blood-pressure reading, without diagnosis of hypertension; D64.9 Anemia, unspecified; R19.7 Diarrhea, unspecified; E03.9 Hypothyroidism, unspecified; Z79.52 Long term (current) use of systemic steroids; Z79.631 Long term (current) use of antimetabolite agent; Z87.891 Personal history of nicotine dependence
CPT/HCPCS: 80053; 82378; 85025; 96366; 96368; 96375; 96413; 96415; 96416; 96417; 99214; A4222; J0461; J0640; J1100; J1200; J2469; J7050; J7060; J9190; J9206; J9303; J9999

== ENCOUNTER 2025-03-14 11:16 | Oncology outpatient (recurring) (ONCR) | payer MEDICARE, MEDICAID, SELFPAY ==
[2025-03-14 11:41] VITALS: BP 117/80; PULSE 69; RESP 16; TEMP 36.2; O2SAT 96
== END 2025-03-20 23:59 | disposition home or self-care (01) ==
PROVIDERS: PCP Advanced Practice Midwife; Visit Provider Internal Medicine Medical Oncology
DX: Z53.9 Procedure and treatment not carried out, unspecified reason (principal); Z51.11 Encounter for antineoplastic chemotherapy; C18.7 Malignant neoplasm of sigmoid colon; D64.9 Anemia, unspecified; R21 Rash and other nonspecific skin eruption; T45.1X5A Adverse effect of antineoplastic and immunosuppressive drugs, initial encounter; R19.7 Diarrhea, unspecified; W55.01XA Bitten by cat, initial encounter; E03.9 Hypothyroidism, unspecified; Z79.52 Long term (current) use of systemic steroids; Z87.891 Personal history of nicotine dependence; Z79.899 Other long term (current) drug therapy; Z79.631 Long term (current) use of antimetabolite agent
CPT/HCPCS: 96523

== ENCOUNTER 2025-04-16 21:43 | Inpatient (IN) | payer OTHER, MEDICAID, SELFPAY ==
[2025-04-16 21:49] VITALS: BP 112/53; PULSE 114; RESP 20; TEMP 38.8; O2SAT 95; BMI 33.0
[2025-04-16 21:53] LABS: Glucose Point of Care 385 mg/dL (70-110)
--- NOTE | 2025-04-16 22:34 | W.ED.HA ---
HPI - Headache General: Chief Complaint: Headache Stated Complaint: Had Chemo\Sugar High\Fever Time Seen by Provider: 04/16/25 22:34 History of Present Illness: 69-year-old female with a history of metastatic colon cancer currently receiving chemotherapy, hyperlipidemia, hypertension, diabetes who presents to the emergency room with fever, malaise and headache. She received chemotherapy this morning. Since this afternoon she developed symptoms. On presentation she is febrile with a temp of 101.8. She complains of a headache and malaise. No cough. No dysuria. No abdominal pain. No nausea or vomiting. No altered mental status. She started chemotherapy about 3 years ago and then apparently started a new chemotherapy whenever it was discovered she had metastatic disease. She says this was her second dose. She had the first dose last week and did not have any sort of reaction to it. Related Data Home Medications ?Medication ?Instructions ?Recorded ?Confirmed aspirin 81 mg tablet,delayed 81 mg PO DAILY 03/25/20 04/16/25 release atorvastatin 40 mg tablet 40 mg PO DAILY 03/25/20 04/16/25 metformin 1,000 mg tablet 1,000 mg PO BID 03/25/20 04/16/25 fluticasone propionate 50 1 spray intranasal DAILY 03/27/20 04/16/25 mcg/actuation nasal spray,suspension (Flonase Allergy Relief) lisinopril 10 1 tab PO DAILY 03/27/20 04/16/25 mg-hydrochlorothiazide 12.5 mg tablet allopurinol 300 mg tablet 300 mg PO DAILY 11/26/21 04/16/25 calcium 500 mg (as 1 tab PO DAILY 11/26/21 04/16/25 carbonate)-vitamin D3 5 mcg (200 unit) tablet (Calcium 500 + D) loratadine 10 mg tablet 10 mg PO DAILY 11/26/21 04/16/25 multivitamin 1 cap PO DAILY 11/26/21 04/16/25 vitB2 1.7 mg-niacin 20 mg-B6 2 1 ml sublingual DAILY 11/26/21 04/16/25 mg-B12 1.2 mg/mL-dexpan sublingual liqd (B Complex) ferrous sulfate 325 mg (65 mg 325 mg PO DAILY 02/09/22 04/16/25 iron) tablet (FeroSul) polyethylene glycol 3350 17 4 g PO DAILY PRN Constipation 07/20/22 04/16/25 gram/dose oral powder (Miralax) glipizide 5 mg tablet 5 mg PO DAILY 03/03/23 04/16/25 gabapentin 300 mg capsule 300 mg PO DAILY 08/10/23 04/16/25 magnesium glycinate 400 mg PO .nighttime 01/11/24 04/16/25 lancets 31 gauge (Ultra Thin #100 ea 04/16/25 04/16/25 Lancets) Previous Rx's ?Medication ?Instructions ?Recorded clindamycin phosphate 1 % lotion 1 applic topical BID #60 mL 08/10/23 amiloride 5 mg tablet 5 mg PO DAILY #30 tabs 12/14/23 doxycycline monohydrate 100 mg 100 mg PO BID 30 days #60 caps 12/14/23 capsule acyclovir 400 mg tablet 400 mg PO TID #21 tabs 08/22/24 fluconazole 100 mg tablet 100 mg PO DAILY #7 tabs 09/05/24 diphenoxylate-atropine 2.5 1 tab PO QID PRN diarrhea #30 tabs 01/16/25 mg-0.025 mg tablet (Lomotil) hydrocortisone 2.5 % topical cream 1 applic topical BID PRN rash #20 02/19/25 grams doxycycline hyclate 100 mg tablet 100 mg PO BID 7 days #14 tabs 02/26/25 ondansetron HCl 4 mg tablet 4 mg PO Q6H PRN nausea and 03/26/25 vomiting #30 tabs prochlorperazine maleate 10 mg 10 mg PO Q6H PRN Mild Nausea #30 03/26/25 tablet (Compazine) tabs hydrocodone 5 mg-acetaminophen 325 1 tab PO Q4H PRN pain 2 days #12 04/07/25 mg tablet tabs Allergies Allergy/AdvReac Type Severity Reaction Status Date / Time grass pollen Allergy ALGY-Watery Verified 04/16/25 21:57 Eye pollen extracts Allergy ALGY-Watery Verified 04/16/25 21:57 Eye tree and shrub pollen Allergy ALGY-Watery Verified 04/16/25 21:57 Eye Review of Systems Narrative: Constitutional symptoms: Negative except as documented in HPI. Skin symptoms: Negative except as documented in HPI. Eye symptoms: Negative except as documented in HPI. ENMT symptoms: Negative except as documented in HPI. Respiratory symptoms: Negative except as documented in HPI. Cardiovascular symptoms: Negative except as documented in HPI. Gastrointestinal symptoms: Negative except as documented in HPI. Genitourinary symptoms: Negative except as documented in HPI. Musculoskeletal symptoms: Negative except as documented in HPI. Neurologic symptoms: Negative except as documented in HPI. Psychiatric symptoms: Negative except as documented in HPI. Endocrine symptoms: Negative except as documented in HPI. PFSH ED PFSH: Medical History Colon cancer Degenerative arthritis History of gout Hypercholesterolemia Hypertension Diabetes mellitus Surgical History Status post open reduction with internal fixation (ORIF) of fracture of ankle History of partial colectomy (12/2021) robotic low anterior resection with laparoscopic resection of epiploic nodule. Port-A-Cath in place (02/11/22) H/O cervical spine surgery cervical laminectomy/discectomy History of left inguinal hernia repair History of colonoscopy History of Achilles tendon repair Family History Daughter No problems noted. Brother Dementia Mother Hyperlipidemia Father Cancer Lung cancer Other Diabetes Hypertension Denies family history of CAD (coronary artery disease) Clotting disorder Psychiatric illness Chronic kidney disease (CKD) Suicide Anesthesia complication Bleeding disorder Lung disease Stroke Social History Smoking and tobacco/nicotine status: former use of tobacco/nicotine Quit status (tobacco/nicotine): has quit using Year quit tobacco: 1982 Former quit date comment: 10 years total use Alcohol intake: never Household members: children Current occupational status: disabled Physical Exam Narrative: EXAM NARRATIVE: General: Alert, no acute distress. Skin: Warm, dry. Head: Normocephalic, atraumatic. Neck: Supple, trachea midline. Eye: Extraocular movements are intact. Ears, nose, mouth and throat: mucosa tacky Cardiovascular: Regular, tachycardic, normal peripheral perfusion. Respiratory: Lungs are clear to auscultation, respirations are non-labored, breath sounds are equal, Symmetrical chest wall expansion. Gastrointestinal: Soft, Nontender, Non distended Musculoskeletal: Normal ROM, no deformity. Neurological: Alert and oriented, No focal neurological deficit observed. Psychiatric: Cooperative, appropriate mood & affect. Course Vital Signs: Vital signs: Vital Signs Temperature 99.2 F 04/17/25 01:15 Pulse Rate 98 04/17/25 01:31 Respiratory Rate 25 H 04/17/25 01:31 Blood Pressure 112/67 04/17/25 01:31 Pulse Oximetry 97 04/17/25 01:31 Oxygen Delivery Me thod Room Air 04/17/25 01:31 MDM - Headache Medical Decision Making Medical decision making: Differential diagnosis including but not limited to and based on the above HPI, review of systems and physical exam in this patient with immunocompromised state and fever: Would have concern for sepsis. UTI. Pneumonia. Flu COVID or RSV. Neutropenia. Thrombocytopenia. Orders placed to evaluate differential diagnosis based on the above differential, HPI and physical exam Lab Review: Laboratory results were reviewed and interpreted by myself the emergency room physician. No leukocytosis. Hemoglobin stable at 9.9. Mean and creatinine are elevated over baseline at eighteen 1.1. Glucose is elevated at 351. Flu COVID and RSV are negative. Urine is negative for infection. She does have reds in her urine but she had fairly traumatic catheterization to obtain the urine. Chest x-ray small infiltrates or atelectasis in the left lower lobe. Could be source. However she has had no cough. No pneumothorax. This was reviewed and interpreted by myself the emergency room physician. I also reviewed the radiology report. I reviewed the patient's medical record. Reexamination: Patient remained stable. No increased work of breathing. No altered mental status. No focal motor deficits. Consultation: I spoke with Dr. Adair who is on-call for his patients with oncology. He recommends admission and agrees with blood cultures and broad-spectrum antibiotics. Consultation: I spoke with Dr. Mi who is on-call for the hospitalist service who agrees to admission. Assessment and plan: Sepsis Fever Immunocompromise state Hyperglycemia ?Possible pneumonia but no cough. She also has some cat scratches on her left leg. Could be developing some cellulitis there. Admit to await blood cultures and continue IV antibiotics. -2.5 L normal saline bolus. Fluid volumes based on ideal body weight. -Broad-spectrum antibiotics were administered. Cefepime and Zyvox. -Sepsis quality measures. -Lactic acid with a reflex was ordered. -Blood cultures were ordered. ?Fluids and insulin for elevated blood glucose. Ketone negative. ABG negative. -I discussed the patient with the hospitalist on-call who is admitting the patient. - Discussed findings and plan with patient. Answered any questions. - All laboratory values were reviewed and interpreted personally by myself, the ER physician - All imaging was reviewed and interpreted personally by myself, the ER physician. - Evaluation and treatment of this problem were appropriate in the emergency setting Critical care -I spent a total of >35 minutes of critical care time managing the patient, independent of any other practitioner. -The time involved in the performance of separately reportable procedures was not counted towards critical care time. Lab Data 04/16/25 22:43 04/16/25 22:43 Radiology Impressions Chest X-Ray 04/16/25 23:57 IMPRESSION: Minimal interstitial opacities in the left lower lobe may represent atelectasis or developing infectious process. Laboratory Results WBC 6.69 10^3/uL (3.29-11.43) 04/16/25 22:43 RBC 3.29 10^6/uL (3.85-5.65) L 04/16/25 22:43 Hgb 9.90 g/dL (11.27-16.99) L 04/16/25 22:43 Hct 31.8 % (36-47) L 04/16/25 22:43 MCV 96.7 fl (85-98) 04/16/25 22:43 MCH 30.1 pg (27-33) 04/16/25 22:43 MCHC 31.1 g/dL (30-55) 04/16/25 22:43 RDW 18.1 % (12.1-15.1) H 04/16/25 22:43 Plt Count 227 10^3/cmm (157-399) 04/16/25 22:43 MPV 10.4 fL (7.4-10.4) 04/16/25 22:43 Neut % (Auto) 95.7 % 04/16/25 22:43 Lymph % (Auto) 0.9 % 04/16/25 22:43 [place] % (Auto) 3.1 % 04/16/25 22:43 Eos % (Auto) 0.0 % 04/16/25 22:43 Baso % (Auto) 0.0 % 04/16/25 22:43 Neut # (Auto) 6.40 10^3/uL (1.8-7.7) 04/16/25 22:43 Lymph # (Auto) 0.1 10^3/uL (0.8-4.8) L 04/16/25 22:43 [place] # (Auto) 0.2 10^3/uL (0.2-0.9) 04/16/25 22:43 Eos # (Auto) 0.0 10^3/uL (0.0-0.8) 04/16/25 22:43 Baso # (Auto) 0.0 10^3/uL (0.0-0.1) 04/16/25 22:43 Nucleated RBC % (auto) 0 % 04/16/25 22:43 Nucleated RBCs # 0.0 /100WBC 04/16/25 22:43 Specimen Type Arterial 04/16/25 22:46 Sample Site Radial, right 04/16/25 22:46 ABG pH 7.44 (7.35-7.45) 04/16/25 22:46 ABG pCO2 31.6 mmHg (35-45) L 04/16/25 22:46 ABG pO2 61.9 mmHg (80.0-100.0) L 04/16/25 22:46 ABG HCO3 21.2 mmol/L (22-26) L 04/16/25 22:46 ABG O2 Saturation 91.5 04/16/25 22:46 ABG Base Excess -2.5 mmol/L (-2.0-2.0) L 04/16/25 22:46 [place] Test Pos 04/16/25 22:46 A-a O2 Gradient 6.3 mmHg (5-10) 04/16/25 22:46 Hematocrit 28.3 % (37-47) L 04/16/25 22:46 Hgb O2 Saturation 93.1 % (95-100) L 04/16/25 22:46 Carboxyhemoglobin < 0.3 %THgb (0.4-20.1) L 04/16/25 22:46 Methemoglobin < 0.0 % (0.4-1.5) L 04/16/25 22:46 Total Hemoglobin 9.2 g/dL (12-16) L 04/16/25 22:46 Sodium 132.0 mmol/L (131-143) 04/16/25 22:46 Potassium 4.0 mmol/L (3.5-5.0) 04/16/25 22:46 Glucose 349.0 mg/dL (70-115) H 04/16/25 22:46 Ionized Calcium 1.1 mmol/L (1.1-1.4) 04/16/25 22:46 O2 Delivery Device Room air 04/16/25 22:46 Wound Care Technician ID [email or web address] 04/16/25 22:46 Sodium 132 mmol/L (136-145) L 04/16/25 22:43 Potassium 4.4 mmol/L (3.5-5.1) 04/16/25 22:43 Chloride 94 mmol/L (98-107) L 04/16/25 22:43 Carbon Dioxide 22 mmol/L (22-29) 04/16/25 22:43 Anion Gap 20.4 (5-19) H 04/16/25 22:43 BUN 18 mg/dL (8-23) 04/16/25 22:43 Creatinine 1.1 mg/dL (0.5-0.9) H 04/16/25 22:43 GFR Calculation 49.4 mL/min (90-130) L 04/16/25 22:43 Glucose 351 mg/dL (65-115) H 04/16/25 22:43 POC Glucose 271 mg/dL (70-110) H 04/17/25 00:24 Calculated Osmolality 290 mOsm/kg (285-295) 04/16/25 22:43 Lactic Acid 3.9 mmol/L (0.5-2.2) H 04/16/25 22:43 Calcium 8.7 mg/dL (8.5-10.5) 04/16/25 22:43 Total Bilirubin 0.2 mg/dL (0.15-1.2) 04/16/25 22:43 AST 28 U/L (0-32) 04/16/25 22:43 ALT 22 U/L (0-33) 04/16/25 22:43 Alkaline Phosphatase 88 U/L (35-105) 04/16/25 22:43 Troponin T Baseline 17 ng/L (0-10) H 04/16/25 22:40 C-Reactive Protein 15.1 mg/L (0.0-4.9) H 04/16/25 22:43 Total Protein 6.9 g/dL (6.6-8.7) 04/16/25 22:43 Albumin 3.7 g/dL (3.5-5.2) 04/16/25 22:43 Globulin 3.2 g/dL (1.3-4.6) 04/16/25 22:43 Procalcitonin 16.16 ng/mL (0-0.5) H 04/16/25 22:43 Urine Color Yellow (Yellow) 04/17/25 00:17 Urine Appearance Clear (CLEAR) 04/17/25 00:17 Urine pH 7.0 (5-7) 04/17/25 00:17 Ur Specific [place] 1.018 (1.005-1.030) 04/17/25 00:17 Urine Protein Negative (Negative) 04/17/25 00:17 Urine Glucose (UA) 3+ (Normal) H 04/17/25 00:17 Urine Ketones Negative (Negative) 04/17/25 00:17 Urine Blood 2+ (Negative) A 04/17/25 00:17 Urine Nitrate Negative (Negative) 04/17/25 00:17 Urine Bilirubin Negative (Negative) 04/17/25 00:17 Urine Urobilinogen 0.2 mg/dL (Negative) 04/17/25 00:17 Ur Leukocyte Esterase Negative (Negative) 04/17/25 00:17 Urine RBC >100 /hpf (0-2) H 04/17/25 00:17 Urine WBC 0-5 /hpf (0-5) 04/17/25 00:17 Ur Squamous Epith Cells 0-5 /hpf (0-5) 04/17/25 00:17 Amorphous Sediment Not Reportable 04/17/25 00:17 Urine Bacteria None seen /hpf (NONE) 04/17/25 00:17 Hyaline Casts 0-4 /lpf H 04/17/25 00:17 Serum Ketones Negative (Negative) 04/16/25 22:43 Influenza A (PCR) Negative (Negative) 04/16/25 23:02 Influenza Type B (PCR) Negative (Negative) 04/16/25 23:02 RSV (PCR) Negative (Negative) 04/16/25 23:02 SARS-CoV-2 (PCR) Negative (Negative) 04/16/25 23:02 All radiology interpretation(s) finalized by discharge Discharge Plan Discharge Patient Disposition: Admitted As Inpatient Admit Provider: Alexy Mi Clinical Impression: Fever, Sepsis, Immunocompromised state, Hyperglycemia Condition: Stable Coding Level of Care Code ED [facility] for Pita Salgado
[2025-04-16] MEDS: sodium chloride 0.9% 1,000 ML 999 ML IV ×2 (22:47)
[2025-04-16 22:50] LABS: Hematocrit 31.8 % (36-47); Lymphocytes # 0.1 10^3/uL (0.8-4.8); Lymphocytes % 0.9 %; Mean Corpuscular HGB Conc 31.1 g/dL (30-55); Mean Corpuscular Hemoglobin 30.1 pg (27-33); Mean Corpuscular Volume 96.7 fl (85-98); Mean Platelet Volume 10.4 fL (7.4-10.4); Monocytes # 0.2 10^3/uL (0.2-0.9); Monocytes % 3.1 %; Neutrophils % 95.7 %; Nucleated Red Blood Cells % 0 %; Platelet Count 227 10^3/cmm (157-399); Red Blood Count 3.29 10^6/uL (3.85-5.65); Red Cell Distribution Width 18.1 % (12.1-15.1); White Blood Count 6.69 10^3/uL (3.29-11.43)
[2025-04-16 22:56] LABS: ABG PCO2 31.6 mmHg (35-45); ABG PH Result 7.44 (7.35-7.45); Alveolar-Arterial Oxygen Gradi 6.3 mmHg (5-10); Arterial Blood Gas Hematocrit 28.3 % (37-47); Base Excess ABG -2.5 mmol/L (-2.0-2.0); Blood Gas Allen Test Pos; Blood Gas Sample Site Radial, right; Blood Gas Sample Type Arterial; Carboxyhemoglobin < 0.3 %THgb (0.4-20.1); HCO3 ABG 21.2 mmol/L (22-26); HGB O2 Sat 93.1 % (95-100); Ionized Calcium Level - ABG 1.1 mmol/L (1.1-1.4); Methemoglobin < 0.0 % (0.4-1.5); Oxygen Device ROOM AIR; Oxygen Saturation ABG 91.5; PO2 ABG 61.9 mmHg (80.0-100.0); Total Hemoglobin 9.2 g/dL (12-16)
[2025-04-16 23:01] LABS: Ketone (Acetest) Serum Negative (Negative)
[2025-04-16 23:06] VITALS: BP 117/62; PULSE 97; RESP 18; O2SAT 95
[2025-04-16 23:10] LABS: Troponin(5th) Baseline 17 ng/L (0-10)
[2025-04-16 23:13] LABS: Alanine Aminotransferase 22 U/L (0-33); Albumin Level 3.7 g/dL (3.5-5.2); Alkaline Phosphatase 88 U/L (35-105); Anion Gap 20.4 (5-19); Aspartate Amino Transferase 28 U/L (0-32); Blood Urea Nitrogen 18 mg/dL (8-23); C Reactive Protein 15.1 mg/L (0.0-4.9); Calcium 8.7 mg/dL (8.5-10.5); Carbon Dioxide 22 mmol/L (22-29); Chloride 94 mmol/L (98-107); Creatinine Clr Calc Pharmacy 48.6045; Globulin 3.2 g/dL (1.3-4.6); Glomerular Filtration Rate 49.4 mL/min (90-130); Glucose 351 mg/dL (65-115); Lactic Sepsis W/Reflex 3.9 mmol/L (0.5-2.2); Osmolality Calculated 290 mOsm/kg (285-295); Potassium 4.4 mmol/L (3.5-5.1); Sodium 132 mmol/L (136-145); Total Bilirubin 0.2 mg/dL (0.15-1.2); Total Protein 6.9 g/dL (6.6-8.7)
[2025-04-16 23:15] VITALS: PULSE 96; RESP 20; TEMP 37.6; O2SAT 97
[2025-04-16 23:19] LABS: Procalcitonin 16.16 ng/mL (0-0.5)
[2025-04-16 23:49] LABS: Influenza A NEGATIVE (Negative); Influenza B NEGATIVE (Negative); Respiratory Syncytial Virus Ce NEGATIVE (Negative); SARS-CoV-2 PCR NEGATIVE (Negative)
--- NOTE | 2025-04-16 23:57 | XRR_ITS ---
PROCEDURE INFORMATION: Exam: XR Chest Exam date and time: 04/17/2025 12:45 AM Age: 69 years old Clinical indication: Fever TECHNIQUE: Imaging protocol: Radiologic exam of the chest. Views: 1 view. COMPARISON: CT chest abdpel w/*[id number] 12/26/2024 12:47 PM FINDINGS: Tubes, catheters and devices: Right chest wall port with the tip projecting over the superior vena cava. Lungs: Minimal interstitial opacities in the left lower lobe may represent atelectasis or developing infectious process. Pleural spaces: Unremarkable. No pleural effusion. No pneumothorax. Heart/Mediastinum: Unremarkable. No cardiomegaly. Vasculature: Aortic calcification. Bones/joints: Unremarkable. XR/XR chest 1V portable [id number] IMPRESSION: Minimal interstitial opacities in the left lower lobe may represent atelectasis or developing infectious process.
[2025-04-17] VITALS (11 sets, daily range): BP systolic 93–179; BP diastolic 57–78; PULSE 78–109; RESP 16–25; TEMP 36.5–38.1; O2SAT 93–99; BMI 33.0
[2025-04-17] MEDS: sodium chloride 0.9% 500 ML 999 ML IV (00:29)
[2025-04-17 00:30] LABS: Bilirubin Urine Negative (Negative); Blood Urine 2+ (Negative); Glucose Urine UA 3+ (Normal); Ketones Urine Negative (Negative); Leukocyte Esterase Urine Negative (Negative); Nitrate Urine Negative (Negative); Protein Urine Negative (Negative); Specific Gravity, Urine 1.018 (1.005-1.030); Urine Appearance Clear (CLEAR); Urine Color Yellow (Yellow); Urobilinogen Urine 0.2 mg/dL (Negative)
[2025-04-17 00:32] LABS: Bacteria Urine None Seen /hpf; Hyaline Casts Urine 0-4 /lpf; RBC Urine >100 /hpf (0-2); Squamous Epithelial Cell Urine 0-5 /hpf (0-5); WBC Urine 0-5 /hpf (0-5)
[2025-04-17] MEDS: cefepime 2,000 mg SDV 2000 MG IVP (00:33)
[2025-04-17 00:35] LABS: Reflex Lactate Order REFLEX LACTIC ORDERD
[2025-04-17] MEDS: linezolid premix 600 MG/300 ML PREMIX 300 MG IV (00:42)
[2025-04-17] MEDS: insulin regular-human 100 units/1 mL 12 UNIT IVP (00:44)
[2025-04-17 00:46] LABS: Glucose Point of Care 271 mg/dL (70-110)
[2025-04-17 00:55] LABS: Add Urine Culture? Yes
[2025-04-17 01:31] LABS: Glucose Point of Care 184 mg/dL (70-110)
[2025-04-17 01:52] LABS: Troponin 5 2HR 25.08 ng/L (0-10); Troponin 5 2HR Delta 8.08 ABS# (0-10)
[2025-04-17 01:56] LABS: Lactic Acid level (Lactate) 4.8 mmol/L (0.5-2.2)
--- NOTE | 2025-04-17 01:56 | ECG_ITS ---
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
--- NOTE | 2025-04-17 02:53 | PM.HP ---
Providers/Chief Complaint Admitting Physician: Alexy Mi MD Primary Care Provider: Tiffanie Fonseca NP Chief Complaint: Had Chemo\Sugar High\Fever History of Present Illness Latisha Billy is a 69 year old female was seen this morning at the oncology office and received chemotherapy cycle 2 FOLFOX which she received 2 weeks ago as well she did fine with that last course and also have this 2 years ago when she was first diagnosed with colon cancer. This evening at home she was having chills cold sensations headache and bodyaches. Her face felt hot and she took her temperature it was 102. Notably her sugar was 322 typically 80-130 but she has had high blood sugar with her chemo. States that the only possible source of infection is some ear pain left side Patient had colon cancer diagnosed 11/30/2021. She has strong family history of colon cancer so was getting colonoscopies every 5 years but with COVID was delayed 1 year on her fifth colonoscopy to 6 years and at that time she had cancer already invasive. She had M FOLFOX?6 regimen for 12 cycles 02/17/2022 to 07/20/2022 she had recurrent cancer 05/23/2023 as evidenced by abdominal and pelvic adenopathy PET scan showed retroperitoneal adenopathy posterior clavicular adenopathy and abdominal and pelvic adenopathy she was treated on FOLFIRI and Vectibix regimen 07/13/2023 until October 01, 2024. 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 Neuro no seizures strokes limb weakness Hematologic no history of blood clots Blood Juan M positive for recurrent colon cancer she had adeno CA of the colon diagnosed 11/30/2021 Medications/Allergies Home Medications ?Medication ?Instructions ?Recorded ?Confirmed ?Last Taken ?Type aspirin 81 mg tablet,delayed 81 mg PO DAILY 03/25/20 04/16/25 10/07/23 History release atorvastatin 40 mg tablet 40 mg PO DAILY 03/25/20 04/16/25 10/07/23 History metformin 1,000 mg tablet 1,000 mg PO BID 03/25/20 04/16/25 10/07/23 History fluticasone propionate 50 1 spray intranasal DAILY 03/27/20 04/16/2523 History mcg/actuation nasal spray,suspension (Flonase Allergy Relief) lisinopril 10 1 tab PO DAILY 03/27/20 04/16/25 10/07/23 History mg-hydrochlorothiazide 12.5 mg tablet allopurinol 300 mg tablet 300 mg PO DAILY 11/26/21 04/16/25 10/07/23 History calcium 500 mg (as 1 tab PO DAILY 11/26/21 04/16/25 10/07/23 History carbonate)-vitamin D3 5 mcg (200 unit) tablet (Calcium 500 + D) loratadine 10 mg tablet 10 mg PO DAILY 11/26/21 04/16/25 10/07/23 History multivitamin 1 cap PO DAILY 11/26/21 04/16/25 10/07/23 History vitB2 1.7 mg-niacin 20 mg-B6 2 1 ml sublingual DAILY 11/26/21 04/16/25 10/07/23 History mg-B12 1.2 mg/mL-dexpan sublingual liqd (B Complex) ferrous sulfate 325 mg (65 mg 325 mg PO DAILY 02/09/22 04/16/25 10/07/23 History iron) tablet (FeroSul) polyethylene glycol 3350 17 4 g PO DAILY PRN Constipation 07/20/22 04/16/25 10/04/23 History gram/dose oral powder (Miralax) glipizide 5 mg tablet 5 mg PO DAILY 03/03/23 04/16/25 10/07/23 History clindamycin phosphate 1 % lotion 1 applic topical BID #60 mL 08/10/23 04/16/25 10/07/23 Rx gabapentin 300 mg capsule 300 mg PO DAILY 08/10/23 04/16/25 10/07/23 History amiloride 5 mg tablet 5 mg PO DAILY #30 tabs 12/14/23 04/16/25 Unknown Rx doxycycline monohydrate 100 mg 100 mg PO BID 30 days #60 caps 12/14/23 04/16/25 Unknown Rx capsule magnesium glycinate 400 mg PO .nighttime 01/11/24 04/16/25 Unknown History acyclovir 400 mg tablet 400 mg PO TID #21 tabs 08/22/24 04/16/25 Unknown Rx fluconazole 100 mg tablet 100 mg PO DAILY #7 tabs 09/05/24 04/16/25 Unknown Rx diphenoxylate-atropine 2.5 1 tab PO QID PRN diarrhea #30 tabs 01/16/25 04/16/25 Unknown Rx mg-0.025 mg tablet (Lomotil) hydrocortisone 2.5 % topical cream 1 applic topical BID PRN rash #20 02/19/25 04/16/25 Unknown Rx grams doxycycline hyclate 100 mg tablet 100 mg PO BID 7 days #14 tabs 02/26/25 04/16/25 Unknown Rx ondansetron HCl 4 mg tablet 4 mg PO Q6H PRN nausea and 03/26/25 04/16/25 Unknown Rx vomiting #30 tabs prochlorperazine maleate 10 mg 10 mg PO Q6H PRN Mild Nausea #30 03/26/25 04/16/25 Unknown Rx tablet (Compazine) tabs hydrocodone 5 mg-acetaminophen 325 1 tab PO Q4H PRN pain 2 days #12 04/07/25 04/16/25 Unknown Rx mg tablet tabs lancets 31 gauge (Ultra Thin #100 ea 04/16/25 04/16/25 Unknown History Lancets) Allergies Allergy/AdvReac Type Severity Reaction Status Date / Time grass pollen Allergy ALGY-Watery Verified 04/16/25 21:57 Eye pollen extracts Allergy ALGY-Watery Verified 04/16/25 21:57 Eye tree and shrub pollen Allergy ALGY-Watery Verified 04/16/25 21:57 Eye PFSH Acute PFSH: Medical History (Updated 04/17/25 @ 03:02 by Alexy Mi MD) Colon cancer Degenerative arthritis History of gout Hypercholesterolemia Hypertension Diabetes mellitus Surgical History Status post open reduction with internal fixation (ORIF) of fracture of ankle History of partial colectomy (12/2021) robotic low anterior resection with laparoscopic resection of epiploic nodule. Port-A-Cath in place (02/11/22) H/O cervical spine surgery cervical laminectomy/discectomy History of left inguinal hernia repair History of colonoscopy History of Achilles tendon repair Family History Daughter No problems noted. Brother Dementia Mother Hyperlipidemia Father Cancer Lung cancer Other Diabetes Hypertension Denies family history of CAD (coronary artery disease) Clotting disorder Psychiatric illness Chronic kidney disease (CKD) Suicide Anesthesia complication Bleeding disorder Lung disease Stroke Social History (Updated 04/17/25 @ 03:00 by Alexy Mi MD) Smoking and tobacco/nicotine status: former use of tobacco/nicotine Quit status (tobacco/nicotine): has quit using Year quit tobacco: 1982 Former quit date comment: 10 years total use Alcohol intake: never Additional social history: She wants full code as discussed 04/17/2025 by Alexy Mi MD. Her next of kin is Sandi Carroll who is decision-maker and POA. 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 Vitals/I&O/Wt Last Vital Signs Temp 99.2 F 04/17/25 02:38 Pulse 109 H 04/17/25 02:38 Resp 16 04/17/25 02:38 BP 124/60 04/17/25 02:38 Pulse Ox 97 04/17/25 02:38 O2 Del Method Room Air 04/17/25 02:38 04/16/25 04/16/25 04/17/25 14:59 22:59 06:59 Intake Total 2800 / 2800 Balance 2800 / 2800 Weight last 48 hrs Weight 82.1 kg Weight 82.1 kg Physical Exam Narrative: General well-developed well-nourished female in no acute cardiopulmonary distress Skin is warm and dry perhaps excessively warm face with red jeffery cheeks CV regular rate and rhythm no loud murmur Lungs clear to auscultation bilaterally Abdomen positive bowel sounds soft nontender Calves trace to 1+ bilateral pretibial edema Mentation alert and oriented x 3 Data 04/16/25 22:43 04/16/25 22:43 Micro: Microbiology 04/16/25 22:40 Blood Culture - Preliminary Blood SPECIMEN COLLECTED 04/16/25 22:43 Blood Culture - Preliminary Blood SPECIMEN COLLECTED A&P Assessment and plan (1) Sepsis: Patient had hyponatremia, tachycardia and elevated lactic acid but I think the lactic acid is in part due to metformin. Continue with additional fluid bolus 1 L lactic acid to be checked 1 more time but needs to be interpreted in the setting of metformin induced lactic acidosis (2) Fever: Continue to monitor. Continue with the cefepime and change linezolid to oral blood cultures are pending. Patient is not neutropenic (3) Hyperglycemia: Initiate sliding scale insulin. Metformin will be discontinued may be best for her to remain off this while on chemotherapy (4) Colon cancer: [place] CA diagnosed November 2021 and now stage IV (5) Hypertension: Stable (6) Diabetes mellitus: Blood sugars elevated with chemo. Start sliding scale insulin. Continue glipizide. Discontinue metformin PDMP PDMP Reviewed: Not Reviewed Attestations Medical Necessity Statement*: Patient admitted to hospital with fever cannot exclude infection. She met sepsis criteria and will remain in the hospital for 2 midnights Coding Level of Care Code Acute Code for [facility] Fwd Diagnoses Sepsis A41.9 Fever R50.9 Hyperglycemia R73.9 Colon cancer C18.9 Hypertension I10 Diabetes mellitus E11.9 Time Spent (min) 70
[2025-04-17] MEDS: enoxaparin 40 mg/0.4 mL Syringe SUBCUT (03:33)
[2025-04-17] MEDS: sodium chloride 0.9% 1,000 ML 999 ML IV (03:33)
--- NOTE | 2025-04-17 04:33 | ECG_ITS ---
[facility] Date: 2025-04-17 Pat Name: Latisha Billy Department: Room: Gender: Female [employer] Continuous Process: : 1955 Requested By: Kamala Mckeon Order Number: [id number] Reading MD: Measurements Intervals [place] Rate: 92 P: 55 GA: 156 QRS: -11 QRSD: 97 T: 32 QT: 365 QTc: 452 Interpretive Statements SINUS RHYTHM LOW QRS VOLTAGE IN PRECORDIAL LEADS [QRS DEFLECTION < 1.0 mV IN CHEST LEADS] [email or web address]
[2025-04-17 04:51] LABS: Basophils % 0.2 %; Hematocrit 28.4 % (36-47); Lymphocytes # 0.1 10^3/uL (0.8-4.8); Lymphocytes % 1.3 %; Mean Corpuscular HGB Conc 30.6 g/dL (30-55); Mean Corpuscular Hemoglobin 29.9 pg (27-33); Mean Corpuscular Volume 97.6 fl (85-98); Mean Platelet Volume 10.7 fL (7.4-10.4); Monocytes # 0.2 10^3/uL (0.2-0.9); Monocytes % 4.4 %; Neutrophils # 5.07 10^3/uL (1.8-7.7); Neutrophils % 93.4 %; Nucleated Red Blood Cells % 0 %; Platelet Count 192 10^3/cmm (157-399); Red Blood Count 2.91 10^6/uL (3.85-5.65); White Blood Count 5.43 10^3/uL (3.29-11.43)
[2025-04-17 05:08] LABS: Troponin 5 6HR 27.51 ng/L (0-10); Troponin 5 6HR Delta 10.51 ng/L (0-12)
[2025-04-17 05:11] LABS: Blood Urea Nitrogen 17 mg/dL (8-23); Calcium 7.6 mg/dL (8.5-10.5); Carbon Dioxide 20 mmol/L (22-29); Chloride 102 mmol/L (98-107); Creatinine Clr Calc Pharmacy 54.1746; Glomerular Filtration Rate 55.1 mL/min (90-130); Glucose 160 mg/dL (65-115); Lactate (Lactic Acid level) 2.6 mmol/L (0.5-2.2); Osmolality Calculated 287 mOsm/kg (285-295); Sodium 136 mmol/L (136-145)
[2025-04-17 06:30] LABS: Glucose Point of Care 150 mg/dL (70-110)
--- NOTE | 2025-04-17 08:06 | CT_ITS ---
WS: [id number] CT CHEST, ABDOMEN AND PELVIS WITHOUT CONTRAST HISTORY: fever, sepsis, on chemo, source unkown, history of colon cancer. TECHNIQUE: Contiguous 5 mm axial imaging performed through the chest, abdomen and pelvis without IV contrast, oral contrast has not been provided. Coronal and sagittal reformats chest. Coronal and sagittal reformats through the abdomen and pelvis. All CT scans at [facility] use at least one of these dose optimization techniques: automated exposure control; mA and/or kV adjustment per patient size (includes targeted exams where dose is matched to clinical indication); or iterative reconstruction. CONTRAST: None DLP: 914.84 mGy.cm COMPARISON: 12/26/2024, PET/CT 03/22/[address]: Numerous bilateral pulmonary nodules have increased in size and number since 12/26/2024. Largest nodule in the LEFT lower lobe measured 9 mm on the prior examination and now measures 14 mm. No pericardial or pleural effusions. Heart size is normal. Right-sided jugular vein is noted. There are small mediastinal and hilar lymph nodes but evaluation for any change would be difficult without IV contrast. Please note on a recent PET/CT no FDG positive lymph nodes were noted in the mediastinum. Small hiatal hernia. Advanced thoracic spondylosis. Large osteophytes throughout the visualized cervical and thoracic spine. No bone destruction. Abdomen CT: Hepatic and splenic granulomata. No metastatic disease identified on this noncontrast exam. No adrenal mass. Cholelithiasis without acute cholecystitis. Unremarkable pancreas. Mild renal atrophy with no obstruction. No GI tract obstruction. Diffuse constipation but greatest involving the cecum and ascending colon and again at the rectum. Patient has known retroperitoneal lymphadenopathy which as increased in extent since 12/26/2024. PET/CT was also positive indicating progression of retroperitoneal adenopathy. Periaortic, aortocaval and precaval lymph nodes identified. Lymph nodes extend along the proximal common iliac chains. Pelvic CT: Urinary bladder is well distended. No free fluid in the pelvis. Degenerative spondylitic changes. Mild anterior wedging of L4 is unchanged. CT/[place] [id number] IMPRESSION: 1. No pneumonia. 2. Progression of metastatic pulmonary nodules since 12/26/2024. Corresponds to the PET/CT imaging from 03/22/2025. 3. Progression of retroperitoneal lymphadenopathy. Corresponds to the PET/CT f rom 03/22/2025. 4. No pneumonia. 5. No ascites. 6. Cholelithiasis without acute cholecystitis. 7. No renal obstruction.
[2025-04-17] MEDS: calcium carb-vit d 500mg-200unit 1 Tablet 1 EACH PO (09:54)
[2025-04-17] MEDS: gabapentin 300 mg Capsule PO (09:54)
[2025-04-17] MEDS: doxycycline 100 mg Tablet PO ×2 (09:54→17:35)
[2025-04-17] MEDS: atorvastatin 40 mg Tablet PO (09:54)
[2025-04-17] MEDS: allopurinol 300 mg Tablet PO (09:55)
[2025-04-17] MEDS: aspirin 81 mg EC Tablet PO (09:55)
[2025-04-17] MEDS: acyclovir 400 mg Tablet PO ×3 (09:55→21:22)
[2025-04-17] MEDS: ferrous sulfate EC 325 mg Tablet PO (09:55)
[2025-04-17] MEDS: loratadine 10 mg Tablet PO (09:55)
[2025-04-17] MEDS: VANCOMYCIN ADD-Vantage 1,000 MG in 0.9% NaCl ADD-Vantage 250 ML 250 MG IV (09:56)
[2025-04-17] MEDS: insulin lispro 100 unit/1 mL SUBCUT ×3 (10:13→21:21)
[2025-04-17] MEDS: multivitamin therapeutic Tablet 1 TAB PO (10:13)
[2025-04-17] MEDS: fluticasone nasal spray 16gm Btl 1 SPRAY INTRANASAL (10:14)
--- NOTE | 2025-04-17 10:19 | US_ITS ---
WS: [id number] RIGHT UPPER QUADRANT ULTRASOUND HISTORY: fevers, on chemo, gallstones COMPARISON: None available. Liver: 16.7 cm in length. Normal size liver and echogenicity. No bile duct dilatation or mass. Portal Vein: Normal hepatopetal flow with monophasic waveform. Gallbladder: Nondistended gallbladder with multiple stones. There is mild diffuse gallbladder wall thickening with no edema. This can be seen with hepatocellular disease. No gallbladder hydrops. CBD: 0.5 cm Pancreas: Normal size and echogenicity. Right kidney: 9.6 cm in length. Normal size and echogenicity. No hydronephrosis or mass. Aorta and IVC: Unremarkable abdominal aorta and IVC. No ascites. US/US gall bladder [id number] IMPRESSION: 1. Numerous stones within the gallbladder. Mild diffuse gallbladder wall thick ening may be chronic and related to hepatocellular disease. No wall edema or pe richolecystic fluid. 2. Normal common bile duct.
[2025-04-17 11:25] LABS: Glucose Point of Care 135 mg/dL (70-110)
[2025-04-17] MEDS: cefepime 1,000 mg SDV 1000 MG IVP (13:06)
--- NOTE | 2025-04-17 15:48 | PHA.VACGOAL ---
Vancomycin Goal - Goal Vancomycin Goal:: 15-20 mg/L Vancomycin Indication:: Other - Therapy Day of therpy:: Day []of [] . Actual body weight (kg): 185 lb 9.6 oz - Data Labs: WBC 5.43 10^3/uL (3.29-11.43) 04/17/25 04:42 RBC 2.91 10^6/uL (3.85-5.65) L 04/17/25 04:42 Hgb 8.70 g/dL (11.27-16.99) L 04/17/25 04:42 Hct 28.4 % (36-47) L 04/17/25 04:42 MCV 97.6 fl (85-98) 04/17/25 04:42 MCH 29.9 pg (27-33) 04/17/25 04:42 MCHC 30.6 g/dL (30-55) 04/17/25 04:42 RDW 18.0 % (12.1-15.1) H 04/17/25 04:42 Sodium 136 mmol/L (136-145) 04/17/25 04:42 Potassium 4.0 mmol/L (3.5-5.1) 04/17/25 04:42 Chloride 102 mmol/L (98-107) 04/17/25 04:42 Carbon Dioxide 20 mmol/L (22-29) L 04/17/25 04:42 Anion Gap 18.0 (5-19) 04/17/25 04:42 BUN 17 mg/dL (8-23) 04/17/25 04:42 Creatinine 1.0 mg/dL (0.5-0.9) H 04/17/25 04:42 GFR Calculation 55.1 mL/min (90-130) L 04/17/25 04:42 Treatment plan:: new consult Regimen:: 750 MG Q12 H
[2025-04-17 15:59] LABS: Glucose Point of Care 159 mg/dL (70-110)
--- NOTE | 2025-04-17 17:45 | P.PN_ITS ---
Subjective 2 Subjective: Patient was seen this morning, currently alert oriented x 3, following all commands, she denies any oral lesions, no rashes, does have fevers, does have chills, no abdominal pain, no diarrhea, no pain around her port site, no dysuria, hematuria, no cough, recent travel, she did receive chemotherapy yesterday, currently receiving fluorouracil via elastomeric pump Vitals/I&O/Wt Last Vital Signs Temp 97.8 F 04/17/25 16:00 Pulse 78 04/17/25 16:00 Resp 17 04/17/25 16:00 BP 93/58 04/17/25 16:00 Pulse Ox 94 04/17/25 16:00 O2 Del Method Room Air 04/17/25 16:00 04/17/25 04/17/25 04/17/25 06:59 14:59 22:59 Intake Total 4050 / 4050 600 / 600 Balance 4050 / 4050 600 / 600 Weight last 48 hrs Weight 84.187 kg Weight 82.1 kg Weight 82.1 kg Physical Exam 2 Const: COMMON NORMALS: no acute distress and patient oriented x3 Resp: COMMON NORMALS: normal respiratory effort, No retractions, No use of accessory muscles and clear to auscultation bilaterally AUSCULTATION: clear to auscultation bilaterally Cardio: COMMON NORMALS: regular rate, regular rhythm, S1 normal heart sound present and S2 normal heart sound present RATE: regular rate RHYTHM: r egular rhythm HEART SOUNDS: S1 normal heart sound present and S2 normal heart sound present GI: COMMON NORMALS: Normal to inspection, nondistended, normoactive bowel sounds present and non-tender OTHER: Has a roxana pack in place, with elastomeric pump in place Extremity: COMMON NORMALS: no calf tenderness and no pedal edema Neuro: COMMON NORMALS: patient oriented x3, CN's II-XII intact bilaterally and moves all extremities Psych: COMMON NORMALS: mental status grossly normal Data 04/17/25 04:42 04/17/25 04:42 Micro: Microbiology 04/16/25 22:40 Blood Culture - Preliminary Blood SPECIMEN COLLECTED 04/16/25 22:43 Blood Culture - Preliminary Blood SPECIMEN COLLECTED A&P Assessment and plan (1) Sepsis: (2) Fever: (3) Hyperglycemia: (4) Colon cancer: (5) Hypertension: (6) Diabetes mellitus: (7) Fever of unknown origin: (8) Immunocompromised state: Plan Fever of unknown origin - In immunocompromised patient - Colon cancer, on active chemotherapy - Patient's fluorouracil elastomeric pump has been held after discussion with oncology Plan - Follow blood cultures - Follow urine culture - CT chest abdomen pelvis - Gallbladder ultrasound -Inflammatory markers, CRP, Pro-Nikhil, acute hep panel, HIV - Continue vancomycin - Continue cefepime - Continue to his medically, acyclovir - Monitor for fevers - Follow code - Lovenox for DVT prophylaxis Type 2 diabetes mellitus, low-dose sliding scale History of colon cancer - On active chemotherapy Plan for today follow cultures, IV antibiotics PDMP PDMP Reviewed: Not Reviewed Attestations 2 Medical Necessity Statement*: Patient requires hospitalization for fever of unknown origin, and immunocompromise patient Diagnoses Sepsis A41.9 Fever R50.9 Hyperglycemia R73.9 Colon cancer C18.9 Hypertension I10 Diabetes mellitus E11.9 Fever of unknown origin R50.9 Immunocompromised state D84.9
[2025-04-17 20:40] LABS: HIV 1 & 2 Antibody Non-Reactive (Non-Reactiv); HIV 1 & 2 Antigen Non-Reactive (Non-Reactiv)
[2025-04-17 20:42] LABS: Glucose Point of Care 204 mg/dL (70-110)
[2025-04-17 20:49] LABS: Hepatitis A Antibody IgM Non-Reactive (Nonreactive); Hepatitis B Core IgM Non-Reactive (Nonreactive); Hepatitis B Surface Antigen Non-Reactive (Nonreactive); Hepatitis C Virus Antibody Non-Reactive (Nonreactive)
[2025-04-17] MEDS: VANCOMYCIN ADD-Vantage 750 MG in 0.9% NaCl ADD-Vantage 250 ML 250 MG IV (21:21)
[2025-04-18] MEDS: enoxaparin 40 mg/0.4 mL Syringe SUBCUT (01:46)
[2025-04-18] MEDS: cefepime 1,000 mg SDV 1000 MG IVP ×2 (01:46→12:46)
[2025-04-18 03:55] VITALS: BP 101/61; PULSE 72; RESP 16; TEMP 36.7; O2SAT 96
[2025-04-18 05:08] LABS: Basophils % 0.9 %; Eosinophils # 0.1 10^3/uL (0.0-0.8); Hematocrit 29.4 % (36-47); Lymphocytes # 0.3 10^3/uL (0.8-4.8); Lymphocytes % 13.8 %; Mean Corpuscular HGB Conc 30.6 g/dL (30-55); Mean Corpuscular Hemoglobin 29.5 pg (27-33); Mean Corpuscular Volume 96.4 fl (85-98); Mean Platelet Volume 11.6 fL (7.4-10.4); Monocytes # 0.1 10^3/uL (0.2-0.9); Monocytes % 4.6 %; Neutrophils # 1.61 10^3/uL (1.8-7.7); Neutrophils % 74.2 %; Nucleated Red Blood Cells % 0 %; Platelet Count 147 10^3/cmm (157-399); Red Blood Count 3.05 10^6/uL (3.85-5.65); Red Cell Distribution Width 18.2 % (12.1-15.1); White Blood Count 2.17 10^3/uL (3.29-11.43)
[2025-04-18 05:35] LABS: Procalcitonin 13.94 ng/mL (0-0.5)
[2025-04-18 05:36] LABS: Anion Gap 12.9 (5-19); Blood Urea Nitrogen 14 mg/dL (8-23); Calcium 7.9 mg/dL (8.5-10.5); Carbon Dioxide 22 mmol/L (22-29); Chloride 108 mmol/L (98-107); Creatinine Clr Calc Pharmacy 67.3906; Glomerular Filtration Rate 71.3 mL/min (90-130); Glucose 119 mg/dL (65-115); Osmolality Calculated 290 mOsm/kg (285-295); Potassium 3.9 mmol/L (3.5-5.1); Sodium 139 mmol/L (136-145)
[2025-04-18 05:37] LABS: C Reactive Protein 59.4 mg/L (0.0-4.9)
[2025-04-18 05:42] LABS: Slide Review Slide Review Perform
[2025-04-18 06:19] LABS: Glucose Point of Care 111 mg/dL (70-110)
[2025-04-18 08:00] VITALS: BP 105/69; PULSE 77; RESP 17; TEMP 36.7; O2SAT 96
[2025-04-18] MEDS: hydroCHLOROthiazide 25 mg Tablet 12.5 MG PO (08:06)
[2025-04-18] MEDS: doxycycline 100 mg Tablet PO ×2 (08:06→18:11)
[2025-04-18] MEDS: calcium carb-vit d 500mg-200unit 1 Tablet 1 EACH PO (08:06)
[2025-04-18] MEDS: acyclovir 400 mg Tablet PO ×3 (08:07→21:24)
[2025-04-18] MEDS: atorvastatin 40 mg Tablet PO (08:07)
[2025-04-18] MEDS: loratadine 10 mg Tablet PO (08:07)
[2025-04-18] MEDS: lisinopril 10 mg Tablet PO (08:07)
[2025-04-18] MEDS: allopurinol 300 mg Tablet PO (08:07)
[2025-04-18] MEDS: multivitamin therapeutic Tablet 1 TAB PO (08:07)
[2025-04-18] MEDS: gabapentin 300 mg Capsule PO (08:07)
[2025-04-18] MEDS: ferrous sulfate EC 325 mg Tablet PO (08:07)
[2025-04-18] MEDS: aspirin 81 mg EC Tablet PO (08:07)
[2025-04-18] MEDS: fluticasone nasal spray 16gm Btl 1 SPRAY INTRANASAL (08:08)
[2025-04-18] MEDS: VANCOMYCIN ADD-Vantage 750 MG in 0.9% NaCl ADD-Vantage 250 ML 250 MG IV ×2 (09:01→21:23)
[2025-04-18 12:00] VITALS: BP 98/64; PULSE 81; RESP 17; TEMP 36.4; O2SAT 96
[2025-04-18 12:16] LABS: Glucose Point of Care 143 mg/dL (70-110)
[2025-04-18] MEDS: insulin lispro 100 unit/1 mL SUBCUT ×3 (12:45→21:23)
--- NOTE | 2025-04-18 15:00 | P.PN_ITS ---
Subjective 2 Subjective: Patient was seen this morning, currently alert oriented x 3, following all commands, no fevers, chills, no cough, no abdominal pain, no diarrhea Vitals/I&O/Wt Last Vital Signs Temp 97.6 F 04/18/25 12:00 Pulse 81 04/18/25 12:00 Resp 17 04/18/25 12:00 BP 98/64 04/18/25 12:00 Pulse Ox 96 04/18/25 12:00 O2 Del Method Room Air 04/18/25 12:00 04/18/25 04/18/25 04/18/25 06:59 14:59 22:59 Intake Total 2029 880 / 880 Balance 250 2029 880 / 880 Weight last 48 hrs Weight 83.416 kg Weight 84.187 kg Weight 82.1 kg Weight 82.1 kg Physical Exam 2 Const: COMMON NORMALS: no acute distress and patient oriented x3 Resp: COMMON NORMALS: normal respiratory effort, No retractions, No use of accessory muscles and clear to auscultation bilaterally AUSCULTATION: clear to auscultation bilaterally Cardio: COMMON NORMALS: regular rate, regular rhythm, S1 normal heart sound present and S2 normal heart sound present RATE: regular rate RHYTHM: r egular rhythm HEART SOUNDS: S1 normal heart sound present and S2 normal heart sound present GI: COMMON NORMALS: Normal to inspection, nondistended, normoactive bowel sounds present and non-tender Extremity: COMMON NORMALS: no pedal edema Neuro: COMMON NORMALS: patient oriented x3 Psych: COMMON NORMALS: mental status grossly normal Data 04/18/25 04:27 04/18/25 04:27 Micro: Microbiology 04/17/25 00:17 Urine Culture - Preliminary Urine,Clean Catch 04/16/25 22:40 Blood Culture - Preliminary Blood NEGATIVE TO DATE 04/16/25 22:43 Blood Culture - Preliminary Blood NEGATIVE TO DATE A&P Assessment and plan (1) Sepsis: (2) Fever: (3) Hyperglycemia: (4) Colon cancer: (5) Hypertension: (6) Diabetes mellitus: (7) Fever of unknown origin: (8) Immunocompromised state: Plan Fever of unknown origin - In immunocompromised patient - Colon cancer, on active chemotherapy - Patient's fluorouracil elastomeric pump has been held after discussion with oncology Plan - Follow blood cultures - Follow urine culture - CT chest abdomen pelvis no acute findings - Gallbladder ultrasound US/US gall bladder [id number] IMPRESSION: 1. Numerous stones within the gallbladder. Mild diffuse gallbladder wall thickening may be chronic and related to hepatocellular disease. No wall edema or pericholecystic fluid. 2. Normal common bile duct. -No right upper quadrant pain -Inflammatory markers, CRP 59.4, Pro-Nikhil 13.94, acute hep panel within normal limits, HIV within normal limits - Continue vancomycin - Continue cefepime - Continue to his medically, acyclovir - Monitor for fevers - Follow code - Lovenox for DVT prophylaxis Type 2 diabetes mellitus, low-dose sliding scale History of colon cancer - On active chemotherapy Plan for today follow cultures, IV antibiotics PDMP PDMP Reviewed: Not Reviewed Attestations 2 Medical Necessity Statement*: Patient requires hospitalization for fever of unknown origin in immunocompromised patient Diagnoses Sepsis A41.9 Fever R50.9 Hyperglycemia R73.9 Colon cancer C18.9 Hypertension I10 Diabetes mellitus E11.9 Fever of unknown origin R50.9 Immunocompromised state D84.9
[2025-04-18 16:00] VITALS: BP 100/66; PULSE 82; RESP 16; TEMP 36.6; O2SAT 95
[2025-04-18 16:31] LABS: Glucose Point of Care 200 mg/dL (70-110)
[2025-04-18 20:59] LABS: Glucose Point of Care 143 mg/dL (70-110)
[2025-04-18 22:27] VITALS: BP 127/79; PULSE 93; RESP 17; TEMP 36.7; O2SAT 94
[2025-04-19 00:26] VITALS: BP 135/73; PULSE 88; RESP 15; TEMP 36.5; O2SAT 95
[2025-04-19] MEDS: cefepime 1,000 mg SDV 1000 MG IVP ×3 (01:00→23:44)
[2025-04-19] MEDS: enoxaparin 40 mg/0.4 mL Syringe SUBCUT (04:44)
[2025-04-19 05:32] VITALS: BP 116/67; PULSE 77; RESP 17; TEMP 36.8; O2SAT 93
[2025-04-19 05:38] LABS: Basophils % 1.2 %; Eosinophils # 0.1 10^3/uL (0.0-0.8); Eosinophils % 8.1 %; Hematocrit 29.1 % (36-47); Lymphocytes # 0.7 10^3/uL (0.8-4.8); Lymphocytes % 39.3 %; Mean Corpuscular HGB Conc 31.3 g/dL (30-55); Mean Corpuscular Hemoglobin 30.3 pg (27-33); Monocytes # 0.2 10^3/uL (0.2-0.9); Monocytes % 8.7 %; Neutrophils % 42.7 %; Nucleated Red Blood Cells % 0 %; Platelet Count 135 10^3/cmm (157-399); Red Cell Distribution Width 17.9 % (12.1-15.1); White Blood Count 1.73 10^3/uL (3.29-11.43)
[2025-04-19 06:03] LABS: Anion Gap 15.9 (5-19); Blood Urea Nitrogen 10 mg/dL (8-23); Calcium 8.6 mg/dL (8.5-10.5); Carbon Dioxide 23 mmol/L (22-29); Chloride 107 mmol/L (98-107); Creatinine Clr Calc Pharmacy 67.3906; Glomerular Filtration Rate 83.2 mL/min (90-130); Glucose 104 mg/dL (65-115); Osmolality Calculated 293 mOsm/kg (285-295); Potassium 3.9 mmol/L (3.5-5.1); Sodium 142 mmol/L (136-145)
[2025-04-19 06:04] LABS: C Reactive Protein 29.7 mg/L (0.0-4.9)
[2025-04-19 06:07] LABS: Procalcitonin 8.17 ng/mL (0-0.5)
[2025-04-19 06:40] LABS: Glucose Point of Care 118 mg/dL (70-110)
[2025-04-19 06:43] LABS: Neutrophils # 0.74 10^3/uL (1.8-7.7); Slide Review Slide Review Perform
[2025-04-19 08:32] VITALS: BP 123/88; PULSE 76; RESP 18; TEMP 36.4; O2SAT 93
[2025-04-19] MEDS: VANCOMYCIN ADD-Vantage 750 MG in 0.9% NaCl ADD-Vantage 250 ML 250 MG IV ×2 (09:50→20:34)
[2025-04-19] MEDS: multivitamin therapeutic Tablet 1 TAB PO (09:51)
[2025-04-19] MEDS: calcium carb-vit d 500mg-200unit 1 Tablet 1 EACH PO (09:51)
[2025-04-19] MEDS: ferrous sulfate EC 325 mg Tablet PO (09:51)
[2025-04-19] MEDS: allopurinol 300 mg Tablet PO (09:51)
[2025-04-19] MEDS: lisinopril 10 mg Tablet PO (09:51)
[2025-04-19] MEDS: loratadine 10 mg Tablet PO (09:51)
[2025-04-19] MEDS: gabapentin 300 mg Capsule PO (09:51)
[2025-04-19] MEDS: acyclovir 400 mg Tablet PO ×3 (09:51→20:31)
[2025-04-19] MEDS: doxycycline 100 mg Tablet PO ×2 (09:51→17:26)
[2025-04-19] MEDS: aspirin 81 mg EC Tablet PO (09:51)
[2025-04-19] MEDS: atorvastatin 40 mg Tablet PO (09:51)
[2025-04-19] MEDS: hydroCHLOROthiazide 25 mg Tablet 12.5 MG PO (09:52)
[2025-04-19] MEDS: fluticasone nasal spray 16gm Btl 1 SPRAY INTRANASAL (09:53)
[2025-04-19 10:45] LABS: Glucose Point of Care 184 mg/dL (70-110)
[2025-04-19 12:01] VITALS: BP 118/76; PULSE 77; RESP 18; TEMP 36.9; O2SAT 95
[2025-04-19] MEDS: insulin lispro 100 unit/1 mL SUBCUT ×3 (12:44→21:44)
--- NOTE | 2025-04-19 13:06 | PC.SOCIAL ---
IMM Updated Updated pt on IMM. No questions voiced. Provided pt a copy. Initialed, dated, & timed a copy & placed in chart.
[2025-04-19 16:19] LABS: Glucose Point of Care 210 mg/dL (70-110)
--- NOTE | 2025-04-19 16:34 | P.PN_ITS ---
Subjective 2 Subjective: Patient was seen this morning, currently alert oriented x 3, following all commands, denies any fevers, no chills, no cough, no nausea, no vomiting, no abdominal pain Vitals/I&O/Wt Last Vital Signs Temp 98.4 F 04/19/25 12:01 Pulse 77 04/19/25 12:01 Resp 18 04/19/25 12:01 BP 118/76 04/19/25 12:01 Pulse Ox 95 04/19/25 12:01 O2 Del Method Room Air 04/19/25 08:32 04/19/25 04/19/25 04/19/25 06:59 14:59 22:59 Intake Total 1090 / 1090 Output Total 100 / 100 Balance -1999 1090 / 1090 Weight last 48 hrs Weight 83.007 kg Weight 83.416 kg Physical Exam 2 Const: COMMON NORMALS: no acute distress and patient oriented x3 Resp: COMMON NORMALS: normal respiratory effort, No retractions, No use of accessory muscles and clear to auscultation bilaterally AUSCULTATION: clear to auscultation bilaterally Cardio: COMMON NORMALS: regular rate, regular rhythm, S1 normal heart sound present and S2 normal heart sound present RATE: regular rate RHYTHM: r egular rhythm HEART SOUNDS: S1 normal heart sound present and S2 normal heart sound present GI: COMMON NORMALS: Normal to inspection, nondistended, normoactive bowel sounds present and non-tender Extremity: COMMON NORMALS: no pedal edema Neuro: COMMON NORMALS: patient oriented x3 Psych: COMMON NORMALS: mental status grossly normal Data 04/19/25 04:45 04/19/25 04:45 Micro: Microbiology 04/17/25 00:17 Urine Culture - Final Urine,Clean Catch A&P Assessment and plan (1) Sepsis: (2) Fever: (3) Hyperglycemia: (4) Colon cancer: (5) Hypertension: (6) Diabetes mellitus: (7) Fever of unknown origin: (8) Immunocompromised state: (9) Neutropenia: Plan Fever of unknown origin - In immunocompromised patient - Colon cancer, on active chemotherapy - Patient's fluorouracil elastomeric pump has been held after discussion with oncology Plan - Follow blood cultures - Follow urine culture - CT chest abdomen pelvis no acute findings - Gallbladder ultrasound US/US gall bladder [id number] IMPRESSION: 1. Numerous stones within the gallbladder. Mild diffuse gallbladder wall thickening may be chronic and related to hepatocellular disease. No wall edema or pericholecystic fluid. 2. Normal common bile duct. -No right upper quadrant pain -Inflammatory markers, CRP 59.4, Pro-Nikhil 13.94, acute hep panel within normal limits, HIV within normal limits - Continue vancomycin - Continue cefepime - Continue to his medically, acyclovir - Monitor for fevers - Follow code - Lovenox for DVT prophylaxis Developing neutropenia, likely associate with chemotherapy - Will give 1 dose Neupogen Type 2 diabetes mellitus, low-dose sliding scale History of colon cancer - On active chemotherapy, last dose 04/17/2025 Plan for today follow cultures, IV antibiotics, 1 dose Neupogen PDMP PDMP Reviewed: Not Reviewed Attestations 2 Medical Necessity Statement*: Patient requires hospitalization for fever, neutropenia Diagnoses Sepsis A41.9 Fever R50.9 Hyperglycemia R73.9 Colon cancer C18.9 Hypertension I10 Diabetes mellitus E11.9 Fever of unknown origin R50.9 Immunocompromised state D84.9 Neutropenia D70.9
[2025-04-19 16:42] VITALS: BP 115/74; PULSE 84; RESP 19; TEMP 36.8; O2SAT 98
[2025-04-19] MEDS: filgrastim-sndz 480 mcg/0.8 mL Syringe SUBCUT (17:26)
[2025-04-19 19:46] VITALS: BP 135/83; PULSE 85; RESP 19; TEMP 36.7; O2SAT 96
[2025-04-19 21:16] LABS: Glucose Point of Care 265 mg/dL (70-110)
[2025-04-20] VITALS: BP 137/80; PULSE 87; RESP 17; TEMP 36.4; O2SAT 96
[2025-04-20 00:23] LABS: Glucose Point of Care 69 mg/dL (70-110)
[2025-04-20] MEDS: enoxaparin 40 mg/0.4 mL Syringe SUBCUT (02:58)
[2025-04-20 05:49] VITALS: BP 109/71; PULSE 81; RESP 17; TEMP 37.1; O2SAT 97
[2025-04-20 06:10] LABS: Basophils % 0.5 %; Eosinophils # 0.1 10^3/uL (0.0-0.8); Eosinophils % 2.2 %; Hematocrit 28.7 % (36-47); Lymphocytes % 35.9 %; Mean Corpuscular Hemoglobin 29.4 pg (27-33); Mean Corpuscular Volume 94.7 fl (85-98); Mean Platelet Volume 11.5 fL (7.4-10.4); Monocytes # 0.3 10^3/uL (0.2-0.9); Monocytes % 5.2 %; Neutrophils # 2.59 10^3/uL (1.8-7.7); Neutrophils % 46.5 %; Nucleated Red Blood Cells % 0 %; Platelet Count 151 10^3/cmm (157-399); Red Blood Count 3.03 10^6/uL (3.85-5.65); Red Cell Distribution Width 17.8 % (12.1-15.1); White Blood Count 5.57 10^3/uL (3.29-11.43)
[2025-04-20 06:30] LABS: Blood Urea Nitrogen 9 mg/dL (8-23); Calcium 8.8 mg/dL (8.5-10.5); Carbon Dioxide 24 mmol/L (22-29); Chloride 105 mmol/L (98-107); Creatinine Clr Calc Pharmacy 67.1589; Glomerular Filtration Rate 99.4 mL/min (90-130); Glucose 111 mg/dL (65-115); Osmolality Calculated 291 mOsm/kg (285-295); Sodium 141 mmol/L (136-145)
[2025-04-20 06:40] LABS: C Reactive Protein 13.5 mg/L (0.0-4.9); Slide Review Slide Review Perform
[2025-04-20 06:44] LABS: Glucose Point of Care 120 mg/dL (70-110)
[2025-04-20 06:46] LABS: Procalcitonin 4.33 ng/mL (0-0.5)
[2025-04-20 08:09] VITALS: BP 151/79; PULSE 91; RESP 17; TEMP 36.4; O2SAT 96
[2025-04-20] MEDS: doxycycline 100 mg Tablet PO (09:31)
[2025-04-20] MEDS: loratadine 10 mg Tablet PO (09:31)
[2025-04-20] MEDS: lisinopril 10 mg Tablet PO (09:31)
[2025-04-20] MEDS: atorvastatin 40 mg Tablet PO (09:31)
[2025-04-20] MEDS: multivitamin therapeutic Tablet 1 TAB PO (09:31)
[2025-04-20] MEDS: ferrous sulfate EC 325 mg Tablet PO (09:31)
[2025-04-20] MEDS: hydroCHLOROthiazide 25 mg Tablet 12.5 MG PO (09:31)
[2025-04-20] MEDS: calcium carb-vit d 500mg-200unit 1 Tablet 1 EACH PO (09:31)
[2025-04-20] MEDS: gabapentin 300 mg Capsule PO (09:31)
[2025-04-20] MEDS: acyclovir 400 mg Tablet PO (09:31)
[2025-04-20] MEDS: aspirin 81 mg EC Tablet PO (09:31)
[2025-04-20] MEDS: allopurinol 300 mg Tablet PO (09:31)
[2025-04-20 09:33] LABS: Vancomycin Trough 12.5 ug/mL (10-15)
[2025-04-20] MEDS: VANCOMYCIN ADD-Vantage 1,000 MG in 0.9% NaCl ADD-Vantage 250 ML 250 MG IV (10:36)
[2025-04-20 11:19] LABS: Glucose Point of Care 148 mg/dL (70-110)
--- NOTE | 2025-04-20 11:24 | P.DS_ITS ---
Discharge Providers Date of Admission: 04/17/25 01:06 Date of Discharge: April 20, 2025 Attending Provider at Admission: Alexy Mi MD Attending Provider at Discharge: Ward Gilbert MD Primary Care Provider: Tiffanie Fonseca NP Diagnoses at Discharge Discharge Diagnosis (1) Sepsis: Status: Acute (2) Fever: Status: Acute (3) Hyperglycemia: Status: Acute (4) Colon cancer: Status: Acute (5) Hypertension: Status: Acute (6) Diabetes mellitus: Status: Acute (7) Fever of unknown origin: Status: Acute (8) Immunocompromised state: Status: Acute (9) Neutropenia: Status: Acute Reason for Visit Reason for Visit: Had Chemo\Sugar High\Fever Hospital Course Hospital Course This is a 61-year-old female past medical history of colon cancer on active chemotherapy, gout, hypercholesteremia, hypertension, diabetes presents [facility] due to fevers, neutropenia Patient was admitted to [facility] for fevers, of unknown origin, with neutropenia, with history of colon cancer on active chemotherapy, she was managed as inpatient, received broad-spectrum antibiotic therapy, has remained afebrile, blood cultures so far no growth, urine culture no growth, overall clinically improving, has remained afebrile for the last 48 hours. Will be discharged on ciprofloxacin for 5 days, with close follow-up with primary care provider and oncology as outpatient For her neutropenia she did receive 1 dose of Neupogen during hospitalization She was found to have numerous gallstones on gallbladder ultrasound, there was mild diffuse gallbladder wall thickening, but no wall edema, no pericholecystic fluid, no right upper quadrant pain to palpation, LFTs, bilirubin, alk phos within normal limits. Patient was advised if she were to have any right upper quadrant abdominal pain, or nausea, or vomiting to immediately go to the emergency room. Physical Exam Const: COMMON NORMALS: no acute distress and patient oriented x3 Resp: COMMON NORMALS: normal respiratory effort, No retractions, No use of accessory muscles and clear to auscultation bilaterally AUSCULTATION: clear to auscultation bilaterally Cardio: COMMON NORMALS: regular rate, regular rhythm, S1 normal heart sound present and S2 normal heart sound present RATE: regular rate RHYTHM: regular rhythm HEART SOUNDS: S1 normal heart sound present and S2 normal heart sound present GI: COMMON NORMALS: Normal to inspection, nondistended, normoactive bowel sounds present and non-tender Extremity: COMMON NORMALS: no pedal edema Neuro: COMMON NORMALS: patient oriented x3 Psych: COMMON NORMALS: mental status grossly normal Discharge Data Studies Completed and Pending Completed Studies During Hospitalization Category Date Time Status CT chest abdomen pelvis [[place] [id number] Cat Scan 04/17/25 08:06 Completed ] Stat XR chest 1V portable [id number] Stat Exams 04/16/25 23:57 Completed US gall bladder [id number] Routine Ultrasound 04/17/25 10:19 Completed Pending at discharge Category Date Time Status Blood Culture Stat Lab 04/16/25 22:40 Results Radiology Impressions Chest X-Ray 04/16/25 23:57 IMPRESSION: Minimal interstitial opacities in the left lower lobe may represent atelectasis or developing infectious process. Chest/Abdomen/Pelvis CT 04/17/25 08:06 IMPRESSION: 1. No pneumonia. 2. Progression of metastatic pulmonary nodules since 12/26/2024. Corresponds to the PET/CT imaging from 03/22/2025. 3. Progression of retroperitoneal lymphadenopathy. Corresponds to the PET/CT from 03/22/2025. 4. No pneumonia. 5. No ascites. 6. Cholelithiasis without acute cholecystitis. 7. No renal obstruction. Gallbladder Ultrasound 04/17/25 10:19 IMPRESSION: 1. Numerous stones within the gallbladder. Mild diffuse gallbladder wall thickening may be chronic and related to hepatocellular disease. No wall edema or pericholecystic fluid. 2. Normal common bile duct. Laboratory Results WBC 5.57 10^3/uL (3.29-11.43) 04/20/25 05:47 RBC 3.03 10^6/uL (3.85-5.65) L 04/20/25 05:47 Hgb 8.90 g/dL (11.27-16.99) L 04/20/25 05:47 Hct 28.7 % (36-47) L 04/20/25 05:47 MCV 94.7 fl (85-98) 04/20/25 05:47 MCH 29.4 pg (27-33) 04/20/25 05:47 MCHC 31.0 g/dL (30-55) 04/20/25 05:47 RDW 17.8 % (12.1-15.1) H 04/20/25 05:47 Plt Count 151 10^3/cmm (157-399) L 04/20/25 05:47 MPV 11.5 fL (7.4-10.4) H 04/20/25 05:47 Neut % (Auto) 46.5 % 04/20/25 05:47 Lymph % (Auto) 35.9 % 04/20/25 05:47 [place] % (Auto) 5.2 % 04/20/25 05:47 Eos % (Auto) 2.2 % 04/20/25 05:47 Baso % (Auto) 0.5 % 04/20/25 05:47 Neut # (Auto) 2.59 10^3/uL (1.8-7.7) 04/20/25 05:47 Lymph # (Auto) 2.0 10^3/uL (0.8-4.8) 04/20/25 05:47 [place] # (Auto) 0.3 10^3/uL (0.2-0.9) 04/20/25 05:47 Eos # (Auto) 0.1 10^3/uL (0.0-0.8) 04/20/25 05:47 Baso # (Auto) 0.0 10^3/uL (0.0-0.1) 04/20/25 05:47 Nucleated RBC % (auto) 0 % 04/20/25 05:47 Nucleated RBCs # 0.0 /100WBC 04/20/25 05:47 Specimen Type Arterial 04/16/25 22:46 Sample Site Radial, right 04/16/25 22:46 ABG pH 7.44 (7.35-7.45) 04/16/25 22:46 ABG pCO2 31.6 mmHg (35-45) L 04/16/25 22:46 ABG pO2 61.9 mmHg (80.0-100.0) L 04/16/25 22:46 ABG HCO3 21.2 mmol/L (22-26) L 04/16/25 22:46 ABG O2 Saturation 91.5 04/16/25 22:46 ABG Base Excess -2.5 mmol/L (-2.0-2.0) L 04/16/25 22:46 [place] Test Pos 04/16/25 22:46 A-a O2 Gradient 6.3 mmHg (5-10) 04/16/25 22:46 Hematocrit 28.3 % (37-47) L 04/16/25 22:46 Hgb O2 Saturation 93.1 % (95-100) L 04/16/25 22:46 Carboxyhemoglobin < 0.3 %THgb (0.4-20.1) L 04/16/25 22:46 Methemoglobin < 0.0 % (0.4-1.5) L 04/16/25 22:46 Total Hemoglobin 9.2 g/dL (12-16) L 04/16/25 22:46 Sodium 132.0 mmol/L (131-143) 04/16/25 22:46 Potassium 4.0 mmol/L (3.5-5.0) 04/16/25 22:46 Glucose 349.0 mg/dL (70-115) H 04/16/25 22:46 Ionized Calcium 1.1 mmol/L (1.1-1.4) 04/16/25 22:46 O2 Delivery Device Room air 04/16/25 22:46 Returns Supervisor ID [email or web address] 04/16/25 22:46 Sodium 141 mmol/L (136-145) 04/20/25 05:47 Potassium 4.0 mmol/L (3.5-5.1) 04/20/25 05:47 Chloride 105 mmol/L (98-107) 04/20/25 05:47 Carbon Dioxide 24 mmol/L (22-29) 04/20/25 05:47 Anion Gap 16.0 (5-19) 04/20/25 05:47 BUN 9 mg/dL (8-23) 04/20/25 05:47 Creatinine 0.6 mg/dL (0.5-0.9) 04/20/25 05:47 GFR Calculation 99.4 mL/min (90-130) 04/20/25 05:47 Glucose 111 mg/dL (65-115) 04/20/25 05:47 POC Glucose 148 mg/dL (70-110) H 04/20/25 11:12 Calculated Osmolality 291 mOsm/kg (285-295) 04/20/25 05:47 Lactic Acid 3.9 mmol/L (0.5-2.2) H 04/16/25 22:43 Lactic Acid (Sepsis) 4.8 mmol/L (0.5-2.2) H* 04/17/25 01:22 Lactate 2.6 mmol/L (0.5-2.2) H 04/17/25 04:42 Calcium 8.8 mg/dL (8.5-10.5) 04/20/25 05:47 Total Bilirubin 0.2 mg/dL (0.15-1.2) 04/16/25 22:43 AST 28 U/L (0-32) 04/16/25 22:43 ALT 22 U/L (0-33) 04/16/25 22:43 Alkaline Phosphatase 88 U/L (35-105) 04/16/25 22:43 Troponin T Baseline 17 ng/L (0-10) H 04/16/25 22:40 Troponin T 120 Minute 25.08 ng/L (0-10) H 04/17/25 01:22 Delta Troponin T 8.08 ABS# (0-10) 04/17/25 01:22 Troponin T Hi Sens 6Hr 27.51 ng/L (0-10) H 04/17/25 04:42 Troponin T Hi Sens 6Hr Delta 10.51 ng/L (0-12) 04/17/25 04:42 C-Reactive Protein 13.5 mg/L (0.0-4.9) H 04/20/25 05:47 Total Protein 6.9 g/dL (6.6-8.7) 04/16/25 22:43 Albumin 3.7 g/dL (3.5-5.2) 04/16/25 22:43 Globulin 3.2 g/dL (1.3-4.6) 04/16/25 22:43 Procalcitonin 4.33 ng/mL (0-0.5) H 04/20/25 05:47 Urine Color Yellow (Yellow) 04/17/25 00:17 Urine Appearance Clear (CLEAR) 04/17/25 00:17 Urine pH 7.0 (5-7) 04/17/25 00:17 Ur Specific [place] 1.018 (1.005-1.030) 04/17/25 00:17 Urine Protein Negative (Negative) 04/17/25 00:17 Urine Glucose (UA) 3+ (Normal) H 04/17/25 00:17 Urine Ketones Negative (Negative) 04/17/25 00:17 Urine Blood 2+ (Negative) A 04/17/25 00:17 Urine Nitrate Negative (Negative) 04/17/25 00:17 Urine Bilirubin Negative (Negative) 04/17/25 00:17 Urine Urobilinogen 0.2 mg/dL (Negative) 04/17/25 00:17 Ur Leukocyte Esterase Negative (Negative) 04/17/25 00:17 Urine RBC >100 /hpf (0-2) H 04/17/25 00:17 Urine WBC 0-5 /hpf (0-5) 04/17/25 00:17 Ur Squamous Epith Cells 0-5 /hpf (0-5) 04/17/25 00:17 Amorphous Sediment Not Reportable 04/17/25 00:17 Urine Bacteria None seen /hpf (NONE) 04/17/25 00:17 Hyaline Casts 0-4 /lpf H 04/17/25 00:17 Vancomycin Trough 12.5 ug/mL (10-15) 04/20/25 09:08 Serum Ketones Negative (Negative) 04/16/25 22:43 Hepatitis A IgM Ab Non-reactive (Nonreactive) 04/17/25 04:42 Hep Bs Antigen Non-reactive (Nonreactive) 04/17/25 04:42 Hep B Core IgM Ab Non-reactive (Nonreactive) 04/17/25 04:42 Hepatitis C Antibody Non-reactive (Nonreactive) 04/17/25 04:42 HIV 1&2 Ab & HIV 1 Ag Non-reactive (Non-Reactiv) 04/17/25 04:42 HIV 1&2 Antibody Non-reactive (Non-Reactiv) 04/17/25 04:42 Influenza A (PCR) Negative (Negative) 04/16/25 23:02 Influenza Type B (PCR) Negative (Negative) 04/16/25 23:02 RSV (PCR) Negative (Negative) 04/16/25 23:02 SARS-CoV-2 (PCR) Negative (Negative) 04/16/25 23:02 Vitals Last Vital Signs Temp 97.6 F 04/20/25 08:09 Pulse 91 04/20/25 08:09 Resp 17 04/20/25 08:09 BP 151/79 04/20/25 08:09 Pulse Ox 96 04/20/25 08:09 O2 Del Method Room Air 05/31/25 08:09 Discharge Plan Discharge Patient Disposition: Home Condition: Stable Prescriptions: New ciprofloxacin HCl 500 mg tablet 500 mg PO BID 5 Days Qty: 10 0RF Continued metformin 1,000 mg tablet 1,000 mg PO BID aspirin 81 mg tablet,delayed release (DR/EC) 81 mg PO DAILY atorvastatin 40 mg tablet 40 mg PO DAILY glipizide 5 mg tablet 5 mg PO DAILY ferrous sulfate [FeroSul] 325 mg (65 mg iron) tablet 325 mg PO DAILY gabapentin 300 mg capsule 300 mg PO TID PRN (Reason: nerve pain) diphenoxylate-atropine [Lomotil] 2.5-0.025 mg tablet 1 tab PO QID PRN (Reason: diarrhea) Qty: 30 3RF hydrocodone-acetaminophen 5-325 mg tablet 1 tab PO Q4H PRN (Reason: pain) 2 Days Qty: 12 0RF polyethylene glycol 3350 [Miralax] 17 gram/dose powder 17 g PO DAILY PRN (Reason: Constipation) magnesium glycinate 100 mg magnesium capsule 400 mg PO .nighttime hydrocortisone 2.5 % cream 1 applic topical BID PRN (Reason: rash) Qty: 20 0RF Rx Instructions: Apply thin layer to affected area BID for 5 days then stop for 5 days. May repeat cycle if necessary. prochlorperazine maleate [Compazine] 10 mg tablet 10 mg PO Q6H PRN (Reason: Mild Nausea) Qty: 30 3RF ondansetron HCl 4 mg tablet 4 mg PO Q6H PRN (Reason: nausea and vomiting) Qty: 30 3RF allopurinol 300 mg tablet 300 mg PO DAILY loratadine 10 mg Tablet 10 mg PO DAILY calcium carbonate-vitamin D3 [Calcium 500 + D] 500 mg(1,250mg) -200 unit Table t 1 tab PO DAILY B Complex 1.7-20-2-1.2 mg/mL Liquid 1 ml SUBLINGUAL DAILY lisinopril-hydrochlorothiazide 10-12.5 mg tablet 1 tab PO DAILY fluticasone propionate [Flonase Allergy Relief] 50 mcg/actuation [place],Suspension 1 spray intranasal DAILY Rx Instructions: One spray each nostril multivitamin Tablet 1 tab PO QAM No Action (DME) Ultra Thin Lancets 31 gauge misc See Rx Instructions .ROUTE .MEDSUPPLY Qty: 100 Rx Instructions: As directed Discharge Orders: Discharge Order (Routine); Ordered 04/20/25 Ordered By: Ward Gilbert Referrals: Tiffanie Fonseca NP [Primary Care Provider, Nurse Practitioner] - 04/29/25 1:30 pm Discharge Diet: Cardiac Discharge Activity: Resume usual activity Patient Instructions: Ciprofloxacin (By mouth), Fever - Adult, Neutropenia (DC), Opioid Safety Activity Restrictions/Additional Instructions: - Please follow-up with Dr. Adair next week - If any fevers or chills go to the emergency room Discharge Attestations Time Spent in Discharge Care*: greater than 30 min Quality Metrics Clinical Quality Measures [ No reported AMI, CVA or VTE this stay] Coding Level of Care Code 24889 Total time (in minutes) for Discharge: 45 Diagnoses Sepsis A41.9 Fever R50.9 Hyperglycemia R73.9 Colon cancer C18.9 Hypertension I10 Diabetes mellitus E11.9 Fever of unknown origin R50.9 Immunocompromised state D84.9 Neutropenia D70.9
[2025-04-20] MEDS: insulin lispro 100 unit/1 mL SUBCUT (11:58)
[2025-04-20 12:10] VITALS: BP 139/65; PULSE 87; RESP 17; TEMP 36.7; O2SAT 95
[2025-04-20 13:48] VITALS: BP 139/65; PULSE 87; RESP 16; TEMP 36.7; O2SAT 95
--- NOTE | 2025-04-20 14:33 | PC.NURSE ---
[facility]'s pharmacy was closed. Notified patient and called prescription into [facility] in [place] at patient's request.
== END 2025-04-20 13:48 | disposition home or self-care (01) | DRG 872 ==
LOC: ER 04-17 01:30 → MEDSURG 04-17 01:46
PROVIDERS: Admitting Provider Internal Medicine; Emergency Provider Emergency Medicine; PCP Nurse Practitioner Family; Visit Provider Family Medicine
DX: A41.9 Sepsis, unspecified organism (principal); C18.9 Malignant neoplasm of colon, unspecified; C77.2 Secondary and unspecified malignant neoplasm of intra-abdominal lymph nodes; D84.821 Immunodeficiency due to drugs; E87.20 Acidosis, unspecified; E87.1 Hypo-osmolality and hyponatremia; E11.65 Type 2 diabetes mellitus with hyperglycemia; I10 Essential (primary) hypertension; T45.1X5A Adverse effect of antineoplastic and immunosuppressive drugs, initial encounter; D70.1 Agranulocytosis secondary to cancer chemotherapy; M10.9 Gout, unspecified; E78.00 Pure hypercholesterolemia, unspecified; K80.20 Calculus of gallbladder without cholecystitis without obstruction; Z79.84 Long term (current) use of oral hypoglycemic drugs; Z79.891 Long term (current) use of opiate analgesic; Z95.828 Presence of other vascular implants and grafts; Z90.49 Acquired absence of other specified parts of digestive tract; Z98.1 Arthrodesis status; Z87.891 Personal history of nicotine dependence; Z80.0 Family history of malignant neoplasm of digestive organs
CPT/HCPCS: 36415; 36416; 36600; 71045; 71250; 74176; 76705; 80048; 80051; 80053; 80074; 80202; 81001; 82009; 82330; 82805; 82962; 83605; 84145; 84484; 85025; 86140; 87040; 87086; 87637; 87806; 93005; 96365; 96372; 96375; 99285; J0692; J1650; J1815; J2020; J3370; J7030; J7040; J7050; J8499; J9999; Q5101

== ENCOUNTER 2025-04-17 09:00 | Oncology outpatient (recurring) (ONCR) | payer MEDICARE, MEDICAID, SELFPAY ==
--- NOTE | 2025-03-22 12:00 | PETR_ITS ---
PROCEDURE INFORMATION: Exam: PET/CT Skull Base to Mid-thigh Exam date and time: 03/22/2025 12:42 PM Age: 69 years old Clinical indication: Restaging of colon cancer; Prior surgery; Surgery date: 6+ months; Surgery type: Port, colon, hernia, neck. LABS AND CLINICAL REPORTS: Glucose: 112 mg/dl Treatment strategy for malignancy (PET staging): Restaging (PS) TECHNIQUE: Imaging protocol: Following at least four-hour fasting and following the injection of radiopharmaceutical, low dose CT images were obtained. Then, PET images were obtained. Attenuation corrected images were constructed using the CT scan. Fused images of PET and CT were reviewed. The standardized uptake values (SUV) reported below are maximum values within a region of interest, expressed in gm/ml. Exam includes orbital meatal line to mid-thigh. SUV normalization method: BodyWeight Radiopharmaceutical: 10.61 mCi F-18 FDG (Fluorodeoxyglucose), IV. Time of imaging post radiopharmaceutical administration: 46 minutes Injection site: RIGHT AC COMPARISON: PT PET skull to thigh SUBS [id number] 06/11/2023, CT chest abdomen pelvis 12/26/2024 FINDINGS: Tubes, catheters and devices: Port catheter placed via the right internal jugular vein terminates in the superior vena cava. Brain: Normal physiologic uptake. Pharynx: No abnormal uptake. Larynx: Diffuse symmetric bilateral uptake is likely benign. Thyroid: About 1 cm right thyroid nodule measures 14.2 SUV, previously 8.3 SUV suggestive of primary thyroid neoplasm. Lungs, pleura and trachea: Small bilateral lung nodules measuring up to 1.3 cm increased in size and number in comparison with prior exam in 2022 with the highest uptake of 6.1 SUV in the largest 1.3 cm left lower lobe nodule are suspicious for lung metastases. This latter left lower lobe nodule previously measured 1 cm on 12/26/2024. Some of the nodules are cavitary as, for example, 0.5 cm left lower lobe nodule on series 202, image 119. No pleural effusion. Heart: No abnormal uptake. There is no cardiomegaly. There is no pericardial effusion. Mediastinal space: No abnormal uptake. Stable sequela of exposure to granulomatous disease with calcified granulomas in the right paratracheal, right subcarinal and right hilar lymph nodes. Liver: No abnormal uptake. Maximum uptake is 3.5 SUV. Punctate calcified granulomas. Gallbladder and biliary ducts: No abnormal uptake. A few calcified gallstones in the gallbladder measuring up to 2.6 cm. Pancreas: No abnormal uptake. Spleen: No abnormal uptake. No splenomegaly. Multiple punctate calcified granulomas. Adrenal glands: No abnormal uptake. No nodules. Kidneys and ureters: Normal physiologic uptake. No hydronephrosis. Stomach and bowel: Increased uptake in multiple loops of small bowel and in the right colon with no corresponding CT abnormality is likely benign. Stable unremarkable anastomosis in the upper rectum. No abnormal dilatation of the bowel. Vasculature: No abnormal uptake. Lymph nodes: Retroperitoneal lymphadenopathy increased in uptake since prior exam of 2022 (from 5.92 SUV to 7.4 SUV in the pericaval nodes, from 4.1 SUV 2 7 SUV in the left para-aortic lymph nodes, from 4.8 SUV to 7 SUV in the left common iliac lymph nodes) and slightly increased in size with the largest nodes currently measuring up to 2 cm in the short axis. No FDG avid lymphadenopathy in the neck, chest, and extremities. Skeleton: No abnormal uptake suspicious for malignancy. Mildly increased linear uptake of 3 SUV in the left L5-S1 facet joint is compatible with benign degenerative finding. There is grade 1 degenerative anterolisthesis of L4 associated with significant L4-L5 facet arthropathy. Soft tissues: No abnormal uptake in the visualized head, neck, chest, abdomen, pelvis, and extremities. PET/PET skull to thigh SUBS [id number] IMPRESSION: In comparison with 06/11/2023 there is progressive disease with increased size and uptake in metastatic retroperitoneal lymphadenopathy and in small lung metastases.
[2025-03-26 08:28] LABS: Basophils % 0.6 %; Eosinophils # 0.4 10^3/uL (0.0-0.8); Eosinophils % 6.2 %; Hematocrit 33.5 % (36-47); Lymphocytes # 1.5 10^3/uL (0.8-4.8); Lymphocytes % 20.4 %; Mean Corpuscular HGB Conc 30.4 g/dL (30-55); Mean Corpuscular Hemoglobin 30.4 pg (27-33); Mean Platelet Volume 10.7 fL (7.4-10.4); Monocytes # 0.6 10^3/uL (0.2-0.9); Monocytes % 8.7 %; Neutrophils # 4.53 10^3/uL (1.8-7.7); Neutrophils % 63.8 %; Nucleated Red Blood Cells % 0 %; Platelet Count 237 10^3/cmm (157-399); Red Blood Count 3.35 10^6/uL (3.85-5.65); Red Cell Distribution Width 18.1 % (12.1-15.1)
[2025-03-26 08:56] LABS: Carcinoembryonic Antigen 180.3 ng/mL (0.0-4.7)
[2025-03-26 09:07] LABS: Alanine Aminotransferase 19 U/L (0-33); Albumin Level 3.6 g/dL (3.5-5.2); Alkaline Phosphatase 91 U/L (35-105); Anion Gap 14.8 (5-19); Aspartate Amino Transferase 19 U/L (0-32); Blood Urea Nitrogen 13 mg/dL (8-23); Calcium 8.7 mg/dL (8.5-10.5); Carbon Dioxide 26 mmol/L (22-29); Chloride 102 mmol/L (98-107); Creatinine Clr Calc Pharmacy 67.9881; Globulin 2.6 g/dL (1.3-4.6); Glomerular Filtration Rate 83.2 mL/min (90-130); Glucose 127 mg/dL (65-115); Osmolality Calculated 290 mOsm/kg (285-295); Potassium 3.8 mmol/L (3.5-5.1); Sodium 139 mmol/L (136-145); Total Bilirubin 0.2 mg/dL (0.15-1.2); Total Protein 6.2 g/dL (6.6-8.7)
[2025-04-02 08:46] LABS: Basophils # 0.1 10^3/uL (0.0-0.1); Basophils % 0.9 %; Eosinophils # 0.5 10^3/uL (0.0-0.8); Eosinophils % 7.7 %; Hematocrit 30.3 % (36-47); Lymphocytes % 17.6 %; Mean Corpuscular HGB Conc 30.7 g/dL (30-55); Mean Corpuscular Hemoglobin 29.9 pg (27-33); Mean Corpuscular Volume 97.4 fl (85-98); Mean Platelet Volume 10.4 fL (7.4-10.4); Monocytes # 0.9 10^3/uL (0.2-0.9); Monocytes % 15.8 %; Neutrophils # 3.34 10^3/uL (1.8-7.7); Neutrophils % 57.5 %; Nucleated Red Blood Cells % 0 %; Platelet Count 308 10^3/cmm (157-399); Red Blood Count 3.11 10^6/uL (3.85-5.65); Red Cell Distribution Width 17.5 % (12.1-15.1); White Blood Count 5.81 10^3/uL (3.29-11.43)
[2025-04-02 08:50] LABS: Reticulocyte % 4.1 % (0.5-2.0)
[2025-04-02 09:07] LABS: Alanine Aminotransferase 20 U/L (0-33); Albumin Level 3.4 g/dL (3.5-5.2); Alkaline Phosphatase 90 U/L (35-105); Anion Gap 15.2 (5-19); Aspartate Amino Transferase 25 U/L (0-32); Blood Urea Nitrogen 9 mg/dL (8-23); Calcium 8.8 mg/dL (8.5-10.5); Carbon Dioxide 26 mmol/L (22-29); Chloride 99 mmol/L (98-107); Creatinine Clr Calc Pharmacy 67.6026; Ferritin 495 ng/mL (15-150); Globulin 3.1 g/dL (1.3-4.6); Glomerular Filtration Rate 83.2 mL/min (90-130); Glucose 127 mg/dL (65-115); Iron 17 ug/dL (37-145); Lactate Dehydrogenase 245 U/L (135-214); Osmolality Calculated 282 mOsm/kg (285-295); Percent Saturation 7.9 % (20-50); Potassium 4.2 mmol/L (3.5-5.1); Sodium 136 mmol/L (136-145); Total Bilirubin 0.3 mg/dL (0.15-1.2); Total Iron Binding Capacity 213 mcg/dl; Total Protein 6.5 g/dL (6.6-8.7); Unsaturated Iron Binding 196 ug/dL (112-347)
[2025-04-02 09:21] LABS: Vitamin B12 599 pg/mL (232-1245)
[2025-04-02 09:45] LABS: Folate Level > 20.0 ng/mL (4.8-37.3)
[2025-04-02] MEDS: dextrose 5% 250 ML 75 ML IV (10:44)
[2025-04-02] MEDS: dexamethasone 4 mg/mL INJ 5 mL 12 MG IVP (10:44)
[2025-04-02] MEDS: palonosetron 0.25 mg/5 mL SDV IVP (10:44)
[2025-04-02] MEDS: OXALIPLATIN IV (11:08)
[2025-04-02] MEDS: DEXTROSE 5% IV (11:08)
[2025-04-02] MEDS: leucovorin 740 MG in dextrose 5% 250 ML 62.5 MG IV (11:08)
[2025-04-02] MEDS: fluorouraciL 50 mg/ml MDV 100 mL 750 MG IVP (13:26)
[2025-04-02] MEDS: fluorouraciL 4,450 MG, elastomeric pump 1 PUMP in sodium chloride 0.9% (100 ml) 3 ML IV (13:36)
[2025-04-02 13:40] VITALS: BP 126/74; TEMP 36.3
[2025-04-04 12:13] VITALS: BP 121/76; PULSE 78; RESP 18; TEMP 36.6; O2SAT 98
[2025-04-06 02:59] LABS: Methylmalonic Acid 222 nmol/L (69-390)
[2025-04-08 13:26] LABS: Intrinsic Factor Blocking AB NEGATIVE
[2025-04-16 08:25] LABS: Basophils % 0.6 %; Eosinophils # 0.3 10^3/uL (0.0-0.8); Lymphocytes # 1.8 10^3/uL (0.8-4.8); Lymphocytes % 35.5 %; Mean Corpuscular HGB Conc 30.3 g/dL (30-55); Mean Corpuscular Hemoglobin 29.6 pg (27-33); Mean Corpuscular Volume 97.6 fl (85-98); Mean Platelet Volume 10.1 fL (7.4-10.4); Monocytes # 0.5 10^3/uL (0.2-0.9); Monocytes % 10.2 %; Neutrophils # 2.37 10^3/uL (1.8-7.7); Neutrophils % 47.5 %; Nucleated Red Blood Cells % 0 %; Platelet Count 256 10^3/cmm (157-399); Red Blood Count 3.38 10^6/uL (3.85-5.65); Red Cell Distribution Width 18.2 % (12.1-15.1); White Blood Count 4.99 10^3/uL (3.29-11.43)
[2025-04-16 08:43] LABS: Alanine Aminotransferase 16 U/L (0-33); Albumin Level 3.8 g/dL (3.5-5.2); Alkaline Phosphatase 87 U/L (35-105); Anion Gap 17.1 (5-19); Aspartate Amino Transferase 20 U/L (0-32); Blood Urea Nitrogen 14 mg/dL (8-23); Calcium 9.1 mg/dL (8.5-10.5); Carbon Dioxide 26 mmol/L (22-29); Chloride 101 mmol/L (98-107); Creatinine Clr Calc Pharmacy 67.6026; Globulin 2.8 g/dL (1.3-4.6); Glomerular Filtration Rate 83.2 mL/min (90-130); Glucose 114 mg/dL (65-115); Osmolality Calculated 291 mOsm/kg (285-295); Potassium 4.1 mmol/L (3.5-5.1); Sodium 140 mmol/L (136-145); Total Bilirubin 0.3 mg/dL (0.15-1.2); Total Protein 6.6 g/dL (6.6-8.7)
[2025-04-16] MEDS: dextrose 5% 250 ML 75 ML IV (09:54)
[2025-04-16] MEDS: palonosetron 0.25 mg/5 mL SDV IVP (09:56)
[2025-04-16] MEDS: dexamethasone 4 mg/mL INJ 5 mL 12 MG IVP (10:00)
[2025-04-16] MEDS: OXALIPLATIN IV (10:40)
[2025-04-16] MEDS: leucovorin 730 MG in dextrose 5% 250 ML 62.5 MG IV (10:40)
[2025-04-16] MEDS: DEXTROSE 5% IV (10:40)
[2025-04-16] MEDS: fluorouraciL 50 mg/ml MDV 100 mL 750 MG IVP (13:10)
[2025-04-16] MEDS: fluorouraciL 4,400 MG, elastomeric pump 1 PUMP in sodium chloride 0.9% (100 ml) 4 ML IV (13:17)
[2025-04-16 13:23] VITALS: BP 124/70; PULSE 97; TEMP 36.6; O2SAT 95
== END 2025-04-20 23:59 | disposition home or self-care (01) ==
PROVIDERS: Internal Medicine; Nurse Practitioner; PCP Advanced Practice Midwife; Visit Provider Nurse Practitioner Family
DX: Z45.1 Encounter for adjustment and management of infusion pump (principal)
CPT/HCPCS: 78815; 80053; 82378; 82607; 82728; 82746; 83010; 83540; 83550; 83615; 83921; 85025; 85045; 86340; 96368; 96375; 96411; 96413; 96415; 96416; 96523; 99214; 99215; A9552; J0640; J1100; J2469; J7060; J9190; J9263

== ENCOUNTER 2025-04-30 18:18 | Inpatient (IN) | payer OTHER, MEDICAID, SELFPAY ==
[2025-04-30] VITALS (7 sets, daily range): BP systolic 103–119; BP diastolic 58–67; PULSE 73–112; RESP 16–20; TEMP 36.4–38.4; O2SAT 92–98; BMI 33.0
[2025-04-30 18:31] LABS: Glucose Point of Care 345 mg/dL (70-110)
--- NOTE | 2025-04-30 19:06 | XRR_ITS ---
PROCEDURE INFORMATION: Exam: XR Chest Exam date and time: 04/30/2025 7:21 PM Age: 69 years old Clinical indication: Fever TECHNIQUE: Imaging protocol: Radiologic exam of the chest. Views: 2 views. COMPARISON: [place] [id number] 04/17/2025 8:45 AM FINDINGS: Tubes, catheters and devices: Right-sided Port-A-Cath with tip projecting over superior vena cava. Lungs: Unremarkable. No consolidation. Pleural spaces: Unremarkable. No pleural effusion. No pneumothorax. Heart/Mediastinum: Unremarkable. No cardiomegaly. Bones/joints: Unremarkable. XR/XR chest 2V* [id number] IMPRESSION: No acute cardiopulmonary findings.
--- NOTE | 2025-04-30 19:15 | W.ED.FEVER ---
HPI - Fever General: Chief Complaint: Fever Stated Complaint: Fever Time Seen by Provider: 04/30/25 18:58 History of Present Illness: Chief complaint is fever. Patient states that about 2 weeks ago she started a new chemotherapy and that same day she developed a fever. She was in the hospital and sent home with some oral antibiotics that ended on . She states she started the chemotherapy again today at 9:00 in the morning ending at noon. She states that at about 2:00 in the afternoon she came down with a fever chills. No headache or sore throat runny nose or cough. No chest pain abdominal pain or vomiting or concerning diarrhea. No change in color of the stool. No dysuria. Related Data Home Medications ?Medication ?Instructions ?Recorded ?Confirmed aspirin 81 mg tablet,delayed 81 mg PO DAILY 03/25/20 04/30/25 release atorvastatin 40 mg tablet 40 mg PO DAILY 03/25/20 04/30/25 metformin 1,000 mg tablet 1,000 mg PO BID 03/25/20 04/30/25 fluticasone propionate 50 1 spray intranasal DAILY 03/27/20 04/30/25 mcg/actuation nasal spray,suspension (Flonase Allergy Relief) lisinopril 10 1 tab PO DAILY 03/27/20 04/30/25 mg-hydrochlorothiazide 12.5 mg tablet allopurinol 300 mg tablet 300 mg PO DAILY 11/26/21 04/30/25 calcium 500 mg (as 1 tab PO DAILY 11/26/21 04/30/25 carbonate)-vitamin D3 5 mcg (200 unit) tablet (Calcium 500 + D) loratadine 10 mg tablet 10 mg PO DAILY 11/26/21 04/30/25 vitB2 1.7 mg-niacin 20 mg-B6 2 1 ml sublingual DAILY 11/26/21 04/30/25 mg-B12 1.2 mg/mL-dexpan sublingual liqd (B Complex) ferrous sulfate 325 mg (65 mg 325 mg PO DAILY 02/09/22 04/30/25 iron) tablet (FeroSul) polyethylene glycol 3350 17 17 g PO DAILY PRN Constipation 07/20/22 04/30/25 gram/dose oral powder (Miralax) glipizide 5 mg tablet 5 mg PO DAILY 03/03/23 04/30/25 gabapentin 300 mg capsule 300 mg PO TID PRN nerve pain 08/10/23 04/30/25 magnesium glycinate 400 mg PO .nighttime 01/11/24 04/30/25 lancets 31 gauge (Ultra Thin #100 ea 04/16/25 04/30/25 Lancets) multivitamin 1 tab PO QAM 04/18/25 04/30/25 Previous Rx's ?Medication ?Instructions ?Recorded diphenoxylate-atropine 2.5 1 tab PO QID PRN diarrhea #30 tabs 01/16/25 mg-0.025 mg tablet (Lomotil) hydrocortisone 2.5 % topical cream 1 applic topical BID PRN rash #20 02/19/25 grams ondansetron HCl 4 mg tablet 4 mg PO Q6H PRN nausea and 03/26/25 vomiting #30 tabs prochlorperazine maleate 10 mg 10 mg PO Q6H PRN Mild Nausea #30 03/26/25 tablet (Compazine) tabs hydrocodone 5 mg-acetaminophen 325 1 tab PO Q4H PRN pain 2 days #12 04/07/25 mg tablet tabs Allergies Allergy/AdvReac Type Severity Reaction Status Date / Time grass pollen Allergy ALGY-Watery Verified 04/30/25 08:01 Eye pollen extracts Allergy ALGY-Watery Verified 04/30/25 08:01 Eye tree and shrub pollen Allergy ALGY-Watery Verified 04/30/25 08:01 Eye PFSH ED PFSH: Medical History Colon cancer Degenerative arthritis History of gout Hypercholesterolemia Hypertension Diabetes mellitus Surgical History Status post open reduction with internal fixation (ORIF) of fracture of ankle History of partial colectomy (12/2021) robotic low anterior resection with laparoscopic resection of epiploic nodule. Port-A-Cath in place (02/11/22) H/O cervical spine surgery cervical laminectomy/discectomy History of left inguinal hernia repair History of colonoscopy History of Achilles tendon repair Family History Daughter No problems noted. Brother Dementia Mother Hyperlipidemia Father Cancer Lung cancer Other Diabetes Hypertension Denies family history of CAD (coronary artery disease) Clotting disorder Psychiatric illness Chronic kidney disease (CKD) Suicide Anesthesia complication Bleeding disorder Lung disease Stroke Social History Smoking and tobacco/nicotine status: former use of tobacco/nicotine Quit status (tobacco/nicotine): has quit using Year quit tobacco: 1982 Former quit date comment: 10 years total use Alcohol intake: never Additional social history: She wants full code as discussed 04/17/2025 by Alexy Mi MD. Her next of kin is Sandi Carroll who is decision-maker and POA. 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 Neck is supple. Heart is mildly tachycardic but no murmurs. Lung sounds are clear. Abdomen soft nontender. No palpable organomegaly. Extremities warm well-perfused. She has multiple scratches on her legs which she states are from her cat. No erythema around them. No tenderness. Speech is clear. Neck is supple. Moist mucous membranes. No nasal congestion or drainage on exam. Normal conjunctiva. Full range ocular motion. Speech is clear. Skin is warm to the touch diffusely Course Vital Signs: Vital signs: Vital Signs Temperature 101.2 F H 04/30/25 18:25 Pulse Rate 112 H 04/30/25 18:25 Respiratory Rate 17 04/30/25 18:25 Blood Pressure 119/67 04/30/25 18:25 Pulse Oximetry 93 04/30/25 18:25 Oxygen Delivery Me thod Room Air 04/30/25 18:25 MDM - Fever Medical Decision Making Patient is alert talkative but presents with a fever on chemotherapy for what she states is metastatic colon cancer. She states she had colon cancer resected and now it spread to her lungs and lymph nodes and pelvis and other areas. She started new chemotherapy about 2 weeks ago and developed fever the same day and then started that chemo again today and developed a fever. Patient has multiple scratches on her lower legs which she states is from her kitten. She states is a 6-month-old kitten that has not been vaccinated yet but is acting normal and not sick. She denies any bites. She states her tetanus is up-to-date. She has no focal symptoms of infection by history. I ordered 1 L normal saline IV fluid bolus, CBC CMP blood cultures lactate urinalysis chest x-ray COVID influenza and RSV test and 650 mg of Tylenol p.o. for the fever. Chest x-ray negative for acute process per radiology. White count is over 12. Glucose is elevated. Lactic is elevated at 3.4. Added additional IV fluid bolus for a total of 30 cc/kg normal saline. Patient is walking in the hallway alert talkative. I ordered cefepime 1 g IV. Patient has a port and will treat in case has bacteremia. I consulted with Dr. Adair and he agrees with plan of admission for IV antibiotics pending cultures. He states the chemo should not be causing the fever. I consulted with Dr. Mi who will kindly admit and continue patient's care and evaluation. Lab Data 04/30/25 19:09 04/30/25 19:09 Radiology Impressions Chest X-Ray 04/30/25 19:06 IMPRESSION: No acute cardiopulmonary findings. Laboratory Results WBC 12.98 10^3/uL (3.29-11.43) H 04/30/25 19:09 RBC 3.15 10^6/uL (3.85-5.65) L 04/30/25 19:09 Hgb 9.40 g/dL (11.27-16.99) L 04/30/25 19:09 Hct 29.8 % (36-47) L 04/30/25 19:09 MCV 94.6 fl (85-98) 04/30/25 19:09 MCH 29.8 pg (27-33) 04/30/25 19:09 MCHC 31.5 g/dL (30-55) 04/30/25 19:09 RDW 18.9 % (12.1-15.1) H 04/30/25 19:09 Plt Count 163 10^3/cmm (157-399) 04/30/25 19:09 MPV 11.6 fL (7.4-10.4) H 04/30/25 19:09 Neut % (Auto) 94.3 % 04/30/25 19:09 Lymph % (Auto) 0.5 % 04/30/25 19:09 [place] % (Auto) 4.5 % 04/30/25 19:09 Eos % (Auto) 0.0 % 04/30/25 19:09 Baso % (Auto) 0.3 % 04/30/25 19:09 Neut # (Auto) 12.24 10^3/uL (1.8-7.7) H 04/30/25 19:09 Lymph # (Auto) 0.1 10^3/uL (0.8-4.8) L 04/30/25 19:09 [place] # (Auto) 0.6 10^3/uL (0.2-0.9) 04/30/25 19:09 Eos # (Auto) 0.0 10^3/uL (0.0-0.8) 04/30/25 19:09 Baso # (Auto) 0.0 10^3/uL (0.0-0.1) 04/30/25 19:09 Nucleated RBC % (auto) 0 % 04/30/25 19:09 Nucleated RBCs # 0.0 /100WBC 04/30/25 19:09 Sodium 130 mmol/L (136-145) L 04/30/25 19:09 Potassium 5.4 mmol/L (3.5-5.1) H 04/30/25 19:09 Chloride 95 mmol/L (98-107) L 04/30/25 19:09 Carbon Dioxide 20 mmol/L (22-29) L 04/30/25 19:09 Anion Gap 20.4 (5-19) H 04/30/25 19:09 BUN 13 mg/dL (8-23) 04/30/25 19:09 Creatinine 0.8 mg/dL (0.5-0.9) 04/30/25 19:09 GFR Calculation 71.3 mL/min (90-130) L 04/30/25 19:09 Glucose 325 mg/dL (65-115) H 04/30/25 19:09 POC Glucose 345 mg/dL (70-110) H 04/30/25 18:28 Calculated Osmolality 283 mOsm/kg (285-295) L 04/30/25 19:09 Lactic Acid 3.4 mmol/L (0.5-2.2) H 04/30/25 19:09 Calcium 8.8 mg/dL (8.5-10.5) 04/30/25 19:09 Total Bilirubin 0.2 mg/dL (0.15-1.2) 04/30/25 19:09 AST 26 U/L (0-32) 04/30/25 19:09 ALT 19 U/L (0-33) 04/30/25 19:09 Alkaline Phosphatase 88 U/L (35-105) 04/30/25 19:09 Total Protein 6.7 g/dL (6.6-8.7) 04/30/25 19:09 Albumin 3.6 g/dL (3.5-5.2) 04/30/25 19:09 Globulin 3.1 g/dL (1.3-4.6) 04/30/25 19:09 Urine Color Yellow (Yellow) 04/30/25 20:41 Urine Appearance Clear (CLEAR) 04/30/25 20:41 Urine pH 7.0 (5-7) 04/30/25 20:41 Ur Specific [place] 1.022 (1.005-1.030) 04/30/25 20:41 Urine Protein Negative (Negative) 04/30/25 20:41 Urine Glucose (UA) 1+ (Normal) H 04/30/25 20:41 Urine Ketones 1+ (Negative) H 04/30/25 20:41 Urine Blood Negative (Negative) 04/30/25 20:41 Urine Nitrate Negative (Negative) 04/30/25 20:41 Urine Bilirubin Negative (Negative) 04/30/25 20:41 Urine Urobilinogen 1.0 mg/dL (Negative) 04/30/25 20:41 Ur Leukocyte Esterase Negative (Negative) 04/30/25 20:41 Amorphous Sediment Not Reportable 04/30/25 20:41 Influenza A (PCR) Negative (Negative) 04/30/25 19:57 Influenza Type B (PCR) Negative (Negative) 04/30/25 19:57 RSV (PCR) Negative (Negative) 04/30/25 19:57 SARS-CoV-2 (PCR) Negative (Negative) 04/30/25 19:57 All radiology interpretation(s) finalized by discharge Discharge Plan Discharge Patient Disposition: Admitted As Inpatient Clinical Impression: Sepsis Condition: Stable Coding Level of Care Code ED Geriatric Social Work Professor for Pita Salgado
[2025-04-30 19:17] LABS: Basophils % 0.3 %; Hematocrit 29.8 % (36-47); Lymphocytes # 0.1 10^3/uL (0.8-4.8); Lymphocytes % 0.5 %; Mean Corpuscular HGB Conc 31.5 g/dL (30-55); Mean Corpuscular Hemoglobin 29.8 pg (27-33); Mean Corpuscular Volume 94.6 fl (85-98); Mean Platelet Volume 11.6 fL (7.4-10.4); Monocytes # 0.6 10^3/uL (0.2-0.9); Monocytes % 4.5 %; Neutrophils # 12.24 10^3/uL (1.8-7.7); Neutrophils % 94.3 %; Nucleated Red Blood Cells % 0 %; Platelet Count 163 10^3/cmm (157-399); Red Blood Count 3.15 10^6/uL (3.85-5.65); Red Cell Distribution Width 18.9 % (12.1-15.1); White Blood Count 12.98 10^3/uL (3.29-11.43)
[2025-04-30] MEDS: acetaminophen 325 mg Tablet 650 MG PO (19:26)
[2025-04-30] MEDS: sodium chloride 0.9% 1,000 ML 999 ML IV ×2 (19:27→20:33)
[2025-04-30 19:38] LABS: Alanine Aminotransferase 19 U/L (0-33); Albumin Level 3.6 g/dL (3.5-5.2); Alkaline Phosphatase 88 U/L (35-105); Anion Gap 20.4 (5-19); Aspartate Amino Transferase 26 U/L (0-32); Blood Urea Nitrogen 13 mg/dL (8-23); Calcium 8.8 mg/dL (8.5-10.5); Carbon Dioxide 20 mmol/L (22-29); Chloride 95 mmol/L (98-107); Creatinine Clr Calc Pharmacy 66.8313; Globulin 3.1 g/dL (1.3-4.6); Glomerular Filtration Rate 71.3 mL/min (90-130); Glucose 325 mg/dL (65-115); Lactic Sepsis W/Reflex 3.4 mmol/L (0.5-2.2); Osmolality Calculated 283 mOsm/kg (285-295); Potassium 5.4 mmol/L (3.5-5.1); Sodium 130 mmol/L (136-145); Total Bilirubin 0.2 mg/dL (0.15-1.2); Total Protein 6.7 g/dL (6.6-8.7)
[2025-04-30] MEDS: cefepime 1,000 mg SDV 1000 MG IVP (20:29)
[2025-04-30] MEDS: sodium chloride 0.9% 500 ML 999 ML IV (20:32)
[2025-04-30 20:35] LABS: Influenza A NEGATIVE (Negative); Influenza B NEGATIVE (Negative); Respiratory Syncytial Virus Ce NEGATIVE (Negative); SARS-CoV-2 PCR NEGATIVE (Negative)
[2025-04-30 20:50] LABS: Bilirubin Urine Negative (Negative); Blood Urine Negative (Negative); Glucose Urine UA 1+ (Normal); Ketones Urine 1+ (Negative); Leukocyte Esterase Urine Negative (Negative); Nitrate Urine Negative (Negative); Protein Urine Negative (Negative); Specific Gravity, Urine 1.022 (1.005-1.030); Urine Appearance Clear (CLEAR); Urine Color Yellow (Yellow)
[2025-04-30 20:55] LABS: Add Urine Microscopic? YES; Bacteria Urine None Seen /hpf; Hyaline Casts Urine 1.21 /lpf; Squamous Epithelial Cell Urine 0-5 /hpf (0-5); WBC Urine 0-5 /hpf (0-5)
[2025-04-30 21:03] LABS: Reflex Lactate Order REFLEX LACTIC ORDERD
[2025-04-30 21:09] LABS: UA Slide Review UA Slide Review Perf
[2025-04-30 22:24] LABS: Lactic Acid level (Lactate) 3.1 mmol/L (0.5-2.2)
--- NOTE | 2025-04-30 23:13 | PM.HP ---
Providers/Chief Complaint Admitting Physician: Alexy Mi MD Primary Care Provider: Tiffanie Fonseca NP Chief Complaint: Fever History of Present Illness Latisha Billy is a 69 year old female with history of invasive colon cancer 11/30/2021 had surgery followed by chemotherapy. Recently she has had on April 11, 2025 PET scan progressive disease with increased size and uptake in the metastatic retroperitoneal lymphadenopathy and lung metastatic tissue she was started on FOLFOX April 02, 2025 and was admitted on 04/16-04/20 with fevers thought to be sepsis though blood cultures were negative. She was sent home on oral ciprofloxacin and generally felt much improved except for mild fatigue. She reports her weight has been down and she has been trying to lose weight with effort not necessarily losing weight from cancer. She had not had fevers or night sweats until today's chemotherapy. Notably she felt fine with the first chemotherapy came in with fevers despite normal white count for second chemotherapy infusion and today her third chemotherapy infusion for FOLFOX she had chemo at noon felt fine visited her granddaughter who lives behind the hospital developed headaches and felt shaky with blood sugar 308 shortly thereafter while she was at home. She did not have chills or bodyaches at that time took her temperature and it was 98 couple hours later was 100.3 and she was told by RN that it was greater than 100.4 she is to go to the ER. She waited another hour took temperature was 101.3 so her son brought her to the hospital. She states she feels fine except for low energy. She denies at this time headaches chills or body ache. She has been sleeping 3 naps a day but no inkling of infection or being sick prior to the chemotherapy given today Review of Systems Narrative: General Positive for fevers today she has had weight loss with effort Cardiovascular no chest pain palpitations edema Respiratory positive for dry cough and sore throat somewhat chronically GI no nausea or vomiting she has had 2 softer loose stools a day but not diarrhea and it does not muddy the water no dysuria hematuria or frequency Skin no rash Muscles no joint pain other than sciatica which is chronic Medications/Allergies Home Medications ?Medication ?Instructions ?Recorded ?Confirmed ?Last Taken ?Type aspirin 81 mg tablet,delayed 81 mg PO DAILY 03/25/20 04/30/25 04/17/25 History release atorvastatin 40 mg tablet 40 mg PO DAILY 03/25/20 04/30/25 04/17/25 History metformin 1,000 mg tablet 1,000 mg PO BID 03/25/20 04/30/25 04/17/25 History fluticasone propionate 50 1 spray intranasal DAILY 03/27/20 04/30/25 04/17/25 History mcg/actuation nasal spray,suspension (Flonase Allergy Relief) lisinopril 10 1 tab PO DAILY 03/27/20 04/30/25 04/17/25 History mg-hydrochlorothiazide 12.5 mg tablet allopurinol 300 mg tablet 300 mg PO DAILY 11/26/21 04/30/25 04/17/25 History calcium 500 mg (as 1 tab PO DAILY 11/26/21 04/30/25 04/17/25 History carbonate)-vitamin D3 5 mcg (200 unit) tablet (Calcium 500 + D) loratadine 10 mg tablet 10 mg PO DAILY 11/26/21 04/30/25 04/17/25 History vitB2 1.7 mg-niacin 20 mg-B6 2 1 ml sublingual DAILY 11/26/21 04/30/25 04/17/25 History mg-B12 1.2 mg/mL-dexpan sublingual liqd (B Complex) ferrous sulfate 325 mg (65 mg 325 mg PO DAILY 02/09/22 04/30/25 04/17/25 History iron) tablet (FeroSul) polyethylene glycol 3350 17 17 g PO DAILY PRN Constipation 07/20/22 04/30/25 10/04/23 History gram/dose oral powder (Miralax) glipizide 5 mg tablet 5 mg PO DAILY 03/03/23 04/30/25 04/17/25 History gabapentin 300 mg capsule 300 mg PO TID PRN nerve pain 08/10/23 04/30/25 10/07/23 History magnesium glycinate 400 mg PO .nighttime 01/11/24 04/30/25 04/16/25 History diphenoxylate-atropine 2.5 1 tab PO QID PRN diarrhea #30 tabs 01/16/25 04/30/25 Unknown Rx mg-0.025 mg tablet (Lomotil) hydrocortisone 2.5 % topical cream 1 applic topical BID PRN rash #20 02/19/25 04/30/25 Unknown Rx grams ondansetron HCl 4 mg tablet 4 mg PO Q6H PRN nausea and 03/26/25 04/30/25 Unknown Rx vomiting #30 tabs prochlorperazine maleate 10 mg 10 mg PO Q6H PRN Mild Nausea #30 03/26/25 04/30/25 Unknown Rx tablet (Compazine) tabs hydrocodone 5 mg-acetaminophen 325 1 tab PO Q4H PRN pain 2 days #12 04/07/25 04/30/25 Unknown Rx mg tablet tabs lancets 31 gauge (Ultra Thin #100 ea 04/16/25 04/30/25 Unknown History Lancets) multivitamin 1 tab PO QAM 04/18/25 04/30/25 04/17/25 History Allergies Allergy/AdvReac Type Severity Reaction Status Date / Time grass pollen Allergy ALGY-Watery Verified 04/30/25 08:01 Eye pollen extracts Allergy ALGY-Watery Verified 04/30/25 08:01 Eye tree and shrub pollen Allergy ALGY-Watery Verified 04/30/25 08:01 Eye PFSH Acute PFSH: Medical History Colon cancer Degenerative arthritis History of gout Hypercholesterolemia Hypertension Diabetes mellitus Surgical History Status post open reduction with internal fixation (ORIF) of fracture of ankle History of partial colectomy (12/2021) robotic low anterior resection with laparoscopic resection of epiploic nodule. Port-A-Cath in place (02/11/22) H/O cervical spine surgery cervical laminectomy/discectomy History of left inguinal hernia repair History of colonoscopy History of Achilles tendon repair Family History Daughter No problems noted. Brother Dementia Mother Hyperlipidemia Father Cancer Lung cancer Other Diabetes Hypertension Denies family history of CAD (coronary artery disease) Clotting disorder Psychiatric illness Chronic kidney disease (CKD) Suicide Anesthesia complication Bleeding disorder Lung disease Stroke Social History (Updated 04/30/25 @ 23:26 by Alexy Mi MD) Smoking and tobacco/nicotine status: former use of tobacco/nicotine Quit status (tobacco/nicotine): has quit using Year quit tobacco: 1982 Former quit date comment: 10 years total use Alcohol intake: never Additional social history: She wants full code as discussed 04/17/2025 by Alexy Mi MD. Her next of kin is Sandi Carroll who is decision-maker and POA. Her house is in [place] far away so she is staying with her son who lives 14 miles away in [place] patient drives herself to chemo Confirmed again on 04/30/2025 she would like full code. 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 the [employer] Household members: children Marital status: / Current occupational status: disabled Previous occupational history: She worked in a [employer] disabled after neck surgery and back pain Vitals/I&O/Wt Last Vital Signs Temp 97.7 F 04/30/25 21:41 Pulse 79 04/30/25 22:15 Resp 20 H 04/30/25 21:21 BP 103/58 04/30/25 22:15 Pulse Ox 92 04/30/25 22:15 O2 Del Method Room Air 04/30/25 21:21 04/30/25 04/30/25 05/01/25 14:59 22:59 06:59 Intake Total 2500 / 2500 Balance 2500 / 2500 Weight last 48 hrs Weight 82.1 kg Physical Exam Narrative: General Well-developed well-nourished obese female in no acute cardiopulmonary distress CV regular rate and rhythm Lungs clear to auscultation bilaterally Abdomen positive bowel sounds soft nontender Calves no tenderness cords pretrip edema Neck no adenopathy Axilla no adenopathy Skin warm and dry Oropharynx Mallampati 2 no thrush Her right upper chest medical port no fluctuance it is currently accessed no evidence of pus Data 04/30/25 19:09 04/30/25 19:09 Micro: Microbiology 04/30/25 19:37 Blood Culture - Preliminary Blood SPECIMEN COLLECTED 04/30/25 19:32 Blood Culture - Preliminary Blood SPECIMEN COLLECTED A&P Assessment and plan (1) Sepsis: Patient is having fever lactic acidosis and tachycardia consistent with sepsis arising just 5 hours after her chemotherapy. Similar to last admission 04/17 with the symptoms occurring right after chemotherapy then as well. Cultures were negative. I think the patient may be having a febrile reaction to the chemo itself although that is not unknown common effect of this chemo regimen per report from Dr. Adair. Patient is admitted and received sepsis bolus as well as cefepime. Will continue cefepime for now pending blood cultures. Patient has additional chemotherapy treatments coming up and will need to be aware that this may be a recurring response to her chemo (2) Diabetes mellitus: Start sliding scale insulin and diabetic diet (3) Malignant neoplasm of sigmoid colon: Receiving chemotherapy for metastatic disease PDMP PDMP Reviewed: Not Reviewed Attestations Medical Necessity Statement*: Patient remained in the hospital for anticipated 2 midnights for febrile illness and sepsis Coding Level of Care Code Acute Code for [facility] Fwd Diagnoses Sepsis A41.9 Diabetes mellitus E11.9 Malignant neoplasm of sigmoid colon C18.7 Time Spent (min) 70
[2025-04-30] MEDS: sodium chloride 0.9% 1,000 ML 75 ML IV (23:40)
[2025-05-01 00:05] LABS: Blood Urea Nitrogen 14 mg/dL (8-23); Carbon Dioxide 19 mmol/L (22-29); Chloride 101 mmol/L (98-107); Creatinine Clr Calc Pharmacy 66.8313; Glomerular Filtration Rate 71.3 mL/min (90-130); Glucose 234 mg/dL (65-115); Osmolality Calculated 280 mOsm/kg (285-295); Sodium 131 mmol/L (136-145)
[2025-05-01 00:06] LABS: Lactic Sepsis W/Reflex 2.6 mmol/L (0.5-2.2)
[2025-05-01 00:21] VITALS: O2SAT 92
[2025-05-01 00:24] VITALS: BMI 33.0
[2025-05-01 01:33] LABS: Reflex Lactate Order REFLEX LACTIC ORDERD
[2025-05-01 02:40] LABS: Lactic Acid level (Lactate) 1.6 mmol/L (0.5-2.2)
[2025-05-01 04:13] VITALS: BP 110/62; PULSE 65; RESP 16; TEMP 36.9; O2SAT 96
[2025-05-01 05:38] LABS: Basophils % 0.2 %; Hematocrit 28.6 % (36-47); Lymphocytes # 0.2 10^3/uL (0.8-4.8); Lymphocytes % 1.7 %; Mean Corpuscular HGB Conc 30.1 g/dL (30-55); Mean Corpuscular Hemoglobin 29.4 pg (27-33); Mean Corpuscular Volume 97.6 fl (85-98); Mean Platelet Volume 12.2 fL (7.4-10.4); Monocytes # 0.5 10^3/uL (0.2-0.9); Monocytes % 4.9 %; Neutrophils # 8.89 10^3/uL (1.8-7.7); Neutrophils % 92.5 %; Nucleated Red Blood Cells % 0 %; Platelet Count 129 10^3/cmm (157-399); Red Blood Count 2.93 10^6/uL (3.85-5.65); Red Cell Distribution Width 18.8 % (12.1-15.1); White Blood Count 9.61 10^3/uL (3.29-11.43)
[2025-05-01 06:11] LABS: Estmated Average Glucose 134; Hemoglobin A1C 6.3 % (4.0-6.0)
[2025-05-01 07:54] VITALS: BP 98/60; PULSE 77; RESP 18; TEMP 37.1; O2SAT 96
[2025-05-01] MEDS: enoxaparin 40 mg/0.4 mL Syringe SUBCUT (08:49)
[2025-05-01] MEDS: cefepime 1,000 mg SDV 1000 MG IVP ×2 (08:50→21:22)
--- NOTE | 2025-05-01 09:46 | PC.CHAP ---
Pastoral Care Encounter/Spiritual Assessment Type of Contact [] Declined medicaid billing clerk visit [] Patient/Family/Request visit [] Outpatient visit [] Follow-up visit [] Physician referral [] Code/Alert [] Routine visit [] Staff referral [] Actively dying [] Patient sleeping [] Family support [] [] Out of room [] Palliative care [] [] Receiving care in room [] Pre-surgical visit [] Trauma [] Long length of stay [] ICU visit [x] Other:Contact precautions. No visit. Relational/Emotional Strength [] Patient feels connected with others/family/visitors/staff [] Distress [] Loneliness/isolation [] Abandonment Spirituality of Patient [] Person of Anupama [] Attends Bahai of their Anupama [] Believes in Prayer [] Reads Bible or Faith materials [] There are Spiritual issues to be addressed Digester Operator Interventions [] Prayer [] Active listening [] Non-anxious presence [] Spiritual/emotional support [] Crisis/trauma care [] Spiritual counseling [] Bereavement support [] Provided bereavement packet [] Provided Bible/devotional materials [] Provided toy/stuffed animal, coloring book to patient or family member [] Provided Communion [] Anointing/[place] [] Salvation [] Completed spiritual assessment [] Other: Impact on Illness or Injury [] Angry [] Fearful [] Anxious [] Often cries [] Exhaustion [] Unable to work [] Unable to attend roman catholic [] Unable to walk/stand [] Unable to read [] Unable to drive [] Unable to eat/drink [] Unable to sleep [] Unable to be with family [] Patient intubated [] Other: Summary Time spent with patient
[2025-05-01 10:07] LABS: Procalcitonin 10.69 ng/mL (0-0.5); Vitamin B12 851 pg/mL (232-1245)
[2025-05-01] MEDS: VANCOMYCIN ADD-Vantage 1,000 MG in 0.9% NaCl ADD-Vantage 250 ML 250 MG IV (10:49)
[2025-05-01] MEDS: sodium chloride 0.9% 1,000 ML 75 ML IV (10:50)
--- NOTE | 2025-05-01 10:59 | P.PN_ITS ---
Subjective 2 Subjective: Admitted overnight. H&P labs appreciated. Patient has not had a fever since admission. Denies any nausea, vomiting, headache, diarrhea, dysuria, abdominal pain. States she is feeling a lot better. Vitals/I&O/Wt Last Vital Signs Temp 98.7 F 05/01/25 07:54 Pulse 77 05/01/25 07:54 Resp 18 05/01/25 07:54 BP 98/60 05/01/25 07:54 Pulse Ox 96 05/01/25 07:54 O2 Del Method Room Air 05/01/25 07:54 04/30/25 05/01/25 05/01/25 22:59 06:59 14:59 Intake Total 2500 / 2500 1317.5 / 1317.5 Balance 2500 / 2500 1317.5 / 1317.5 Weight last 48 hrs Weight 82.1 kg Weight 82.1 kg Weight 82.1 kg Weight 82.1 kg Physical Exam 2 Narrative: General Well-developed well-nourished obese female in no acute cardiopulmonary distress CV regular rate and rhythm Lungs clear to auscultation bilaterally Abdomen positive bowel sounds soft nontender Calves no tenderness cords pretrip edema Neck no adenopathy Axilla no adenopathy Skin warm and dry Oropharynx Mallampati 2 no thrush Her right upper chest medical port no fluctuance it is currently accessed no evidence of pus Data 05/01/25 04:58 04/30/25 23:23 Micro: Microbiology 04/30/25 19:37 Blood Culture - Preliminary Blood SPECIMEN COLLECTED 04/30/25 19:32 Blood Culture - Preliminary Blood SPECIMEN COLLECTED A&P Assessment and plan (1) Sepsis: Patient is having fever lactic acidosis and tachycardia consistent with sepsis arising just 5 hours after her chemotherapy. Similar to last admission 04/17 with the symptoms occurring right after chemotherapy then as well. Cultures were negative. I think the patient may be having a febrile reaction to the chemo itself although that is not unknown common effect of this chemo regimen per report from Dr. Adair. Patient is admitted and received sepsis bolus as well as cefepime. Will continue cefepime for now pending blood cultures. Patient has additional chemotherapy treatments coming up and will need to be aware that this may be a recurring response to her chemo (2) Diabetes mellitus: Start sliding scale insulin and diabetic diet (3) Malignant neoplasm of sigmoid colon: Receiving chemotherapy for metastatic disease (4) Immunocompromised state: (5) Iron deficiency anemia: Plan Plan for the day: Insetting of fever in a patient who is on chemotherapy for colon cancer for now we will continue with IV antibiotics. Will follow-up blood cultures. If blood cultures are negative for 48 hours and patient remains afebrile can discontinue antibiotics. Check MRSA swab, respiratory viral panel. Follow blood cultures. Check urine bacterial antigen. Continue with IV cefepime for now. Add vancomycin. If MRSA swab negative will discontinue vancomycin. DC IV fluids. Restart home medications of allopurinol, aspirin, statin, gabapentin. Monitor blood pressures. Goal blood pressure less than 140/90 MAG. Hold off on antihypertensive for now. Insulin sliding scale. Check A1c, lipid panel. Full code Carb consistent diet Lovenox for DVT prophylaxis Famotidine for PUD prophylaxis PDMP PDMP Reviewed: Not Reviewed Attestations 2 Medical Necessity Statement*: Requires further hospitalization for evaluation of fever with concerns for sepsis in a patient who is immunocompromise for chemotherapy Diagnoses Sepsis A41.9 Diabetes mellitus E11.9 Malignant neoplasm of sigmoid colon C18.7 Immunocompromised state D84.9 Iron deficiency anemia D50.9
[2025-05-01 11:12] LABS: Glucose Point of Care 161 mg/dL (70-110)
[2025-05-01 11:50] VITALS: BP 117/75; PULSE 61; RESP 18; TEMP 36.4; O2SAT 98
[2025-05-01] MEDS: insulin lispro 100 unit/1 mL SUBCUT ×3 (11:59→21:22)
--- NOTE | 2025-05-01 12:21 | PHA.VACGOAL ---
Vancomycin Goal - Goal Vancomycin Goal:: 15-20 mg/L Vancomycin Indication:: Other (SEPSIS) - Therapy Current therapy:: Cefepime Day of therpy:: Day [1]of [] . Actual body weight (kg): 82.1 kg - Data Labs: WBC 9.61 10^3/uL (3.29-11.43) 05/01/25 04:58 RBC 2.93 10^6/uL (3.85-5.65) L 05/01/25 04:58 Hgb 8.60 g/dL (11.27-16.99) L 05/01/25 04:58 Hct 28.6 % (36-47) L 05/01/25 04:58 MCV 97.6 fl (85-98) 05/01/25 04:58 MCH 29.4 pg (27-33) 05/01/25 04:58 MCHC 30.1 g/dL (30-55) 05/01/25 04:58 RDW 18.8 % (12.1-15.1) H 05/01/25 04:58 Sodium 131 mmol/L (136-145) L 04/30/25 23:23 Potassium 5.0 mmol/L (3.5-5.1) 04/30/25 23:23 Chloride 101 mmol/L (98-107) 04/30/25 23:23 Carbon Dioxide 19 mmol/L (22-29) L 04/30/25 23:23 Anion Gap 16.0 (5-19) 04/30/25 23:23 BUN 14 mg/dL (8-23) 04/30/25 23:23 Creatinine 0.8 mg/dL (0.5-0.9) 04/30/25 23:23 GFR Calculation 71.3 mL/min (90-130) L 04/30/25 23:23 Treatment plan:: new consult Regimen:: New start vancomycin for sepsis. Prior history of vancomycin found trough of 12.5 mg/L obtained on dose of 750 mg q12h. Baseline Scr of 0.6-0.8 mg/dL. Started on maintenance dose of 1000 mg q12h.
[2025-05-01 12:31] LABS: MRSA PCR OZH (swab) NOT DETECTED (Not Detecte)
[2025-05-01 13:11] LABS: Adenovirus Not Detected (NOT DETECT); Chlamydia Pneumoniae Not Detected (NOT DETECT); Coronavirus 229E,HKU1,NL63,OC4 Not Detected (NOT DETECT); Human Metapneumovirus Not Detected (NOT DETECT); Human Rhinovirus/Enterovirus Not Detected (NOT DETECT); Influenza A Not Detected (NOT DETECT); Influenza A H1 Not Detected (NOT DETECT); Influenza A H1-2009 Not Detected (NOT DETECT); Influenza A H3 Not Detected (NOT DETECT); Influenza B Not Detected (NOT DETECT); Mycoplasma Pneumoniae Not Detected (NOT DETECT); Parainfluenza Virus Type 1 Not Detected (NOT DETECT); Parainfluenza Virus Type 2 Not Detected (NOT DETECT); Parainfluenza Virus Type 3 Not Detected (NOT DETECT); Parainfluenza Virus Type 4 Not Detected (NOT DETECT); Respiratory Syncytial Virus A Not Detected (NOT DETECT); Respiratory Syncytial Virus B Not Detected (NOT DETECT); SARS-COV-2 Not Detected (NOT DETECT)
[2025-05-01 15:52] VITALS: BP 112/62; PULSE 65; RESP 16; TEMP 36.7; O2SAT 95
[2025-05-01 16:22] LABS: Glucose Point of Care 204 mg/dL (70-110)
[2025-05-01] MEDS: atorvastatin 40 mg Tablet PO (17:45)
[2025-05-01 20:00] VITALS: BP 110/63; PULSE 63; RESP 16; TEMP 36.9; O2SAT 97
[2025-05-01 20:47] LABS: Glucose Point of Care 151 mg/dL (70-110)
[2025-05-02] VITALS: BP 118/70; PULSE 62; RESP 16; TEMP 36.7; O2SAT 97
--- NOTE | 2025-05-02 01:42 | PC.NURSE ---
Assumed pt care at this time.
[2025-05-02 04:00] VITALS: BP 107/67; PULSE 70; RESP 16; TEMP 36.4; O2SAT 94
[2025-05-02 05:49] LABS: Basophils % 0.8 %; Eosinophils # 0.1 10^3/uL (0.0-0.8); Eosinophils % 1.3 %; Hematocrit 27.1 % (36-47); Lymphocytes % 25.3 %; Mean Corpuscular Hemoglobin 30.1 pg (27-33); Mean Corpuscular Volume 97.1 fl (85-98); Mean Platelet Volume 12.4 fL (7.4-10.4); Monocytes # 0.3 10^3/uL (0.2-0.9); Monocytes % 6.5 %; Neutrophils % 65.3 %; Nucleated Red Blood Cells % 0 %; Platelet Count 135 10^3/cmm (157-399); Red Blood Count 2.79 10^6/uL (3.85-5.65); White Blood Count 3.83 10^3/uL (3.29-11.43)
[2025-05-02 06:10] LABS: Alanine Aminotransferase 20 U/L (0-33); Albumin Level 3.2 g/dL (3.5-5.2); Alkaline Phosphatase 68 U/L (35-105); Anion Gap 15.1 (5-19); Aspartate Amino Transferase 27 U/L (0-32); Blood Urea Nitrogen 13 mg/dL (8-23); Calcium 8.2 mg/dL (8.5-10.5); Carbon Dioxide 23 mmol/L (22-29); Chloride 107 mmol/L (98-107); Creatinine Clr Calc Pharmacy 60.2769; Globulin 2.8 g/dL (1.3-4.6); Glomerular Filtration Rate 83.2 mL/min (90-130); Glucose 111 mg/dL (65-115); Osmolality Calculated 293 mOsm/kg (285-295); Potassium 4.1 mmol/L (3.5-5.1); Sodium 141 mmol/L (136-145); Total Bilirubin 0.3 mg/dL (0.15-1.2)
[2025-05-02 06:17] LABS: Magnesium 1.8 mg/dL (1.7-2.3)
[2025-05-02 06:18] LABS: Glucose Point of Care 108 mg/dL (70-110)
[2025-05-02 06:38] LABS: Folate Level > 20.0 ng/mL (4.8-37.3)
[2025-05-02 07:29] VITALS: BP 118/68; PULSE 63; RESP 17; TEMP 36.6; O2SAT 95
[2025-05-02] MEDS: aspirin 81 mg EC Tablet PO (07:45)
[2025-05-02] MEDS: enoxaparin 40 mg/0.4 mL Syringe SUBCUT (07:45)
[2025-05-02] MEDS: cefepime 1,000 mg SDV 1000 MG IVP (07:45)
[2025-05-02] MEDS: ferrous sulfate EC 325 mg Tablet PO (07:45)
[2025-05-02] MEDS: allopurinol 300 mg Tablet PO (07:45)
--- NOTE | 2025-05-02 08:04 | PM.DCS ---
Discharge Providers Date of Admission: 04/30/25 20:48 Date of Discharge: May 02, 2025 Attending Provider at Admission: Alexy Mi MD Attending Provider at Discharge: Grabiel Mace MD Primary Care Provider: Tiffanie Fonseca NP Diagnoses at Discharge Discharge Diagnosis (1) Sepsis: Status: Acute (2) Diabetes mellitus: Status: Acute (3) Malignant neoplasm of sigmoid colon: Status: Acute Permanent problem details: Stage IIIC - T4a, N2b, M0 (4) Immunocompromised state: Status: Acute (5) Iron deficiency anemia: Status: Acute Reason for Visit Reason for Visit: Fever Brief History: History as per HPI: Latisha Billy is a 69 year old female with history of invasive colon cancer 11/30/2021 had surgery followed by chemotherapy. Recently she has had on April 11, 2025 PET scan progressive disease with increased size and uptake in the metastatic retroperitoneal lymphadenopathy and lung metastatic tissue she was started on FOLFOX April 02, 2025 and was admitted on 04/16-04/20 with fevers thought to be sepsis though blood cultures were negative. She was sent home on oral ciprofloxacin and generally felt much improved except for mild fatigue. She reports her weight has been down and she has been trying to lose weight with effort not necessarily losing weight from cancer. She had not had fevers or night sweats until today's chemotherapy. Notably she felt fine with the first chemotherapy came in with fevers despite normal white count for second chemotherapy infusion and today her third chemotherapy infusion for FOLFOX she had chemo at noon felt fine visited her granddaughter who lives behind the hospital developed headaches and felt shaky with blood sugar 308 shortly thereafter while she was at home. She did not have chills or bodyaches at that time took her temperature and it was 98 couple hours later was 100.3 and she was told by RN that it was greater than 100.4 she is to go to the ER. She waited another hour took temperature was 101.3 so her son brought her to the hospital. She states she feels fine except for low energy. She denies at this time headaches chills or body ache. She has been sleeping 3 naps a day but no inkling of infection or being sick prior to the chemotherapy given today Hospital Course Hospital Course Patient was admitted to the hospital further evaluation and management of febrile episode postchemotherapy. Given concerns for immunocompromise status she was admitted to the hospital on broad-spectrum IV antibiotics. During hospitalization she remained afebrile, hemodynamically stable. Her cultures remain negative. Her UA and chest x-ray were negative for infectious source. CT studies were negative for infectious source. It is possible patient's recurrent fever postchemotherapy is in setting of her reaction to the chemotherapy and not infectious in nature. Given her immunocompromise status for now she has been discharged on oral Augmentin and Levaquin for 3 more days. She is advised to discuss her chemotherapy in detail with her oncologist. If she has recurrent fever postchemotherapy and if cultures remain negative she is advised to continue taking Tylenol for at least 24 to 48 hours postchemotherapy and only present to the hospital if she has persistent fever for more than 48 hours. During hospitalization she was found to have an A1c of 6.3. Patient gives history of recurrent hypoglycemia overnight. Her dose of glipizide has been changed to 2.5 mg twice daily. She was found to have normal blood pressures off antihypertensive. Her home dose of lisinopril and hydrochlorothiazide have been discontinued and she has been discharged on lisinopril 5 mg daily. She will check her blood pressure daily at home and maintain a blood pressure diary and follow-up with a primary care provider within next 1 month for further adjustment of antihypertensive. Physical Exam Narrative: General Well-developed well-nourished obese female in no acute cardiopulmonary distress CV regular rate and rhythm Lungs clear to auscultation bilaterally Abdomen positive bowel sounds soft nontender Calves no tenderness cords pretrip edema Neck no adenopathy Axilla no adenopathy Skin warm and dry Oropharynx Mallampati 2 no thrush Her right upper chest medical port no fluctuance it is currently accessed no evidence of pus Discharge Data Studies Completed and Pending Completed Studies During Hospitalization Category Date Time Status XR chest 2V* 14040 Stat Exams 04/30/25 19:06 Completed Pending at discharge Category Date Time Status Blood Culture Stat Lab 04/30/25 19:37 Results MAG [Magnesium] AM LABS Lab 05/03/25 04:00 Ordered MAG [Magnesium] AM LABS Lab 05/04/25 04:00 Ordered Radiology Impressions Chest X-Ray 04/30/25 19:06 IMPRESSION: No acute cardiopulmonary findings. Microbiology 04/30/25 19:37 Blood Blood Culture - Preliminary NEGATIVE TO DATE 04/30/25 19:32 Blood Blood Culture - Preliminary NEGATIVE TO DATE 04/30/25 20:41 Urine Kidney Bacterial Antigens - Final Laboratory Results WBC 3.83 10^3/uL (3.29-11.43) 05/02/25 04:17 RBC 2.79 10^6/uL (3.85-5.65) L 05/02/25 04:17 Hgb 8.40 g/dL (11.27-16.99) L 05/02/25 04:17 Hct 27.1 % (36-47) L 05/02/25 04:17 MCV 97.1 fl (85-98) 05/02/25 04:17 MCH 30.1 pg (27-33) 05/02/25 04:17 MCHC 31.0 g/dL (30-55) 05/02/25 04:17 RDW 19.0 % (12.1-15.1) H 05/02/25 04:17 Plt Count 135 10^3/cmm (157-399) L 05/02/25 04:17 MPV 12.4 fL (7.4-10.4) H 05/02/25 04:17 Neut % (Auto) 65.3 % 05/02/25 04:17 Lymph % (Auto) 25.3 % 05/02/25 04:17 Eddy % (Auto) 6.5 % 05/02/25 04:17 Eos % (Auto) 1.3 % 05/02/25 04:17 Baso % (Auto) 0.8 % 05/02/25 04:17 Neut # (Auto) 2.50 10^3/uL (1.8-7.7) 05/02/25 04:17 Lymph # (Auto) 1.0 10^3/uL (0.8-4.8) 05/02/25 04:17 Eddy # (Auto) 0.3 10^3/uL (0.2-0.9) 05/02/25 04:17 Eos # (Auto) 0.1 10^3/uL (0.0-0.8) 05/02/25 04:17 Baso # (Auto) 0.0 10^3/uL (0.0-0.1) 05/02/25 04:17 Nucleated RBC % (auto) 0 % 05/02/25 04:17 Nucleated RBCs # 0.0 /100WBC 05/02/25 04:17 Sodium 141 mmol/L (136-145) 05/02/25 04:17 Potassium 4.1 mmol/L (3.5-5.1) 05/02/25 04:17 Chloride 107 mmol/L (98-107) 05/02/25 04:17 Carbon Dioxide 23 mmol/L (22-29) 05/02/25 04:17 Anion Gap 15.1 (5-19) 05/02/25 04:17 BUN 13 mg/dL (8-23) 05/02/25 04:17 Creatinine 0.7 mg/dL (0.5-0.9) 05/02/25 04:17 GFR Calculation 83.2 mL/min (90-130) L 05/02/25 04:17 Glucose 111 mg/dL (65-115) 05/02/25 04:17 POC Glucose 108 mg/dL (70-110) 05/02/25 06:09 Estimat Average Glucose 134 05/01/25 04:58 Hemoglobin A1c 6.3 % (4.0-6.0) H 05/01/25 04:58 Calculated Osmolality 293 mOsm/kg (285-295) 05/02/25 04:17 Lactic Acid 2.6 mmol/L (0.5-2.2) H 04/30/25 23:23 Lactic Acid (Sepsis) 1.6 mmol/L (0.5-2.2) 05/01/25 02:12 Calcium 8.2 mg/dL (8.5-10.5) L 05/02/25 04:17 Magnesium 1.8 mg/dL (1.7-2.3) 05/02/25 04:17 Total Bilirubin 0.3 mg/dL (0.15-1.2) 05/02/25 04:17 AST 27 U/L (0-32) 05/02/25 04:17 ALT 20 U/L (0-33) 05/02/25 04:17 Alkaline Phosphatase 68 U/L (35-105) 05/02/25 04:17 Total Protein 6.0 g/dL (6.6-8.7) L 05/02/25 04:17 Albumin 3.2 g/dL (3.5-5.2) L 05/02/25 04:17 Globulin 2.8 g/dL (1.3-4.6) 05/02/25 04:17 Vitamin B12 851 pg/mL (232-1245) 05/01/25 04:58 Folate > 20.0 ng/mL (4.8-37.3) 05/02/25 04:17 Procalcitonin 10.69 ng/mL (0-0.5) H 05/01/25 04:58 Urine Color Yellow (Yellow) 04/30/25 20:41 Urine Appearance Clear (CLEAR) 04/30/25 20: Urine pH 7.0 (5-7) 04/30/25 20:41 Ur Specific [place] 1.022 (1.005-1.030) 04/30/25 20:41 Urine Protein Negative (Negative) 04/30/25 20:41 Urine Glucose (UA) 1+ (Normal) H 04/30/25 20:41 Urine Ketones 1+ (Negative) H 04/30/25 20:41 Urine Blood Negative (Negative) 04/30/25 20:41 Urine Nitrate Negative (Negative) 04/30/25 20:41 Urine Bilirubin Negative (Negative) 04/30/25 20:41 Urine Urobilinogen 1.0 mg/dL (Negative) 04/30/25 20:41 Ur Leukocyte Esterase Negative (Negative) 04/30/25 20:41 Urine RBC 6-10 /hpf (0-2) 04/30/25 20:41 Urine WBC 0-5 /hpf (0-5) 04/30/25 20:41 Ur Squamous Epith Cells 0-5 /hpf (0-5) 04/30/25 20:41 Amorphous Sediment Not Reportable 04/30/25 20:41 Urine Bacteria None seen /hpf (NONE) 04/30/25 20:41 Hyaline Casts 1.21 /lpf 04/30/25 20:41 Nasal MRSA (PCR) Not detected (Not Detecte) 05/01/25 10:41 Adenovirus (PCR) Not detected (NOT DETECT) 05/01/25 10:41 C. pneumoniae DNA (PCR) Not detected (NOT DETECT) 05/01/25 10:41 Coronavirus 229E (PCR) Not detected (NOT DETECT) 05/01/25 10:41 Human Metapneumovir PCR Not detected (NOT DETECT) 05/01/25 10:41 Influenza A (H1) PCR Not detected (NOT DETECT) 05/01/25 10:41 Influenza A (PCR) Negative (Negative) 04/30/25 19:57 Influ A (H1/09) PCR Not detected (NOT DETECT) 05/01/25 10:41 Influenza A (H3) PCR Not detected (NOT DETECT) 05/01/25 10:41 Influenza Type A (PCR) Not detected (NOT DETECT) 05/01/25 10:41 Influenza Type B (PCR) Not detected (NOT DETECT) 05/01/25 10:41 M. pneumoniae (PCR) Not detected (NOT DETECT) 05/01/25 10:41 Parainfluenza 1 (PCR) Not detected (NOT DETECT) 05/01/25 10:41 Parainfluenza 2 (PCR) Not detected (NOT DETECT) 05/01/25 10:41 Parainfluenza 3 (PCR) Not detected (NOT DETECT) 05/01/25 10:41 Parainfluenza 4 (PCR) Not detected (NOT DETECT) 05/01/25 10:41 RSV (PCR) Negative (Negative) 04/30/25 19:57 RSV Type A (PCR) Not detected (NOT DETECT) 05/01/25 10:41 RSV Type B (PCR) Not detected (NOT DETECT) 05/01/25 10:41 Entero/Rhino (PCR) Not detected (NOT DETECT) 05/01/25 10:41 SARS-CoV-2 (PCR) Not detected (NOT DETECT) 05/01/25 10:41 Vitals Last Vital Signs Temp 97.9 F 05/02/25 07:29 Pulse 63 05/02/25 07:29 Resp 17 05/02/25 07:29 BP 118/68 05/02/25 07:29 Pulse Ox 95 05/02/25 07:29 O2 Del Method Room Air 05/02/25 07:29 Discharge Plan Discharge Patient Disposition: Home Condition: Stable Prescriptions: New lisinopril 5 mg tablet 5 mg PO DAILY Qty: 30 0RF levofloxacin 750 mg tablet 750 mg PO Q24H 3 Days Qty: 3 0RF amoxicillin-pot clavulanate 875-125 mg tablet 1 tab PO BID Qty: 6 0RF Continued metformin 1,000 mg tablet 1,000 mg PO BID aspirin 81 mg tablet,delayed release (DR/EC) 81 mg PO DAILY atorvastatin 40 mg tablet 40 mg PO QPM ferrous sulfate [FeroSul] 325 mg (65 mg iron) tablet 325 mg PO DAILY gabapentin 300 mg capsule 300 mg PO TID PRN (Reason: nerve pain) diphenoxylate-atropine [Lomotil] 2.5-0.025 mg tablet 1 tab PO QID PRN (Reason: diarrhea) Qty: 30 3RF hydrocodone-acetaminophen 5-325 mg tablet 1 tab PO Q4H PRN (Reason: pain) 2 Days Qty: 12 0RF (DME) Ultra Thin Lancets 31 gauge misc See Rx Instructions .ROUTE .MEDSUPPLY Qty: 100 Rx Instructions: As directed polyethylene glycol 3350 [Miralax] 17 gram/dose powder 17 g PO DAILY PRN (Reason: Constipation) magnesium glycinate 100 mg magnesium capsule 400 mg PO .nighttime hydrocortisone 2.5 % cream 1 applic topical BID PRN (Reason: rash) Qty: 20 0RF Rx Instructions: Apply thin layer to affected area BID for 5 days then stop for 5 days. May repeat cycle if necessary. prochlorperazine maleate [Compazine] 10 mg tablet 10 mg PO Q6H PRN (Reason: Mild Nausea) Qty: 30 3RF ondansetron HCl 4 mg tablet 4 mg PO Q6H PRN (Reason: nausea and vomiting) Qty: 30 3RF allopurinol 300 mg tablet 300 mg PO DAILY loratadine 10 mg Tablet 10 mg PO DAILY calcium carbonate-vitamin D3 [Calcium 500 + D] 500 mg(1,250mg) -200 unit Tablet 1 tab PO DAILY B Complex 1.7-20-2-1.2 mg/mL Liquid 1 ml SUBLINGUAL DAILY fluticasone propionate [Flonase Allergy Relief] 50 mcg/actuation [place],Suspension 1 spray intranasal DAILY PRN (Reason: allergies) Rx Instructions: One spray each nostril multivitamin Tablet 1 tab PO QAM Changed glipizide 5 mg tablet 2.5 mg PO BID Qty: 30 0RF Discontinued lisinopril-hydrochlorothiazide 10-12.5 mg tablet 1 tab PO QAM Discharge Orders: Discharge Order (Routine); Ordered 05/02/25 Ordered By: Grabiel Nakita Referrals: Gumaro Adair MD [Hospitalist, Oncology] - 05/07/25 1:30 pm Referral Note: Labs AT 12:15 Tiffanie Fonseca NP [Primary Care Provider, Nurse Practitioner] - 05/13/25 1:30 pm Discharge Diet: Cardiac and Diabetic Discharge Activity: Resume usual activity and Increase activity as tolerated Patient Instructions: Lisinopril (By mouth), Amoxicillin/Clavulanate Potassium (By mouth) (Augmentin, Augmentin..., Levofloxacin (By mouth), Fever - Adult, Sepsis (DC), Opioid Safety Activity Restrictions/Additional Instructions: Her dose of glipizide has been changed to 2.5 mg twice daily. She was found to have normal blood pressures off antihypertensive. Her home dose of lisinopril and hydrochlorothiazide have been discontinued and she has been discharged on lisinopril 5 mg daily. She will check her blood pressure daily at home and maintain a blood pressure diary and follow-up with a primary care provider within next 1 month for further adjustment of antihypertensive. Check your fasting blood sugars daily and maintain a blood sugar diary. Follow-up with a primary care provider with both blood pressure and blood sugar diary further adjustment of medications as needed. Discharge Attestations Time Spent in Discharge Care*: greater than 30 min Specific Discharge Activities: educating patient, discussing with pcp/other providers, discussing with child support case officer/social workers/dc planners, documenting/other paperwork and evaluating patient/reviewing data Status at Discharge: Cognitive status at discharge: cognitively intact, Behavioral status at discharge: cooperative, Functional status at discharge: independent ambulation, Overall status at discharge: patient is back to baseline Quality Metrics Clinical Quality Measures [ No reported AMI, CVA or VTE this stay] Coding Level of Care Code 00140 Total time (in minutes) for Discharge: 65 Diagnoses Sepsis A41.9 Diabetes mellitus E11.9 Malignant neoplasm of sigmoid colon C18.7 Immunocompromised state D84.9 Iron deficiency anemia D50.9
--- NOTE | 2025-05-02 08:14 | PC.NURSE ---
follow up appointment scheduled for 05/13 due to provider being out of office.
--- NOTE | 2025-05-02 08:37 | PC.NURSE ---
D/C pending ride home. Son to head this way soon.
[2025-05-02 10:19] VITALS: BP 122/72; PULSE 64; O2SAT 95
== END 2025-05-02 10:20 | disposition home or self-care (01) | DRG 872 ==
LOC: ER 21:20 → MEDSURG 22:02
PROVIDERS: Admitting Provider Internal Medicine; Emergency Provider Emergency Medicine; PCP Nurse Practitioner Family; Visit Provider Student in an Organized Health Care Education/Training Program
DX: A41.9 Sepsis, unspecified organism (principal); E87.1 Hypo-osmolality and hyponatremia; D84.9 Immunodeficiency, unspecified; C18.7 Malignant neoplasm of sigmoid colon; Z79.82 Long term (current) use of aspirin; Z79.899 Other long term (current) drug therapy; Z79.84 Long term (current) use of oral hypoglycemic drugs; Z87.891 Personal history of nicotine dependence; I10 Essential (primary) hypertension; E11.9 Type 2 diabetes mellitus without complications; E78.00 Pure hypercholesterolemia, unspecified; D50.9 Iron deficiency anemia, unspecified
CPT/HCPCS: 36415; 36416; 71046; 80048; 80053; 81001; 82607; 82746; 82962; 83036; 83605; 83735; 84145; 85025; 86403; 87040; 87486; 87581; 87633; 87637; 96372; 96374; 99285; J0692; J1650; J1815; J3370; J7030; J7040; J7050; J9999

== ENCOUNTER 2025-05-17 07:53 | Oncology outpatient (recurring) (ONCR) | payer OTHER, MEDICAID, SELFPAY ==
[2025-04-30 08:06] LABS: Basophils # 0.1 10^3/uL (0.0-0.1); Eosinophils # 0.2 10^3/uL (0.0-0.8); Eosinophils % 3.4 %; Hematocrit 32.9 % (36-47); Lymphocytes # 2.3 10^3/uL (0.8-4.8); Lymphocytes % 46.6 %; Mean Corpuscular HGB Conc 30.1 g/dL (30-55); Mean Corpuscular Hemoglobin 29.4 pg (27-33); Mean Corpuscular Volume 97.6 fl (85-98); Mean Platelet Volume 10.8 fL (7.4-10.4); Monocytes # 0.6 10^3/uL (0.2-0.9); Monocytes % 12.3 %; Neutrophils # 1.79 10^3/uL (1.8-7.7); Neutrophils % 36.3 %; Nucleated Red Blood Cells % 0 %; Platelet Count 179 10^3/cmm (157-399); Red Blood Count 3.37 10^6/uL (3.85-5.65); White Blood Count 4.94 10^3/uL (3.29-11.43)
[2025-04-30 08:16] LABS: Alanine Aminotransferase 16 U/L (0-33); Albumin Level 3.9 g/dL (3.5-5.2); Alkaline Phosphatase 90 U/L (35-105); Anion Gap 17.2 (5-19); Aspartate Amino Transferase 23 U/L (0-32); Blood Urea Nitrogen 9 mg/dL (8-23); Carbon Dioxide 25 mmol/L (22-29); Chloride 101 mmol/L (98-107); Creatinine Clr Calc Pharmacy 66.8313; Glomerular Filtration Rate 83.2 mL/min (90-130); Glucose 110 mg/dL (65-115); Osmolality Calculated 287 mOsm/kg (285-295); Potassium 4.2 mmol/L (3.5-5.1); Sodium 139 mmol/L (136-145); Total Bilirubin 0.3 mg/dL (0.15-1.2); Total Protein 6.9 g/dL (6.6-8.7)
[2025-04-30] MEDS: dextrose 5% 250 ML 75 ML IV (09:08)
[2025-04-30] MEDS: palonosetron 0.25 mg/5 mL SDV IVP (09:09)
[2025-04-30] MEDS: dexamethasone 4 mg/mL INJ 5 mL 12 MG IVP (09:09)
[2025-04-30 09:20] LABS: Carcinoembryonic Antigen 230.7 ng/mL (0.0-4.7)
[2025-04-30] MEDS: leucovorin 730 MG in dextrose 5% 250 ML 62.5 MG IV (09:53)
[2025-04-30] MEDS: OXALIPLATIN IV (09:53)
[2025-04-30] MEDS: DEXTROSE 5% IV (09:53)
[2025-04-30] MEDS: fluorouraciL 50 mg/ml MDV 100 mL 750 MG IVP (12:06)
[2025-04-30] MEDS: fluorouraciL 4,400 MG, elastomeric pump 1 PUMP in sodium chloride 0.9% (100 ml) 4 ML IV (12:06)
[2025-04-30 12:19] VITALS: BP 133/78; PULSE 86; RESP 17; TEMP 36.8; O2SAT 97
--- NOTE | 2025-05-01 08:42 | PC.NURSE ---
Patient admitted to the hospital last night for fever. Spoke to Andrews Solano NP about the patient's admit to the hospital with fever. Andrews Solano NP gave this nurse verbal orders to go unhook her chemo pump. This nurse went to patient's room and unhooked the pump and flushed the port with 2 NS flushes and 1 Heparin an then port deaccessed. Patient tolerated well. Patient is thinking she might be going home today. Patient had no other questions or concerns.
[2025-05-07 13:09] LABS: Basophils % 0.7 %; Eosinophils # 0.1 10^3/uL (0.0-0.8); Eosinophils % 1.7 %; Hematocrit 31.7 % (36-47); Lymphocytes # 1.9 10^3/uL (0.8-4.8); Mean Corpuscular HGB Conc 30.6 g/dL (30-55); Mean Corpuscular Hemoglobin 29.5 pg (27-33); Mean Corpuscular Volume 96.4 fl (85-98); Mean Platelet Volume 10.4 fL (7.4-10.4); Monocytes # 0.5 10^3/uL (0.2-0.9); Monocytes % 8.1 %; Neutrophils # 3.24 10^3/uL (1.8-7.7); Neutrophils % 56.2 %; Nucleated Red Blood Cells % 0 %; Platelet Count 200 10^3/cmm (157-399); Red Blood Count 3.29 10^6/uL (3.85-5.65); Red Cell Distribution Width 18.8 % (12.1-15.1); White Blood Count 5.78 10^3/uL (3.29-11.43)
[2025-05-07 13:34] LABS: Alanine Aminotransferase 14 U/L (0-33); Albumin Level 3.8 g/dL (3.5-5.2); Alkaline Phosphatase 82 U/L (35-105); Anion Gap 14.2 (5-19); Aspartate Amino Transferase 18 U/L (0-32); Blood Urea Nitrogen 6 mg/dL (8-23); Calcium 9.1 mg/dL (8.5-10.5); Carbon Dioxide 27 mmol/L (22-29); Chloride 102 mmol/L (98-107); Creatinine Clr Calc Pharmacy 66.8313; Glomerular Filtration Rate 71.3 mL/min (90-130); Glucose 84 mg/dL (65-115); Osmolality Calculated 285 mOsm/kg (285-295); Potassium 4.2 mmol/L (3.5-5.1); Sodium 139 mmol/L (136-145); Total Bilirubin 0.2 mg/dL (0.15-1.2); Total Protein 6.8 g/dL (6.6-8.7)
[2025-05-13 10:13] LABS: Basophils % 0.6 %; Eosinophils # 0.2 10^3/uL (0.0-0.8); Eosinophils % 4.9 %; Hematocrit 32.5 % (36-47); Lymphocytes # 1.8 10^3/uL (0.8-4.8); Lymphocytes % 37.2 %; Mean Corpuscular HGB Conc 30.8 g/dL (30-55); Mean Corpuscular Hemoglobin 29.9 pg (27-33); Mean Platelet Volume 10.7 fL (7.4-10.4); Monocytes # 0.5 10^3/uL (0.2-0.9); Monocytes % 11.1 %; Neutrophils # 2.24 10^3/uL (1.8-7.7); Nucleated Red Blood Cells % 0 %; Platelet Count 157 10^3/cmm (157-399); Red Blood Count 3.35 10^6/uL (3.85-5.65); Red Cell Distribution Width 19.1 % (12.1-15.1); White Blood Count 4.87 10^3/uL (3.29-11.43)
[2025-05-13 10:31] LABS: Alanine Aminotransferase 13 U/L (0-33); Albumin Level 3.8 g/dL (3.5-5.2); Alkaline Phosphatase 77 U/L (35-105); Anion Gap 17.5 (5-19); Aspartate Amino Transferase 21 U/L (0-32); Blood Urea Nitrogen 8 mg/dL (8-23); Carbon Dioxide 25 mmol/L (22-29); Chloride 103 mmol/L (98-107); Creatinine Clr Calc Pharmacy 66.8313; Ferritin 296 ng/mL (15-150); Globulin 2.8 g/dL (1.3-4.6); Glomerular Filtration Rate 99.4 mL/min (90-130); Glucose 99 mg/dL (65-115); Iron 60 ug/dL (37-145); Osmolality Calculated 290 mOsm/kg (285-295); Percent Saturation 22.3 % (20-50); Potassium 4.5 mmol/L (3.5-5.1); Sodium 141 mmol/L (136-145); Total Bilirubin 0.4 mg/dL (0.15-1.2); Total Iron Binding Capacity 269 mcg/dl; Total Protein 6.6 g/dL (6.6-8.7); Unsaturated Iron Binding 209 ug/dL (112-347)
[2025-05-14] MEDS: dextrose 5% 250 ML 75 ML IV (09:07)
[2025-05-14] MEDS: acetaminophen 325 mg Tablet 650 MG PO (09:07)
[2025-05-14] MEDS: diphenhydrAMINE 25 mg Capsule PO (09:08)
[2025-05-14] MEDS: dexamethasone 4 mg/mL INJ 5 mL 12 MG IVP (09:08)
[2025-05-14] MEDS: palonosetron 0.25 mg/5 mL SDV IVP (09:10)
[2025-05-14] MEDS: leucovorin 730 MG in dextrose 5% 250 ML 62.5 MG IV (09:51)
[2025-05-14] MEDS: OXALIPLATIN IV (09:52)
[2025-05-14] MEDS: DEXTROSE 5% IV (09:52)
[2025-05-14] MEDS: fluorouraciL 50 mg/ml MDV 100 mL 750 MG IVP (12:06)
[2025-05-14] MEDS: fluorouraciL 4,400 MG, elastomeric pump 1 PUMP in sodium chloride 0.9% (100 ml) 4 ML IV (12:19)
[2025-05-14 12:28] VITALS: BP 123/80; PULSE 84; RESP 17; TEMP 35.9; O2SAT 95
[2025-05-16 11:46] VITALS: BP 113/60; PULSE 78; RESP 17; TEMP 36.2; O2SAT 96
--- NOTE | 2025-05-17 12:30 | PETR_ITS ---
PROCEDURE INFORMATION: Exam: PET/CT Skull Base to Mid-thigh Exam date and time: 05/17/2025 8:49 AM Age: 69 years old Clinical indication: Abnormal findings; Prior surgery; Surgery date: 6+ months; Surgery type: Port, colon, hernia, neck; Rising cea, history of colon cancer, lung mass; Additional info: Followup post treatment, rising cea LABS AND CLINICAL REPORTS: Glucose: 129 mg/dl Treatment strategy for malignancy (PET staging): Restaging (PS) TECHNIQUE: Imaging protocol: Following at least four-hour fasting and following the injection of radiopharmaceutical, low dose CT images were obtained. Then, PET images were obtained. Attenuation corrected images were constructed using the CT scan. Fused images of PET and CT were reviewed. The standardized uptake values (SUV) reported below are maximum values within a region of interest, expressed in gm/ml. Exam includes orbital meatal line to mid-thigh. SUV normalization method: BodyWeight Radiopharmaceutical: 11.78 mCi F-18 FDG (Fluorodeoxyglucose), IV. Time of imaging post radiopharmaceutical administration: 45 minutes Injection site: right wrist COMPARISON: PT PET skull to thigh SUBS [id number] 03/22/2025 FINDINGS: Tubes, catheters and devices: Port catheter placed via the right internal jugular vein terminates in the superior vena cava. Brain: Normal physiologic uptake. Pharynx: No abnormal uptake. Larynx: No abnormal uptake. Thyroid: About 1.4 x 1.2 cm peripherally calcified right thyroid nodule measures 12.5 SUV, previously 14.2 SUV suggestive of primary thyroid neoplasm. Lungs, pleura and trachea: Small lung nodules suggestive of metastasis noted again with the largest metastasis in the left lower lobe currently measuring 1.5 cm/5.9 SUV, previously 1.4 cm/6.1 SUV. The 2nd largest metastasis in the right lower lobe is stable measuring 0.8 cm/2.3 SUV, previously 0.8 cm/1.9 SUV. Right middle lobe metastasis on axial image 100 measures 0.7 cm/2.4 SUV, previously 0.6 cm/1 SUV. There are no new lung metastases. There is no pleural effusion. Heart: Unremarkable. Mediastinal space: No abnormal uptake. Liver: No abnormal uptake. Maximum uptake is 3.7 SUV. Stable calcified granulomas. Gallbladder and biliary ducts: No abnormal uptake. Stable calcified gallstones measuring up to 2.7 cm. Pancreas: No abnormal uptake. Spleen: No abnormal uptake. No splenomegaly. Stable calcified granulomas. Adrenal glands: No abnormal uptake. Kidneys and ureters: Normal physiologic uptake. Stomach and bowel: Stable anastomosis in the rectosigmoid. Increased uptake in the left and right colon and multiple loops of small bowel persistent since prior exam suggestive of benign finding. Significant amount of stool in the left and right colon for clinical correlation with constipation. Vasculature: No abnormal uptake. Lymph nodes: There is new 1 x 1 cm left supraclavicular lymph node on axial image 65 with increased uptake of 4.4 SUV. There is persistent retroperitoneal metastatic lymphadenopathy with mild mixed changes. Some nodes increased in uptake as, for example, the aortocaval node on axial image 170 increased from 4.5 SUV to 7.6 SUV. Other nodes decreased in uptake as, for example, the left para-aortic lymph node on axial image 170 decreased from 7 SUV to 5 SUV. Right common iliac lymph node on axial image 191 has not significantly changed measuring 6.4 SUV, previously 7.4 SUV. No FDG avid lymphadenopathy in the chest and extremities. Stable sequela of exposure to granulomatous disease with calcified mediastinal and right hilar lymph nodes. Skeleton: No abnormal uptake in the visualized axial and appendicular skeleton. Stable findings after C5-C6 fusion with anterior internal fixation plate. Stable degenerative grade 1 anterolisthesis of L4 associated with L4-L5 facet arthropathy. Soft tissues: No abnormal uptake in the visualized head, neck, chest, abdomen, pelvis, and extremities. PET/PET skull to thigh SUBS [id number] IMPRESSION: In comparison with 03/22/2025 there is nearly stable disease with mild interval changes as follows: 1. There is a single new 1 cm piotr metastasis in the left supraclavicular area measuring 4.4 SUV. Retroperitoneal metastatic lymphadenopathy shows mixed changes with the highest uptake currently measuring 7.6 SUV, previously 7.4 SUV. 2. Bilateral lung metastases remain stable in size with stable highest uptake of 5.9 SUV (previously 6.1 SUV), with interval increase in uptake in a few subcentimeter nodules currently measuring up to 2.4 SUV, previously 1.9 SUV.
== END 2025-05-20 23:59 | disposition home or self-care (01) ==
PROVIDERS: Internal Medicine Medical Oncology; Nurse Practitioner Family; PCP Nurse Practitioner Family; Visit Provider Nurse Practitioner
DX: R91.8 Other nonspecific abnormal finding of lung field (principal); R93.89 Abnormal findings on diagnostic imaging of other specified body structures; K75.3 Granulomatous hepatitis, not elsewhere classified; K80.20 Calculus of gallbladder without cholecystitis without obstruction; D73.89 Other diseases of spleen; K59.00 Constipation, unspecified; R59.0 Localized enlarged lymph nodes; Z98.890 Other specified postprocedural states
CPT/HCPCS: 36591; 78815; 80053; 82378; 82728; 83540; 83550; 85025; 96368; 96375; 96409; 96411; 96413; 96415; 96416; 96417; 96523; 99214; A9552; J0640; J1100; J2469; J7060; J9190; J9263; J9999

== ENCOUNTER 2025-06-13 11:12 | Oncology outpatient (recurring) (ONCR) | payer OTHER, MEDICAID, SELFPAY ==
[2025-05-28 08:08] LABS: Hematocrit 32.9 % (36-47); Hemoglobin 10.20 g/dL (11.27-16.99); Mean Corpuscular HGB Conc 31.0 g/dL (30-55); Mean Corpuscular Hemoglobin 30.3 pg (27-33); Mean Corpuscular Volume 97.6 fl (85-98); Nucleated Red Blood Cells % 0 %; Platelet Count 145 10^3/cmm (157-399); Red Blood Count 3.37 10^6/uL (3.85-5.65); White Blood Count 4.04 10^3/uL (3.29-11.43)
[2025-05-28 08:35] LABS: Carcinoembryonic Antigen 149.5 ng/mL (0.0-4.7)
[2025-05-28 08:47] LABS: Alanine Aminotransferase 14 U/L (0-33); Albumin Level 3.9 g/dL (3.5-5.2); Alkaline Phosphatase 78 U/L (35-105); Anion Gap 16.2 (5-19); Aspartate Amino Transferase 20 U/L (0-32); Blood Urea Nitrogen 12 mg/dL (8-23); Calcium 9.1 mg/dL (8.5-10.5); Carbon Dioxide 26 mmol/L (22-29); Chloride 102 mmol/L (98-107); Creatinine Clr Calc Pharmacy 66.4458; Globulin 2.8 g/dL (1.3-4.6); Glucose 113 mg/dL (65-115); Osmolality Calculated 291 mOsm/kg (285-295); Potassium 4.2 mmol/L (3.5-5.1); Sodium 140 mmol/L (136-145); Total Protein 6.7 g/dL (6.6-8.7)
[2025-05-28] MEDS: dexamethasone 4 mg/mL INJ 5 mL 12 MG IVP (09:25)
[2025-05-28] MEDS: leucovorin 730 MG in dextrose 5% 250 ML 62.5 MG IV (10:04)
[2025-05-28] MEDS: DEXTROSE 5% IV (10:05)
[2025-05-28] MEDS: OXALIPLATIN IV (10:05)
[2025-05-28 12:16] VITALS: BP 125/83; PULSE 81; TEMP 36.3; O2SAT 96
[2025-05-28] MEDS: fluorouraciL 50 mg/ml MDV 100 mL 750 MG IVP (12:21)
[2025-05-28] MEDS: fluorouraciL 4,350 MG, elastomeric pump 1 PUMP in sodium chloride 0.9% (100 ml) 5 ML IV (12:31)
[2025-06-11 08:04] LABS: Hematocrit 31.8 % (36-47); Hemoglobin 10.00 g/dL (11.27-16.99); Mean Corpuscular HGB Conc 31.4 g/dL (30-55); Mean Corpuscular Hemoglobin 30.6 pg (27-33); Mean Corpuscular Volume 97.2 fl (85-98); Nucleated Red Blood Cells % 0 %; Platelet Count 161 10^3/cmm (157-399); Red Blood Count 3.27 10^6/uL (3.85-5.65); White Blood Count 3.96 10^3/uL (3.29-11.43)
[2025-06-11 08:25] LABS: Alanine Aminotransferase < 5 U/L (0-33); Albumin Level 3.8 g/dL (3.5-5.2); Alkaline Phosphatase 94 U/L (35-105); Anion Gap 16.2 (5-19); Aspartate Amino Transferase 19 U/L (0-32); Blood Urea Nitrogen 11 mg/dL (8-23); Calcium 9.2 mg/dL (8.5-10.5); Carbon Dioxide 27 mmol/L (22-29); Chloride 99 mmol/L (98-107); Creatinine Clr Calc Pharmacy 66.2528; Globulin 2.9 g/dL (1.3-4.6); Glucose 133 mg/dL (65-115); Osmolality Calculated 287 mOsm/kg (285-295); Potassium 4.2 mmol/L (3.5-5.1); Sodium 138 mmol/L (136-145); Total Protein 6.7 g/dL (6.6-8.7)
[2025-06-11] MEDS: dexamethasone 4 mg/mL INJ 5 mL 12 MG IVP (09:18)
[2025-06-11] MEDS: leucovorin 730 MG in dextrose 5% 250 ML 62.5 MG IV (10:06)
[2025-06-11] MEDS: OXALIPLATIN IV (10:06)
[2025-06-11] MEDS: DEXTROSE 5% IV (10:06)
[2025-06-11] MEDS: fluorouraciL 50 mg/ml MDV 100 mL 750 MG IVP (12:30)
[2025-06-11] MEDS: fluorouraciL 4,350 MG, elastomeric pump 1 PUMP in sodium chloride 0.9% (100 ml) 5 ML IV (12:30)
[2025-06-11 12:44] VITALS: BP 133/79; PULSE 81; RESP 17; TEMP 36.4; O2SAT 98
[2025-06-13 11:31] VITALS: BP 119/81; PULSE 84; RESP 16; TEMP 36.5; O2SAT 97
== END 2025-06-20 23:59 | disposition home or self-care (01) ==
PROVIDERS: Nurse Practitioner Family; PCP Nurse Practitioner Family; Visit Provider Nurse Practitioner
DX: Z45.1 Encounter for adjustment and management of infusion pump (principal); Z95.828 Presence of other vascular implants and grafts
CPT/HCPCS: 80053; 82378; 85025; 96368; 96375; 96409; 96413; 96415; 96416; 96523; 99214; J0640; J1100; J2469; J7060; J9190; J9263; J9999

== ENCOUNTER 2025-07-11 13:30 | Oncology outpatient (recurring) (ONCR) | payer OTHER, MEDICAID, SELFPAY ==
[2025-06-25 07:59] LABS: Hematocrit 31.2 % (36-47); Hemoglobin 9.80 g/dL (11.27-16.99); Mean Corpuscular HGB Conc 31.4 g/dL (30-55); Mean Corpuscular Hemoglobin 30.1 pg (27-33); Mean Corpuscular Volume 95.7 fl (85-98); Nucleated Red Blood Cells % 0 %; Platelet Count 148 10^3/cmm (157-399); Red Blood Count 3.26 10^6/uL (3.85-5.65); White Blood Count 4.27 10^3/uL (3.29-11.43)
[2025-06-25 08:07] LABS: Alanine Aminotransferase 17 U/L (0-33); Albumin Level 3.7 g/dL (3.5-5.2); Alkaline Phosphatase 88 U/L (35-105); Anion Gap 15.0 (5-19); Aspartate Amino Transferase 24 U/L (0-32); Blood Urea Nitrogen 11 mg/dL (8-23); Calcium 8.9 mg/dL (8.5-10.5); Carbon Dioxide 27 mmol/L (22-29); Chloride 104 mmol/L (98-107); Creatinine Clr Calc Pharmacy 66.0603; Globulin 2.7 g/dL (1.3-4.6); Glucose 150 mg/dL (65-115); Osmolality Calculated 296 mOsm/kg (285-295); Potassium 4.0 mmol/L (3.5-5.1); Sodium 142 mmol/L (136-145); Total Protein 6.4 g/dL (6.6-8.7)
[2025-06-25] MEDS: dexamethasone 4 mg/mL INJ 5 mL 12 MG IVP (08:48)
[2025-06-25] MEDS: leucovorin 720 MG in dextrose 5% 250 ML 62.5 MG IV (09:40)
[2025-06-25] MEDS: OXALIPLATIN IV (09:40)
[2025-06-25] MEDS: DEXTROSE 5% IV (09:40)
[2025-06-25 11:36] LABS: Carcinoembryonic Antigen 148.3 ng/mL (0.0-4.7)
[2025-06-25] MEDS: fluorouraciL 50 mg/ml MDV 100 mL 700 MG IVP (12:00)
[2025-06-25] MEDS: fluorouraciL 4,350 MG, elastomeric pump 1 PUMP in sodium chloride 0.9% (100 ml) 5 ML IV (12:00)
[2025-06-25 12:11] VITALS: BP 136/78; PULSE 78; RESP 18; TEMP 35.9; O2SAT 96
[2025-07-09 07:47] LABS: Hematocrit 31.4 % (36-47); Hemoglobin 9.90 g/dL (11.27-16.99); Mean Corpuscular HGB Conc 31.5 g/dL (30-55); Mean Corpuscular Hemoglobin 30.3 pg (27-33); Mean Corpuscular Volume 96.0 fl (85-98); Nucleated Red Blood Cells % 0 %; Platelet Count 123 10^3/cmm (157-399); Red Blood Count 3.27 10^6/uL (3.85-5.65); White Blood Count 4.46 10^3/uL (3.29-11.43)
[2025-07-09 08:05] LABS: Alanine Aminotransferase 20 U/L (0-33); Albumin Level 3.9 g/dL (3.5-5.2); Alkaline Phosphatase 85 U/L (35-105); Anion Gap 15.0 (5-19); Aspartate Amino Transferase 22 U/L (0-32); Blood Urea Nitrogen 11 mg/dL (8-23); Calcium 8.7 mg/dL (8.5-10.5); Carbon Dioxide 26 mmol/L (22-29); Chloride 105 mmol/L (98-107); Creatinine Clr Calc Pharmacy 66.0603; Globulin 2.5 g/dL (1.3-4.6); Glucose 147 mg/dL (65-115); Osmolality Calculated 296 mOsm/kg (285-295); Potassium 4.0 mmol/L (3.5-5.1); Sodium 142 mmol/L (136-145); Total Protein 6.4 g/dL (6.6-8.7)
[2025-07-09] MEDS: dexamethasone 4 mg/mL INJ 5 mL 12 MG IVP (10:35)
[2025-07-09] MEDS: leucovorin 720 MG in dextrose 5% 250 ML 135 MG IV (11:10)
[2025-07-09] MEDS: OXALIPLATIN IV (11:12)
[2025-07-09] MEDS: DEXTROSE 5% IV (11:12)
[2025-07-09 13:30] VITALS: BP 131/79; PULSE 76; RESP 17; TEMP 36.4; O2SAT 98
[2025-07-09] MEDS: fluorouraciL 4,350 MG, elastomeric pump 1 PUMP in sodium chloride 0.9% (100 ml) 5 ML IV (13:33)
[2025-07-09] MEDS: fluorouraciL 50 mg/ml MDV 100 mL 700 MG IVP (13:34)
[2025-07-11 14:10] VITALS: BP 127/79; PULSE 87; RESP 17; TEMP 36.3; O2SAT 95
== END 2025-07-21 23:59 | disposition home or self-care (01) ==
PROVIDERS: Internal Medicine Medical Oncology; PCP Nurse Practitioner Family; Visit Provider Nurse Practitioner
DX: Z53.9 Procedure and treatment not carried out, unspecified reason; Z45.1 Encounter for adjustment and management of infusion pump; Z95.828 Presence of other vascular implants and grafts
CPT/HCPCS: 80053; 82378; 85025; 96368; 96375; 96411; 96413; 96415; 96416; 96417; 96523; 99214; J0640; J1100; J2469; J7060; J9190; J9263; J9999

== ENCOUNTER 2025-08-03 05:49 | Emergency (ER) | payer OTHER, MEDICAID, SELFPAY ==
[2025-08-03 05:59] VITALS: BP 132/80; PULSE 89; RESP 18; TEMP 37.1; O2SAT 94; BMI 32.0
--- OUTSIDE RECORDS SUMMARY | 2025-08-03 05:59 | XMS_ITS | Encounter Summary ---
Author Organization [facility] Address [address] [place] [address] Care Team Providers Care Fluoroscope Operator Name Role Phone Malaika Euceda Primary Care Provider [phone] Reason for Referral * Outpatient Services (Routine) - Closed Specialty Diagnoses / Procedures Referred By Heavenly rockwell Referred To Contact Diagnoses Visit for screening mammogram Procedures MAMMO DIGITIZED STUDY Daya Carroll FNP [address] [place] [address] Phone: tel: fax: Referral ID Status Reason Start Date Expiration Date Visits Re quested Visits Authorized [id number] Closed 06/14/2012 06/14/2013 1 1 Encounter Details Date Type Department Care Team (Latest Contact Info) Description 06/14/2012 Ancillary Orders [facility] [address] [place] [id number] Daya Carroll FNP [address] [place] [address] Visit for screening mammogram Social History Tobacco Use Types Packs/Day Years Used Date Smoking Tobacco: Former Cigarettes 0.8 10 Comments:Quit 1982 Alcohol Use Standard Drinks/Week Comments No 0 (1 standard drink = 0.6 oz pur e alcohol) Comments No Sex and Gender Information Value Date Recorded Sex Assigned at Not on file Legal Sex Female 7:29 AM MULE RIDER Gender Identity Not on file Sexual Orientation Not on file Occupation Industry Job Start Date Job End Date Not on file Not on file Not on file Not on file documented as of this encounter Plan of Treatment Not on file documented as of this encounter Results * MAMMO DIGITIZED STUDY (09/24/2009 9:55 AM MULE RIDER) Narrative Edel Ortiz, RT - 06/14/2012 9:55 AM CDT Order information only. Exam was auto-finalized. Procedure Note Edel Ortiz, RT - 06/14/2012 Order information only. Exam was auto-finalized. Daya [facility] ORDERABLES Final Result documented in this encounter Visit Diagnoses Diagnosis Visit for screening mammogram Other screening mammogram Visit for screening mammogram Other screening mammogram documented in this encounter Care Teams Fluoroscope Operator Relationship Specialty Start Date End Date Malaika Euceda FNP [address] [place] [address] PCP - General NURSE PRACTITIONER 03/27/17 documented as of this encounter
--- OUTSIDE RECORDS SUMMARY | 2025-08-03 05:59 | XMS_ITS | Encounter Summary ---
Author Organization [facility] Address [address] [place] [address] Care Team Providers Care Supervisor Soldering Name Role Phone Malaika Euceda Primary Care Provider [phone] Reason for Referral * Radiology Services (Routine) - Closed Specialty Diagnoses / Procedures Referred By Contac t Referred To Contact Radiology Diagnoses Postmenopausal bleeding Procedures US PELVIS COMPLETE Malaika Euceda FNP [address] [place] [address] Phone: tel: fax: [facility] ([facility]) [address] [place] [address] Phone: tel: fax: Referral ID Status Reason Start Date Expiration Date V isits Requested Visits Authorized [id number] Closed MTN View CTS to Schedule 09/23/2020 10/24/2021 1 1 GED SECURITY SALES CONSULTANT Encounter Details Date Type Department Care Team (Latest Contact Info) Description 09/23/2020 Ancillary Orders [facility] Centralized Scheduling [address] [place] [address] Malaika Euceda FNP [address], [place] [address] Postmenopausal bleeding Social History Tobacco Use Types Packs/Day Years Used Date Smoking Tobacco: Former Cigarettes 0.8 10 Smokeless Tobacco: Never Comments:Quit 1982 Alcohol Use Standard Drinks/Week Comments No 0 (1 standard drink = 0.6 oz pur e alcohol) Comments No Sex and Gender Information Value Date Recorded Sex Assigned at Not on file Legal Sex Female 7:29 AM MANAGED SECURITY SALES CONSULTANT Gender Identity Not on file Sexual Orientation Not on file Occupation Industry Job Start Date Job End Date Not on file Not on file Not on file Not on file COVID-19 Exposure Response Date Recorded In the last month, have you been in contact with someone who was confirmed or suspected to have Coronavirus / COVID-19? No / Unsure 09/25/2020 9:30 AM MANAGED SECURITY SALES CONSULTANT documented as of this encounter Plan of Treatment Not on file documented as of this encounter Results * US PELVIS COMPLETE (09/30/2020 9:48 AM MANAGED SECURITY SALES CONSULTANT) Anatomical Region Laterality Modality Pelvis Ultrasound 09/30/2020 9:48 AM MANAGED SECURITY SALES CONSULTANT Impressions 09/30/2020 7:30 PM MANAGED SECURITY SALES CONSULTANT IMPRESSION: Limited exam due to overlying bowel gas. Narrative 09/30/2020 7:30 PM MANAGED SECURITY SALES CONSULTANT EXAM: US PELVIS COMPLETE, DIAGNOSIS/REASON FOR EXAM: Postmenopausal bleeding. DATE AND TIME: 09/30/2020. COMPARISON: None. TECHNIQUE: Real time grayscale images of the uterus and adnexa was performed utilizing a trans-abdominal approach. LMP: Postmenopausal. : G4,P4,A0. FINDINGS: Uterus: The uterus is poorly visualized due to overlying bowel gas. It measures 6.7 x 3.3 x 4.4 cm. Cervix: Normal. Endometrium: The endometrium is not well-visualized due to overlying bowel gas. Right ovary: The right ovary is not visualized due to overlying bowel gas. Left ovary: The left ovary measures 2.0 x 1.8 x 1.8 cm. No left ovarian masses are seen. Free fluid: None. Procedure Note Delroy Crow MD - 09/30/2020 EXAM: US PELVIS COMPLETE, DIAGNOSIS/REASON FOR EXAM: Postmenopausal bleeding. DATE AND TIME: 09/30/2020. COMPARISON: None. TECHNIQUE: Real time grayscale images of the uterus and adnexa was performed utilizing a trans-abdominal approach. LMP: Postmenopausal. : G4,P4,A0. FINDINGS: Uterus: The uterus is poorly visualized due to overlying bowel gas. It measures 6.7 x 3.3 x 4.4 cm. Cervix: Normal. Endometrium: The endometrium is not well-visualized due to overlying bowel gas. Right ovary: The right ovary is not visualized due to overlying bowel gas. Left ovary: The left ovary measures 2.0 x 1.8 x 1.8 cm. No left ovarian masses are seen. Free fluid: None. IMPRESSION: Limited exam due to overlying bowel gas. Malaika NGUYEN US ORDERABLES Final Result documented in this encounter Visit Diagnoses Diagnosis Postmenopausal bleeding Postmenopausal bleeding documented in this encounter Care Teams Supervisor Soldering Relationship Specialty Start Date End Date Malaika Euceda FNP [facility] [place] [address] PCP - General NURSE PRACTITIONER 03/27/17 documented as of this encounter
--- OUTSIDE RECORDS SUMMARY | 2025-08-03 05:59 | XMS_ITS | Encounter Summary ---
Author Organization [facility] Address [address] [place] [address] Care Team Providers Care Party Plan Salesperson Name Role Phone Malaika Euceda Primary Care Provider [phone] Reason for Referral * Outpatient Services (Routine) - Closed Specialty Diagnoses / Procedures Referred By Contisabella t Referred To Contact Radiology Diagnoses Visit for screening mammogram Procedures MAMMO DIGITAL SCREEN BILAT Malaika Euceda FNP Phone: tel: fax: [facility] [address] [facility] [address] [place] [address] Phone: tel: fax: Referral ID Status Reason Start Date Expiration Date V isits Requested Visits Authorized [id number] Closed NHN View CTS to Schedule (SGF) 08/29/2015 09/28/2016 1 1 Encounter Details Date Type Department Care Team (Latest Contact Info) Description 08/29/2015 Ancillary Orders [facility] Centralized Scheduling [address] [facility] [address] [place] [address] Malaika Euceda FNP [address] [place] [address] Visit for screening mammogram (Primary Dx) Social History Tobacco Use Types Packs/Day Years Used Date Smoking Tobacco: Former Cigarettes 0.8 10 Comments:Quit 1983 Alcohol Use Standard Drinks/Week Comments No 0 (1 standard drink = 0.6 oz pur e alcohol) Comments No Sex and Gender Information Value Date Recorded Sex Assigned at Not on file 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 ALMA ROSA/jose 1715 PM - uploaded from [facility] [employer] 09/08/2015 11:03 PM CDT BILATERAL SCREENING MAMMOGRAM PATIENT COMPLAINT: No concerns. FAMILY HISTORY: Colon cancer in mother. Lung cancer in father. Cervical cancer in sister and great niece. TISSUE DENSITY: The breasts are almost entirely fat. COMPARISON EXAM(S): 08/14/2013. IMAGES OBTAINED: Standard 4-view mammogram. FINDINGS: RIGHT BREAST: Small clusters of slightly heterogeneous punctate calcifications are present in the lower inner quadrant anterior to mid depth and posteriorly. Subtle soft tissue density appears to be associated with the anterior to mid depth cluster. Remainder of the breast is stable. LEFT BREAST: No suspicious finding. No significant interval change. This digital mammogram was also analyzed by the Computer Aided Detection System (CAD), Naldo ImageChecker, Version 8.3. Malaika NGUYEN MAMMO ORDERABLES Final Result documented in this encounter Visit Diagnoses Diagnosis Visit for screening mammogram- Primary Other screening mammogram Visit for screening mammogram Other screening mammogram documented in this encounter Care Teams Party Plan Salesperson Relationship Specialty Start Date End Date Malaika Euceda FNP [address] [place] [address] PCP - General NURSE PRACTITIONER 03/27/17 documented as of this encounter
--- OUTSIDE RECORDS SUMMARY | 2025-08-03 05:59 | XMS_ITS | Encounter Summary ---
Author Organization [facility] Address [address] [place] [address] Care Team Providers Care Block Sawyer Name Role Phone Malaika Euceda [facility] Primary Care Provider [phone] Encounter Details Date Type Department Care Team (Latest Contact Info) Description 08/14/2013 Ancillary Orders [facility] [address] [place] [address] Daya Carroll, [facility] [address] [place] [address] Visit for screening mammogram (Primary Dx) Social History Tobacco Use Types Packs/Day Years Used Date Smoking Tobacco: Former Cigarettes 0.8 10 Comments:Quit 1982 Alcohol Use Standard Drinks/Week Comments No 0 (1 standard drink = 0.6 oz pur e alcohol) Comments No Sex and Gender Information Value Date Recorded Sex Assigned at Not on file 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 Exam was auto-finalized. Procedure Note Edel Ortiz, RT - 08/14/2013 Order information only. Exam was auto-finalized. us Daya Borja SLEEP TECHNOLOGIST DIAGNOSTIC NOHEMI GING ORDERABLES Final Result documented in this encounter Visit Diagnoses Diagnosis Visit for screening mammogram- Primary Other screening mammogram Visit for screening mammogram Other screening mammogram documented in this encounter Care Teams Block Sawyer Relationship Specialty Start Date End Date Malaika Euceda FNP [address] [place] [address] PCP - General NURSE PRACTITIONER 03/27/17 documented as of this encounter
--- OUTSIDE RECORDS SUMMARY | 2025-08-03 05:59 | XMS_ITS | Encounter Summary ---
Author Organization [facility] Address [address] [place] [address] Care Team Providers Care School Age Lead Teacher Name Role Phone Malaika Euceda Primary Care Provider [phone] Encounter Details Date Type Department Care Team (Latest Contact Info) Description 09/06/2018 Ancillary Orders [facility] [address] [facility] [address] [place] [address] Malaika Euceda FNP [address] [place] [address] Inconclusive mammogram Social History Tobacco Use Types Packs/Day Years Used Date Smoking Tobacco: Former Cigarettes 0.8 10 Comments:Quit 1982 Alcohol Use Standard Drinks/Week Comments No 0 (1 standard drink = 0.6 oz pur e alcohol) Comments No Sex and Gender Information Value Date Recorded Sex Assigned at Not on file 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
--- OUTSIDE RECORDS SUMMARY | 2025-08-03 05:59 | XMS_ITS | Encounter Summary ---
Author Organization [facility] Address [address] [place] [address] Care Team Providers Care Weigh And Charge Worker Name Role Phone Malaika Euceda Primary Care Provider [phone] Reason for Referral * Radiology Services (Routine) - Closed Specialty Diagnoses / Procedures Referred By Contac t Referred To Contact Radiology Diagnoses Inconclusive mammogram Procedures MAMMO DIAGNOSTIC UNI LEFT W OR WO CAD MAMMO DIAG UNI LEFT 3D FELIX W OR WO CAD Malaika Euceda FNP [address] [place] [address] Phone: tel: fax: [facility] [address] [address] Phone: tel: fax: Referral ID Status Reason Start Date Expiration Date Visits Requested Visits Authorized [id number] Closed Performing Department To Schedule (SGF) 09/06/2018 10/07/2019 1 1 Encounter Details Date Type Department Care Team (Latest Contact Info) Description 09/20/2018 Ancillary Orders [facility] [address] [address] Malaika Euceda FNP [address] [place] [address] Inconclusive mammogram Social History Tobacco Use Types Packs/Day Years Used Date Smoking Tobacco: Former Cigarettes 0.8 10 Comments:Quit 1982 Alcohol Use Standard Drinks/Week Comments No 0 (1 standard drink = 0.6 oz pur e alcohol) Comments No Sex and Gender Information Value Date Recorded Sex Assigned at Not on file Legal Sex Female 7:29 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 Recommend annual screening mammography. BI-RADS: 2 Recommendation: Annual screening mammography Recommendation Laterality: Bilateral The patient was given a result/recommendation letter. [id number] Narrative 09/20/2018 3:57 PM CDT EXAM: MAMMO DIAGNOSTIC UNI LEFT W OR WO CAD, 09/20/2018 12:07 PM CLINICAL INDICATIONS: Callback from screening for prominent left axillary lymph nodes COMPARISON: 08/31/2018, 08/30/2017 and 04/30/2004 TECHNIQUE: Digital axillary tail views of the left breast were obtained. This digital mammogram was also analyzed by the Computer Aided Detection System (CAD), Convert[employer] ImageChecker, Version 8.3. FINDINGS: The breast is almost entirely fatty. The previously identified lymph nodes within the left axilla have a normal appearance and morphology upon additional imaging. There are no suspicious masses, calcifications, or architectural distortions. Malaika NGUYEN MAMMO ORDERABLES Final Result documented in this encounter Visit Diagnoses Diagnosis Inconclusive mammogram Inconclusive mammogram documented in this encounter Care Teams Weigh And Charge Worker Relationship Specialty Start Date End Date Malaika Euceda FNP [facility] [place] [address] PCP - General NURSE PRACTITIONER 03/27/17 documented as of this encounter
--- OUTSIDE RECORDS SUMMARY | 2025-08-03 05:59 | XMS_ITS | Encounter Summary ---
Author Organization [facility] Address [address] [place] [address] Care Team Providers Care Loan Manager Name Role Phone Malaika Euceda Primary Care Provider [phone] Reason for Referral * Outpatient Services (Routine) - Closed Specialty Diagnoses / Procedures Referred By Heavenly rockwell Referred To Contact Diagnoses Screening mammogram Procedures MAMMO SCREENING BILAT Daya Carroll FNP [address] [place] [address] Phone: tel: fax: Referral ID Status Reason Start Date Expiration Date Visits Re quested Visits Authorized [id number] Closed 06/07/2011 06/06/2012 1 1 Encounter Details Date Type Department Care Team (Late st Contact Info) Description 06/07/2011 Ancillary Orders [facility] Imaging External Read [address] [place] [address] Daya Carroll FNP [address] [place] [address] Screening mammogram Social History Tobacco Use Types Packs/Day Years Used Date Smoking Tobacco: Former Cigarettes 0.8 10 Comments:Quit 1982 Alcohol Use Standard Drinks/Week Comments No 0 (1 standard drink = 0.6 oz pur e alcohol) Comments No Sex and Gender Information Value Date Recorded Sex Assigned at Not on file 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 This examination was reviewed with the aid of a computer-aided detection system(CAD). The breast tissue density is fatty. No significant new findings since the prior mammogram(s). Procedure Note Victorino Price MD - 06/09/2011 Bilateral Mammogram Reason for Exam: Screening Comparison: Comparison is made with the prior exam(s) dated 06.22.07 Findings: Bilateral CC and MLO views were obtained. This examination was reviewed with the aid of a computer-aided detectionsystem(CAD). The breast tissue density is fatty. No significant new findings since the prior mammogram(s). us External Provider [facility] MAMMO ORDERABLES Final Res ult documented in this encounter Visit Diagnoses Diagnosis Screening mammogram Other screening mammogram documented in this encounter Care Teams Loan Manager Relationship Specialty Start Date End Date Malaika Euceda FNP [address] [place] [address] PCP - General NURSE PRACTITIONER 03/27/17 documented as of this encounter
--- OUTSIDE RECORDS SUMMARY | 2025-08-03 05:59 | XMS_ITS | Clinical Summary ---
Author Organization [facility] Address [address] [facility] [address] [place] [address] Phone Care Team Providers Care Chief Librarian Extension Department Name Role Phone EucedaPatsymichele Topete [facility] Primary Care Provider [phone] Allergies No known active allergies Medications glipiZIDE (GLUCOTROL) 5 mg Oral Tab Take 5 mg by mouth 2 times daily . Active aspirin (LAZARO) 81 mg Oral Tab Take 81 mg by mouth daily. Active lisinopril (PRINIVIL) 5 mg Oral Tab Take 5 mg by mouth daily ring cutter lathe operator. 0 Active Multivitamin with Iron-Mineral Oral Cap Take by mouth. Activ e metformin (GLUCOPHAGE) 1,000 mg Oral Tab Take 1,000 mg by mouth 2 times daily with meals. Active CALCIUM/VITAMIN D2/ZINC/CHROM (CALCIUM,VIT D,CHROMIUM,ZINC ORAL) Take by mouth. Activ e fluticasone (FLONASE) 50 mcg/spray Both Nostril SpSn Administer 2 Sprays in each nostril daily. Active naproxen (NAPROSYN) 500 mg Oral tablet Take 500 mg by mouth 2 times daily with meals. Active atorvastatin (LIPITOR) 40 mg tablet Take 40 mg by mouth late in the day. Active VITAMIN B COMPLEX-100 ORAL Take 1 mL by mouth. Active Active Problems Problem Noted Date Diagnosed Date Inclusion cyst of breast 06/22/2012 S/P cervical spinal fusion 01/13/2011 Family History Medical History Relation Name Comments Diabetes Brother Lung Cancer Father Colon Cancer Mother Diabetes Mother Cervical Cancer Other G NIECE Respiratory Disease Other G NIECE Thyroid Disease Other G NIECE Asthma Sister JOHNSON Cervical Cancer Sister JOHNSON Heart Disease Sister JOHNSON Stroke Sister JOHNSON Asthma Son Breast Cancer Neg Hx Ovarian Cancer Neg Hx Relation Name Status Comments Brother Daughter Alive Father Maternal Grandmother Mother Other G NIECE Alive Sister JOHNSON Alive Son Social History Tobacco Use Types Packs/Day Years Used Date Smoking Tobacco: Former Cigarettes 0.8 10 Smokeless Tobacco: Never Comments:Quit 1982 Alcohol Use Standard Drinks/Week Comments No 0 (1 standard drink = 0.6 oz pur e alcohol) Comments No Sex and Gender Information Value Date Recorded Sex Assigned at Not on file 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 Gender Identity Not on file Sexual Orientation Not on file Occupation Industry Job Start Date Job End Date Not on file Not on file Not on file Not on file Last Filed Vital Signs Vital Sign Reading Time Taken Comments Blood Pressure 158/63 03/22/2020 9:00 PM CDT Pulse 94 03/22/2020 7:33 PM CDT Temperature 37.1 C (98.8 F) 03/22/2020 9:00 PM CDT Respiratory Rate 18 03/22/2020 9:00 PM CDT Oxygen Saturation 97% 03/22/2020 9:00 PM CDT Inhaled Oxygen Concentration - - Weight 96.2 kg (212 lb) 03/22/2020 7:33 PM CDT Height 157.5 cm (5' 2 ) 03/27/2017 9:33 PM CDT Body Mass Index 38.78 03/27/2017 9:33 PM CDT Plan of Treatment Health Maintenance Due Date Last Done Comments COLORECTAL SCREENING 1974 Colorectal Cancer Screening 1974 DTAP/TDAP/TD VACCINES (1 - Tdap) 1975 FIT-DNA Q 3 years 2001 FIT/FOBT Q 1 year 2001 Flex Sig/CT Colonography Q 5 years 2001 PNEUMOCOCCAL VACCINE 50+ YEA RS (1 of 1 - PCV) 2006 ZOSTER VACCINE (1 of 2) 2006 BREAST CANCER SCREENING 09/20/2019 09/20/20 18, 08/31/2018, 08/30/2017, Additional history exists OSTEOPOROSIS SCREENING 2021 INFLUENZA VACCINE (#1) 2025 RSV VACCINE (60+ or ) (1 - 1-dose 75+ series) 2031 Medical Devices Implanted Type Area Defensive Fire Control Systems Operator Device Identifier Shelf Expiration Date Model / Serial / Lot Vitoss Ba Implanted:Qty: 1 on 11/10/2010 at [facility] Biological N/A: Neck ORTHOVITA 02/20/2012 [id number] / / [id number] Trestle Implanted:Qty: 1 on 11/10/2010 at [facility] N/A: Neck [employer] [id number] / / LOAD#[id number] 1002 Screw Implanted:Qty: 4 on 11/10/2010 at [facility] N/A: Neck [employer] [id number] / / LOAD#[id number] 1002 Large Nevel Carvv Implanted:Qty: 1 on 11/10/2010 at [facility] N/A: Neck [employer] [id number] / / [id number]#[id number] 1002 Procedures Procedure Name Priority Date/Time Associated Diagnosis Comments MAMMO DIAGNOSTIC UNI LEFT W OR WO CAD Routine 09/20/2018 12:07 PM CDT Inconclusive mammogram from Last 3 Months or Most Recently Relevant to Health Maintenance Results * MAMMO DIAGNOSTIC UNI LEFT W OR WO CAD (09/20/2018 12:07 PM CDT) Anatomical Region Laterality Modality Breast Left Mammography 09/20/2018 12:0 7 PM CDT Impressions 09/20/2018 3:57 PM CDT : Normal left axillary lymph nodes. Recommend annual screening mammography. BI-RADS: 2 Recommendation: Annual screening mammography Recommendation Laterality: Bilateral The patient was given a result/recommendation letter. [id number] Narrative 09/20/2018 3:57 PM CDT EXAM: MAMMO DIAGNOSTIC UNI LEFT W OR WO CAD, 09/20/2018 12:07 PM CLINICAL INDICATIONS: Callback from screening for prominent left axillary lymph nodes COMPARISON: 08/31/2018, 08/30/2017 and 04/30/2004 TECHNIQUE: Digital axillary tail views of the left breast were obtained. This digital mammogram was also analyzed by the Computer Aided Detection System (CAD), [employer]erate Mobile Apps[employer], Version 8.3. FINDINGS: The breast is almost entirely fatty. The previously identified lymph nodes within the left axilla have a normal appearance and morphology upon additional imaging. There are no suspicious masses, calcifications, or architectural distortions. Malaika NGUYEN MAMMO ORDERABLES Final Result from Last 3 Months or Most Recently Relevant to Health Maintenance Insurance [place]ICARE PART A AND B Advance Directives For more information, please contact: [phone] * Full Code (Latest Code Status on File) Date Activated Date Inactivated Comments 11/10/2010 1:04 PM 11/11/2010 1:00 PM * Full Code Date Activated Date Inactivated Comments 11/10/2010 9:16 AM 11/10/2010 1:04 PM * Full Code Date Activated Date Inactivated Comments 11/10/2010 7:29 AM 11/10/2010 9:16 AM Care Teams Chief Librarian Extension Department Relationship Specialty Start Date End Date Malaika Euceda FNP [address] [place] [address] PCP - General NURSE PRACTITIONER 03/27/17
--- OUTSIDE RECORDS SUMMARY | 2025-08-03 05:59 | XMS_ITS | Clinical Summary ---
Author Organization [facility] Address [address] Garzan: Epic Prelude ADT ANDREI NUNN [address] Care Team Providers Care Production Recorder Name Role Phone Malaika Euceda TELEPHONE CLERK TELEGRAPH OFFICE Primary Care Provider [phone] Allergies No known active allergies Medications VITAMIN B COMPLEX-100 ORAL Take 1 mL by mouth. 03/22/2020 Active atorvastatin (LIPITOR) 40 mg tablet Take 40 mg by mouth late in the day. 03/27/2017 Active Active Problems Problem Noted Date Diagnosed [...] Years Used Date Smoking Tobacco: Former Cigarettes Smokeless Tobacco: Never Comments:Quit smoking: Quit 1982 Alcohol Use Standard Drinks/Week Comments No 0 (1 standard drink = 0.6 oz pur e alcohol) Comments Unknown Sex and Gender Information Value Date Recorded Sex Assigned at Not on file Legal Sex Female 6:51 AM LADLE REPAIRMAN Gender Identity Not on file Sexual Orientation Not on file Last Filed Vital Signs Vital Sign Reading Time Taken Comments Blood Pressure 158/63 03/22/2020 9:00 PM CDT Pulse 94 03/22/2020 7:33 PM CDT Temperature 37.1 C (98.8 F) 03/22/2020 9:00 PM CDT Respiratory Rate 18 03/22/2020 9:00 PM CDT Oxygen Saturation - - Inhaled Oxygen Concentration - - Weight 96.2 kg (212 lb) 03/22/2020 7:33 PM CDT Height 157.5 cm (5' 2 ) 03/27/2017 9:33 PM CDT Body Mass Index 38.78 03/27/2017 9:33 PM CDT Plan of Treatment Health Maintenance Due Date Last Done Comments DIABETES ANNUAL FOOT EXAM 1974 DIABETES ANNUAL RETINAL EXAM 1974 DIABETES HBA1C Q 6 MONTHS 1974 DIABETES MICROALBUMIN ANNUAL SCREEN 1974 LDL CHOLESTEROL ANNUAL 1974 FIT-DNA Q 3 years 2001 FIT/FOBT Q 1 year 2001 Flex Sig/CT Colonography Q 5 years 2001 ZOSTER VACCINE (1 of 2) 2006 PNEUMOCOCCAL VACCINE 50+ YEA RS (2 of 2 - PCV) 03/10/2018 03/10/2017 BREAST CANCER SCREENING 10/30/2020 10/30/20 19, 09/20/2018, 09/20/2018, Additional history exists INFLUENZA VACCINE (#1) 2025 3, 09/16/2022, 09/15/2021, Additional history exists COLORECTAL SCREENING 11/30/2026 11/30/2021, 11/29/2021, 11/05/2015 Colorectal Cancer Screening 11/30/2026 OSTEOPOROSIS SCREENING 12/26/2028 12/26/2023 DTAP/TDAP/TD VACCINES (2 - T d or Tdap) 05/27/2030 05/27/2020 RSV VACCINE (60+ or ) (1 - 1-dose 75+ series) 2031 Medical Devices Implanted Type Area Vice President Lending Device Identifier Shelf Expiration Date Model / Serial / Lot Vitoss Ba Implanted:Qty : 1 on 11/10/2010 Biological N/A: Neck ORTHOVITA 02/20/2012 [id number] / / [id number] Large Nevel Carvv Implanted:Qty : 1 on 11/10/2010 N/A: Neck [employer] [id number] / / [id number]#[id number] 1002 Screw Implanted:Qty : 4 on 11/10/2010 N/A: Neck [employer] [id number] / / LOAD#[id number] 1002 Trestle Implanted:Qty : 1 on 11/10/2010 N/A: Neck [employer] [id number] / / LOAD#[id number] 1002 Procedures Procedure Name Priority Date/Time Associated Diagnosis Comments XR DEXA BONE DENSITY AXIAL 1 OR MORE SITES Routine 12/26/2023 3:19 PM LADLE REPAIRMAN Encounter for screening for osteoporosis MAMMO DIAGNOSTIC UNI LEFT W OR WO CAD Routine 09/20/2018 12:07 PM CDT Inconclusive mammogram from Last 3 Months or Most Recently Relevant to Health Maintenance Results * (ABNORMAL) XR DEXA BONE DENSITY AXIAL 1 OR MORE SITES (12/26/2023 3:19 PM LADLE REPAIRMAN) T-SCORE HIP (LEFT) -0.40 -1.0 - 1.0 INTERFACE SYSTEM T-SCORE SPINE 2.70(A) -1.0 - 1.0 INTER FACE SYSTEM Anatomical Region Laterality Modality Digital Radiogra phy, Mammography 12/26/2023 3:20 PM LADLE REPAIRMAN Impressions 12/27/2023 9:29 AM LADLE REPAIRMAN IMPRESSION: Abnormal examination Bone density lies in the osteopenic range in the left proximal femur near the average the patient's age-matched control consistent with age-appropriate physiologic demineralization responsible for her osteopenia. NOF guidelines recommend consideration of FDA-approved medical therapies in patients with FRAX determined 10-year probabilities of hip/major osteoporosis-related fractures equal or greater than 3%/20% respectively. FRAX determined 10-year hip and major osteoporotic fracture risks based on the femoral neck bone density are 1.4% and 9.8% respectively. Narrative 12/27/2023 9:29 AM LADLE REPAIRMAN DEXA Evaluation of the Lumbar Spine and left Proximal Femur Reason for Consultation: Ovarian failure for osteoporosis screening. Evaluation of bone mineral density. The following absorptiometry data were obtained. The quality of this examination is acceptable with regards to count density, processed images, data display and lack of important artifacts (including but not limited to motion and attenuation artifacts). Serial examination number 1. Lumbar spine images demonstrate degenerative changes resulting in spurious elevation of bone density. L1-L4 BMD (g/cm2): 1.349 Adult T-score: 2.7 Adult Z-score: 4.7 Left Femoral Neck BMD (g/cm2): 0.631 Adult T-score: -2.0 Adult Z-score: -0.3 Left Total Hip BMD (g/cm2): 0.897 Adult T-score: -0.4 Adult Z-score: 1.0 Procedure Note Jerry Montano MD - 12/27/2023 DEXA Evaluation of the Lumbar Spine and left Proximal Femur Reason for Consultation: Ovarian failure for osteoporosis screening. Evaluation of bone mineral density. The following absorptiometry data were obtained. The quality of this examination is acceptable with regards to count density, processed images, data display and lack of important artifacts (including but not limited to motion and attenuation artifacts). Serial examination number 1. Lumbar spine images demonstrate degenerative changes resulting in spurious elevation of bone density. L1-L4 BMD (g/cm2): 1.349 Adult T-score: 2.7 Adult Z-score: 4.7 Left Femoral Neck BMD (g/cm2): 0.631 Adult T-score: -2.0 Adult Z-score: -0.3 Left Total Hip BMD (g/cm2): 0.897 Adult T-score: -0.4 Adult Z-score: 1.0 IMPRESSION: Abnormal examination Bone density lies in the osteopenic range in the left proximal femur near the average the patient's age-matched control consistent with age-appropriate physiologic demineralization responsible for her osteopenia. NOF guidelines recommend consideration of FDA-approved medical therapies in patients with FRAX determined 10-year probabilities of hip/major osteoporosis-related fractures equal or greater than 3%/20% respectively. FRAX determined 10-year hip and major osteoporotic fracture risks based on the femoral neck bone density are 1.4% and 9.8% respectively. Tiffanie Fonseca [facility] DIAGNOSTIC IMAGING ORDE JULITO Final Result * MAMMO DIAGNOSTIC UNI LEFT W OR WO CAD (09/20/2018 12:07 PM CDT) Anatomical Region Laterality Modality Breast Left Other Impressions 09/20/2018 3:57 PM CDT : Normal left axillary lymph nodes. Recommend annual screening mammography. BI-RADS: 2 Recommendation: Annual screening mammography Recommendation Laterality: Bilateral The patient was given a result/recommendation letter. [id number] Narrative 09/20/2018 3:57 PM CDT EXAM: MAMMO DIAGNOSTIC UNI LEFT W OR WO CAD, 09/20/2018 12:07 PM CLINICAL INDICATIONS: Callback from screening for prominent left axillary lymph nodes COMPARISON: 08/31/2018, 08/30/2017 and 04/30/2004 TECHNIQUE: Digital axillary tail views of the left breast were obtained. This digital mammogram was also analyzed by the Computer Aided Detection System (CAD), R2 ImageChecker, Version 8.3. FINDINGS: The breast is almost entirely fatty. The previously identified lymph nodes within the left axilla have a normal appearance and morphology upon additional imaging. There are no suspicious masses, calcifications, or architectural distortions. Procedure Note Temitope Dickerson MD - 04/13/2021 EXAM: MAMMO DIAGNOSTIC UNI LEFT W OR WO CAD, 09/20/2018 12:07 PM CLINICAL INDICATIONS: Callback from screening for prominent left axillary lymph nodes COMPARISON: 08/31/2018, 08/30/2017 and 04/30/2004 TECHNIQUE: Digital axillary tail views of the left breast were obtained. This digital mammogram was also analyzed by the Computer Aided Detection System (CAD), R2 ImageChecker, Version 8.3. FINDINGS: The breast is almost entirely fatty. The previously identified lymph nodes within the left axilla have a normal appearance and morphology upon additional imaging. There are no suspicious masses, calcifications, or architectural distortions. IMPRESSION : Normal left axillary lymph nodes. Recommend annual screening mammography. BI-RADS: 2 Recommendation: Annual screening mammography Recommendation Laterality: Bilateral The patient was given a result/recommendation letter. [id number] Malaika Euceda TELEPHONE CLERK TELEGRAPH OFFICE MAMMO ORDERABLES Final Result from Last 3 Months or Most Recently Relevant to Health Maintenance Insurance MEDICAID [place] MEDICARE PART A AND B Care Teams Production Recorder Relationship Specialty Start Date End Date Malaika Euceda FNP [address] [place] [address] PCP - General NURSE PRACTITIONER 03/27/17
--- OUTSIDE RECORDS SUMMARY | 2025-08-03 05:59 | XMS_ITS | Encounter Summary ---
Author Organization [facility] Address [address] [place] [address] Care Team Providers Care Gopherman Name Role Phone Malaika Euceda Primary Care Provider Encounter Details Date Type Department Care Team (Late st Contact Info) Description 08/07/2013 Ancillary Orders [facility] Centralized Scheduling [address] [place] [address] Daya Carroll FNP [address] [place], [place] [id number] Social History Tobacco Use Types Packs/Day Years Used Date Smoking Tobacco: Former Cigarettes 0.8 10 Comments:Quit 1982 Alcohol Use Standard Drinks/Week Comments No 0 (1 standard drink = 0.6 oz pur e alcohol) Comments No Sex and Gender Information Value Date Recorded Sex Assigned at Not on file Legal Sex Female 7:29 AM INFRASTRUCTURE SOLUTIONS ARCHITECT Gender Identity Not on file Sexual Orientation Not on file Occupation Industry Job Start Date Job End Date Not on file Not on file Not on file Not on file documented as of this encounter Plan of Treatment Not on file documented as of this encounter Visit Diagnoses Not on filedocumented in this encounter Care Teams Gopherman Relationship Specialty Start Date End Date Malaika Euceda FNP [address] [place] [address] PCP - General NURSE PRACTITIONER 03/27/17 documented as of this encounter
--- OUTSIDE RECORDS SUMMARY | 2025-08-03 05:59 | XMS_ITS | Encounter Summary ---
Author Organization [facility] Address [address] [place] [address] Care Team Providers Care Travel Insurance Agent Name Role Phone Malaika Euceda Primary Care Provider [phone] Encounter Details Date Type Department Care Team (Latest Contact Info) Description 06/23/2012 Ancillary Orders [facility] Pre-Registration [place] CALL TO MAKE APPOINTMENT ONLY [address] [place] [address] Daya Carroll FNP [address] [place] [address] Lump or mass in breast Social History Tobacco Use Types Packs/Day Years Used Date Smoking Tobacco: Former Cigarettes 0.8 10 Comments:Quit 1982 Alcohol Use Standard Drinks/Week Comments No 0 (1 standard drink = 0.6 oz pur e alcohol) Comments No Sex and Gender Information Value Date Recorded Sex Assigned at Not on file Legal Sex Female 7:29 AM OPERATING ROOM ORDERLY Gender Identity Not on file Sexual Orientation Not on file Occupation Industry Job Start Date Job End Date Not on file Not on file Not on file Not on file documented as of this encounter Plan of Treatment Not on file documented as of this encounter Visit Diagnoses Diagnosis Lump or mass in breast documented in this encounter Care Teams Travel Insurance Agent Relationship Specialty Start Date End Date Malaika Euceda FNP [address] [place] [address] PCP - General NURSE PRACTITIONER 03/27/17 documented as of this encounter
--- OUTSIDE RECORDS SUMMARY | 2025-08-03 05:59 | XMS_ITS | Encounter Summary ---
Author Organization [facility] Address [address] [place] [address] Care Team Providers Care General Distillery Worker Name Role Phone Malaika Euceda Yoselyn CHANGE MANAGEMENT CONSULTANT Primary Care Provider [phone] Reason for Referral * Outpatient Services (Routine) - Closed Specialty Diagnoses / Procedures Referred By Contac t Referred To Contact Diagnoses Other screening mammogram Screening for breast cancer Procedures MAMMO DIGITIZED STUDY Karine Mccrary MD [address] [place] [address] Phone: tel: fax: Referral ID Status Reason Start Date Expiration Date Visits Re quested Visits Authorized [id number] Closed 07/20/2012 07/20/2013 1 1 Encounter Details Date Type Department Care Team (Late st Contact Info) Description 07/20/2012 Ancillary Orders [facility] [address] [address] [address] [place] [id number] Karine Mccrary MD [address] [place] [address] Other screening mammogram ; Screening for breast cancer Social History Tobacco Use Types Packs/Day Years Used Date Smoking Tobacco: Former Cigarettes 0.8 10 Comments:Quit 1983 Alcohol Use Standard Drinks/Week Comments No 0 (1 standard drink = 0.6 oz pur e alcohol) Comments No Sex and Gender Information Value Date Recorded Sex Assigned at Not on file Legal Sex Female 7:29 AM IMAGING NURSE Gender Identity Not on file Sexual Orientation Not on file Occupation Industry Job Start Date Job End Date Not on file Not on file Not on file Not on file documented as of this encounter Plan of Treatment Not on file documented as of this encounter Results * MAMMO DIGITIZED STUDY (06/22/2007 4:47 PM CDT) Narrative Edel Ortiz, RT - 07/20/2012 4:47 PM CDT Order information only. Exam was auto-finalized. Procedure Note Edel Ortiz, RT - 07/20/2012 Order information only. Exam was auto-finalized. Karine Mccrary MD DIAGNOSTIC IMAGING ORDERABLE S Final Result documented in this encounter Visit Diagnoses Diagnosis Other screening mammogram Other screening mammogram Screening for breast cancer Breast screening, unspecified Other screening mammogram Other screening mammogram Screening for breast cancer Breast screening, unspecified documented in this encounter Care Teams General Distillery Worker Relationship Specialty Start Date End Date Malaika Euceda FNP [address] [place] [address] PCP - General NURSE PRACTITIONER 03/27/17 documented as of this encounter
--- OUTSIDE RECORDS SUMMARY | 2025-08-03 05:59 | XMS_ITS | Encounter Summary ---
Author Organization [facility] Address [address] [place] [address] Care Team Providers Care Delinquent Tax Collector Name Role Phone Malaika Euceda Primary Care Provider [phone] Reason for Referral * Outpatient Services (Routine) - Closed Specialty Diagnoses / Procedures Referred By Heavenly t Referred To Contact Radiology Diagnoses Other screening mammogram Procedures MAMMO DIGITAL SCREEN BILAT Daya Carroll FNP [address] [place] [address] Phone: tel: fax: [facility] [address] [place] [address] Phone: tel: fax: Referral ID Status Reason Start Date Expiration Date V isits Requested Visits Authorized [id number] Closed IAN View CTS to Schedule (SGF) 08/09/2013 09/09/2014 1 1 Encounter Details Date Type Department Care Team (Latest Contact Info) Description 08/09/2013 Ancillary Orders [facility] Centralized Scheduling [address] [address] [facility] [place] [address] Daya Carroll FNP [address] [place], [place] [id number] Other screening mammogram (Primary Dx) Social History Tobacco Use Types Packs/Day Years Used Date Smoking Tobacco: Former Cigarettes 0.8 10 Comments:Quit 1982 Alcohol Use Standard Drinks/Week Comments No 0 (1 standard drink = 0.6 oz pur e alcohol) Comments No Sex and Gender Information Value Date Recorded Sex Assigned at Not on file Legal Sex Female 7:29 AM DESIGN ASSEMBLER Gender Identity Not on file Sexual Orientation Not on file Occupation Industry Job Start Date Job End Date Not on file Not on file Not on file Not on file documented as of this encounter Plan of Treatment Not on file documented as of this encounter Results * MAMMO DIGITAL SCREEN BILAT (08/14/2013 3:00 PM CDT) Anatomical Region Laterality Modality Breast Bilateral Mammography Narrative 08/17/2013 10:05 AM CDT Bilateral Mammogram Reason for Exam: Screening Comparison: Compared to: 07/26/2012 MAMMO DIGITAL SCREEN BILAT, 06/02/2011 MAMMO DIGITIZED STUDY, 09/24/2009 MAMMO DIGITIZED STUDY, 06/22/2007 MAMMO DIGITIZED STUDY, 04/30/2004 MAMMO DIGITIZED STUDY Findings: Bilateral CC and MLO views were obtained. This examination was reviewed with the aid of a computer-aided detection system(CAD). The breast tissue density is average. No significant new findings since the prior mammogram(s). Procedure Note Tony Carrasco MD - 08/17/2013 Bilateral Mammogram Reason for Exam: Screening Comparison: Compared to: 07/26/2012 MAMMO DIGITAL SCREEN BILAT, 06/02/2011MAMMO DIGITIZED STUDY, 09/24/2009 MAMMO DIGITIZED STUDY, 06/22/2007 MAMMODIGITIZED STUDY, 04/30/2004 MAMMO DIGITIZED STUDY Findings: Bilateral CC and MLO views were obtained. This examination was reviewed with the aid of a computer-aided detectionsystem(CAD). The breast tissue density is average. No significant new findings since the prior mammogram(s). Daya Borja OPAL POLISHER MAMMO ORDERABL ES Final Result documented in this encounter Visit Diagnoses Diagnosis Other screening mammogram- Primary Other screening mammogram documented in this encounter Care Teams Delinquent Tax Collector Relationship Specialty Start Date End Date Malaika Euceda FNP [address] [place] [address] PCP - General NURSE PRACTITIONER 03/27/17 documented as of this encounter
--- OUTSIDE RECORDS SUMMARY | 2025-08-03 05:59 | XMS_ITS | Encounter Summary ---
Author Organization [facility] Address [address] [place] [address] Care Team Providers Care Fire Extinguisher Mechanic Name Role Phone Malaika Euceda Yoselyn [facility] Primary Care Provider [phone] Encounter Details Date Type Department Care Team (Late st Contact Info) Description 09/25/2009 Ancillary Orders [facility] Imaging External Read [address] [place] [address] Daya Carroll, [facility] [address] [place], [place] [id number] Screening Mammogram Social History Tobacco Use Types Packs/Day Years Used Date Smoking Tobacco: Former Comments:Quit 1983 Alcohol Use Standard Drinks/Week Comments No 0 (1 standard drink = 0.6 oz pur e alcohol) Comments No Sex and Gender Information Value Date Recorded Sex Assigned at Not on file Legal Sex Female 7:29 AM DOCTOR OF PODIATRIC MEDICINE Gender Identity Not on file Sexual Orientation Not on file documented as of this encounter Plan of Treatment Not on file documented as of this encounter Results * MAMMO SCREENING BILAT (09/25/2009 2:18 PM DOCTOR OF PODIATRIC MEDICINE) Anatomical Region Laterality Modality Breast Bilateral Mammography Narrative 09/28/2009 3:59 PM DOCTOR OF PODIATRIC MEDICINE Bilateral Mammogram Reason for Exam: Screening Comparison: Comparison is made with the prior exam(s) dated 04.30.04 Findings: Bilateral CC and MLO views were obtained. This examination was reviewed with the aid of a computer-aided detection system(CAD). The breast tissue density is average. No significant new findings since the prior mammogram(s). Procedure Note Alison Parr MD - 09/28/2009 Bilateral Mammogram Reason for Exam: Screening Comparison: Comparison is made with the prior exam(s) dated 04.30.04 Findings: Bilateral CC and MLO views were obtained. This examination was reviewed with the aid of a computer-aided detectionsystem(CAD). The breast tissue density is average. No significant new findings since the prior mammogram(s). External Provider [facility] MAMMO ORDERABLES Final Res ult documented in this encounter Visit Diagnoses Diagnosis Screening mammogram Other screening mammogram documented in this encounter Care Teams Fire Extinguisher Mechanic Relationship Specialty Start Date End Date Malaika Euceda FNP [address] [place] [address] PCP - General NURSE PRACTITIONER 03/27/17 documented as of this encounter
--- OUTSIDE RECORDS SUMMARY | 2025-08-03 05:59 | XMS_ITS | Encounter Summary ---
Author Organization [facility] Address [address] [place] [address] Care Team Providers Care Non Destructive Testing Scientist Name Role Phone Ok Malaikamichele NGUYEN Primary Care Provider [phone] Reason for Referral * Outpatient Services (Routine) - Closed Specialty Diagnoses / Procedures Referred By Heavenly rockwell Referred To Contact Diagnoses Visit for screening mammogram Procedures MAMMO DIGITAL SCREEN BILAT Daya Carroll FNP [address] [place] [address] Phone: tel: fax: Referral ID Status Reason Start Date Expiration Date Visits Re quested Visits Authorized [id number] Closed 06/05/2012 06/05/2013 1 1 Encounter Details Date Type Department Care Team (Latest Contact Info) Description 06/05/2012 Ancillary Orders [facility] [address] [place] [id number] Daya Carroll FNP [address] [place] [address] Visit for screening mammogram Social History Tobacco Use Types Packs/Day Years Used Date Smoking Tobacco: Former Cigarettes 0.8 10 Comments:Quit 1983 Alcohol Use Standard Drinks/Week Comments No 0 (1 standard drink = 0.6 oz pur e alcohol) Comments No Sex and Gender Information Value Date Recorded Sex Assigned at Not on file Legal Sex Female 7:29 AM SLITTING AND SHIPPING SUPERVISOR Gender Identity Not on file Sexual Orientation Not on file documented as of this encounter Plan of Treatment Scheduled Orders Name Type Priority Associated Diagnoses Orde r Schedule MAMMO DIGITAL SCREEN BILAT Imaging Routine Visit For Screening Mammogram 1 Occurrences starting 06/05/2012 until 12/06/2013 documented as of this encounter Visit Diagnoses Diagnosis Visit for screening mammogram Other screening mammogram documented in this encounter Care Teams Non Destructive Testing Scientist Relationship Specialty Start Date End Date Malaika Euceda FNP [address] [place] [address] PCP - General NURSE PRACTITIONER 03/27/17 documented as of this encounter
--- OUTSIDE RECORDS SUMMARY | 2025-08-03 05:59 | XMS_ITS | Encounter Summary ---
Author Organization [facility] Address [address] [place] [address] Care Team Providers Care Installer Name Role Phone Malaika Euceda Primary Care Provider [phone] Reason for Referral * Outpatient Services (Routine) - Closed Specialty Diagnoses / Procedures Referred By Heavenly rockwell Referred To Contact Diagnoses Visit for screening mammogram Procedures MAMMO DIGITIZED STUDY Daya Carroll FNP [address] [place] [address] Phone: tel: fax: Referral ID Status Reason Start Date Expiration Date Visits Re quested Visits Authorized [id number] Closed 06/14/2012 06/14/2013 1 1 Encounter Details Date Type Department Care Team (Latest Contact Info) Description 06/14/2012 Ancillary Orders [facility] [address] [place] [address] Daya Carroll FNP [address] [place] [address] Visit for screening mammogram Social History Tobacco Use Types Packs/Day Years Used Date Smoking Tobacco: Former Cigarettes 0.8 10 Comments:Quit 1982 Alcohol Use Standard Drinks/Week Comments No 0 (1 standard drink = 0.6 oz pur e alcohol) Comments No Sex and Gender Information Value Date Recorded Sex Assigned at Not on file Legal Sex Female 7:29 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 Exam was auto-finalized. Procedure Note Edel Ortiz, RT - 06/14/2012 Order information only. Exam was auto-finalized. Daya Borja PLANT CONTROL AIDE DIAGNOSTIC NOHEMI GING ORDERABLES Final Result documented in this encounter Visit Diagnoses Diagnosis Visit for screening mammogram Other screening mammogram Visit for screening mammogram Other screening mammogram documented in this encounter Care Teams Installer Relationship Specialty Start Date End Date Malaika Euceda FNP [address] [place] [address] PCP - General NURSE PRACTITIONER 03/27/17 documented as of this encounter
--- OUTSIDE RECORDS SUMMARY | 2025-08-03 05:59 | XMS_ITS | Encounter Summary ---
Author Organization [facility] Address [address] [place] [address] Care Team Providers Care Piecer Name Role Phone Malaika Euceda Primary Care Provider [phone] Reason for Referral * Radiology Services (Routine) - Closed Specialty Diagnoses / Procedures Referred By Contac t Referred To Contact Radiology Diagnoses Encounter for screening mammogram for malignant neoplasm of breast Procedures MAMMO SCREEN BILAT W OR WO CAD Malaika Euceda FNP [address] [place] [address] Phone: tel: fax: [facility] [address] [place] [address] Phone: tel: fax: Referral ID Status Reason Start Date Expiration Date V isits Requested Visits Authorized [id number] Closed [facility] View CTS to Schedule (SGF) 08/28/2018 09/28/2019 1 1 Encounter Details Date Type Department Care Team (Latest Contact Info) Description 08/28/2018 Ancillary Orders [facility] Centralized Scheduling [address] [place] [id number] Malaika Euceda FNP [address] [place], [place] [address] Encounter for screening mammogram for malignant neoplasm of breast Social History Tobacco Use Types Packs/Day Years Used Date Smoking Tobacco: Former Cigarettes 0.8 10 Comments:Quit 1982 Alcohol Use Standard Drinks/Week Comments No 0 (1 standard drink = 0.6 oz pur e alcohol) Comments No Sex and Gender Information Value Date Recorded Sex Assigned at Not on file 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 In addition to the recommended additional views, I would recommend left 2-D axillary tail view. [id number] Narrative 09/01/2018 2:42 PM CDT SCREENING 08/31/2018 Bilateral craniocaudal and oblique views show average breast parenchymal density. Comparison is made with prior exams of 08/30/2017, 09/08/2016, 03/12/2016, 09/03/2015, 08/14/2013, 07/26/2012, 06/14/2012 and 06/02/2011. No change is seen on the right. No suspicious calcifications are seen. No discrete abnormality is seen within the left breast. However, there are two possible prominent lymph nodes seen in the left axilla and this will require further evaluation. This mammogram was also analyzed by the Computer Aided Detection System (CAD), [employer], Version 8.3. Malaika NGUYEN MAMMO ORDERABLES Final Result documented in this encounter Visit Diagnoses Diagnosis Encounter for screening mammogram for malignant neoplasm of breast Other screening mammogram Encounter for screening mammogram for malignant neoplasm of breast Other screening mammogram documented in this encounter Care Teams Piecer Relationship Specialty Start Date End Date Malaika Euceda FNP [address] [place] [address] PCP - General NURSE PRACTITIONER 03/27/17 documented as of this encounter
--- OUTSIDE RECORDS SUMMARY | 2025-08-03 06:00 | XMS_ITS | Encounter Summary ---
Author Organization [facility] Address [address] [place] [address] Care Team Providers Care Sap Abap Developer Name Role Phone Malaika Euceda Primary Care Provider [phone] Reason for Referral * Outpatient Services (Routine) - Closed Specialty Diagnoses / Procedures Referred By Contac t Referred To Contact Radiology Diagnoses Hernia, inguinal Procedures US EXT NON VASC LTD LT Malaika Euceda FNP [address] [place] [address] Phone: tel: fax: [facility] [address] [place] [address] Phone: tel: fax: Referral ID Status Reason Start Date Expiration Date V isits Requested Visits Authorized [id number] Closed [facility] View CTS to Schedule (SGF) 02/26/2016 03/28/2017 1 1 Encounter Details Date Type Department Care Team (Latest Contact Info) Description 02/26/2016 Ancillary Orders [facility] Centralized Scheduling [address] [place] [address] Malaika Euceda FNP [address] [place], [place] [address] Hernia, inguinal (Primary Dx) Social History Tobacco Use Types Packs/Day Years Used Date Smoking Tobacco: Former Cigarettes 0.8 10 Comments:Quit 1982 Alcohol Use Standard Drinks/Week Comments No 0 (1 standard drink = 0.6 oz pur e alcohol) Comments No Sex and Gender Information Value Date Recorded Sex Assigned at Not on file 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 Left inguinal adenopathy. [id number] Narrative 03/04/2016 12:34 PM CDT Exam: US EXT NON VASC LTD LT Date/Time of Exam: 03/04/2016 10:35 AM Reason For Exam: Hernia, inguinal. Findings: Evaluation of the left inguinal area demonstrates multiple lymph nodes with associated vascular flow. Lymph nodes measure approximately 1.5 cm. Abscess formation or pathologic fluid collections are not identified. Malaika NGUYEN US ORDERABLES Final Result documented in this encounter Visit Diagnoses Diagnosis Hernia, inguinal- Primary Inguinal hernia without mention of obstruction or gangrene, unilateral or unspecified, (not specified as recurrent) Hernia, inguinal Inguinal hernia without mention of obstruction or gangrene, unilateral or unspecified, (not specified as recurrent) documented in this encounter Care Teams Sap Abap Developer Relationship Specialty Start Date End Date Malaika Euceda FNP [facility] [place] [address] PCP - General NURSE PRACTITIONER 03/27/17 documented as of this encounter
--- OUTSIDE RECORDS SUMMARY | 2025-08-03 06:00 | XMS_ITS | Encounter Summary ---
Author Organization [facility] Address [address] [place] [address] Care Team Providers Care Commercial Lines Assistant Name Role Phone Malaika Euceda Primary Care Provider [phone] Reason for Referral * Outpatient Services (Routine) - Closed Specialty Diagnoses / Procedures Referred By Contac t Referred To Contact Diagnoses Neck pain Back pain Procedures MRI LUMBAR WO CONTRAST Daya Carroll FNP [address] [place] [address] Phone: tel: fax: Referral ID Status Reason Start Date Expiration Date Visits Re quested Visits Authorized [id number] Closed 10/06/2010 04/04/2011 1 1 MOTIVE WORKER FOREMAN * Outpatient Services (Routine) - Closed Specialty Diagnoses / Procedures Referred By Contac t Referred To Contact Diagnoses Neck pain Back pain Procedures MRI CERVICAL WO CONTRAST Daya Carroll FNP [address] [place] [address] Phone: tel: fax: Referral ID Status Reason Start Date Expiration Date Visits Re quested Visits Authorized [id number] Closed 10/06/2010 04/04/2011 1 1 MOTIVE WORKER FOREMAN Encounter Details Date Type Department Care Team (Late st Contact Info) Description 10/06/2010 Ancillary Orders [facility] [address] 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 Mild chronic compression of the superior L4 endplate. 2. Multilevel degenerative changes, most advanced at the L3-L4 through L5-S1 levels. [email or web address] - uploaded from [employer]- [employer] 10/14/2010 2:40 PM AUTOMOTIVE WORKER FOREMAN Exam: MRI LUMBAR WO CONTRAST Date/Time of Exam: Oct 14, 2010 11:46:00 AM History: Neck pain. Technique: MRI of the lumbar spine was performed without the administration of intravenous contrast. No acute fracture. Mild chronic compression of the superior L4 endplate. Few vertebral body hemangiomata. Mild upper to mid lumbar levoscoliosis. The conus and cauda equina are unremarkable. T12-L1: Mild anterior endplate degenerative changes. L1-L2: Disc desiccation and mild facet degenerative changes. L2-L3: Disc desiccation and mild facet degenerative changes. L3-L4: Very mild disc bulge, moderate facet degenerative changes and moderate central canal and mild bilateral foraminal narrowing. L4-L5: Mild disc bulge and significant facet degenerative changes and ligamentum flavum hypertrophy contributing to moderate central canal and lateral recess stenosis and mild bilateral foraminal narrowing. L5-S1: Mild disc bulge and moderate facet arthrosis. Mild to moderate left foraminal narrowing. The right foramen is patent. Procedure Note Uriel Krishna MD - 10/14/2010 Exam: MRI LUMBAR WO CONTRAST Date/Time of Exam: Oct 14, 2010 11:46:00 AM History: Neck pain. Technique: MRI of the lumbar spine was performed without the administration of intravenous contrast. No acute fracture. Mild chronic compression of the superior L4 endplate. Few vertebral body hemangiomata. Mild upper to mid lumbar levoscoliosis. The conus and cauda equina are unremarkable. T12-L1: Mild anterior endplate degenerative changes. L1-L2: Disc desiccation and mild facet degenerative changes. L2-L3: Disc desiccation and mild facet degenerative changes. L3-L4: Very mild disc bulge, moderate facet degenerative changes and moderate central canal and mild bilateral foraminal narrowing. L4-L5: Mild disc bulge and significant facet degenerative changes and ligamentum flavum hypertrophy contributing to moderate central canal and lateral recess stenosis and mild bilateral foraminal narrowing. L5-S1: Mild disc bulge and moderate facet arthrosis. Mild to moderate left foraminal narrowing. The right foramen is patent. IMPRESSION Impression: 1. Mild chronic compression of the superior L4 endplate. 2. Multilevel degenerative changes, most advanced at the L3-L4 through L5-S1 levels. [email or web address] - uploaded from [employer]- us External Provider [facility] MR ORDERABLES Final Resu lt * MRI CERVICAL WO CONTRAST (10/14/2010 11:46 AM AUTOMOTIVE WORKER FOREMAN) Anatomical Region Laterality Modality Spine Magnetic Resonan ce 10/14/2010 10:4 9 AM AUTOMOTIVE WORKER FOREMAN Impressions 10/14/2010 3:28 PM AUTOMOTIVE WORKER FOREMAN Impression: 1. A large disc bulge at C5-6 compresses the cord. Mild increased cord signal may represent edema and/or myelomalacia. Severe left and moderate right foraminal narrowing. 2. Very mild central disc protrusions and/or spurs at C2-3 and C3-4. Mild central disc protrusion at C6-7. The findings and/or imaging diagnoses in the above impression have been deemed a critical result by the interpreting radiologist and immediately reported as such to the ordering physician or appropriate licensed caregiver in accordance with current radiology department policy. ekp - uploaded from [employer] Narrative 10/14/2010 3:28 PM AUTOMOTIVE WORKER FOREMAN Exam: MRI CERVICAL WO CONTRAST Date/Time of Exam: Oct 14, 2010 11:46:00 AM History: NECK PAIN. Technique: MRI of the cervical spine was performed without the administration of intravenous contrast. Straightening of the cervical lordosis. No fracture or significant osseous or soft tissue abnormality. Normal relationships at the foramen magnum. C2-3: Very small central disc protrusion or spur. The foramina are patent. C3-4: Very small central disc protrusion or spur. The foramina are patent. C4-5: Unremarkable. C5-6: Mild disc space height and diffuse signal loss and a prominent broad-based disc bulge, slightly greater in the left paracentral and subarticular zones. Mild to moderate cord compression and mild increased cord T2 signal. Severe left and moderate right foraminal narrowing. C6-7: A mild central disc protrusion abuts but does not significantly compress the cord. The foramina are patent. C7-T1: Unremarkable. Incidental note is made of two small foci of increased signal in the midline posterior nasopharyngeal mucosal space most consistent with benign Tornwaldt cysts. Procedure Note Uriel Krishna MD - 10/14/2010 Exam: MRI CERVICAL WO CONTRAST Date/Time of Exam: Oct 14, 2010 11:46:00 AM History: NECK PAIN. Technique: MRI of the cervical spine was performed without the administration of intravenous contrast. Straightening of the cervical lordosis. No fracture or significant osseous or soft tissue abnormality. Normal relationships at the foramen magnum. C2-3: Very small central disc protrusion or spur. The foramina are patent. C3-4: Very small central disc protrusion or spur. The foramina are patent. C4-5: Unremarkable. C5-6: Mild disc space height and diffuse signal loss and a prominent broad-based disc bulge, slightly greater in the left paracentral and subarticular zones. Mild to moderate cord compression and mild increased cord T2 signal. Severe left and moderate right foraminal narrowing. C6-7: A mild central disc protrusion abuts but does not significantly compress the cord. The foramina are patent. C7-T1: Unremarkable. Incidental note is made of two small foci of increased signal in the midline posterior nasopharyngeal mucosal space most consistent with benign Tornwaldt cysts. IMPRESSION Impression: 1. A large disc bulge at C5-6 compresses the cord. Mild increased cord signal may represent edema and/or myelomalacia. Severe left and moderate right foraminal narrowing. 2. Very mild central disc protrusions and/or spurs at C2-3 and C3-4. Mild central disc protrusion at C6-7. The findings and/or imaging diagnoses in the above impression have been deemed a critical result by the interpreting radiologist and immediately reported as such to the ordering physician or appropriate licensed caregiver in accordance with current radiology department policy. ekp - uploaded from [employer]! us External Provider [facility] MR ORDERABLES Final Resu lt documented in this encounter Visit Diagnoses Diagnosis Neck pain Cervicalgia Back pain Backache, unspecified documented in this encounter Care Teams Commercial Lines Assistant Relationship Specialty Start Date End Date Malaika Euceda FNP [address] [place] [address] PCP - General NURSE PRACTITIONER 03/27/17 documented as of this encounter
--- OUTSIDE RECORDS SUMMARY | 2025-08-03 06:00 | XMS_ITS | Encounter Summary ---
Author Organization [facility] Address [address] [place] [address] Care Team Providers Care Director State Pharmacy Name Role Phone Malaika Euceda Primary Care Provider [phone] Reason for Referral * Outpatient Services (Routine) - Closed Specialty Diagnoses / Procedures Referred By Contac t Referred To Contact Radiology Diagnoses Encounter for screening mammogram for malignant neoplasm of breast Procedures MAMMO DIGITAL SCREEN BILAT Malaika Euceda FNP [address] [place] [address] Phone: tel: fax: [facility] [address] [facility] [address] [place] [address] Phone: tel: fax: Referral ID Status Reason Start Date Expiration Date V isits Requested Visits Authorized [id number] Closed [facility] View CTS to Schedule (SGF) 09/02/2016 10/03/2017 1 1 Encounter Details Date Type Department Care Team (Latest Contact Info) Description 09/02/2016 Ancillary Orders [facility] Centralized Scheduling [address] [facility] [address] [place] [phone] Malaika Euceda FNP [address] [place], [place] [address] Encounter for screening mammogram for malignant neoplasm of breast (Primary Dx) Social History Tobacco Use Types Packs/Day Years Used Date Smoking Tobacco: Former Cigarettes 0.8 10 Comments:Quit 1982 Alcohol Use Standard Drinks/Week Comments No 0 (1 standard drink = 0.6 oz pur e alcohol) Comments No Sex and Gender Information Value Date Recorded Sex Assigned at Not on file 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 Gender Identity Not on file Sexual Orientation Not on file Occupation Industry Job Start Date Job End Date Not on file Not on file Not on file Not on file documented as of this encounter Plan of Treatment Not on file documented as of this encounter Results * MAMMO DIGITAL SCREEN BILAT (09/08/2016 2:01 PM CDT) Anatomical Region Laterality Modality Breast Bilateral Mammography Narrative 09/09/2016 12:07 PM CDT Bilateral Mammogram Reason for Exam: Screening Comparison: Compared to: 03/12/2016 MAMMO DIGITAL DIAG UNI RIGHT, 09/11/2015 MAMMO DIGITAL DIAG UNI RIGHT, 09/03/2015 MAMMO DIGITAL SCREEN BILAT, 08/14/2013 MAMMO DIGITAL SCREEN BILAT, 07/26/2012 MAMMO DIGITAL SCREEN BILAT, 06/02/2011 MAMMO DIGITIZED STUDY, 09/24/2009 MAMMO DIGITIZED STUDY, 06/22/2007 MAMMO DIGITIZED STUDY, 04/30/2004 MAMMO DIGITIZED STUDY Findings: Bilateral CC and MLO views were obtained. This examination was reviewed with the aid of a computer-aided detection system(CAD). The breast tissue density is fatty. No significant new findings since the prior mammogram(s). Malaika NGUYEN MAMMO ORDERABLES Final Result documented in this encounter Visit Diagnoses Diagnosis Encounter for screening mammogram for malignant neoplasm of breast- Primary Other screening mammogram Encounter for screening mammogram for malignant neoplasm of breast Other screening mammogram documented in this encounter Care Teams Director State Pharmacy Relationship Specialty Start Date End Date Malaika Euceda FNP [address] [place] [address] PCP - General NURSE PRACTITIONER 03/27/17 documented as of this encounter
--- OUTSIDE RECORDS SUMMARY | 2025-08-03 06:00 | XMS_ITS | Encounter Summary ---
Author Organization [facility] Address [address] [place] [address] Care Team Providers Care Glass Processing Worker Name Role Phone Malaika Euceda Primary Care Provider [phone] Reason for Referral * Outpatient Services (Routine) - Closed Specialty Diagnoses / Procedures Referred By Contac t Referred To Contact Radiology Diagnoses Encounter for screening mammogram for malignant neoplasm of breast Procedures MAMMO SCREEN BILAT W OR WO CAD Malaika Euceda FNP [address] [place] [address] Phone: tel: fax: [facility] [address] [facility] [address] [place] [address] Phone: tel: fax: Referral ID Status Reason Start Date Expiration Date V isits Requested Visits Authorized [id number] Closed [facility] View CTS to Schedule (SGF) 07/15/2017 08/15/2018 1 1 Encounter Details Date Type Department Care Team (Latest Contact Info) Description 07/15/2017 Ancillary Orders 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 Gender Identity Not on file Sexual Orientation Not on file Occupation Industry Job Start Date Job End Date Not on file Not on file Not on file Not on file documented as of this encounter Plan of Treatment Not on file documented as of this encounter Results * MAMMO SCREEN BILAT W OR WO CAD (08/30/2017 3:43 PM CDT) Anatomical Region Laterality Modality Breast Bilateral Mammography Narrative 09/01/2017 9:52 AM CDT Bilateral Mammogram Reason for Exam: Screening Comparison: Compared to: 09/08/2016 MAMMO DIGITAL SCREEN BILAT, 03/12/2016 MAMMO DIGITAL DIAG UNI RIGHT, 09/11/2015 MAMMO DIGITAL DIAG UNI RIGHT, 09/03/2015 MAMMO DIGITAL SCREEN BILAT, 08/14/2013 MAMMO DIGITAL SCREEN BILAT, 07/26/2012 MAMMO DIGITAL SCREEN BILAT, 06/02/2011 MAMMO DIGITIZED STUDY, and 09/24/2009 MAMMO DIGITIZED STUDY Findings: Bilateral CC and MLO views were obtained. This examination was reviewed with the aid of a computer-aided detection system(CAD). Breast Composition: The breasts are almost entirely fatty. There are no suspicious masses, areas of architectural distortions, or microcalcifications to suggest malignancy. Asymmetry appears stable.Right breast calcifications appear stable. No significant new findings since the prior mammogram(s). Malaika NGUYEN MAMMO ORDERABLES Final Result documented in this encounter Visit Diagnoses Diagnosis Encounter for screening mammogram for malignant neoplasm of breast Other screening mammogram Encounter for screening mammogram for malignant neoplasm of breast Other screening mammogram documented in this encounter Care Teams Glass Processing Worker Relationship Specialty Start Date End Date Malaika Euceda FNP [address] [place] [address] PCP - General NURSE PRACTITIONER 03/27/17 documented as of this encounter
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
--- OUTSIDE RECORDS SUMMARY | 2025-08-03 06:00 | XMS_ITS | Encounter Summary ---
Author Organization [facility] Address [address] [place] [address] Care Team Providers Care Structures Engineer Name Role Phone Malaika Euceda Primary Care Provider Encounter Details Date Type Department Care Team (Latest Contact Info) Description 03/24/2016 Ancillary Orders [facility] Centralized Scheduling [address] [place] [id number] Malaika Euceda FNP [address] [place], [place] [id number] Inguinal adenopathy (Primary Dx) Social History Tobacco Use Types Packs/Day Years Used Date Smoking Tobacco: Former Cigarettes 0.8 10 Comments:Quit 1982 Alcohol Use Standard Drinks/Week Comments No 0 (1 standard drink = 0.6 oz pur e alcohol) Comments No Sex and Gender Information Value Date Recorded Sex Assigned at Not on file 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
[2025-08-03 06:07] LABS: Hematocrit 30.9 % (36-47); Hemoglobin 9.70 g/dL (11.27-16.99); Mean Corpuscular HGB Conc 31.4 g/dL (30-55); Mean Corpuscular Hemoglobin 30.6 pg (27-33); Mean Corpuscular Volume 97.5 fl (85-98); Nucleated Red Blood Cells % 0 %; Platelet Count 150 10^3/cmm (157-399); Red Blood Count 3.17 10^6/uL (3.85-5.65); White Blood Count 5.42 10^3/uL (3.29-11.43)
[2025-08-03 06:23] LABS: Glucose Urine UA Negative (Normal); Nitrate Urine Negative (Negative); Specific Gravity, Urine 1.011 (1.005-1.030)
[2025-08-03 06:23] LABS: Alanine Aminotransferase 22 U/L (0-33); Albumin Level 3.8 g/dL (3.5-5.2); Alkaline Phosphatase 96 U/L (35-105); Blood Urea Nitrogen 17 mg/dL (8-23); Calcium 9.4 mg/dL (8.5-10.5); Carbon Dioxide 23 mmol/L (22-29); Chloride 103 mmol/L (98-107); Creatinine Clr Calc Pharmacy 65.6748; Globulin 3.0 g/dL (1.3-4.6); Glucose 141 mg/dL (65-115); Lipase 104 U/L (13-60); Osmolality Calculated 292 mOsm/kg (285-295); Sodium 139 mmol/L (136-145); Total Protein 6.8 g/dL (6.6-8.7)
[2025-08-03 06:24] LABS: Anion Gap 17.5 (5-19); Aspartate Amino Transferase 33 U/L (0-32); Potassium 4.5 mmol/L (3.5-5.1)
[2025-08-03 06:29] LABS: Add Urine Microscopic? YES
--- NOTE | 2025-08-03 07:04 | CTR_ITS ---
PROCEDURE INFORMATION: Exam: CT Abdomen And Pelvis Without Contrast Exam date and time: 08/03/2025 7:24 AM Age: 69 years old Clinical indication: Abdominal pain; Prior surgery; Surgery date: 6+ months; Colon CA lung CA TECHNIQUE: Imaging protocol: Computed tomography of the abdomen and pelvis without contrast. Radiation optimization: All CT scans at this facility use at least one of these dose optimization techniques: automated exposure control; mA and/or kV adjustment per patient size (includes targeted exams where dose is matched to clinical indication); or iterative reconstruction. COMPARISON: PT PET skull to thigh SUBS [id number] 05/17/2025 8:49 AM RADIATION DOSE METRICS: Total DLP (mGy-cm): 726.45 FINDINGS: Lungs: No significant change in bibasilar pulmonary nodules. Liver: Multiple calcified hepatic granulomas. Gallbladder and biliary ducts: Multiple gallstones without evidence of cholecystistis. Pancreas: Normal. No ductal dilation. Spleen: Calcified splenic granulomas. Adrenal glands: Normal. No mass. Kidneys and ureters: Normal. No hydronephrosis. Stomach and bowel: Prior surgical changes involving the sigmoid colon. Diffuse colonic stool material. No small bowel loop dilatation. Appendix: Appendix is normal. Intraperitoneal space: Unremarkable. No free air. No significant fluid collection. Vasculature: Mild calcified atherosclerotic changes are seen throughout the abdominal aorta. Lymph nodes: No significant change of enlarged retroperitoneal lymph nodes. Urinary bladder: Bladder appears distended. Reproductive: Unremarkable as visualized. Bones/joints: Mild lumbar spine degenerative changes. Soft tissues: Unremarkable. CT/CT abdomen pelvis wo con [id number] IMPRESSION: 1. Bladder appears distended. 2. Diffuse colonic stool material. Clinical correlation to exclude constipation is advised. 3. No significant change in bibasilar pulmonary nodules. 4. No significant change of enlarged retroperitoneal lymph nodes. 5. Mild calcified atherosclerotic changes are seen throughout the abdominal aorta. 6. Multiple gallstones without evidence of cholecystistis. 7. Mild lumbar spine degenerative changes.
--- NOTE | 2025-08-03 07:05 | W.ED.ABDPA2 ---
HPI - Abdominal Pain General: Chief Complaint: Abdominal Pain Stated Complaint: abdomen pain Time Seen by Provider: 08/03/25 06:01 History of Present Illness: 61-year-old female presents emergency room via EMS with sudden onset of left lower quadrant abdominal pain this morning. Woke her up from sleep. Previously had a left inguinal hernia repair with mesh is several years ago. She denies any fever sweats chills she denies any vomiting or diarrhea no hematochezia or melena. She says the pain has begun to subside. No other recent episodes of pain. She has a history of colon cancer had a previous colon resection. Associated Symptoms: Denies chills, coffee ground emesis, dysuria, fever(s), hematochezia, hematemesis, melena, nausea and vomiting Related Data Home Medications ?Medication ?Instructions ?Recorded ?Confirmed aspirin 81 mg tablet,delayed 81 mg PO DAILY 03/25/20 08/03/25 release atorvastatin 40 mg tablet 40 mg PO QPM 03/25/20 08/03/25 metformin 1,000 mg tablet 1,000 mg PO BID 03/25/20 08/03/25 fluticasone propionate 50 1 spray intranasal DAILY PRN 03/27/20 08/03/25 mcg/actuation nasal allergies spray,suspension (Flonase Allergy Relief) allopurinol 300 mg tablet 300 mg PO DAILY 11/26/21 08/03/25 calcium 500 mg (as 1 tab PO DAILY 11/26/21 08/03/25 carbonate)-vitamin D3 5 mcg (200 unit) tablet (Calcium 500 + D) loratadine 10 mg tablet 10 mg PO DAILY 11/26/21 08/03/25 vitB2 1.7 mg-niacin 20 mg-B6 2 1 ml sublingual DAILY 11/26/21 08/03/25 mg-B12 1.2 mg/mL-dexpan sublingual liqd (B Complex) ferrous sulfate 325 mg (65 mg 325 mg PO DAILY 02/09/22 08/03/25 iron) tablet (FeroSul) gabapentin 300 mg capsule 300 mg PO TID PRN nerve pain 08/10/23 08/03/25 magnesium glycinate 400 mg PO .nighttime 01/11/24 08/03/25 lancets 31 gauge (Ultra Thin #100 ea 05/27/25 09/13/25 Lancets) multivitamin 1 tab PO QAM 04/18/25 08/03/25 lisinopril 10 1 tab PO DAILY 07/09/25 08/03/25 mg-hydrochlorothiazide 12.5 mg tablet Moringa oleifera 500 mg capsule 500 mg PO DAILY 08/03/25 08/03/25 Previous Rx's ?Medication ?Instructions ?Recorded hydrocortisone 2.5 % topical cream 1 applic topical BID PRN rash #20 02/19/25 grams glipizide 5 mg tablet 2.5 mg (1/2 x 5 mg) PO BID #30 tabs 05/02/25 Allergies Allergy/AdvReac Type Severity Reaction Status Date / Time grass pollen Allergy ALGY-Watery Verified 07/23/25 08:08 Eye pollen extracts Allergy ALGY-Watery Verified 07/23/25 08:08 Eye tree and shrub pollen Allergy ALGY-Watery Verified 07/23/25 08:08 Eye Review of Systems Const: Denies: fever(s) or chills Card: Denies: chest pain Resp: Denies: dyspnea GI: Reports: abdominal pain; Denies: nausea, vomiting, hematemesis, coffee ground emesis, hematochezia or melena : Denies: dysuria, urinary frequency or urinary urgency Musc: Denies: neck pain or back pain Skin/Breast: Denies: rash PFSH ED PFSH: Medical History Colon cancer Degenerative arthritis History of gout Hypercholesterolemia Hypertension Diabetes mellitus Surgical History Status post open reduction with internal fixation (ORIF) of fracture of ankle History of partial colectomy (12/2021) robotic low anterior resection with laparoscopic resection of epiploic nodule. Port-A-Cath in place (02/11/22) H/O cervical spine surgery cervical laminectomy/discectomy History of left inguinal hernia repair History of colonoscopy History of Achilles tendon repair Family History Daughter No problems noted. Brother Dementia Mother Hyperlipidemia Father Cancer Lung cancer Other Diabetes Hypertension Denies family history of CAD (coronary artery disease) Clotting disorder Psychiatric illness Chronic kidney disease (CKD) Suicide Anesthesia complication Bleeding disorder Lung disease Stroke Social History Smoking and tobacco/nicotine status: former use of tobacco/nicotine Quit status (tobacco/nicotine): has quit using Year quit tobacco: 1982 Former quit date comment: 10 years total use Alcohol intake: never Additional social history: She wants full code as discussed 04/17/2025 by Alexy Mi MD. Her next of kin is Sandi Carroll who is decision-maker and POA. Her house is in [place] far away so she is staying with her son who lives 14 miles away in [place] patient drives herself to chemo Confirmed again on 04/30/2025 she would like full code. 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 [employer] Household members: children Marital status: / Current occupational status: disabled Previous occupational history: She worked in a [employer] disabled after neck surgery and back pain Physical Exam Const: GENERAL APPEARANCE: cooperative ORIENTATION/CONSCIOUSNESS: Yes awake, Yes oriented to person, Yes oriented to place and Yes oriented to time HENMT: COMMON NORMALS: normocephalic, atraumatic and hearing grossly normal bilaterally HEAD & SCALP: normocephalic and atraumatic Resp: COMMON NORMALS: normal respiratory effort, No retractions, No use of accessory muscles and clear to auscultation bilaterally AUSCULTATION: clear to auscultation bilaterally Cardio: COMMON NORMALS: regular rate, regular rhythm and No murmurs present (Cardio) RATE: regular rate RHYTHM: regular rhythm GI: COMMON NORMALS: Soft to palpation and No hepatosplenomegaly present AUSCULTATION: Yes normoactive bowel sounds PALPATION: Yes Soft to palpation, No Tenderness to palpation present (GI), No Guarding due to palpation present (GI) and Yes No hepatosplenomegaly present Extremity: COMMON NORMALS: normal to inspection, capillary refill normal, no clubbing, cyanosis or edema, no calf tenderness and no pedal edema Neuro: SENSORIUM/ORIENTATION: Yes oriented to person, Yes oriented to place and Yes oriented to time Skin: COMMON NORMALS: no rashes or lesions noted GENERAL SKIN EXAM: no rashes or lesions noted Course Vital Signs: Vital signs: Vital Signs Temperature 98.7 F 08/03/25 05:59 Pulse Rate 83 08/03/25 11:31 Respiratory Rate 16 08/03/25 11:31 Blood Pressure 137/74 08/03/25 11:31 Pulse Oximetry 95 08/03/25 11:31 Oxygen Delivery Me thod Room Air 08/03/25 10:32 MDM - Abdominal Pain Medical Decision Making CT shows constipation and some bladder distention significant amount of retained stool no obstruction. Abdominal exam benign nonacute abdomen. Patient had significant relief after placement of Campos. Will leave Campos in place with a leg bag she should follow-up with her primary care doctor within the next 2 to 3 days. Discharge home with lactulose to relieve constipation. Changes symptoms or worsening symptoms return. Lab Data 08/03/25 06:00 08/03/25 06:00 Labs/Radiology: Radiology Impressions Abdomen/Pelvis CT 08/03/25 07:04 IMPRESSION: 1. Bladder appears distended. 2. Diffuse colonic stool material. Clinical correlation to exclude constipation is advised. 3. No significant change in bibasilar pulmonary nodules. 4. No significant change of enlarged retroperitoneal lymph nodes. 5. Mild calcified atherosclerotic changes are seen throughout the abdominal aorta. 6. Multiple gallstones without evidence of cholecystistis. 7. Mild lumbar spine degenerative changes. Laboratory Results WBC 5.42 10^3/uL (3.29-11.43) 08/03/25 06:00 RBC 3.17 10^6/uL (3.85-5.65) L 08/03/25 06:00 Hgb 9.70 g/dL (11.27-16.99) L 08/03/25 06:00 Hct 30.9 % (36-47) L 08/03/25 06:00 MCV 97.5 fl (85-98) 08/03/25 06:00 MCH 30.6 pg (27-33) 08/03/25 06:00 MCHC 31.4 g/dL (30-55) 08/03/25 06:00 RDW 19.9 % (12.1-15.1) H 08/03/25 06:00 Plt Count 150 10^3/cmm (157-399) L 08/03/25 06:00 MPV 10.5 fL (7.4-10.4) H 08/03/25 06:00 Neut % (Auto) 39.4 % 08/03/25 06:00 Lymph % (Auto) 43.7 % 08/03/25 06:00 Meagher % (Auto) 13.7 % 08/03/25 06:00 Eos % (Auto) 2.2 % 08/03/25 06:00 Baso % (Auto) 0.6 % 08/03/25 06:00 Neut # (Auto) 2.14 10^3/uL (1.8-7.7) 08/03/25 06:00 Lymph # (Auto) 2.4 10^3/uL (0.8-4.8) 08/03/25 06:00 Meagher # (Auto) 0.7 10^3/uL (0.2-0.9) 08/03/25 06:00 Eos # (Auto) 0.1 10^3/uL (0.0-0.8) 08/03/25 06:00 Baso # (Auto) 0.0 10^3/uL (0.0-0.1) 08/03/25 06:00 Nucleated RBC % (auto) 0 % 08/03/25 06:00 Nucleated RBCs # 0.0 /100WBC 08/03/25 06:00 Sodium 139 mmol/L (136-145) 08/03/25 06:00 Potassium 4.5 mmol/L (3.5-5.1) 08/03/25 06:00 Chloride 103 mmol/L (98-107) 08/03/25 06:00 Carbon Dioxide 23 mmol/L (22-29) 08/03/25 06:00 Anion Gap 17.5 (5-19) 08/03/25 06:00 BUN 17 mg/dL (8-23) 08/03/25 06:00 Creatinine 0.7 mg/dL (0.5-0.9) 08/03/25 06:00 GFR Calculation 83.2 mL/min (90-130) L 08/03/25 06:00 Glucose 141 mg/dL (65-115) H 08/03/25 06:00 Calculated Osmolality 292 mOsm/kg (285-295) 08/03/25 06:00 Calcium 9.4 mg/dL (8.5-10.5) 08/03/25 06:00 Total Bilirubin 0.2 mg/dL (0.15-1.2) 08/03/25 06:00 AST 33 U/L (0-32) H 08/03/25 06:00 ALT 22 U/L (0-33) 08/03/25 06:00 Alkaline Phosphatase 96 U/L (35-105) 08/03/25 06:00 C-Reactive Protein 3.0 mg/L (0.0-4.9) 08/03/25 06:00 Total Protein 6.8 g/dL (6.6-8.7) 08/03/25 06:00 Albumin 3.8 g/dL (3.5-5.2) 08/03/25 06:00 Globulin 3.0 g/dL (1.3-4.6) 08/03/25 06:00 Lipase 104 U/L (13-60) H 08/03/25 06:00 Urine Color Yellow (Yellow) 08/03/25 06:19 Urine Appearance Clear (CLEAR) 08/03/25 06:19 Urine pH 6.0 (5-7) 08/03/25 06:19 Ur Specific Mcdonald 1.011 (1.005-1.030) 08/03/25 06:19 Urine Protein Negative (Negative) 08/03/25 06:19 Urine Glucose (UA) Negative (Normal) 08/03/25 06:19 Urine Ketones Negative (Negative) 08/03/25 06:19 Urine Blood Negative (Negative) 08/03/25 06:19 Urine Nitrate Negative (Negative) 08/03/25 06:19 Urine Bilirubin Negative (Negative) 08/03/25 06:19 Urine Urobilinogen 0.2 mg/dL (Negative) 08/03/25 06:19 Ur Leukocyte Esterase Negative (Negative) 08/03/25 06:19 Urine RBC 0-2 /hpf (0-2) 08/03/25 06:19 Urine WBC 0-5 /hpf (0-5) 08/03/25 06:19 Ur Squamous Epith Cells 0-5 /hpf (0-5) 08/03/25 06:19 Amorphous Sediment Not Reportable 08/03/25 06:19 Urine Bacteria None seen /hpf (NONE) 08/03/25 06:19 Hyaline Casts 0-4 /lpf H 08/03/25 06:19 All radiology interpretation(s) finalized by discharge Discharge Plan Discharge Patient Disposition: Home Clinical Impression: Constipation, Malignant neoplasm of sigmoid colon, Urinary retention Condition: Stable Prescriptions: No Action metformin 1,000 mg tablet 1,000 mg PO BID aspirin 81 mg tablet,delayed release (DR/EC) 81 mg PO DAILY atorvastatin 40 mg tablet 40 mg PO QPM ferrous sulfate [FeroSul] 325 mg (65 mg iron) tablet 325 mg PO DAILY gabapentin 300 mg capsule 300 mg PO TID PRN (Reason: nerve pain) (DME) Ultra Thin Lancets 31 gauge misc See Rx Instructions .ROUTE .MEDSUPPLY Qty: 100 Rx Instructions: As directed magnesium glycinate 100 mg magnesium capsule 400 mg PO .nighttime lisinopril-hydrochlorothiazide 10-12.5 mg tablet 1 tab PO DAILY hydrocortisone 2.5 % cream 1 applic topical BID PRN (Reason: rash) Qty: 20 0RF Rx Instructions: Apply thin layer to affected area BID for 5 days then stop for 5 days. May repeat cycle if necessary. allopurinol 300 mg tablet 300 mg PO DAILY loratadine 10 mg Tablet 10 mg PO DAILY calcium carbonate-vitamin D3 [Calcium 500 + D] 500 mg(1,250mg) -200 unit Tablet 1 tab PO DAILY B Complex 1.7-20-2-1.2 mg/mL Liquid 1 ml SUBLINGUAL DAILY fluticasone propionate [Flonase Allergy Relief] 50 mcg/actuation Lincoln,Suspension 1 spray intranasal DAILY PRN (Reason: allergies) Rx Instructions: One spray each nostril Moringa oleifera 500 mg Capsule 500 mg PO DAILY multivitamin Tablet 1 tab PO QAM glipizide 5 mg tablet 2.5 mg PO BID Qty: 30 0RF Discharge Orders: Discharge ED (Routine); Ordered 08/03/25 Ordered By: Ulisses Ramirez Referrals: Tiffanie Fonseca NP [Primary Care Provider, Nurse Practitioner] Discharge Diet: Usual diet Discharge Activity: Resume usual activity Patient Instructions: Constipation (ED), Acute Urinary Retention in Women (ED), Opioid Safety, Pain Management, Patient Portal & Alonso Instructions Activity Restrictions/Additional Instructions: Thank you for choosing [facility] for your healthcare needs today. It is very important that you follow up as instructed or that you return to the Emergency Department should you have concerns or if your condition changes or worsens in any way. Emergency department visits are focused on emergent conditions, in some cases you may require further evaluation on an outpatient basis. You were seen in the emergency room with complaints of abdominal pain laboratory test does not show any particular abnormalities. CT shows constipation and urinary retention. Believe urinary retention as a result of the constipation. Catheter was placed to drain your bladder. You are given lactulose for relief of constipation and should follow-up with your primary care doctor next week and they can remove the Campos for you. (Please note that included in your discharge packet is information concerning opioid safety and pain management. This information is given to all patients were discharged from the ER regardless of their discharge diagnosis or the medicines they usually take or are prescribed.) Print Language: Croatian Coding Level of Care Code ED Erecting Engineer for Pita Salgado
[2025-08-03 07:16] VITALS: BP 131/71; PULSE 74; O2SAT 94
[2025-08-03 08:50] VITALS: BP 121/60; PULSE 77; O2SAT 96
[2025-08-03 09:00] VITALS: BP 111/68; PULSE 74; RESP 16; O2SAT 98
[2025-08-03 10:32] VITALS: BP 123/73; PULSE 81; RESP 16; O2SAT 97
[2025-08-03 11:31] VITALS: BP 137/74; PULSE 83; RESP 16; O2SAT 95
== END 2025-08-03 11:28 | disposition home or self-care (01) ==
PROVIDERS: Emergency Medicine; Emergency Provider Family Medicine; PCP Nurse Practitioner Family
DX: K59.00 Constipation, unspecified (principal); C18.7 Malignant neoplasm of sigmoid colon; R33.9 Retention of urine, unspecified; Z79.84 Long term (current) use of oral hypoglycemic drugs; Z79.82 Long term (current) use of aspirin; Z87.891 Personal history of nicotine dependence; E11.9 Type 2 diabetes mellitus without complications; I10 Essential (primary) hypertension
CPT/HCPCS: 51702; 51798; 74176; 80053; 81001; 83690; 85025; 86140; 99284

== ENCOUNTER 2025-08-20 07:45 | Oncology outpatient (recurring) (ONCR) | payer OTHER, MEDICAID, SELFPAY ==
[2025-07-23 08:09] LABS: Hematocrit 30.3 % (36-47); Hemoglobin 9.50 g/dL (11.27-16.99); Mean Corpuscular HGB Conc 31.4 g/dL (30-55); Mean Corpuscular Hemoglobin 30.4 pg (27-33); Mean Corpuscular Volume 97.1 fl (85-98); Nucleated Red Blood Cells % 0 %; Platelet Count 131 10^3/cmm (157-399); Red Blood Count 3.12 10^6/uL (3.85-5.65); White Blood Count 4.74 10^3/uL (3.29-11.43)
[2025-07-23 08:34] LABS: Alanine Aminotransferase 19 U/L (0-33); Albumin Level 3.6 g/dL (3.5-5.2); Alkaline Phosphatase 92 U/L (35-105); Anion Gap 12.3 (5-19); Aspartate Amino Transferase 24 U/L (0-32); Blood Urea Nitrogen 11 mg/dL (8-23); Calcium 8.7 mg/dL (8.5-10.5); Carbon Dioxide 27 mmol/L (22-29); Chloride 104 mmol/L (98-107); Creatinine Clr Calc Pharmacy 66.5061; Globulin 2.8 g/dL (1.3-4.6); Glucose 187 mg/dL (65-115); Osmolality Calculated 292 mOsm/kg (285-295); Potassium 4.3 mmol/L (3.5-5.1); Sodium 139 mmol/L (136-145); Total Protein 6.4 g/dL (6.6-8.7)
[2025-07-23] MEDS: dexamethasone 4 mg/mL INJ 5 mL 12 MG IVP (09:12)
[2025-07-23] MEDS: OXALIPLATIN IV (09:52)
[2025-07-23] MEDS: DEXTROSE 5% IV (09:52)
[2025-07-23] MEDS: leucovorin 730 MG in dextrose 5% 250 ML 62.5 MG IV (09:53)
[2025-07-23] MEDS: fluorouraciL 50 mg/ml MDV 100 mL 750 MG IVP (12:08)
[2025-07-23] MEDS: fluorouraciL 4,350 MG, elastomeric pump 1 PUMP in sodium chloride 0.9% (100 ml) 5 ML IV (12:20)
[2025-07-23 12:30] VITALS: BP 136/80; PULSE 78; RESP 17; TEMP 35.9; O2SAT 97
[2025-08-06 08:02] LABS: Hematocrit 32.2 % (36-47); Hemoglobin 10.10 g/dL (11.27-16.99); Mean Corpuscular HGB Conc 31.4 g/dL (30-55); Mean Corpuscular Hemoglobin 30.7 pg (27-33); Mean Corpuscular Volume 97.9 fl (85-98); Nucleated Red Blood Cells % 0 %; Platelet Count 138 10^3/cmm (157-399); Red Blood Count 3.29 10^6/uL (3.85-5.65); White Blood Count 5.29 10^3/uL (3.29-11.43)
[2025-08-06 08:10] LABS: Alanine Aminotransferase 22 U/L (0-33); Albumin Level 4.0 g/dL (3.5-5.2); Alkaline Phosphatase 95 U/L (35-105); Anion Gap 15.8 (5-19); Aspartate Amino Transferase 28 U/L (0-32); Blood Urea Nitrogen 5 mg/dL (8-23); Calcium 9.3 mg/dL (8.5-10.5); Carbon Dioxide 23 mmol/L (22-29); Chloride 106 mmol/L (98-107); Creatinine Clr Calc Pharmacy 65.3493; Globulin 3.2 g/dL (1.3-4.6); Glucose 196 mg/dL (65-115); Osmolality Calculated 295 mOsm/kg (285-295); Potassium 3.8 mmol/L (3.5-5.1); Sodium 141 mmol/L (136-145); Total Protein 7.2 g/dL (6.6-8.7)
[2025-08-06] MEDS: dexamethasone 4 mg/mL INJ 5 mL 12 MG IVP (08:51)
[2025-08-06 09:26] LABS: Carcinoembryonic Antigen 164.7 ng/mL (0.0-4.7)
[2025-08-06] MEDS: leucovorin 720 MG in dextrose 5% 250 ML 62.5 MG IV (09:35)
[2025-08-06] MEDS: OXALIPLATIN IV (09:36)
[2025-08-06] MEDS: DEXTROSE 5% IV (09:36)
[2025-08-06] MEDS: fluorouraciL 50 mg/ml MDV 100 mL 700 MG IVP (12:22)
[2025-08-06] MEDS: fluorouraciL 4,300 MG, elastomeric pump 1 PUMP in sodium chloride 0.9% (100 ml) 6 ML IV (12:30)
[2025-08-06 12:40] VITALS: BP 124/78; PULSE 76; RESP 17; TEMP 35.9; O2SAT 97
[2025-08-08 12:30] VITALS: BP 114/69; PULSE 78; RESP 16; TEMP 36.5; O2SAT 97
[2025-08-20 08:06] LABS: Hematocrit 30.8 % (36-47); Hemoglobin 9.70 g/dL (11.27-16.99); Mean Corpuscular HGB Conc 31.5 g/dL (30-55); Mean Corpuscular Hemoglobin 30.6 pg (27-33); Mean Corpuscular Volume 97.2 fl (85-98); Nucleated Red Blood Cells % 0 %; Platelet Count 126 10^3/cmm (157-399); Red Blood Count 3.17 10^6/uL (3.85-5.65); White Blood Count 4.50 10^3/uL (3.29-11.43)
[2025-08-20 08:07] LABS: Alanine Aminotransferase 14 U/L (0-33); Albumin Level 3.8 g/dL (3.5-5.2); Alkaline Phosphatase 90 U/L (35-105); Anion Gap 16.3 (5-19); Aspartate Amino Transferase 22 U/L (0-32); Blood Urea Nitrogen 10 mg/dL (8-23); Calcium 9.1 mg/dL (8.5-10.5); Carbon Dioxide 26 mmol/L (22-29); Chloride 102 mmol/L (98-107); Creatinine Clr Calc Pharmacy 65.8674; Globulin 2.9 g/dL (1.3-4.6); Glucose 188 mg/dL (65-115); Osmolality Calculated 294 mOsm/kg (285-295); Potassium 4.3 mmol/L (3.5-5.1); Sodium 140 mmol/L (136-145); Total Protein 6.7 g/dL (6.6-8.7)
[2025-08-20] MEDS: dexamethasone 4 mg/mL INJ 5 mL 12 MG IVP (08:56)
[2025-08-20] MEDS: DEXTROSE 5% IV (09:43)
[2025-08-20] MEDS: OXALIPLATIN IV (09:43)
[2025-08-20] MEDS: leucovorin 720 MG in dextrose 5% 250 ML 62.5 MG IV (09:52)
[2025-08-20] MEDS: fluorouraciL 50 mg/ml MDV 100 mL 700 MG IVP (12:23)
[2025-08-20] MEDS: fluorouraciL 4,350 MG, elastomeric pump 1 PUMP in sodium chloride 0.9% (100 ml) 5 ML IV (12:34)
[2025-08-20 12:39] VITALS: BP 138/79; PULSE 87; RESP 17; TEMP 36.3; O2SAT 97
== END 2025-08-20 23:59 | disposition home or self-care (01) ==
PROVIDERS: Internal Medicine Medical Oncology; Nurse Practitioner Family; PCP Nurse Practitioner Family; Visit Provider Nurse Practitioner
DX: Z51.11 Encounter for antineoplastic chemotherapy; C18.7 Malignant neoplasm of sigmoid colon; C78.6 Secondary malignant neoplasm of retroperitoneum and peritoneum; C78.00 Secondary malignant neoplasm of unspecified lung; R03.0 Elevated blood-pressure reading, without diagnosis of hypertension; D64.9 Anemia, unspecified; Z79.899 Other long term (current) drug therapy; Z79.52 Long term (current) use of systemic steroids; Z79.631 Long term (current) use of antimetabolite agent; Z87.891 Personal history of nicotine dependence; Z53.9 Procedure and treatment not carried out, unspecified reason
CPT/HCPCS: 80053; 82378; 85025; 96368; 96375; 96409; 96411; 96413; 96415; 96416; 96523; 99214; J0640; J1100; J2469; J7060; J9190; J9263; J9999

== ENCOUNTER 2025-09-19 12:00 | Oncology outpatient (recurring) (ONCR) | payer OTHER, MEDICAID, SELFPAY ==
--- NOTE | 2025-08-30 08:00 | PETR_ITS ---
PROCEDURE INFORMATION: Exam: PET/CT Skull Base to Mid-thigh Exam date and time: 08/30/2025 8:57 AM Age: 69 years old Clinical indication: Condition or disease; Primary cancer: Malignant neoplasm of sigmoid colon; Prior surgery; Surgery date: 6+ months; Surgery type: Port, colon, hernia, neck LABS AND CLINICAL REPORTS: Glucose: 131 mg/dl Treatment strategy for malignancy (PET staging): Restaging (PS) TECHNIQUE: Imaging protocol: Following at least four-hour fasting and following the injection of radiopharmaceutical, low dose CT images were obtained. Then, PET images were obtained. Attenuation corrected images were constructed using the CT scan. Fused images of PET and CT were reviewed. The standardized uptake values (SUV) reported below are maximum values within a region of interest, expressed in gm/ml. Exam includes orbital meatal line to mid-thigh. SUV normalization method: BodyWeight Radiopharmaceutical: 11.2 mCi F-18 FDG (Fluorodeoxyglucose), IV. Time of imaging post radiopharmaceutical administration: 46 minutes Injection site: left ac COMPARISON: PT PET skull to thigh SUBS [id number] 05/17/2025 8:49 AM FINDINGS: Tubes, catheters and devices: Right chest port terminates at the superior cavoatrial junction. Brain: Visualized brain has normal physiologic uptake. Pharynx: No abnormal uptake. Larynx: No abnormal uptake. Thyroid: Stable FDG avid calcified right thyroid nodule shows SUV max 12.8, previously 12.5. Lungs, pleura and trachea: Stable size 1.4 cm left lower lobe nodule on axial image 110 shows SUV max 8.1, previously 5.9. Multiple additional smaller non FDG avid nodules throughout both lungs are stable. Heart: Normal physiologic uptake. Coronary arteries: Mild coronary artery calcification. Mediastinal space: No abnormal uptake. Liver: No abnormal uptake. Calcified granulomata. Gallbladder and biliary ducts: No abnormal uptake. Cholelithiasis. Pancreas: No abnormal uptake. Spleen: No abnormal uptake. Calcified granulomata. Adrenal glands: No abnormal uptake. Kidneys and ureters: Normal physiologic uptake. Stomach and bowel: No abnormal uptake. Stable rectosigmoid anastomosis. Vasculature: No abnormal uptake. Mild systemic atherosclerotic calcification without aortic aneurysm. Lymph nodes: Left supraclavicular node measures 9 mm in the short axis on axial image 60 and shows SUV max 2.7, previously 10 mm with SUV max 4.4. Mildly decreased retroperitoneal lymphadenopathy with index left para-aortic node measuring 1.1 cm in the short axis on axial image 166 with SUV max 3.9 (previously 1.3 cm with SUV max 5.0) and lower aortocaval node measuring 1.5 cm in the short axis on axial image 179 with SUV max 3.1 (previously 1.6 cm with SUV max 5.1). Calcified mediastinal and right hilar nodes in keeping with sequela of old granulomatous disease. Skeleton: Degenerative change along the spine, shoulders and sacroiliac joints. Focal low-level FDG uptake at the posteroinferior left L5-S1 facet joint likely represents inflamed degenerative facet joint synovial cyst. C5-C6 ACDF. Soft tissues: No abnormal uptake in the visualized head, neck, chest, abdomen, pelvis, and extremities. METRICS: Mediastinal blood pool: SUV mean 2.5 Liver uptake: SUV mean 2.9 PET/PET skull to thigh SUBS [id number] IMPRESSION: 1. Decreased left supraclavicular and bilateral retroperitoneal lymphadenopathy. 2. Increased metabolic activity at stable size left lower lobe pulmonary nodule. Multiple additional smaller non FDG avid nodules throughout both lungs are stable. 3. Additional chronic and incidental findings as above, to include stable FDG avid calcified right thyroid nodule.
[2025-09-03 07:51] LABS: Hematocrit 30.8 % (36-47); Hemoglobin 9.80 g/dL (11.27-16.99); Mean Corpuscular HGB Conc 31.8 g/dL (30-55); Mean Corpuscular Hemoglobin 31.2 pg (27-33); Mean Corpuscular Volume 98.1 fl (85-98); Nucleated Red Blood Cells % 0 %; Platelet Count 122 10^3/cmm (157-399); Red Blood Count 3.14 10^6/uL (3.85-5.65); White Blood Count 5.28 10^3/uL (3.29-11.43)
[2025-09-03 08:14] LABS: Alanine Aminotransferase 19 U/L (0-33); Albumin Level 4.0 g/dL (3.5-5.2); Alkaline Phosphatase 95 U/L (35-105); Anion Gap 16.3 (5-19); Aspartate Amino Transferase 25 U/L (0-32); Blood Urea Nitrogen 13 mg/dL (8-23); Calcium 9.2 mg/dL (8.5-10.5); Carbon Dioxide 26 mmol/L (22-29); Chloride 102 mmol/L (98-107); Creatinine Clr Calc Pharmacy 66.0603; Globulin 2.7 g/dL (1.3-4.6); Glucose 141 mg/dL (65-115); Osmolality Calculated 292 mOsm/kg (285-295); Potassium 4.3 mmol/L (3.5-5.1); Sodium 140 mmol/L (136-145); Total Protein 6.7 g/dL (6.6-8.7)
[2025-09-03] MEDS: dexamethasone 4 mg/mL INJ 5 mL 12 MG IVP (09:02)
[2025-09-03] MEDS: leucovorin 720 MG in dextrose 5% 250 ML 80.5 MG IV (09:56)
[2025-09-03] MEDS: DEXTROSE 5% IV (09:59)
[2025-09-03] MEDS: OXALIPLATIN IV (09:59)
[2025-09-03] MEDS: fluorouraciL 50 mg/ml MDV 100 mL 700 MG IVP (12:24)
[2025-09-03] MEDS: fluorouraciL 4,350 MG, elastomeric pump 1 PUMP in sodium chloride 0.9% (100 ml) 5 ML IV (12:37)
[2025-09-03 12:48] VITALS: BP 138/84; PULSE 72; RESP 17; TEMP 35.8; O2SAT 96
[2025-09-17 07:40] LABS: Hematocrit 29.1 % (36-47); Hemoglobin 9.30 g/dL (11.27-16.99); Mean Corpuscular HGB Conc 32.0 g/dL (30-55); Mean Corpuscular Hemoglobin 31.5 pg (27-33); Mean Corpuscular Volume 98.6 fl (85-98); Nucleated Red Blood Cells % 0 %; Platelet Count 112 10^3/cmm (157-399); Red Blood Count 2.95 10^6/uL (3.85-5.65); White Blood Count 4.87 10^3/uL (3.29-11.43)
[2025-09-17 08:06] LABS: Carcinoembryonic Antigen 203.1 ng/mL (0.0-4.7)
[2025-09-17 08:17] LABS: Alanine Aminotransferase 18 U/L (0-33); Albumin Level 3.9 g/dL (3.5-5.2); Alkaline Phosphatase 103 U/L (35-105); Anion Gap 17.3 (5-19); Aspartate Amino Transferase 25 U/L (0-32); Blood Urea Nitrogen 13 mg/dL (8-23); Calcium 9.0 mg/dL (8.5-10.5); Carbon Dioxide 25 mmol/L (22-29); Chloride 101 mmol/L (98-107); Creatinine Clr Calc Pharmacy 66.0603; Globulin 2.6 g/dL (1.3-4.6); Glucose 141 mg/dL (65-115); Osmolality Calculated 290 mOsm/kg (285-295); Potassium 4.3 mmol/L (3.5-5.1); Sodium 139 mmol/L (136-145); Total Protein 6.5 g/dL (6.6-8.7)
[2025-09-17] MEDS: dexamethasone 4 mg/mL INJ 5 mL 12 MG IVP (08:55)
[2025-09-17] MEDS: leucovorin 720 MG in dextrose 5% 250 ML 80.5 MG IV (09:34)
[2025-09-17] MEDS: DEXTROSE 5% IV (09:35)
[2025-09-17] MEDS: OXALIPLATIN IV (09:35)
[2025-09-17] MEDS: fluorouraciL 4,350 MG, elastomeric pump 1 PUMP in sodium chloride 0.9% (100 ml) 5 ML IV (12:19)
[2025-09-17] MEDS: fluorouraciL 50 mg/ml MDV 100 mL 700 MG IVP (12:19)
== END 2025-09-20 23:59 | disposition home or self-care (01) ==
PROVIDERS: Internal Medicine Medical Oncology; PCP Nurse Practitioner Family; Visit Provider Nurse Practitioner Family
DX: Z45.1 Encounter for adjustment and management of infusion pump; Z95.828 Presence of other vascular implants and grafts; Z53.9 Procedure and treatment not carried out, unspecified reason
CPT/HCPCS: 78815; 80053; 82378; 85025; 96365; 96366; 96368; 96375; 96411; 96413; 96415; 96416; 96523; 99214; A9552; J0640; J1100; J2469; J7060; J9190; J9263; J9999

== ENCOUNTER 2025-10-16 12:30 | Oncology outpatient (recurring) (ONCR) | payer MEDICARE, MEDICAID, SELFPAY ==
[2025-10-01 07:55] LABS: Hematocrit 31.0 % (36-47); Hemoglobin 9.70 g/dL (11.27-16.99); Mean Corpuscular HGB Conc 31.3 g/dL (30-55); Mean Corpuscular Hemoglobin 31.8 pg (27-33); Mean Corpuscular Volume 101.6 fl (85-98); Nucleated Red Blood Cells % 0 %; Platelet Count 133 10^3/cmm (157-399); Red Blood Count 3.05 10^6/uL (3.85-5.65); White Blood Count 4.61 10^3/uL (3.29-11.43)
[2025-10-01 08:12] LABS: Alanine Aminotransferase 21 U/L (0-33); Albumin Level 3.9 g/dL (3.5-5.2); Alkaline Phosphatase 105 U/L (35-105); Anion Gap 15.0 (5-19); Aspartate Amino Transferase 30 U/L (0-32); Blood Urea Nitrogen 12 mg/dL (8-23); Calcium 9.0 mg/dL (8.5-10.5); Carbon Dioxide 27 mmol/L (22-29); Chloride 100 mmol/L (98-107); Ferritin 344 ng/mL (15-150); Globulin 2.9 g/dL (1.3-4.6); Glucose 149 mg/dL (65-115); Iron 68 ug/dL (37-145); Osmolality Calculated 289 mOsm/kg (285-295); Potassium 4.0 mmol/L (3.5-5.1); Sodium 138 mmol/L (136-145); Total Iron Binding Capacity 324 mcg/dl; Total Protein 6.8 g/dL (6.6-8.7); Unsaturated Iron Binding 256 ug/dL (112-347)
[2025-10-01 08:26] LABS: Vitamin B12 966 pg/mL (232-1245)
[2025-10-01 08:38] LABS: Carcinoembryonic Antigen 212.6 ng/mL (0.0-4.7)
[2025-10-01] MEDS: dexamethasone 4 mg/mL INJ 5 mL 12 MG IVP (10:03)
[2025-10-01] MEDS: leucovorin 720 MG in dextrose 5% 250 ML 80.5 MG IV (10:38)
[2025-10-01] MEDS: OXALIPLATIN IV (10:41)
[2025-10-01] MEDS: DEXTROSE 5% IV (10:41)
[2025-10-01] MEDS: fluorouraciL 50 mg/ml MDV 100 mL 700 MG IVP (13:05)
[2025-10-01] MEDS: fluorouraciL 4,350 MG, elastomeric pump 1 PUMP in sodium chloride 0.9% (100 ml) 5 ML IV (13:15)
[2025-10-01 13:23] VITALS: BP 146/80; PULSE 77; RESP 17; TEMP 36.7; O2SAT 98
[2025-10-14 07:46] LABS: Hematocrit 29.5 % (36-47); Hemoglobin 9.40 g/dL (11.27-16.99); Mean Corpuscular HGB Conc 31.9 g/dL (30-55); Mean Corpuscular Hemoglobin 32.8 pg (27-33); Mean Corpuscular Volume 102.8 fl (85-98); Nucleated Red Blood Cells % 0 %; Platelet Count 124 10^3/cmm (157-399); Red Blood Count 2.87 10^6/uL (3.85-5.65); White Blood Count 4.66 10^3/uL (3.29-11.43)
[2025-10-14 08:15] LABS: Carcinoembryonic Antigen 208.2 ng/mL (0.0-4.7)
[2025-10-14 08:25] LABS: Alanine Aminotransferase 20 U/L (0-33); Albumin Level 4.1 g/dL (3.5-5.2); Alkaline Phosphatase 99 U/L (35-105); Anion Gap 14.2 (5-19); Aspartate Amino Transferase 27 U/L (0-32); Blood Urea Nitrogen 16 mg/dL (8-23); Calcium 9.3 mg/dL (8.5-10.5); Carbon Dioxide 28 mmol/L (22-29); Chloride 100 mmol/L (98-107); Globulin 2.6 g/dL (1.3-4.6); Glucose 168 mg/dL (65-115); Osmolality Calculated 291 mOsm/kg (285-295); Potassium 4.2 mmol/L (3.5-5.1); Sodium 138 mmol/L (136-145); Total Protein 6.7 g/dL (6.6-8.7)
[2025-10-14] MEDS: dexamethasone 4 mg/mL INJ 5 mL 12 MG IVP (08:35)
[2025-10-14] MEDS: OXALIPLATIN IV (09:10)
[2025-10-14] MEDS: leucovorin 720 MG in dextrose 5% 250 ML 62.5 MG IV (09:10)
[2025-10-14] MEDS: DEXTROSE 5% IV (09:10)
[2025-10-14] MEDS: fluorouraciL 50 mg/ml MDV 100 mL 700 MG IVP (11:17)
[2025-10-14] MEDS: fluorouraciL 4,300 MG, elastomeric pump 1 PUMP in sodium chloride 0.9% (100 ml) 6 ML IV (11:17)
[2025-10-14 11:28] VITALS: BP 145/76; PULSE 78; RESP 17; TEMP 36.6; O2SAT 97
== END 2025-10-20 23:59 | disposition home or self-care (01) ==
PROVIDERS: Internal Medicine Medical Oncology; PCP Nurse Practitioner Family; Visit Provider Nurse Practitioner Family
DX: Z45.1 Encounter for adjustment and management of infusion pump; Z95.828 Presence of other vascular implants and grafts; Z53.9 Procedure and treatment not carried out, unspecified reason
CPT/HCPCS: 80053; 82378; 82607; 82728; 82746; 83540; 83550; 85025; 96368; 96375; 96411; 96413; 96415; 96416; 96417; 96523; 99214; J0640; J1100; J2469; J7060; J9190; J9263; J9999

== ENCOUNTER → 2025-11-05 16:14 | Outpatient (BNVA) | payer MEDICARE, MEDICAID, SELFPAY | PROVIDERS: PCP Nurse Practitioner Family; Visit Provider Nurse Practitioner Family | DX: D64.9 Anemia, unspecified (principal) | CPT/HCPCS: 82274 ==

== ENCOUNTER 2025-11-13 11:30 | Oncology outpatient (recurring) (ONCR) | payer MEDICARE, MEDICAID, SELFPAY ==
[2025-10-28 09:07] LABS: Hematocrit 28.4 % (36-47); Hemoglobin 9.00 g/dL (11.27-16.99); Mean Corpuscular HGB Conc 31.7 g/dL (30-55); Mean Corpuscular Hemoglobin 32.5 pg (27-33); Mean Corpuscular Volume 102.5 fl (85-98); Nucleated Red Blood Cells % 0 %; Platelet Count 117 10^3/cmm (157-399); Red Blood Count 2.77 10^6/uL (3.85-5.65); White Blood Count 4.98 10^3/uL (3.29-11.43)
[2025-10-28 09:48] LABS: Alanine Aminotransferase 13 U/L (0-33); Albumin Level 3.8 g/dL (3.5-5.2); Alkaline Phosphatase 114 U/L (35-105); Anion Gap 16.4 (5-19); Aspartate Amino Transferase 25 U/L (0-32); Blood Urea Nitrogen 13 mg/dL (8-23); Calcium 8.7 mg/dL (8.5-10.5); Carbon Dioxide 26 mmol/L (22-29); Chloride 102 mmol/L (98-107); Ferritin 323 ng/mL (15-150); Globulin 3.2 g/dL (1.3-4.6); Glucose 211 mg/dL (65-115); Iron 48 ug/dL (37-145); Osmolality Calculated 296 mOsm/kg (285-295); Potassium 4.4 mmol/L (3.5-5.1); Sodium 140 mmol/L (136-145); Thyroid Stimulating Hormone 8.19 uIU/mL (0.27-4.20); Total Iron Binding Capacity 297 mcg/dl; Total Protein 7.0 g/dL (6.6-8.7); Unsaturated Iron Binding 249 ug/dL (112-347); Vitamin B12 721 pg/mL (232-1245)
[2025-10-28 09:59] VITALS: BP 153/72; PULSE 90; RESP 17; TEMP 36.4; O2SAT 96
[2025-10-28 10:13] LABS: Carcinoembryonic Antigen 274.7 ng/mL (0.0-4.7)
[2025-10-28] MEDS: dexamethasone 4 mg/mL INJ 5 mL 12 MG IVP (10:33)
[2025-10-28 10:35] LABS: Free T4 Free Thyroxine 1.12 ng/dL (0.82-1.77)
[2025-10-28] MEDS: leucovorin 720 MG in dextrose 5% 250 ML 62.5 MG IV (11:03)
[2025-10-28] MEDS: DEXTROSE 5% IV (11:03)
[2025-10-28] MEDS: OXALIPLATIN IV (11:03)
[2025-10-28] MEDS: fluorouraciL 4,300 MG, elastomeric pump 1 PUMP in sodium chloride 0.9% (100 ml) 6 ML IV (13:23)
[2025-10-28] MEDS: fluorouraciL 50 mg/ml MDV 100 mL 700 MG IVP (13:23)
[2025-10-28 13:32] VITALS: BP 133/80; PULSE 85; RESP 16; TEMP 36.4; O2SAT 97
[2025-11-11 09:43] LABS: Hematocrit 30.5 % (36-47); Hemoglobin 9.60 g/dL (11.27-16.99); Mean Corpuscular HGB Conc 31.5 g/dL (30-55); Mean Corpuscular Hemoglobin 32.7 pg (27-33); Mean Corpuscular Volume 103.7 fl (85-98); Nucleated Red Blood Cells % 0.4 %; Platelet Count 126 10^3/cmm (157-399); Red Blood Count 2.94 10^6/uL (3.85-5.65); White Blood Count 5.08 10^3/uL (3.29-11.43)
[2025-11-11 10:09] LABS: Alanine Aminotransferase 18 U/L (0-33); Albumin Level 4.0 g/dL (3.5-5.2); Alkaline Phosphatase 115 U/L (35-105); Anion Gap 13.6 (5-19); Aspartate Amino Transferase 24 U/L (0-32); Blood Urea Nitrogen 9 mg/dL (8-23); Calcium 9.2 mg/dL (8.5-10.5); Carbon Dioxide 29 mmol/L (22-29); Chloride 103 mmol/L (98-107); Creatinine Clr Calc Pharmacy 64.5724; Globulin 2.5 g/dL (1.3-4.6); Glucose 152 mg/dL (65-115); Osmolality Calculated 294 mOsm/kg (285-295); Potassium 4.6 mmol/L (3.5-5.1); Sodium 141 mmol/L (136-145); Total Protein 6.5 g/dL (6.6-8.7)
[2025-11-11] MEDS: dexamethasone 4 mg/mL INJ 5 mL 12 MG IVP (11:11)
[2025-11-11] MEDS: leucovorin 720 MG in dextrose 5% 250 ML 62.5 MG IV (12:06)
[2025-11-11] MEDS: OXALIPLATIN IV (12:06)
[2025-11-11] MEDS: DEXTROSE 5% IV (12:06)
[2025-11-11] MEDS: fluorouraciL 4,300 MG, elastomeric pump 1 PUMP in sodium chloride 0.9% (100 ml) 6 ML IV (14:14)
[2025-11-11] MEDS: fluorouraciL 50 mg/ml MDV 100 mL 700 MG IVP (14:14)
[2025-11-11 14:23] VITALS: BP 138/76; PULSE 82; RESP 18; TEMP 36.6; O2SAT 96
== END 2025-11-20 23:59 | disposition home or self-care (01) ==
PROVIDERS: Nurse Practitioner Family; PCP Nurse Practitioner Family; Visit Provider Internal Medicine Medical Oncology
DX: Z45.1 Encounter for adjustment and management of infusion pump; Z95.828 Presence of other vascular implants and grafts; Z53.9 Procedure and treatment not carried out, unspecified reason
CPT/HCPCS: 80053; 82378; 82607; 82728; 82746; 83540; 83550; 84439; 84443; 84481; 85025; 96368; 96375; 96411; 96413; 96415; 96416; 96523; 99214; J0640; J1100; J2469; J7060; J9190; J9263; J9999